=== PATIENT | female | born 1945 | race Caucasian/White ===

== ENCOUNTER 2019-04-02 14:16 | Inpatient (IN) ==
--- NOTE | 2019-04-02 14:30 | Emergency Department Note ---
Disposition Clinical Impression: Pleural effusion, New onset atrial fibrillation Congestive heart failure Qualifiers: Heart failure type: unspecified Heart failure chronicity: acute on chronic Qualified Code(s): I50.9 - Heart failure, unspecified Disposition: Admitted As Inpatient Condition: Fair Time of Disposition: 14:46 General Adult HPI - General Chief complaint: ED Shortness of Breath/Dyspnea Stated complaint: OCTAVIANO,Falling,COPD,CHF,AMS Time Seen by Provider: 04/02/19 14:27 - History of Present Illness Pain Scale: 0 - Related Data Home Medications Medication Instructions Recorded Confirmed Lasix 04/02/19 Losartan 04/02/19 Proventil 4 mg PO BID 04/02/19 04/02/19 Singulair 10 mg PO HS 04/02/19 04/02/19 Arcadio-24 300 mg PO DAILY 04/02/19 04/02/19 TraZODone 100 mg pe PO HS 04/02/19 04/02/19 Vistaril 25 mg PO BID 04/02/19 04/02/19 Vitamin D 50,000 units PO Q1W 04/02/19 04/02/19 Zoloft 100 mg PO DAILY 04/02/19 04/02/19 Nebulizer QAM 04/03/19 Allergies Allergy/AdvReac Type Severity Reaction Status Date / Time sulfamethoxazole AdvReac Swelling Verified 04/02/19 19:17 [From Bactrim] of the Eye trimethoprim [From Bactrim] AdvReac Swelling Verified 04/02/19 19:17 of the Eye Course Vital Signs Temperature 97.7 F 04/02/19 14:20 Pulse Rate 150 04/02/19 14:20 Respiratory Rate 18 04/02/19 14:20 Blood Pressure 158/92 04/02/19 14:20 O2 Sat by Pulse Oximetry 92 04/02/19 14:20 Temperature 98.1 F 04/03/19 07:27 Pulse Rate 87 04/03/19 07:27 Respiratory Rate 16 04/03/19 07:27 Blood Pressure 118/76 04/03/19 07:27 O2 Sat by Pulse Oximetry 94 04/03/19 07:27 Oxygen Delivery Oxygen Delivery Nasal Cannula Medical Decision Making - Lab Data Result diagrams: 04/03/19 06:45 04/03/19 06:45 Lab Results 04/02/19 04/02/19 04/02/19 Range/Units 14:34 14:34 14:34 WBC 9.2 (4.3-11.1) K/mcL RBC 4.95 (3.82-4.97) M/mcL Hgb 11.5 (11.5-15.4) g/dL Hct 38.6 (35.3-44.9) % MCV 78.0 L (83.0-100.0) fL MCH 23.2 L (28.0-33.3) pg MCHC 29.8 L (31.6-35.5) g/dL RDW 20.5 H (11.5-14.5) % Plt Count 333 (140-400) K/mcL MPV 10.3 (9.4-12.4) fL Immature Gran % 0.4 (0-4) % Seg Neutrophils % 74.2 % Lymphocytes % 13.7 % Monocytes % 10.7 % Eosinophils % 0.7 % Basophils % 0.3 % Neutrophils # 6.8 (1.6-8.9) K/mcL Lymphocytes # 1.3 (0.6-4.6) K/mcL Monocytes # 1.0 (0.0-1.3) K/mcL Eosinophils # 0.1 (0.0-0.6) K/mcL Basophils # 0.0 (0.0-0.2) K/mcL PT 12.9 H (9.4-12.1) Seconds INR 1.1 Heparin Anti-Xa, Unfract (0.30-0.70) IU/mL Sodium 143 (136-145) mEq/L Potassium 3.2 L (3.5-5.1) mEq/L Chloride 102 (98-107) mEq/L Carbon Dioxide 30 H (23-29) mEq/L BUN 22 (8-23) mg/dL Creatinine 0.97 (0.60-1.20) mg/dL Est GFR ( Amer) > 60 (> 60) Est GFR (Non-Af Amer) 56 L (> 60) BUN/Creatinine Ratio 23 (6-26) Glucose 110 H (70-105) mg/dL Calculated Osmolality 300 (280-300) Calcium 8.8 (8.6-10.3) mg/dL Total Bilirubin 1.1 H (0.3-1.0) mg/dL Direct Bilirubin 0.4 H (0.0-0.2) mg/dL Indirect Bilirubin 0.7 (0.0-1.2) mg/dL AST 10 L (13-39) Units/L ALT 8 (7-52) Units/L Alkaline Phosphatase 79 (34-104) Units/L Lactate Dehydrogenase 165 (140-271) Units/L Troponin I 0.04 H* (< 0.04) ng/mL B-Natriuretic Peptide (Less than 100) pg/mL Serum Total Protein 6.1 L (6.4-8.9) g/dL Albumin 3.8 (3.5-5.7) g/dL Globulin 2.3 L (2.4-3.5) g/dL Albumin/Globulin Ratio 1.7 (1.1-2.2) Pleural Fluid Volume mL Pleural Appearance (Clear) Pleural pH (No Ref Range) pH Units Pleural RBC (0.000 - 0.002) M/mcL Pleural Tot Nuc Cell (0-1000) TNC/mcL Pleural Neutrophils % Pleural Band Neuts % Pleural Eosinophils % Pleural Basophils % Pleural Lymphocytes % % Pleural Monocytes % % Pleural Other Cells % % Pleural Total Protein g/dL Pleural LDH (No Ref Range) Units/L Pleural Glucose (No Ref Range) mg/dL Pleural Amylase (No Ref Range) Units/L 04/02/19 04/02/19 04/02/19 Range/Units 14:34 15:14 15:14 WBC (4.3-11.1) K/mcL RBC (3.82-4.97) M/mcL Hgb (11.5-15.4) g/dL Hct (35.3-44.9) % MCV (83.0-100.0) fL MCH (28.0-33.3) pg MCHC (31.6-35.5) g/dL RDW (11.5-14.5) % Plt Count (140-400) K/mcL MPV (9.4-12.4) fL Immature Gran % (0-4) % Seg Neutrophils % % Lymphocytes % % Monocytes % % Eosinophils % % Basophils % % Neutrophils # (1.6-8.9) K/mcL Lymphocytes # (0.6-4.6) K/mcL Monocytes # (0.0-1.3) K/mcL Eosinophils # (0.0-0.6) K/mcL Basophils # (0.0-0.2) K/mcL PT (9.4-12.1) Seconds INR Heparin Anti-Xa, Unfract (0.30-0.70) IU/mL Sodium (136-145) mEq/L Potassium (3.5-5.1) mEq/L Chloride (98-107) mEq/L Carbon Dioxide (23-29) mEq/L BUN (8-23) mg/dL Creatinine (0.60-1.20) mg/dL Est GFR ( Amer) (> 60) Est GFR (Non-Af Amer) (> 60) BUN/Creatinine Ratio (6-26) Glucose (70-105) mg/dL Calculated Osmolality (280-300) Calcium (8.6-10.3) mg/dL Total Bilirubin (0.3-1.0) mg/dL Direct Bilirubin (0.0-0.2) mg/dL Indirect Bilirubin (0.0-1.2) mg/dL AST (13-39) Units/L ALT (7-52) Units/L Alkaline Phosphatase (34-104) Units/L Lactate Dehydrogenase (140-271) Units/L Troponin I (< 0.04) ng/mL B-Natriuretic Peptide 2211 H (Less than 100) pg/mL Serum Total Protein (6.4-8.9) g/dL Albumin (3.5-5.7) g/dL Globulin (2.4-3.5) g/dL Albumin/Globulin Ratio (1.1-2.2) Pleural Fluid Volume 970.0 mL Pleural Appearance Clear (Clear) Pleural pH 8.00 (No Ref Range) pH Units Pleural RBC < 0.002 (0.000 - 0.002) M/mcL Pleural Tot Nuc Cell 142 (0-1000) TNC/mcL Pleural Neutrophils 33.0 % Pleural Band Neuts 0 % Pleural Eosinophils 0 % Pleural Basophils 0 % Pleural Lymphocytes % 32.0 % Pleural Monocytes % 3.0 % Pleural Other Cells % 32.0 % Pleural Total Protein < 3.0 g/dL Pleural LDH 71 (No Ref Range) Units/L Pleural Glucose 115 (No Ref Range) mg/dL Pleural Amylase 29 (No Ref Range) Units/L 04/02/19 04/02/19 Range/Units 16:37 16:37 WBC 12.4 H (4.3-11.1) K/mcL RBC 5.32 H (3.82-4.97) M/mcL Hgb 12.1 (11.5-15.4) g/dL Hct 41.4 (35.3-44.9) % MCV 77.8 L (83.0-100.0) fL MCH 22.7 L (28.0-33.3) pg MCHC 29.2 L (31.6-35.5) g/dL RDW 20.4 H (11.5-14.5) % Plt Count 353 (140-400) K/mcL MPV 10.4 (9.4-12.4) fL Immature Gran % (0-4) % Seg Neutrophils % % Lymphocytes % % Monocytes % % Eosinophils % % Basophils % % Neutrophils # (1.6-8.9) K/mcL Lymphocytes # (0.6-4.6) K/mcL Monocytes # (0.0-1.3) K/mcL Eosinophils # (0.0-0.6) K/mcL Basophils # (0.0-0.2) K/mcL PT 13.4 H (9.4-12.1) Seconds INR 1.2 Heparin Anti-Xa, Unfract 0.04 L (0.30-0.70) IU/mL Sodium (136-145) mEq/L Potassium (3.5-5.1) mEq/L Chloride (98-107) mEq/L Carbon Dioxide (23-29) mEq/L BUN (8-23) mg/dL Creatinine (0.60-1.20) mg/dL Est GFR ( Amer) (> 60) Est GFR (Non-Af Amer) (> 60) BUN/Creatinine Ratio (6-26) Glucose (70-105) mg/dL Calculated Osmolality (280-300) Calcium (8.6-10.3) mg/dL Total Bilirubin (0.3-1.0) mg/dL Direct Bilirubin (0.0-0.2) mg/dL Indirect Bilirubin (0.0-1.2) mg/dL AST (13-39) Units/L ALT (7-52) Units/L Alkaline Phosphatase (34-104) Units/L Lactate Dehydrogenase (140-271) Units/L Troponin I (< 0.04) ng/mL B-Natriuretic Peptide (Less than 100) pg/mL Serum Total Protein (6.4-8.9) g/dL Albumin (3.5-5.7) g/dL Globulin (2.4-3.5) g/dL Albumin/Globulin Ratio (1.1-2.2) Pleural Fluid Volume mL Pleural Appearance (Clear) Pleural pH (No Ref Range) pH Units Pleural RBC (0.000 - 0.002) M/mcL Pleural Tot Nuc Cell (0-1000) TNC/mcL Pleural Neutrophils % Pleural Band Neuts % Pleural Eosinophils % Pleural Basophils % Pleural Lymphocytes % % Pleural Monocytes % % Pleural Other Cells % % Pleural Total Protein g/dL Pleural LDH (No Ref Range) Units/L Pleural Glucose (No Ref Range) mg/dL Pleural Amylase (No Ref Range) Units/L Critical Care Time Critical Care Time: Yes Total Critical Care Time: 30 Attestation: The high probability of a clinically significant, sudden or life threatening deterioration of the [] system(s) required my full and direct attention, intervention and personal management. The aggregate critical care time was [] minutes. This time is in addition to time spent performing reported procedures but includes the following: [] Data Review and interpretation [] Patient assessment and monitoring of vital signs [] Documentation [] Medication orders and management Attestation Statement - Attestation Attestation: I reviewed the residents documentation and agree with the residents assessment and plan of care. I have personally had face to face time with the patient. (Brief History, Brief Exam, and MDM) I personally supervised and was present for the pacheco/critical portions of the following procedures completed by the resident: (add procedures performed here). [id number] time provided Patient arrives by private vehicle complaining of dyspnea. She denies chest pain. She appears in no acute cardiopulmonary distress at the time of my exam. She was tachycardic at triage. I attest to supervising the resident physician's interpretation of the ECG
--- NOTE | 2019-04-02 14:53 | Emergency Department Note ---
Disposition Clinical Impression: Pleural effusion, New onset atrial fibrillation Congestive heart failure Qualifiers: Heart failure type: unspecified Heart failure chronicity: acute on chronic Qualified Code(s): I50.9 - Heart failure, unspecified Disposition: Admitted As Inpatient Condition: Fair Referrals: Homero Rondon MD [Primary Care Provider] - Forms: ED Satisfaction Letter Time of Disposition: 16:28 SOB HPI - General Chief Complaint: ED Shortness of Breath/Dyspnea Stated Complaint: OCTAVIANO,Falling,COPD,CHF,AMS Time Seen by Provider: 04/02/19 14:27 Source: patient Mode of arrival: private vehicle Limitations: no limitations Nursing Notes Reviewed: Yes Vital Signs Reviewed: Yes - History of Present Illness 73-year-old female with a past medical history of CHF and COPD that states that she has felt short of breath for the last month. Her sister at bedside states she finally convinced her to come into the hospital to be evaluated today. Patient is denying fevers or chills, chest pain. She states that she has had increasing shortness of breath. She denies belly pain, nausea vomiting diarrhea constipation. Patient denies a history of atrial fibrillation. Patient denies any recent changes to her medication regimen. - Related Data Allergies Allergy/AdvReac Type Severity Reaction Status Date / Time No Known Allergies Allergy Verified 04/02/19 15:21 Review of Systems: In addition to that documented in the HPI above, the additional ROS was obtai sherrill: Constitutional: Denies fevers or chills Eyes: Denies vision changes ENMT: Denies sore throat CV: Denies chest pain Resp: Reports SOB GI: Denies vomiting or diarrhea : Denies painful urination MSK: Denies recent trauma Skin: Denies new rashes Neuro: Denies new numbness or tingling or weakness Past Medical History - Past Medical History Attestation: Yes The following information was validated with the patient. Medical history: Reports: arthritis, COPD, hypertension Psychiatric history: Reports: no psych history - Social History Smoking Status: Former smoker Smokeless Tobacco Status: No Alcohol use: Reports: none Drug use: Reports: none Physical Exam General: A&O x 3. Mildly distressed. Well developed, well nourished. Head: atraumatic, normocephalic. ENT: No conjunctival injection, no scleral icterus. PERRLA. EOMI. Oropharynx non- erythematous. mucous membranes moist. Neuro: No focal deficits, no speech deficit, no facial droop, mentating well. BUE/BLE Str 5/5. Pulm: Decreased breath sounds on the right, rales in left base and RUL. Cardio: RRR no m/r/g. Chest not tender to palpation. Abd: Soft, non-distended. Normoactive bowel sounds. Non-tender to palpation. No guarding. Non rigid. Extremities: Radial pulses 2+ romel, dorsalis pedis/posterior tibialis 2+ romel. romel 2+ LE pitting edema. Skin: warm, dry, intact. No rashes. Psych: Appropriate mood and affect. Answers questions appropriately. Cooperative with exam. - General Limitations: no limitations General appearance: alert Course Vital Signs Temperature 97.7 F 04/02/19 14:20 Pulse Rate 150 04/02/19 14:20 Respiratory Rate 18 04/02/19 14:20 Blood Pressure 158/92 04/02/19 14:20 O2 Sat by Pulse Oximetry 92 04/02/19 14:20 Temperature 97.7 F 04/02/19 14:26 Pulse Rate 110 04/02/19 15:57 Respiratory Rate 19 04/02/19 15:57 Blood Pressure 131/85 04/02/19 15:57 O2 Sat by Pulse Oximetry 93 04/02/19 15:57 Oxygen Delivery Oxygen Delivery Room Air Shortness of Breath/Dyspnea - [facility] Narrative Medical decision making narrative: 73-year-old female who presents with complaint of one month of shortness of breath. Chest x-ray, CBC, BMP, BNP, EKG were ordered. Chest x-ray demonstrated significant right-sided pleural effusion by my interpretation and confirmed by the radiology report. Interventional radiology drained the pleural effusion at bedside and took off approximately 1500 mL of fluid which were sent for cytology and other studies. EKG demonstrated atrial fibrillation and patient denied any history of atrial f ibrillation. She was given a bolus of Cardizem and started on a Cardizem drip to titrate her heart rate to below 100. Patient also had a increase in her troponin at 0.04 and she was started on standard dose heparin under the advisement of the hospitalist. Results of the workup including any imaging and/or labwork was shared with the patient at bedside. Patient was given an opportunity to ask questions at bedside and all of their concerns were addressed. Patient verbalized understanding and agreement with plan of care. Pt remained vitals improved while in the emergency department during treatment. - Medical Records Medical records reviewed: Yes I reviewed the patient's medical records. - Lab Data Lab results reviewed: Yes I reviewed the patient's lab results. Result diagrams: 04/02/19 14:34 04/02/19 14:34 Lab Results 04/02/19 04/02/19 04/02/19 Range/Units 14:34 14:34 14:34 WBC 9.2 (4.3-11.1) K/mcL RBC 4.95 (3.82-4.97) M/mcL Hgb 11.5 (11.5-15.4) g/dL Hct 38.6 (35.3-44.9) % MCV 78.0 L (83.0-100.0) fL MCH 23.2 L (28.0-33.3) pg MCHC 29.8 L (31.6-35.5) g/dL RDW 20.5 H (11.5-14.5) % Plt Count 333 (140-400) K/mcL MPV 10.3 (9.4-12.4) fL Immature Gran % 0.4 (0-4) % Seg Neutrophils % 74.2 % Lymphocytes % 13.7 % Monocytes % 10.7 % Eosinophils % 0.7 % Basophils % 0.3 % Neutrophils # 6.8 (1.6-8.9) K/mcL Lymphocytes # 1.3 (0.6-4.6) K/mcL Monocytes # 1.0 (0.0-1.3) K/mcL Eosinophils # 0.1 (0.0-0.6) K/mcL Basophils # 0.0 (0.0-0.2) K/mcL PT 12.9 H (9.4-12.1) Seconds INR 1.1 Sodium 143 (136-145) mEq/L Potassium 3.2 L (3.5-5.1) mEq/L Chloride 102 (98-107) mEq/L Carbon Dioxide 30 H (23-29) mEq/L BUN 22 (8-23) mg/dL Creatinine 0.97 (0.60-1.20) mg/dL Est GFR ( Amer) > 60 (> 60) Est GFR (Non-Af Amer) 56 L (> 60) BUN/Creatinine Ratio 23 (6-26) Glucose 110 H (70-105) mg/dL Calculated Osmolality 300 (280-300) Calcium 8.8 (8.6-10.3) mg/dL Total Bilirubin 1.1 H (0.3-1.0) mg/dL Direct Bilirubin 0.4 H (0.0-0.2) mg/dL Indirect Bilirubin 0.7 (0.0-1.2) mg/dL AST 10 L (13-39) Units/L ALT 8 (7-52) Units/L Alkaline Phosphatase 79 (34-104) Units/L Lactate Dehydrogenase 165 (140-271) Units/L Troponin I 0.04 H* (< 0.04) ng/mL B-Natriuretic Peptide (Less than 100) pg/mL Serum Total Protein 6.1 L (6.4-8.9) g/dL Albumin 3.8 (3.5-5.7) g/dL Globulin 2.3 L (2.4-3.5) g/dL Albumin/Globulin Ratio 1.7 (1.1-2.2) 04/02/19 Range/Units 14:34 WBC (4.3-11.1) K/mcL RBC (3.82-4.97) M/mcL Hgb (11.5-15.4) g/dL Hct (35.3-44.9) % MCV (83.0-100.0) fL MCH (28.0-33.3) pg MCHC (31.6-35.5) g/dL RDW (11.5-14.5) % Plt Count (140-400) K/mcL MPV (9.4-12.4) fL Immature Gran % (0-4) % Seg Neutrophils % % Lymphocytes % % Monocytes % % Eosinophils % % Basophils % % Neutrophils # (1.6-8.9) K/mcL Lymphocytes # (0.6-4.6) K/mcL Monocytes # (0.0-1.3) K/mcL Eosinophils # (0.0-0.6) K/mcL Basophils # (0.0-0.2) K/mcL PT (9.4-12.1) Seconds INR Sodium (136-145) mEq/L Potassium (3.5-5.1) mEq/L Chloride (98-107) mEq/L Carbon Dioxide (23-29) mEq/L BUN (8-23) mg/dL Creatinine (0.60-1.20) mg/dL Est GFR ( Amer) (> 60) Est GFR (Non-Af Amer) (> 60) BUN/Creatinine Ratio (6-26) Glucose (70-105) mg/dL Calculated Osmolality (280-300) Calcium (8.6-10.3) mg/dL Total Bilirubin (0.3-1.0) mg/dL Direct Bilirubin (0.0-0.2) mg/dL Indirect Bilirubin (0.0-1.2) mg/dL AST (13-39) Units/L ALT (7-52) Units/L Alkaline Phosphatase (34-104) Units/L Lactate Dehydrogenase (140-271) Units/L Troponin I (< 0.04) ng/mL B-Natriuretic Peptide 2211 H (Less than 100) pg/mL Serum Total Protein (6.4-8.9) g/dL Albumin (3.5-5.7) g/dL Globulin (2.4-3.5) g/dL Albumin/Globulin Ratio (1.1-2.2) - Radiology Data Radiology results reviewed: Yes I reviewed the patient's radiology results. Thoracentesis 04/02/19 14:49 IMPRESSION: 1. Successful ultrasound guided right thoracentesis. D/ / Aristeo Hewitt MD / Aristeo Hewitt MD Interpreting Provider: Aristeo Hewitt MD Chest X-Ray 04/02/19 15:13 IMPRESSION: 1. Marked decrease in size in the right-sided pleural effusion without evidence of a pneumothorax. 2. Persistent right basilar opacification is seen. 3. Minimal patchy opacification of the left mid lung appears unchanged. D/ / Daniel Winkler MD / Daniel Winkler MD Interpreting Provider: Daniel Winkler MD - EKG Data EKG attestation: Yes I reviewed and interpreted this EKG. EKG results narrative: Heart rate 156, rhythm atrial fibrillation with rapid ventricular rate, axis normal. QRS 88, QTc 473. Needs criteria for left ventricular hypertrophy. No ST segment elevation.
[2019-04-02 15:01] LABS: Basophils % 0.3 %; Eosinophils # 0.1 K/mcL (0.0-0.6); Eosinophils % 0.7 %; Hematocrit 38.6 % (35.3-44.9); Hemoglobin 11.5 g/dL (11.5-15.4); Immature Granulocytes % 0.4 % (0-4); Lymphocytes # 1.3 K/mcL (0.6-4.6); Lymphocytes % 13.7 %; Mean Corpuscular HGB Conc 29.8 g/dL (31.6-35.5); Mean Corpuscular Hemoglobin 23.2 pg (28.0-33.3); Mean Platelet Volume 10.3 fL (9.4-12.4); Monocytes % 10.7 %; Neutrophils # 6.8 K/mcL (1.6-8.9); Platelet Count 333 K/mcL (140-400); Red Blood Count 4.95 M/mcL (3.82-4.97); Red Cell Distribution Width 20.5 % (11.5-14.5); Segmented Neutrophils % 74.2 %; White Blood Count 9.2 K/mcL (4.3-11.1)
[2019-04-02 15:07] LABS: INR 1.1; Prothrombin Time 12.9 Seconds (9.4-12.1)
--- NOTE | 2019-04-02 15:16 | IR Procedure Note ---
Date of procedure: 04/02/19 Consent Obtained: Written consent Timeout: Correct patient and procedure verified, Correct site verified, Time out performed, Skin prep completed Local anesthetic: Lidocaine 1% Was there an executive assistant present: Yes Business Records Manager: Baron Junior Estimated blood loss (cc): 0 Complications: None; Tolerated procedure well Indications: SOB with large right pleural effusion Procedure Performed: U/S guided right thoracentesis Post Procedure Treatment Plan: monitor on floor Specimen: to path
[2019-04-02 15:18] LABS: Alanine Aminotransferase 8 Units/L (7-52); Albumin 3.8 g/dL (3.5-5.7); Albumin/Globulin Ratio 1.7 (1.1-2.2); Alkaline Phosphatase 79 Units/L (34-104); Aspartate Amino Transferase 10 Units/L (13-39); BUN/Creatinine Ratio 23 (6-26); Bilirubin,Direct 0.4 mg/dL (0.0-0.2); Bilirubin,Indirect 0.7 mg/dL (0.0-1.2); Bilirubin,Total 1.1 mg/dL (0.3-1.0); Blood Urea Nitrogen 22 mg/dL (8-23); Calcium 8.8 mg/dL (8.6-10.3); Carbon Dioxide 30 mEq/L (23-29); Chloride 102 mEq/L (98-107); Globulin 2.3 g/dL (2.4-3.5); Glucose 110 mg/dL (70-105); Lactate Dehydrogenase 165 Units/L (140-271); Osmolality,Calculated 300 (280-300); Potassium 3.2 mEq/L (3.5-5.1); Sodium 143 mEq/L (136-145); Total Protein 6.1 g/dL (6.4-8.9); eGFR For African Americans > 60 (> 60); eGFR For Non-African Americans 56 (> 60)
[2019-04-02 15:31] LABS: Troponin I 0.04 ng/mL (< 0.04)
[2019-04-02] MEDS ORDERED: *HR* Heparin 5,000 UNIT/ML VIAL IVP ONE (16:21)
[2019-04-02 16:36] LABS: Amylase,Pleural Fluid 29 Units/L (No Ref Range); Glucose,Pleural Fluid 115 mg/dL (No Ref Range); LDH,Pleural Fluid 71 Units/L (No Ref Range); Total Protein,Pleural Fluid < 3.0 g/dL
[2019-04-02 16:49] LABS: RBC,Pleural Fluid < 0.002 M/mcL
[2019-04-02] MEDS ORDERED: Naloxone 0.4 MG/ML INJ IVP PRN (16:55)
--- NOTE | 2019-04-02 16:55 | Internal Med History&Physical ---
<Benjamin Almanzar - Last Filed: 04/02/19 18:50> Date of Encounter: 04/02/19 Time of Encounter: 16:45 Internal Medicine - H&P: HPI Chief complaint: Shortness of breath Admitted From: Emergency Dept Plans for Post Hospital Care: Home History of present illness: Ms. Harden is a 73 year old female with history of COPD and hypertension who presents to the hospital with progressive shortness of breath over the past 4 months. She says that the shortness breath started approximately 4 months ago and has been insidious in nature. She said that it started slowly and initially was exertional in nature however has become constant. She says that especially over the past month to 2 months, she has been slowly increasingly unable to complete normal activities. In addition of this, she has noticed swelling in her legs over the past month, increasing orthopnea over the past couple of months and PND over the past 2 weeks. She states that she has had no chest pain over this time and she cannot remember any inciting event over the past couple of months that caused this. She denies palpitations, diaphoresis. She denies fever, chills, sweats. She has had no specific illness that led to this. No MRI has been sick either. She cannot remember her heart rate being rapid. She denies any specific history of congestive heart failure or atrial fibrillation to her knowledge. In an attempt to treat that she has taken an inhaler at home which is only moderately helpful, however it never lasts very long. In the emergency department the patient did have a rapid heart rate of 150, and an EKG that demonstrated atrial fibrillation with rapid ventricular response. In addition to this, she did have chest x-ray which showed a moderate-large right pleural effusion with calcified lymph nodes and granulomas. In the ED, the patient did have a heparin drip started along with a Cardizem drip, and also underwent thoracentesis by interventional radiology. Following the first in T6, the patient did have marked decrease in size of the right pleural effusion but persistent right basilar opacification. Labs demonstrated mild hypokalemia of 3.2, CO2 30, troponin 0.04, BNP 2211. Pleural fluid was transudative in nature. The patient was admitted to medicine for further workup of new onset atrial fibrillation with suspected CHF exacerbation. Past Med Surg Social Fam HX - Past Medical History Medical history: arthritis, COPD, hypertension Psychiatric history: no psych history - Past Surgical History Additional surgical history: tubes tied - Social History Smoking Status: Former smoker Smokeless Tobacco Status: No Alcohol use: none Drug use: none Internal Medicine - H&P: Meds Lasix 04/02/19 [History] Losartan 04/02/19 [History] Proventil 4 mg PO BID 04/02/19 [History] Singulair 10 mg PO HS 04/02/19 [History] Arcadio-24 300 mg PO DAILY 04/02/19 [History] TraZODone 100 mg pe PO HS 04/02/19 [History] Vistaril 25 mg PO BID 04/02/19 [History] Vitamin D 50,000 units PO Q1W 04/02/19 [History] Zoloft 100 mg PO DAILY 04/02/19 [History] Allergy/AdvReac Type Severity Reaction Status Date / Time sulfamethoxazole AdvReac Swelling Verified 04/02/19 19:17 [From Bactrim] of the Eye trimethoprim [From Bactrim] AdvReac Swelling Verified 04/02/19 19:17 of the Eye All Systems PM: A 10-system review of systems was performed and is negative for pertinent findings except as documented above in the HPI. Review of systems: Constitutional: Denies fevers, chills, weight loss. Admits to generalized fatigue Head/Neck: Denies ANGULO, neck stiffness EENT: Denies vision changes/blurriness, rhinorrhea, congestion, sore throat CVS: Denies chest pain, palpitations. Admits to ECHEVERRIA, orthopnea, edema, PND Pulm: Admits to SOB, cough, sputum, wheezing GI: Denies abdominal pain, nausea, vomiting, diarrhea, constipation, melena, hematemasis : Denies dysuria, increased frequency, urgency, hematuria Heme: Denies ease of bleeding or bruising MSK: Denies joint pain, limited ROM Skin: Denies rashes, ulcers, color changes Neuro: Denies ANGULO, paresthesias, focal deficits, ataxia - Constitutional Vitals: Temp Pulse Resp BP Pulse Ox 97.7 F 110 19 131/85 93 04/02/19 14:26 04/02/19 15:57 04/02/19 15:57 04/02/19 15:57 04/02/19 15:57 Exam: Gen: Vitals noted. No acute distress. Eyes: anicteric sclerae, moist conjunctivae; no lid-lag; Pupils equal and reactive to light HENT: Atraumatic; oropharynx clear with moist mucous membranes and no mucosal ulcerations; normal hard and soft palate Neck: Trachea midline; supple, no thyromegaly or lymphadenopathy Cardiac: Irregular, tachycardic, no murmur, +S1/S2. No LYNDA appreciated Pulmonary: Wet crackles noted anteriorly and posteriorly, diminished in the bases b/l, wheezes noted b/l Abdomen: soft, nontender, no guarding. No masses or hepatosplenomegaly MSK: ROM intact, no joint swelling noted Extremities: 2+ BLE edema, nontender calf, no cyanosis or clubbing Skin: Normal temperature, turgor and texture; no rash, ulcers or subcutaneous nodules Neuro: moves all extremities, no focal deficits. Psych: Appropriate mood and behavior. A&Ox3 Internal Med - H&P Results - Labs CBC & Chem 7: 04/02/19 16:37 04/02/19 14:34 Labs: Short CBC 04/02/19 Range/Units 14:34 WBC 9.2 (4.3-11.1) K/mcL Hgb 11.5 (11.5-15.4) g/dL Hct 38.6 (35.3-44.9) % Plt Count 333 (140-400) K/mcL Neutrophils # 6.8 (1.6-8.9) K/mcL BMP 04/02/19 14:34 Sodium 143 Potassium 3.2 L Chloride 102 Carbon Dioxide 30 H BUN 22 Creatinine 0.97 Glucose 110 H Calcium 8.8 Cardiac Enzymes 04/02/19 Range/Units 14:34 Troponin I 0.04 H* (< 0.04) ng/mL Liver Function 04/02/19 Range/Units 14:34 Total Bilirubin 1.1 H (0.3-1.0) mg/dL Direct Bilirubin 0.4 H (0.0-0.2) mg/dL AST 10 L (13-39) Units/L ALT 8 (7-52) Units/L Alkaline Phosphatase 79 (34-104) Units/L Albumin 3.8 (3.5-5.7) g/dL - Impressions ITS Impressions Chest X-Ray 04/02/19 14:29 IMPRESSION: 1. Cardiomegaly with moderate to large-sized right pleural effusion. D/ / Aristeo Hewitt MD / Aristeo Hewitt MD Interpreting Provider: Aristeo Hewitt MD Thoracentesis 04/02/19 14:49 IMPRESSION: 1. Successful ultrasound guided right thoracentesis. D/ / Aristeo Hewitt MD / Aristeo Hewitt MD Interpreting Provider: Aristeo Hewitt MD Chest X-Ray 04/02/19 15:13 IMPRESSION: 1. Marked decrease in size in the right-sided pleural effusion without evidence of a pneumothorax. 2. Persistent right basilar opacification is seen. 3. Minimal patchy opacification of the left mid lung appears unchanged. D/ / Daniel Winkler MD / Daniel Winkler MD Interpreting Provider: Daniel Winkler MD - Assessment and Plan (1) Acute CHF (congestive heart failure) Current Visit: Yes Status: Acute Assessment and plan: Suspected Congestive Heart Failure Presents with progressive shortness of breath over 4 months Symptoms include percussive dyspnea, orthopnea, PND, bilateral lower extremity edema Chest x-ray in the ED demonstrated right-sided pleural effusion. Fluid analysis demonstrates transudative pleural effusion. Trop 0.04 Patient also has acute respiratory failure with hypoxia consistent with acute CHF There is no history of CHF nor does the patient have echocardiogram Patient has no history of CAD Risk factors include prior smoking history, hypertension, A. fib Plan Rate control A. Fib with Cardizem drip Diuresis with Lasix IV Echocardiogram in a.m. Trend troponins q6h Check TSH and Mag Repeat BMP in AM Cardiac monitoring Strict I/Os, Daily weights O2 prn Qualifiers: Heart failure type: unspecified Qualified Code(s): I50.9 - Heart failure, unspecified (2) Acute respiratory failure with hypoxia Current Visit: Yes Status: Acute Assessment and plan: Acute hypoxic respiratory failure Likely secondary to COPD exacerbation with what may be acute CHF exacerbation Patient does appear to have significant fluid overload on examination Suspect that there is a component of COPD exacerbation on top On presentation, patient is 92% on 3 L of oxygen, no home oxygen previously We will continue diuresis, continue oxygen as needed Treat COPD exacerbation with IV antibiotics We will not use steroids at this time as they may worsen patients status Plan for CT chest when patient's respiratory status improves following diuresis (3) Atrial fibrillation with rapid ventricular response Current Visit: Yes Status: Acute Assessment and plan: Atrial fibrillation with rapid ventricular response Etiology is unclear at this time, possibly secondary to pulmonary status Patient does have COPD which may be poorly controlled It does sound that the patient has an exacerbation of COPD at this time as well There may be an underlying infectious etiology at this time Repeat chest x-ray in the ED demonstrated right lower lobe consolidation CHADSVASC 4-5 depending on confirmation of CHF Plan Continue Cardizem drip Continue heparin drip Correct electrolyte imbalances Echocardiogram in the morning Continuous cardiac monitoring Continuous O2 monitoring EKG in the morning Trend troponins Consider cardiology consult pending workup Plan for CT chest when respiratory status has improved (4) COPD with acute exacerbation Current Visit: Yes Status: Acute Assessment and plan: COPD with acute exacerbation Patient does have worsening cough with sputum production over past several months Although some of this can be explained by what is suspected to be an acute exacerbation of CHF, she does describe green sputum that is thick in nature Chest x-ray also has right lower lobe consolidation, and patient mentions response to bronchodilators I suspect that there is a component of a COPD exacerbation mixed in with a CHF exacerbation At this time she has only minimal wheezing on examination however this may be masked by severe crackles Plan Hold steroids at this time as it may increase fluid retention Start IV Rocephin 1g daily and azithromycin 500mg daily, day 1 of 5 Bronchodilators with xopenex prn (5) Hypokalemia Current Visit: Yes Status: Acute Assessment and plan: Potassium 3.3 on admission Replete with PO and IV KCl Recheck in AM (6) Hypertension Current Visit: Yes Status: Acute Assessment and plan: History of HTN, home meds unclear Appears to be on benazapril and labetalol per chart review Will hold home meds pending both med rec and due to Cardichelseam drvenita Modify meds as needed pending full cardiac workup Qualifiers: Hypertension type: essential hypertension Qualified Code(s): I10 - Yesica severino (primary) hypertension (7) Pleural effusion Current Visit: Yes Status: Acute Assessment and plan: Right pleural effusion, transudative in nature. S/p Thoracentesis Suspect secondary to new CHF Will continue to diurese with lasix IVP daily Strict I/Os, Daily weights - Time Spent With Patient Total time spent is greater than 50% in coordination of care (as documented) at patient's floor/unit and/or counseling patient: <AriTere M - Last Filed: 04/02/19 19:44> Date of Encounter: 04/02/19 Internal Medicine - H&P: HPI History of present illness: Ms. Harden is a 73 year old female All Systems PM: A 10-system review of systems was performed and is negative for pertinent findings except as documented above in the HPI. - Constitutional Vitals: Temp Pulse Resp BP Pulse Ox 97.7 F 115 23 122/90 92 04/02/19 19:26 04/02/19 19:26 04/02/19 19:26 04/02/19 19:26 04/02/19 19:26 Internal Med - H&P Results - Labs CBC & Chem 7: 04/02/19 16:37 04/02/19 14:34 Labs: Short CBC 04/02/19 04/02/19 Range/Units 14:34 16:37 WBC 9.2 12.4 H (4.3-11.1) K/mcL Hgb 11.5 12.1 (11.5-15.4) g/dL Hct 38.6 41.4 (35.3-44.9) % Plt Count 333 353 (140-400) K/mcL Neutrophils # 6.8 (1.6-8.9) K/mcL BMP 04/02/19 14:34 Sodium 143 Potassium 3.2 L Chloride 102 Carbon Dioxide 30 H BUN 22 Creatinine 0.97 Glucose 110 H Calcium 8.8 Cardiac Enzymes 04/02/19 04/02/19 Range/Units 14:34 17:40 Troponin I 0.04 H* 0.04 H* (< 0.04) ng/mL Liver Function 04/02/19 Range/Units 14:34 Total Bilirubin 1.1 H (0.3-1.0) mg/dL Direct Bilirubin 0.4 H (0.0-0.2) mg/dL AST 10 L (13-39) Units/L ALT 8 (7-52) Units/L Alkaline Phosphatase 79 (34-104) Units/L Albumin 3.8 (3.5-5.7) g/dL - Impressions ITS Impressions Chest X-Ray 04/02/19 14:29 IMPRESSION: 1. Cardiomegaly with moderate to large-sized right pleural effusion. D/ / Aristeo Hewitt MD / Aristeo Hewitt MD Interpreting Provider: Aristeo Hewitt MD Thoracentesis 04/02/19 14:49 IMPRESSION: 1. Successful ultrasound guided right thoracentesis. D/ / Aristeo Hewitt MD / Aristeo Hewitt MD Interpreting Provider: Aristeo Hewitt MD Chest X-Ray 04/02/19 15:13 IMPRESSION: 1. Marked decrease in size in the right-sided pleural effusion without evidence of a pneumothorax. 2. Persistent right basilar opacification is seen. 3. Minimal patchy opacification of the left mid lung appears unchanged. D/ / Daniel Winkler MD / Daniel Winkler MD Interpreting Provider: Daniel Winkler MD - Time Spent With Patient Total time spent is greater than 50% in coordination of care (as documented) at patient's floor/unit and/or counseling patient: - Attending Attestation I examined this patient and my medical decision-making was reviewed with the Resident Physician Dr Almanzar. I agree with the documented findings, dis position and treatment plan as described except to the extent set forth below. Ms Harden is being admitted for pleural effusion and new Afib RVR awake with sister at bedside. no cp, pressure or palpitations. she is sob on o2 nc that was turned down while transported from ED. + cough, + sputum, deneis wheezing, + orthopnea. gen- alert, awake,appears stated age eyes- pupils equal round cv- reg rate and irreg/irreg rhythm, normal s1,s2, no murmurs appreciated, 3+ pitting to bl knees, + jvd lungs- course bs throughout, no wheezing, normal resp effort on o2 3l nc abd- soft, non tender, non distended, + bs neuro- AAOx3, CN grossly intact Right sided Pleural Effusion s/p IR thoracentesis at bedside in ED w 1500 cc removed and studies pending CXR with persistent R basilar opacification s/p thoracentesis Suspected Acute CHF exacerbation in setting of afib RVR duration uk as pt asx -lasix, strict i/os, weights, check echo New onset Afib with RVR, BP stable EKG wothout acute ischemic changes CHADSvasc 4 -cardizem gtt, heparin gtt -check stat mag and tsh -cards eval pending labs/echo Mild Trop elevation in setting of afib rvr suspect demand- will trend, on hep gtt Hypokalemia- replete to goal K of at least 4, check mag COPD not on oxygen at home Suspected COPDE with sputum and increased o2 requirement -azithro + rocephin Acute Hypoxic resp failure likely 2/2 afib rvr, acute chf and copde- o2 prn, hold steroids at this time and will reassess in am, treatments as above HTN -looks like benazapril and labetalol - hold while on cardizem gtt vte ppx hep gtt
[2019-04-02] MEDS: Heparin 25,000 UNIT/250 ML D5W 25,000 UNIT/250 ML IV.SOLN IVC SCH (16:57)
[2019-04-02] MEDS ORDERED: Potassium Chloride Elixir 20 MEQ/15 ML UDC PO ONE (16:58)
[2019-04-02] MEDS ORDERED: Potassium Chloride 40 MEQ, Lidocaine 1% 2 ML in D5% in Water 500 ML IVPB ONE (17:02)
[2019-04-02 17:09] LABS: Hematocrit 41.4 % (35.3-44.9); Hemoglobin 12.1 g/dL (11.5-15.4); Mean Corpuscular HGB Conc 29.2 g/dL (31.6-35.5); Mean Corpuscular Hemoglobin 22.7 pg (28.0-33.3); Mean Corpuscular Volume 77.8 fL (83.0-100.0); Mean Platelet Volume 10.4 fL (9.4-12.4); Platelet Count 353 K/mcL (140-400); Red Blood Count 5.32 M/mcL (3.82-4.97); Red Cell Distribution Width 20.4 % (11.5-14.5); White Blood Count 12.4 K/mcL (4.3-11.1)
[2019-04-02 17:09] LABS: Appearance of Pleural Fl Clear (Clear)
--- NOTE | 2019-04-02 17:16 | Event Note ---
Date of Encounter: 04/02/19 Time of Encounter: 18:00 I examined this patient and my medical decision-making was reviewed with the Resident Physician Dr Almanzar. I agree with the documented findings, disposition and treatment plan as described except to the extent set forth below. to serve as attending attestation pending completion of resident H&P Ms Harden is being admitted for pleural effusion and new Afib RVR awake with sister at bedside. no cp, pressure or palpitations. she is sob on o2 nc that was turned down while transported from ED. + cough, + sputum, deneis wheezing, + orthopnea. gen- alert, awake,appears stated age eyes- pupils equal round cv- reg rate and irreg/irreg rhythm, normal s1,s2, no murmurs appreciated, 3+ pitting to bl knees, + jvd lungs- course bs throughout, no wheezing, normal resp effort on o2 3l nc abd- soft, non tender, non distended, + bs neuro- AAOx3, CN grossly intact Right sided Pleural Effusion s/p IR thoracentesis at bedside in ED w 1500 cc removed and studies pending CXR with persistent R basilar opacification s/p thoracentesis Suspected Acute CHF exacerbation in setting of afib RVR duration uk as pt asx -lasix, strict i/os, weights, check echo New onset Afib with RVR, BP stable EKG wothout acute ischemic changes CHADSvasc 4 -cardizem gtt, heparin gtt -check stat mag and tsh -cards eval pending labs/echo Mild Trop elevation in setting of afib rvr suspect demand- will trend, on hep gtt Hypokalemia- replete to goal K of at least 4, check mag COPD not on oxygen at home Suspected COPDE with sputum and increased o2 requirement -azithro + rocephin Acute Hypoxic resp failure likely 2/2 afib rvr, acute chf and copde- o2 prn, hold steroids at this time and will reassess in am, treatments as above HTN -looks like benazapril and labetalol - hold while on cardizem gtt vte ppx hep gtt
[2019-04-02 17:18] LABS: Heparin anti-factor XA UFH 0.04 IU/mL (0.30-0.70); INR 1.2; Prothrombin Time 13.4 Seconds (9.4-12.1)
[2019-04-02 18:09] LABS: Basophils,Pleural Fluid 0 %; Eosinophils,Pleural Fluid 0 %
[2019-04-02 18:44] LABS: Troponin I 0.04 ng/mL (< 0.04)
[2019-04-02] MEDS ORDERED: Azithromycin 500 MG in D5% in Water 250 ML IVPB SCH (19:00)
[2019-04-02 19:33] LABS: Thyroid Stimulating Hormone 2.23 mcIU/mL (0.340-5.600)
[2019-04-02] MEDS: cefTRIAXone 1,000 MG in Water for inj. (sterile) 10 ML IVP SCH (20:44)
[2019-04-02] MEDS: hydrOXYzine pamoate 25 MG CAPSULE PO SCH (20:44)
[2019-04-02] MEDS: Ipratropium/Albuterol Neb 3 ML IH SCH ×2 (23:36→23:38)
[2019-04-02] MEDS: *HR* Heparin 5,000 UNIT/ML VIAL IVP PRN (23:42)
[2019-04-03] MEDS: Ipratropium/Albuterol Neb 3 ML IH SCH ×3 (04:17→11:04)
[2019-04-03 07:22] LABS: Basophils % 0.1 %; Eosinophils % 0.1 %; Hematocrit 38.3 % (35.3-44.9); Hemoglobin 11.5 g/dL (11.5-15.4); Immature Granulocytes % 0.6 % (0-4); Lymphocytes # 0.8 K/mcL (0.6-4.6); Mean Corpuscular Hemoglobin 23.4 pg (28.0-33.3); Mean Corpuscular Volume 77.8 fL (83.0-100.0); Mean Platelet Volume 10.8 fL (9.4-12.4); Monocytes # 1.2 K/mcL (0.0-1.3); Monocytes % 7.5 %; Neutrophils # 13.7 K/mcL (1.6-8.9); Platelet Count 292 K/mcL (140-400); Red Blood Count 4.92 M/mcL (3.82-4.97); Red Cell Distribution Width 20.4 % (11.5-14.5); Segmented Neutrophils % 86.7 %; White Blood Count 15.8 K/mcL (4.3-11.1)
[2019-04-03 07:32] LABS: INR 1.2; Prothrombin Time 13.5 Seconds (9.4-12.1)
[2019-04-03 07:36] LABS: Alanine Aminotransferase 5 Units/L (7-52); Albumin 2.9 g/dL (3.5-5.7); Albumin/Globulin Ratio 1.4 (1.1-2.2); Alkaline Phosphatase 73 Units/L (34-104); Aspartate Amino Transferase 9 Units/L (13-39); BUN/Creatinine Ratio 26 (6-26); Bilirubin,Total 1.1 mg/dL (0.3-1.0); Blood Urea Nitrogen 23 mg/dL (8-23); Calcium 8.3 mg/dL (8.6-10.3); Carbon Dioxide 29 mEq/L (23-29); Chloride 104 mEq/L (98-107); Chol/HDL Ratio 1.8 (0-4.9); Cholesterol 92 mg/dL (< 200); Globulin 2.1 g/dL (2.4-3.5); Glucose 126 mg/dL (70-105); HDL Cholesterol 52 mg/dL (40-59); LDL Cholesterol,Calculated 29 mg/dL (0-99); Magnesium 1.8 mg/dL (1.6-2.6); Osmolality,Calculated 299 (280-300); Potassium 3.6 mEq/L (3.5-5.1); Sodium 142 mEq/L (136-145); Triglycerides 56 mg/dL (< 150); eGFR For African Americans > 60 (> 60); eGFR For Non-African Americans > 60 (> 60)
[2019-04-03 08:06] LABS: Estimated Average Glucose 146 mg/dl
[2019-04-03] MEDS: Furosemide 40 MG/4 ML VIAL IVP SCH (08:42)
--- NOTE | 2019-04-03 08:43 | Internal Med Progress Note ---
<Tere Chapman - Last Filed: 04/03/19 17:52> Hospitalist Progress Note - Encounter Date of Encounter: 04/03/19 - Exam Vitals: Temp Pulse Resp BP Pulse Ox 98.4 F 94 16 129/91 97 04/03/19 16:22 04/03/19 16:22 04/03/19 16:22 04/03/19 16:22 04/03/19 16:22 - Time Spent with Patient Total time spent is greater than 50% in coordination of care (as documented) at patient's floor/unit and/or counseling patient: Internal Medicine: Result - Labs CBC & Chem 7: 04/03/19 06:45 04/03/19 06:45 Labs: Short CBC 04/03/19 Range/Units 06:45 WBC 15.8 H (4.3-11.1) K/mcL Hgb 11.5 (11.5-15.4) g/dL Hct 38.3 (35.3-44.9) % Plt Count 292 (140-400) K/mcL Neutrophils # 13.7 H (1.6-8.9) K/mcL BMP 04/03/19 06:45 Sodium 142 Potassium 3.6 Chloride 104 Carbon Dioxide 29 BUN 23 Creatinine 0.89 Glucose 126 H Calcium 8.3 L Cardiac Enzymes 04/02/19 04/02/19 Range/Units 17:40 22:48 Troponin I 0.04 H* 0.04 H* (< 0.04) ng/mL Liver Function 04/03/19 Range/Units 06:45 Total Bilirubin 1.1 H (0.3-1.0) mg/dL AST 9 L (13-39) Units/L ALT 5 L (7-52) Units/L Alkaline Phosphatase 73 (34-104) Units/L Albumin 2.9 L (3.5-5.7) g/dL - ABG Interpretation ABG results: PT/INR, D-dimer PT 13.5 Seconds (9.4-12.1) H 04/03/19 06:45 - Impressions Impressions Thoracentesis 04/02/19 14:49 IMPRESSION: 1. Successful ultrasound guided right thoracentesis. D/ / Aristeo Hewitt MD / Aristeo Hewitt MD Interpreting Provider: Aristeo Hewitt MD Echocardiogram 04/03/19 17:01 Impressions: LVEF 20-25%. Normal LV chamber size, wall thickness. Severe global left ventricular systolic dysfunction with regional variations. Atypical septal motion consistent with bundle branch block. Indeterminate diastolic function. Normal right ventricular structure, mildly reduced function. Mild mitral regurgitation. Mild tricuspid regurgitation. Mild pulmonary hypertension. Pleural effusion noted. Left Ventricular Wall Motion: Rest Echo Findings The apex, apical inferior, mid inferior, basal inferior, apical anterior, mid anterior, basal anterior, apical septal, mid inferior septal, basal inferior septal, apical lateral, mid anterior lateral, basal anterior lateral, mid anterior septal, mid inferior lateral, basal anterior septal and basal inferior lateral wild were hypokinetic. Findings: Study Quality * Technically sub-optimal due to clinical status. ECG Findings * Atrial fibrillation, BBB. Left Ventricle * LVEF 20-25%. * Normal LV chamber size, wall thickness. * Severe global left ventricular systolic dysfunction with regional variations. * Atypical septal motion consistent with bundle branch block. * Indeterminate diastolic function. Right Ventricle * Normal right ventricular structure, mildly reduced function. Left Atrium * Severely dilated left atrium. Right Atrium * Moderately dilated right atrium. Interatrial Septum * Interatrial septum not well evaluated. Aortic Valve * Aortic valve not well visualized. * No aortic regurgitation. * No aortic stenosis. Mitral Valve * Mildly thickened mitral valve leaflets. * Mild mitral annular calcification * Mild mitral regurgitation. * No mitral stenosis. Tricuspid Valve * Normal tricuspid valve structure. * Mild tricuspid regurgitation. * Mild pulmonary hypertension. Pulmonic Valve * Pulmonic valve is not well visualized. Aorta * Normally sized aortic root. IVC * The IVC is dilated. * > 50% respiratory change Pleural Effusion * Pleural effusion noted. Pulmonary Artery * Pulmonary artery not well visualized. Consult Discharge Plan - Plan Referrals: Homero Rondon MD [Primary Care Provider] - - Attending Attestation I examined this patient and my medical decision-making was reviewed with the Resident Physician Dr Murray. I agree with the documented findings, disposition and treatment plan as described except to the extent set forth below. Ms Harden is being admitted for pleural effusion and new Afib RVR awake with sister at bedside. no cp, pressure or palpitations. she is sob on o2 nc that was turned down while transported from ED. + cough, + sputum, deneis wheezing, + orthopnea. gen- alert, awake,appears stated age eyes- pupils equal round cv- reg rate and irreg/irreg rhythm, normal s1,s2, no murmurs appreciated, 3+ pitting to bl knees, + jvd lungs- course bs throughout, no wheezing, normal resp effort on o2 3l nc abd- soft, non tender, non distended, + bs neuro- AAOx3, CN grossly intact Right sided Pleural Effusion s/p IR thoracentesis at bedside in ED w 1500 cc removed CXR with persistent R basilar opacification s/p thoracentesis Acute Systolic CHF exacerbation in setting of afib RVR duration uk as pt asx, EF 20-25% -appreciate cards input, BB, lasix, will need acei prior to dc -ischemic work up with tentative [facility] saturday New onset Afib with RVR, BP stable -cardizem gtt and wean to BB, heparin gtt -plan for transition to NOAC in upcoming days -cards following COPD not on oxygen at home Suspected COPDE with sputum and increased o2 requirement -azithro + rocephin Acute Hypoxic resp failure likely 2/2 afib rvr, acute chf and copde- o2 prn, treatments as above HTN -stable on current meds, hold home meds New DM with A1C this admit- hold meds at this time, will require outpt initiation, monitor glucose has been 110-120 currently vte ppx hep gtt <Simeon Murray - Last Filed: 04/03/19 20:21> Hospitalist Progress Note - Encounter Date of Encounter: 04/03/19 Time of Encounter: 09:00 - Subjective Interval History: Patient with past medical history of CHF and COPD presented to the ED on 04/02/19 for dyspnea. Vitals: Temp 97.7, pulse rate 150, respiratory rate 18, blood pressure 158/92, O2 sat 92% on room air. Pleural effusion was seen on chest x- ray and 1.5 L was drained and sent for cytology and other studies. Patient was found to be in A. fib without known history. She was started on a Cardizem drip. She also had an increased troponin at 0.04 Labs significant for white blood cell count 12.4, potassium of 3.2, BNP 2211. Admitting diagnoses: Acute respiratory failure with hypoxia likely secondary to COPD exacerbation versus congestive heart failure. A. fib with RVR. Hypokalemia. Pleural effusion. She also had surgical criteria 3 of 4 without suspected infection. treatment: She was treated with Lasix IV, azithromycin, ceftriaxone. CXR read as cardiomegaly with moderate to large right pleural effusion. This was drained and repeat CXR showed no pneumothorax. Echo pending. Pleural fluid studies pending. Cardiology has not been consulted. Updates: TTE showed EF of 20-25%. Cardiology was consulted and placed the patient on Toprol-XL for congestive heart failure and Tim inhibitors upon discharge if renal function and BP tolerable. The Toprol will be increased and if blood pressure drops digoxin may be added. She is to receive left heart cath once she is euvolemic and can lay flat. - Exam Vitals: Temp Pulse Resp BP Pulse Ox 98.1 F 87 16 118/76 94 04/03/19 07:27 04/03/19 07:27 04/03/19 07:27 04/03/19 07:27 04/03/19 07:27 Exam: General: vitals noted. able to converse. eyes: no icterus. moist conjunctivae. ENT: wearing O2 mask. cardio: irregularly irregular rhythm. difficult to hear over lung sounds. resp: labored breathing. wet crackles throughout worse at bases. Upper moyer seem to be clear GI: nondistended. nontender to palpation extremities: b/l lower ext. 2+ edema neuro: no focal deficits noted. psych: appropriate mood and behavior. answers questions. - Assessment and Plan (1) Acute CHF (congestive heart failure) Current Visit: Yes Status: Acute Assessment and Plan: -Likely secondary to atrial fibrillation -Orthopnea, PND, bilateral edema of new onset -BNP 2211. Echo 04/03/19 showed EF 20-25%. -Cardiology consulted. Metoprolol succinate to be increased to blood pressure t olerance. We will consider digoxin if blood pressure drops. Will add tim inhibitor upon discharge as blood pressure tolerates. Strict I/O's, daily weights, salt and fluid restricted diet. (2) Atrial fibrillation with rapid ventricular response Current Visit: Yes Status: Acute Assessment and Plan: -Likely secondary to structural changes of the heart versus hypoxemia from COPD exacerbation -Newly discovered heart failure with symptoms as above -TSH WNL. Electrolytes likely not the cause. EKG QRS's irregularly irregular and showed tachycardia. [id number]: 4 -Calcium channel juliet drip DC'd. Continue metoprolol XL as above. Plan to switch to NOAC at discharge (3) Acute respiratory failure with hypoxia Current Visit: Yes Status: Acute Assessment and Plan: -Likely secondary to COPD exacerbation vs. newly discovered heart failure with pleural effusion -Increased cough, sputum production. Increasing dyspnea over a month's time. -finish azithromycin IV today and start azithromycin orally tomorrow for a total of 5 days. -no steroids at this point -O2 mask therapy (4) Pleural effusion Current Visit: Yes Status: Acute Assessment and Plan: -likely 2/2 new onset heart failure -dyspnea as above -as seen on CXR -pleural fluid: total protein <3; LDH 71 -serum: total protein 6.1; LDH 165 -transudative -thoracentesis performed (5) Hypertension Current Visit: Yes Status: Acute Assessment and Plan: -likely 2/2 CAD -systolic on admission in 150's -continue metoprolol XL for now. Will plan to begin ACEi after discharge as above DVT Prophylaxis: heparin drip - Time Spent with Patient Total time spent is greater than 50% in coordination of care (as documented) at patient's floor/unit and/or counseling patient: Internal Medicine: Result - Labs CBC & Chem 7: 04/03/19 06:45 04/03/19 06:45 Labs: Short CBC 04/02/19 04/02/19 04/03/19 Range/Units 14:34 16:37 06:45 WBC 9.2 12.4 H 15.8 H (4.3-11.1) K/mcL Hgb 11.5 12.1 11.5 (11.5-15.4) g/dL Hct 38.6 41.4 38.3 (35.3-44.9) % Plt Count 333 353 292 (140-400) K/mcL Neutrophils # 6.8 13.7 H (1.6-8.9) K/mcL BMP 04/02/19 04/03/19 14:34 06:45 Sodium 143 142 Potassium 3.2 L 3.6 Chloride 102 104 Carbon Dioxide 30 H 29 BUN 22 23 Creatinine 0.97 0.89 Glucose 110 H 126 H Calcium 8.8 8.3 L Cardiac Enzymes 04/02/19 04/02/19 04/02/19 Range/Units 14:34 17:40 22:48 Troponin I 0.04 H* 0.04 H* 0.04 H* (< 0.04) ng/mL Liver Function 04/02/19 04/03/19 Range/Units 14:34 06:45 Total Bilirubin 1.1 H 1.1 H (0.3-1.0) mg/dL Direct Bilirubin 0.4 H (0.0-0.2) mg/dL AST 10 L 9 L (13-39) Units/L ALT 8 5 L (7-52) Units/L Alkaline Phosphatase 79 73 (34-104) Units/L Albumin 3.8 2.9 L (3.5-5.7) g/dL - ABG Interpretation ABG results: PT/INR, D-dimer PT 13.5 Seconds (9.4-12.1) H 04/03/19 06:45 - Impressions Impressions Chest X-Ray 04/02/19 14:29 IMPRESSION: 1. Cardiomegaly with moderate to large-sized right pleural effusion. D/ / Aristeo Hewitt MD / Aristeo Hewitt MD Interpreting Provider: Aristeo Hewitt MD Thoracentesis 04/02/19 14:49 IMPRESSION: 1. Successful ultrasound guided right thoracentesis. D/ / Aristeo Hewitt MD / Aristeo Hewitt MD Interpreting Provider: Aristeo Hewitt MD Chest X-Ray 04/02/19 15:13 IMPRESSION: 1. Marked decrease in size in the right-sided pleural effusion without evidence of a pneumothorax. 2. Persistent right basilar opacification is seen. 3. Minimal patchy opacification of the left mid lung appears unchanged. D/ / Daniel Winkler MD / Daniel Winkler MD Interpreting Provider: Daniel Winkler MD <Simeon Murray G - Last Filed: 04/03/19 20:21> (1) Acute CHF (congestive heart failure) Qualifiers: Heart failure type: unspecified Qualified Code(s): I50.9 - Heart failure, unspecified (5) Hypertension Qualifiers: Hypertension type: essential hypertension Qualified Code(s): I10 - Essential (primary) hypertension
[2019-04-03] MEDS: *HR* Heparin 5,000 UNIT/ML VIAL IVP PRN ×2 (08:44→22:28)
[2019-04-03] MEDS: cefTRIAXone 1,000 MG in Water for inj. (sterile) 10 ML IVP SCH (08:53)
[2019-04-03] MEDS: hydrOXYzine pamoate 25 MG CAPSULE PO SCH ×2 (08:53→21:02)
[2019-04-03] MEDS: Magnesium Oxide 400 MG TABLET PO SCH (13:56)
--- NOTE | 2019-04-03 13:59 | Electrocardiograph Report ---
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
--- NOTE | 2019-04-03 14:14 | Electrocardiograph Report ---
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
[2019-04-03] MEDS ORDERED: Levalbuterol Neb 0.63 MG/3 ML IH PRN (14:53)
--- NOTE | 2019-04-03 15:18 | Cardiology Consult Note ---
<Awilda Aaron Beth - Last Filed: 04/03/19 15:32> Date of Encounter: 04/03/19 Time of Encounter: 15:00 Assessment and Plan (1) Congestive heart failure Current Visit: Yes Status: Acute Suspected new onset systolic heart failure; etiology and chronicity unclear. Reports worsening symptoms over the past 3-6 months including orthopnea, PND, and LE edema. Significant volume overload upon exam. BNP 2211 upon admission. s/p right thoracentesis for large right pleural effusion--1.5 Liter fluid removal TTE 04/03/19: LVEF 20-25%, global LV systolic dysfunction with regional variations, mild MR, TR, and PH. Agree with gentle diuresis. Cumulative I&O: +600 mL Change BB to Toprol XL; add ACEi upon discharge if renal function and BP will tolerate. Strict I&Os, daily weights, Na/fluid restricted diet. Qualifiers: Heart failure type: systolic Heart failure chronicity: acute Qualified Code(s): I50.21 - Acute systolic (congestive) heart failure (2) Atrial fibrillation Current Visit: Yes Status: Acute Newly detected atrial fibrillation--unclear chronicity. Patient reports intermi ttent palpitations over the past month. Recommend rate control strategy for now. HR controlled upon exam, 80's-90's. Given HFrEF, recommend weaning off cardizem gtt. Will start BB, continue to incr ease as BP will allow to optimize HR control. TSH normal. No significant electrolyte abnormality. CHA2Ds Vasc=4 (CHF, age, female, HTN); recommend care home AC, patient is agreeable to NOAC. Will continue heparin gtt for now until testing has been completed. Qualifiers: Atrial fibrillation type: persistent Qualified Code(s): I48.1 - Persistent atrial fibrillation (3) Cardiomyopathy Current Visit: Yes Status: Acute Recommendations as above (CHF). Unclear etiology, possible tachycardia induced secondary to afib. RF for CAD include HTN, heavy/chronic tobacco use, and family hx of CAD. Recommend LHC to r/o ischemic etiology once patient is euvolemic and able to lay flat--tentatively Saturday. Continue BB, add ACEi prior to discharge if renal function and BP will tolerate. Qualifiers: Cardiomyopathy type: unspecified Qualified Code(s): I42.9 - Cardiomyopathy, unspecified Discussion w patient/family: The assessment and plan as outlined above was discussed with the patient and/or family members who expressed understanding and agreement. All questions were answered. Thank you for involving us in the care of your patient. Please call with any questions. The patient will be discussed and reviewed with Dr. Arambula; changes to be made accordingly. History of Present Illness Consult date: 04/03/19 Requesting physician: Simeon Murray Consult reason: CHF Chief complaint: Shortness of breath History of present illness: Ms. Harden is a 73 year old female with PMHx significant of HTN, COPD, and former tobacco use who presented to the ED with complaints of worsening shortness of breath over the past several months. Associated symptoms including orthopnea (6+ months), non-radiating chest heaviness, lower extremity edema, and non-productive cough. She saw her PCP last month who started her on oral lasix. No prior CV testing or history. ECG upon arrival demonstrated atrial fibrillation--rate 90s--with non-specific ST/T wave abnormalities. Troponin 0.04 x3. Imaging in the ED demonstrated large right pleural effusion, she underwent thoracentesis and 1.5 L of fluid was removed. She reportedly quit smoking in November, 1-2 ppd for nearly 65+ years. Past Med Surg Social Fam HX - Past Medical History Attestation: Yes The following information was validated with the patient. Source: patient Medical history: arthritis, COPD, hypertension Psychiatric history: no psych history - Past Surgical History Additional surgical history: tubes tied - Social History Smoking Status: Former smoker Smokeless Tobacco Status: No Alcohol use: none Drug use: none - Family History Mother Living Status: Hx Family Cardiac Disorders: Yes (CAD) Father Living Status: Cause of : [place] Hx Family Cardiac Disorders: Yes (multiple heart attacks) Sister Hx Family Cardiac Disorders: Yes (cardiomyopathy) Medications and Allergies Lasix 04/02/19 [History] Losartan 04/02/19 [History] Proventil 4 mg PO BID 04/02/19 [History] Singulair 10 mg PO HS 04/02/19 [History] Arcadio-24 300 mg PO DAILY 04/02/19 [History] TraZODone 100 mg pe PO HS 04/02/19 [History] Vistaril 25 mg PO BID 04/02/19 [History] Vitamin D 50,000 units PO Q1W 04/02/19 [History] Zoloft 100 mg PO DAILY 04/02/19 [History] Nebulizer QAM 04/03/19 [History] Allergy/AdvReac Type Severity Reaction Status Date / Time sulfamethoxazole AdvReac Swelling Verified 04/02/19 19:17 [From Bactrim] of the Eye trimethoprim [From Bactrim] AdvReac Swelling Verified 04/02/19 19:17 of the Eye All Systems Review: The remainder of the systems were reviewed and are negative - Cardiovascular Cardiovascular: as per HPI Physical Examination General: Conversant HEENT: Atraumatic, Normocephaly Cardiac: Other (irregularly irregular) Lungs: Other (Bibasilar crackles) Neuro: Alert and responsive Abdomen: Soft Skin: No rashes noted on visualized skin Musculoskeletal: No Chest Wall Tenderness Extremities: Other (+2 BLE edema) Results 04/03/19 06:45 04/03/19 06:45 Lab Results 04/02/19 04/02/19 04/02/19 14:34 14:34 16:37 WBC 12.4 H Hgb 12.1 Hct 41.4 Plt Count 353 INR Sodium 143 Potassium 3.2 L Chloride 102 Carbon Dioxide 30 H BUN 22 Creatinine 0.97 Glucose 110 H Calcium 8.8 Magnesium Total Bilirubin 1.1 H AST 10 L ALT 8 Alkaline Phosphatase 79 Troponin I 0.04 H* B-Natriuretic Peptide 2211 H TSH 04/02/19 04/02/19 04/02/19 16:37 17:40 17:40 WBC Hgb Hct Plt Count INR 1.2 Sodium Potassium Chloride Carbon Dioxide BUN Creatinine Glucose Calcium Magnesium Cancelled 1.9 Total Bilirubin AST ALT Alkaline Phosphatase Troponin I 0.04 H* B-Natriuretic Peptide TSH 2.230 04/02/19 04/03/19 04/03/19 22:48 06:45 06:45 WBC 15.8 H Hgb 11.5 Hct 38.3 Plt Count 292 INR 1.2 Sodium Potassium Chloride Carbon Dioxide BUN Creatinine Glucose Calcium Magnesium Total Bilirubin AST ALT Alkaline Phosphatase Troponin I 0.04 H* B-Natriuretic Peptide TSH 04/03/19 06:45 WBC Hgb Hct Plt Count INR Sodium 142 Potassium 3.6 Chloride 104 Carbon Dioxide 29 BUN 23 Creatinine 0.89 Glucose 126 H Calcium 8.3 L Magnesium 1.8 Total Bilirubin 1.1 H AST 9 L ALT 5 L Alkaline Phosphatase 73 Troponin I B-Natriuretic Peptide TSH Active Medications Furosemide (Lasix) 40 mg IVP DAILY [facility] Stop: 10/03/19 09:01 Last Admin: 04/03/19 08:42 Dose: 40 mg Documented by: Heparin Sodium (Porcine) (Heparin) 4,200 unit 70 unit/kg (4200 unit) IVP Q6HR PRN PRN Reason: SEE COMMENTS Stop: 10/02/19 16:22 Heparin Sodium (Porcine) (Heparin) 2,100 unit 35 unit/kg (2100 unit) IVP Q6H PRN PRN Reason: SEE COMMENTS Stop: 10/02/19 16:22 Last Admin: 04/03/19 08:44 Dose: 2,100 unit Documented by: Hydroxyzine Pamoate (Vistaril) 25 mg PO BID [facility] Stop: 10/02/19 21:01 Last Admin: 04/03/19 08:53 Dose: 25 mg Documented by: Heparin Sodium/Dextrose (Heparin 25,000 Unit/250 Ml D5w) 25,000 unit in 250 mls @ 8.382 mls/hr IVC .Q24H [facility]; Protocol Stop: 10/02/19 16:31 Last Titration: 04/03/19 08:43 Dose: 18 unit/kg/hr, 10.8 mls/hr Documented by: Azithromycin 500 mg/ Dextrose 250 mls @ 252 mls/hr IVPB Q24H [facility] Stop: 10/02/19 19:01 Last Infusion: 04/02/19 21:44 Dose: Infused Documented by: Ceftriaxone Sodium 1,000 mg/ (Sterile Water) 10 mls @ 600 mls/hr IVP DAILY [facility] Stop: 10/02/19 19:01 Last Admin: 04/03/19 08:53 Dose: 600 mls/hr Documented by: Levalbuterol HCl (Xopenex) 0.63 mg IH [id number] PRN PRN Reason: Shortness Of Breath Stop: 10/03/19 16:01 Magnesium Oxide (Mag-Ox) 400 mg PO DAILY [facility]; Protocol Stop: 10/03/19 11:46 Last Admin: 04/03/19 13:56 Dose: 400 mg Documented by: Metoprolol Succinate (Toprol Xl) 25 mg PO DAILY [facility] Stop: 10/03/19 16:01 Naloxone HCl (Narcan) 0.4 mg IVP Q2MPRN PRN PRN Reason: SEE COMMENTS Stop: 10/02/19 16:56 Potassium Chloride (Potassium Chloride) 20 meq PO ONCE ONE Stop: 04/03/19 16:01 Sertraline HCl (Zoloft) 100 mg PO DAILY [facility] Stop: 10/03/19 09:01 Last Admin: 04/03/19 08:53 Dose: 100 mg Documented by: Impressions Thoracentesis 04/02/19 14:49 IMPRESSION: 1. Successful ultrasound guided right thoracentesis. D/ / Aristeo Hewitt MD / Aristeo Hewitt MD Interpreting Provider: Aristeo Hewitt MD Chest X-Ray 04/02/19 15:13 IMPRESSION: 1. Marked decrease in size in the right-sided pleural effusion without evidence of a pneumothorax. 2. Persistent right basilar opacification is seen. 3. Minimal patchy opacification of the left mid lung appears unchanged. D/ / Daniel Winkler MD / Daniel Winkler MD Interpreting Provider: Daniel Winkler MD Echocardiogram 04/03/19 17:01 Impressions: LVEF 20-25%. Normal LV chamber size, wall thickness. Severe global left ventricular systolic dysfunction with regional variations. Atypical septal motion consistent with bundle branch block. Indeterminate diastolic function. Normal right ventricular structure, mildly reduced function. Mild mitral regurgitation. Mild tricuspid regurgitation. Mild pulmonary hypertension. Pleural effusion noted. Left Ventricular Wall Motion: Rest Echo Findings The apex, apical inferior, mid inferior, basal inferior, apical anterior, mid anterior, basal anterior, apical septal, mid inferior septal, basal inferior septal, apical lateral, mid anterior lateral, basal anterior lateral, mid anterior septal, mid inferior lateral, basal anterior septal and basal inferior lateral wild were hypokinetic. Findings: Study Quality * Technically sub-optimal due to clinical status. ECG Findings * Atrial fibrillation, BBB. Left Ventricle * LVEF 20-25%. * Normal LV chamber size, wall thickness. * Severe global left ventricular systolic dysfunction with regional variations. * Atypical septal motion consistent with bundle branch block. * Indeterminate diastolic function. Right Ventricle * Normal right ventricular structure, mildly reduced function. Left Atrium * Severely dilated left atrium. Right Atrium * Moderately dilated right atrium. Interatrial Septum * Interatrial septum not well evaluated. Aortic Valve * Aortic valve not well visualized. * No aortic regurgitation. * No aortic stenosis. Mitral Valve * Mildly thickened mitral valve leaflets. * Mild mitral annular calcification * Mild mitral regurgitation. * No mitral stenosis. Tricuspid Valve * Normal tricuspid valve structure. * Mild tricuspid regurgitation. * Mild pulmonary hypertension. Pulmonic Valve * Pulmonic valve is not well visualized. Aorta * Normally sized aortic root. IVC * The IVC is dilated. * > 50% respiratory change Pleural Effusion * Pleural effusion noted. Pulmonary Artery * Pulmonary artery not well visualized. - Imaging and Cardiology Echo: report reviewed - EKG Interpretation EKG results cardiology: personally reviewed Consult Discharge Plan - Plan Referrals: Homero Rondon MD [Primary Care Provider] - <Chema Arambula - Last Filed: 04/03/19 17:34> Date of Encounter: 04/03/19 - Attending Attestation Patient was seen and evaluated independently by me. Findings, assessment and plan were discussed at length with patient, questions answered. Agree with nurse practitioner's/resident's documentation. Addition as follows, 73yoCF COPD, tobacco, HTN. P/w worsening [place]/orthopnea/LE edema 2-3 months. Consulted for Afib RVR and HFrEF unclear duration. Symptoms improving on diuresis w/o LANDON and R-thoracentesis. VR ctr ok on dilt drip. BP stable, RA, scattered rhonchi and crackles, IR, 2/6 SM LSB, 3+ edema B/L to knees. ECG/Tele Afib. TTE EF 20-25% w/o LV dilatation, mild RV dysfunction, mild MR/TR, mild PH. Trop peak 0.04, BNP 2k A: ADHF, HFrEF, duration likely months, NYHA III, TICMP vs ICMP, currently moderate hypervolemia Afib, RVR resolved, C score 5, on heparin COPD P: c/w diuresis, I/O -1L/d till Bun/Cr up trending K, Mg replacement switch dilt to low dose BB with uptitration per volume status and VR add ACEi soon, aldactone before discharge LHC when euvolemia c/w heparin till LHC done, then switch to NOAC Chema Arambula MD, PhD Assessment and Plan Discussion w patient/family: The assessment and plan as outlined above was discussed with the patient and/or family members who expressed understanding and agreement. All questions were answered. Thank you for involving us in the care of your patient. Please call with any questions. History of Present Illness History of present illness: Ms. Harden is a 73 year old female All Systems Review: The remainder of the systems were reviewed and are negative Physical Examination Vital Signs, Last 4 Hours Temp Pulse Resp BP Pulse Ox 04/03/19 16:22 98.4 F 94 16 129/91 97 04/03/19 16:02 98.4 F 93 121/77 92 04/03/19 16:00 98.4 F 93 92 Results 04/03/19 06:45 04/03/19 06:45 Lab Results 04/02/19 04/02/19 04/02/19 16:37 17:40 17:40 WBC Hgb Hct Plt Count INR 1.2 Sodium Potassium Chloride Carbon Dioxide BUN Creatinine Glucose Calcium Magnesium Cancelled 1.9 Total Bilirubin AST ALT Alkaline Phosphatase Troponin I 0.04 H* TSH 2.230 04/02/19 04/03/19 04/03/19 22:48 06:45 06:45 WBC 15.8 H Hgb 11.5 Hct 38.3 Plt Count 292 INR 1.2 Sodium Potassium Chloride Carbon Dioxide BUN Creatinine Glucose Calcium Magnesium Total Bilirubin AST ALT Alkaline Phosphatase Troponin I 0.04 H* TSH 04/03/19 06:45 WBC Hgb Hct Plt Count INR Sodium 142 Potassium 3.6 Chloride 104 Carbon Dioxide 29 BUN 23 Creatinine 0.89 Glucose 126 H Calcium 8.3 L Magnesium 1.8 Total Bilirubin 1.1 H AST 9 L ALT 5 L Alkaline Phosphatase 73 Troponin I TSH
[2019-04-03] MEDS ORDERED: Metoprolol XL (24 HR) Succ 25 MG TAB.ER.24H PO SCH (16:00)
[2019-04-03] MEDS: Heparin 25,000 UNIT/250 ML D5W 25,000 UNIT/250 ML IV.SOLN IVC SCH (18:32)
[2019-04-03] MEDS: Azithromycin 250 MG TABLET PO SCH (21:02)
[2019-04-03] MEDS ORDERED: Ipratropium/Albuterol Neb 3 ML IH SCH (21:27)
[2019-04-04 05:08] LABS: Basophils % 0.2 %; Hematocrit 37.1 % (35.3-44.9); Hemoglobin 11.2 g/dL (11.5-15.4); Immature Granulocytes % 0.6 % (0-4); Lymphocytes % 6.2 %; Mean Corpuscular HGB Conc 30.2 g/dL (31.6-35.5); Mean Corpuscular Hemoglobin 23.3 pg (28.0-33.3); Mean Corpuscular Volume 77.3 fL (83.0-100.0); Mean Platelet Volume 10.1 fL (9.4-12.4); Monocytes # 1.2 K/mcL (0.0-1.3); Monocytes % 7.2 %; Neutrophils # 13.7 K/mcL (1.6-8.9); Platelet Count 291 K/mcL (140-400); Red Cell Distribution Width 19.9 % (11.5-14.5); Segmented Neutrophils % 85.8 %
[2019-04-04 05:19] LABS: INR 1.3; Prothrombin Time 14.2 Seconds (9.4-12.1)
[2019-04-04 05:27] LABS: Alanine Aminotransferase 5 Units/L (7-52); Albumin/Globulin Ratio 1.3 (1.1-2.2); Alkaline Phosphatase 72 Units/L (34-104); Aspartate Amino Transferase 9 Units/L (13-39); BUN/Creatinine Ratio 21 (6-26); Bilirubin,Total 1.1 mg/dL (0.3-1.0); Blood Urea Nitrogen 21 mg/dL (8-23); Calcium 8.8 mg/dL (8.6-10.3); Carbon Dioxide 33 mEq/L (23-29); Chloride 101 mEq/L (98-107); Globulin 2.3 g/dL (2.4-3.5); Glucose 141 mg/dL (70-105); Osmolality,Calculated 301 (280-300); Potassium 3.6 mEq/L (3.5-5.1); Sodium 143 mEq/L (136-145); Total Protein 5.3 g/dL (6.4-8.9); eGFR For African Americans > 60 (> 60); eGFR For Non-African Americans 55 (> 60)
[2019-04-04] MEDS ORDERED: *HR* Metoprolol 5 MG/5 ML VIAL IVP ONE ×2 (05:35→05:41)
[2019-04-04] MEDS: cefTRIAXone 1,000 MG in Water for inj. (sterile) 10 ML IVP SCH (08:49)
[2019-04-04] MEDS: hydrOXYzine pamoate 25 MG CAPSULE PO SCH ×2 (08:50→22:47)
[2019-04-04] MEDS: Magnesium Oxide 400 MG TABLET PO SCH (08:50)
[2019-04-04] MEDS: Furosemide 40 MG/4 ML VIAL IVP SCH (08:50)
[2019-04-04] MEDS ORDERED: Metoprolol XL (24 HR) Succ 50 MG TAB.ER.24H PO SCH (09:00)
--- NOTE | 2019-04-04 09:44 | Cardiology Progress Note ---
Date of Encounter: 04/04/19 Time of Encounter: 09:00 Assessment and Plan (1) Congestive heart failure Current Visit: Yes Status: Acute Suspected new onset systolic heart failure; etiology and chronicity unclear. Reports worsening symptoms over the past 3-6 months including orthopnea, PND, and LE edema. Significant volume overload upon exam. BNP 2211 upon admission. s/p right thoracentesis for large right pleural effusion--1.5 Liter fluid removal TTE 04/03/19: LVEF 20-25%, global LV systolic dysfunction with regional variations, mild MR, TR, and PH. Agree with gentle diuresis. Cumulative I&O: -130 mL Increase Toprol XL to 50 mg daily today; add ACEi upon discharge if renal function and BP will tolerate. Strict I&Os, daily weights, Na/fluid restricted diet. Qualifiers: Heart failure type: systolic Heart failure chronicity: acute Qualified Code(s): I50.21 - Acute systolic (congestive) heart failure (2) Atrial fibrillation Current Visit: Yes Status: Acute Newly detected atrial fibrillation--unclear chronicity. Patient reports intermittent palpitations over the past month. Recommend rate control strategy for now. HR controlled upon exam, 100-110's upon exam. 12 hour tele: avg [id number] afib. Goal less than 100 Now off cardizem gtt (HFrEF); increase Toprol XL today. If HR's remain uncontrolled, may need to consider digoxin. TSH normal. No significant electrolyte abnormality. CHA2Ds Vasc=4 (CHF, age, female, HTN); recommend senior living AC, patient is agreeable to NOAC. Will continue heparin gtt for now until testing has been completed. Qualifiers: Atrial fibrillation type: persistent Qualified Code(s): I48.1 - Persistent atrial fibrillation (3) Cardiomyopathy Current Visit: Yes Status: Acute Recommendations as above (CHF). Unclear etiology, possible tachycardia induced secondary to afib. RF for CAD include HTN, heavy/chronic tobacco use, and family hx of CAD. Recommend LHC to r/o ischemic etiology once patient is euvolemic and able to lay flat--tentatively Saturday. Continue BB, add ACEi prior to discharge if renal function and BP will tolerate. Qualifiers: Cardiomyopathy type: unspecified Qualified Code(s): I42.9 - Cardiomyopathy, unspecified Discussion w patient/family: The assessment and plan as outlined above was discussed with the patient and/or family members who expressed understanding and agreement. All questions were answered. Thank you for involving us in the care of your patient. Please call with any questions. The patient will be discussed and reviewed with Dr. Arambula; changes to be made accordingly. Subjective Principal diagnosis: Afib, CHF Interval history: Seen and examined. Remains tachycardiac this AM; however has no new CV complaints. LE edema improving. Objective Vital Signs, Last 4 Hours Temp Pulse BP Pulse Ox 04/04/19 06:35 97.9 F 131 105/91 83 General: Conversant, Other (thin/frail appearing) HEENT: Atraumatic, Normocephaly Cardiac: Other (irregularly irregular; tachycardiac) Lungs: Other (bibasilar rales) Neuro: Alert and responsive Abdomen: Soft Skin: No rashes noted on visualized skin Musculoskeletal: No Chest Wall Tenderness Extremities: Other (+1 LE edema to knees) Results 04/04/19 04:54 04/04/19 04:54 Lab Results 04/04/19 04/04/19 04/04/19 04:54 04:54 04:54 WBC 16.0 H Hgb 11.2 L Hct 37.1 Plt Count 291 INR 1.3 Sodium 143 Potassium 3.6 Chloride 101 Carbon Dioxide 33 H BUN 21 Creatinine 0.98 Glucose 141 H Calcium 8.8 Magnesium 2.0 Total Bilirubin 1.1 H AST 9 L ALT 5 L Alkaline Phosphatase 72 Active Medications Azithromycin (Zithromax) 250 mg PO Q24H [facility] Stop: 04/06/19 20:01 Last Admin: 04/03/19 21:02 Dose: 250 mg Documented by: Furosemide (Lasix) 40 mg IVP DAILY [facility] Stop: 10/03/19 09:01 Last Admin: 04/04/19 08:50 Dose: 40 mg Documented by: Heparin Sodium (Porcine) (Heparin) 4,200 unit 70 unit/kg (4200 unit) IVP Q6HR PRN PRN Reason: SEE COMMENTS Stop: 10/02/19 16:22 Heparin Sodium (Porcine) (Heparin) 2,100 unit 35 unit/kg (2100 unit) IVP Q6H PRN PRN Reason: SEE COMMENTS Stop: 10/02/19 16:22 Last Admin: 04/03/19 22:28 Dose: 2,100 unit Documented by: Hydroxyzine Pamoate (Vistaril) 25 mg PO BID [facility] Stop: 10/02/19 21:01 Last Admin: 04/04/19 08:50 Dose: 25 mg Documented by: Heparin Sodium/Dextrose (Heparin 25,000 Unit/250 Ml D5w) 25,000 unit in 250 mls @ 8.382 mls/hr IVC .Q24H [facility]; Protocol Stop: 10/02/19 16:31 Last Titration: 04/04/19 05:43 Dose: 20.04 unit/kg/hr, 12 mls/hr Documented by: Ceftriaxone Sodium 1,000 mg/ (Sterile Water) 10 mls @ 600 mls/hr IVP DAILY [facility] Stop: 10/02/19 19:01 Last Admin: 04/04/19 08:49 Dose: 600 mls/hr Documented by: Levalbuterol HCl (Xopenex) 0.63 mg IH [id number] PRN PRN Reason: Shortness Of Breath Stop: 10/03/19 16:01 Magnesium Oxide (Mag-Ox) 400 mg PO DAILY [facility]; Protocol Stop: 10/03/19 11:46 Last Admin: 04/04/19 08:50 Dose: 400 mg Documented by: Metoprolol Succinate (Toprol Xl) 50 mg PO DAILY [facility] Stop: 10/04/19 09:01 Last Admin: 04/04/19 08:50 Dose: 50 mg Documented by: Naloxone HCl (Narcan) 0.4 mg IVP Q2MPRN PRN PRN Reason: SEE COMMENTS Stop: 10/02/19 16:56 Sertraline HCl (Zoloft) 100 mg PO DAILY [facility] Stop: 10/03/19 09:01 Last Admin: 04/04/19 08:50 Dose: 100 mg Documented by: - Imaging and Cardiology Echo: report reviewed Other Results: 12 hour tele: avg [id number] (poor tracing) - EKG Interpretation EKG results cardiology: personally reviewed Consult Discharge Plan - Plan Referrals: Homero Rondon MD [Primary Care Provider] -
--- NOTE | 2019-04-04 11:34 | Internal Med Progress Note ---
Hospitalist Progress Note - Encounter Date of Encounter: 04/04/19 Time of Encounter: 10:20 - Subjective Interval History: awake, sob improving, le edema greatly improving, denies cp, pressure or palpitations. - Exam Vitals: Temp Pulse Resp BP Pulse Ox 98.9 F 118 14 115/78 93 04/04/19 11:21 04/04/19 11:21 04/04/19 11:21 04/04/19 11:21 04/04/19 11:21 Exam: gen- alert, awake,appears stated age cv- reg rate and irreg/irreg rhythm, normal s1,s2, 1+ pitting to bl knees, lungs- diminished bl bases R>L, no wheezing, normal resp effort on o2 nc abd- soft, non tender, non distended, + bs neuro- AAOx3, CN grossly intact - Assessment and Plan (1) Diabetes mellitus Current Visit: Yes Status: Acute (2) Acute CHF (congestive heart failure) Current Visit: Yes Status: Acute (3) Acute respiratory failure with hypoxia Current Visit: Yes Status: Acute (4) Atrial fibrillation with rapid ventricular response Current Visit: Yes Status: Acute (5) COPD with acute exacerbation Current Visit: Yes Status: Acute (6) Hypertension Current Visit: Yes Status: Acute (7) New onset atrial fibrillation Current Visit: Yes Status: Acute (8) Pleural effusion Current Visit: Yes Status: Acute - Summary of Assessment and Plan Summary of Assessment and Plan: Right sided Pleural Effusion s/p IR thoracentesis at bedside in ED w 1500 cc removed CXR with persistent R basilar opacification s/p thoracentesis Acute Systolic CHF exacerbation in setting of afib RVR duration uk as pt asx, EF 20-25% -appreciate cards input, BB, lasix, will need acei prior to dc -ischemic work up with tentative [facility] saturday New onset Afib with RVR, BP stable -cardizem gtt weaned to BB, increased dose today, heparin gtt -plan for transition to NOAC in upcoming days -cards following COPD not on oxygen at home Suspected COPDE with sputum and increased o2 requirement -azithro + rocephin Acute Hypoxic resp failure likely 2/2 afib rvr, acute chf and copde- o2 prn, treatments as above HTN -stable on current meds, hold home meds New DM with A1C this admit- hold meds at this time, will require outpt initiation, monitor glucose has been 110-120 currently vte ppx hep gtt Internal Medicine: Result - Labs CBC & Chem 7: 04/04/19 04:54 04/04/19 04:54 Labs: Short CBC 04/04/19 Range/Units 04:54 WBC 16.0 H (4.3-11.1) K/mcL Hgb 11.2 L (11.5-15.4) g/dL Hct 37.1 (35.3-44.9) % Plt Count 291 (140-400) K/mcL Neutrophils # 13.7 H (1.6-8.9) K/mcL BMP 04/04/19 04:54 Sodium 143 Potassium 3.6 Chloride 101 Carbon Dioxide 33 H BUN 21 Creatinine 0.98 Glucose 141 H Calcium 8.8 Liver Function 04/04/19 Range/Units 04:54 Total Bilirubin 1.1 H (0.3-1.0) mg/dL AST 9 L (13-39) Units/L ALT 5 L (7-52) Units/L Alkaline Phosphatase 72 (34-104) Units/L Albumin 3.0 L (3.5-5.7) g/dL - ABG Interpretation ABG results: PT/INR, D-dimer PT 14.2 Seconds (9.4-12.1) H 04/04/19 04:54 - Impressions Impressions Echocardiogram 04/03/19 17:01 Impressions: LVEF 20-25%. Normal LV chamber size, wall thickness. Severe global left ventricular systolic dysfunction with regional variations. Atypical septal motion consistent with bundle branch block. Indeterminate diastolic function. Normal right ventricular structure, mildly reduced function. Mild mitral regurgitation. Mild tricuspid regurgitation. Mild pulmonary hypertension. Pleural effusion noted. Left Ventricular Wall Motion: Rest Echo Findings The apex, apical inferior, mid inferior, basal inferior, apical anterior, mid anterior, basal anterior, apical septal, mid inferior septal, basal inferior septal, apical lateral, mid anterior lateral, basal anterior lateral, mid anterior septal, mid inferior lateral, basal anterior septal and basal inferior lateral wild were hypokinetic. Findings: Study Quality * Technically sub-optimal due to clinical status. ECG Findings * Atrial fibrillation, BBB. Left Ventricle * LVEF 20-25%. * Normal LV chamber size, wall thickness. * Severe global left ventricular systolic dysfunction with regional variations. * Atypical septal motion consistent with bundle branch block. * Indeterminate diastolic function. Right Ventricle * Normal right ventricular structure, mildly reduced function. Left Atrium * Severely dilated left atrium. Right Atrium * Moderately dilated right atrium. Interatrial Septum * Interatrial septum not well evaluated. Aortic Valve * Aortic valve not well visualized. * No aortic regurgitation. * No aortic stenosis. Mitral Valve * Mildly thickened mitral valve leaflets. * Mild mitral annular calcification * Mild mitral regurgitation. * No mitral stenosis. Tricuspid Valve * Normal tricuspid valve structure. * Mild tricuspid regurgitation. * Mild pulmonary hypertension. Pulmonic Valve * Pulmonic valve is not well visualized. Aorta * Normally sized aortic root. IVC * The IVC is dilated. * > 50% respiratory change Pleural Effusion * Pleural effusion noted. Pulmonary Artery * Pulmonary artery not well visualized. Consult Discharge Plan - Plan Referrals: Homero Rondon MD [Primary Care Provider] - (1) Diabetes mellitus Qualifiers: Diabetes mellitus type: type 2 Diabetes mellitus rn long term care insulin use: without snf use Diabetes mellitus complication status: without complication Qualified Code(s): E11.9 - Type 2 diabetes mellitus without complications (2) Acute CHF (congestive heart failure) Qualifiers: Heart failure type: systolic Qualified Code(s): I50.21 - Acute systolic (congestive) heart failure (6) Hypertension Qualifiers: Hypertension type: essential hypertension Qualified Code(s): I10 - Essential (primary) hypertension
[2019-04-04] MEDS ORDERED: Potassium Chloride Elixir 20 MEQ/15 ML UDC PO ONE (11:37)
[2019-04-04] MEDS: *HR* Heparin 5,000 UNIT/ML VIAL IVP PRN ×2 (15:39→22:52)
[2019-04-04] MEDS: Levalbuterol Neb 0.63 MG/3 ML IH SCH ×2 (15:50→22:07)
[2019-04-04] MEDS: Heparin 25,000 UNIT/250 ML D5W 25,000 UNIT/250 ML IV.SOLN IVC SCH (16:56)
[2019-04-04] MEDS ORDERED: *HR* HYDROcodone/Acet 10/325 mg TABLET PO ONE (18:33)
[2019-04-04] MEDS: Azithromycin 250 MG TABLET PO SCH (22:56)
[2019-04-05] MEDS: Levalbuterol Neb 0.63 MG/3 ML IH SCH ×4 (03:57→23:21)
[2019-04-05 05:32] LABS: Basophils % 0.1 %
[2019-04-05 05:34] LABS: Eosinophils % 0.1 %; Hematocrit 39.6 % (35.3-44.9); Hemoglobin 11.7 g/dL (11.5-15.4); Immature Granulocytes % 0.8 % (0-4); Immature Platelets 9.6 % (1.1-6.1); Lymphocytes # 0.9 K/mcL (0.6-4.6); Mean Corpuscular HGB Conc 29.5 g/dL (31.6-35.5); Mean Corpuscular Hemoglobin 22.6 pg (28.0-33.3); Mean Corpuscular Volume 76.6 fL (83.0-100.0); Monocytes # 1.3 K/mcL (0.0-1.3); Monocytes % 6.9 %; Neutrophils # 16.2 K/mcL (1.6-8.9); Platelet Count 202 K/mcL (140-400); Red Blood Count 5.17 M/mcL (3.82-4.97); Red Cell Distribution Width 20.5 % (11.5-14.5); Segmented Neutrophils % 87.1 %; White Blood Count 18.6 K/mcL (4.3-11.1)
[2019-04-05 05:46] LABS: Calcium 8.7 mg/dL (8.6-10.3); Potassium 3.4 mEq/L (3.5-5.1)
[2019-04-05] MEDS ORDERED: Potassium Chloride Elixir 20 MEQ/15 ML UDC PO ONE ×2 (08:20→13:00)
--- NOTE | 2019-04-05 08:24 | Internal Med Progress Note ---
Hospitalist Progress Note - Encounter Date of Encounter: 04/05/19 Time of Encounter: 09:00 - Subjective Interval History: awake, having some sob while eating, overall she feels a slight bit better than yesterday. no cp, pressure or palpitations. le edema cont to improve. she seems overwhelmed with information regarding all her new medical conditions. explained plan for today and answered all questions - Exam Vitals: Temp Pulse Resp BP Pulse Ox 99.8 F H 111 12 125/87 90 04/05/19 07:05 04/05/19 07:05 04/05/19 04:43 04/05/19 07:05 04/05/19 07:05 Exam: gen- alert, awake,appears stated age cv- tachy rate 110s on bedside tele and irreg/irreg rhythm, normal s1,s2, 1+ pitting to bl knees, no jvd lungs- diminished bl bases R>L, upper airway wheezing present, clears with deep cough, normal resp effort on o2 nc skin- warm, dry, normal color neuro- AAOx3, CN grossly intact - Assessment and Plan (1) Diabetes mellitus Current Visit: Yes Status: Acute (2) Acute CHF (congestive heart failure) Current Visit: Yes Status: Acute (3) Acute respiratory failure with hypoxia Current Visit: Yes Status: Acute (4) Atrial fibrillation with rapid ventricular response Current Visit: Yes Status: Resolved (5) COPD with acute exacerbation Current Visit: Yes Status: Acute (6) Hypertension Current Visit: Yes Status: Acute (7) New onset atrial fibrillation Current Visit: Yes Status: Acute (8) Pleural effusion Current Visit: Yes Status: Acute - Summary of Assessment and Plan Summary of Assessment and Plan: Right sided Pleural Effusion s/p IR thoracentesis at bedside in ED w 1500 cc removed CXR with persistent R basilar opacification s/p thoracentesis -repeat CXR in am Acute Systolic CHF exacerbation in setting of afib RVR duration uk as pt asx, EF 20-25% Possibly ischemic vs tachycardia (afib) Net neg 1.1 L 04/04 -appreciate cards input, BB rec to be changed to Toprol XL BID by cards and order in place, IV lasix today and cards wants to transition to oral in am, will need acei prior to dc -check a repeat CXR in AM to assess her effusion -ischemic work up with tentative C saturday, npo p mn New onset Afib with RVR, BP stable, HR low 100-110s but higher with exertion -cardizem gtt weaned to BB, dose as above per cards, cont heparin gtt -plan for transition to NOAC in upcoming days -cards following -ischemic work up as above COPD not on oxygen at home Suspected COPDE with sputum and increased o2 requirement -azithro is not being given by nursing and she has missed multiple days (QT high normal for female, unclear why being held at night, ?cards rec to hold and not documented), will cont rocephin to complete course (last dose 04/06-04/08 depending on clinical picture) Acute Hypoxic resp failure likely 2/2 afib rvr, acute chf and copde- o2 prn, treatments as above HTN -stable on current meds, hold home meds New DM with A1C this admit- hold meds at this time, will require outpt initiation, ssi and accuchecks vte ppx hep gtt dispo- will need pt/ot /sw evals prior to dc but heart rate not stable enough with exertion at this time Internal Medicine: Result - Labs CBC & Chem 7: 04/05/19 05:00 04/05/19 05:00 Labs: Short CBC 04/05/19 Range/Units 05:00 WBC 18.6 H (4.3-11.1) K/mcL Hgb 11.7 (11.5-15.4) g/dL Hct 39.6 (35.3-44.9) % Plt Count 202 (140-400) K/mcL Neutrophils # 16.2 H (1.6-8.9) K/mcL BMP 04/05/19 05:00 Sodium 140 Potassium 3.4 L Chloride 99 Carbon Dioxide 33 H BUN 26 H Creatinine 1.09 Glucose 185 H Calcium 8.7 - ABG Interpretation ABG results: PT/INR, D-dimer PT 14.2 Seconds (9.4-12.1) H 04/04/19 04:54 Consult Discharge Plan - Plan Referrals: Homero Rondon MD [Primary Care Provider] - (1) Diabetes mellitus Qualifiers: Diabetes mellitus type: type 2 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
--- NOTE | 2019-04-05 09:41 | Event Note ---
Date of Encounter: 04/05/19 Time of Encounter: 08:00 - Cardiology Event Note Still with significant shortness of breath and orthopnea--? COPD contributing to symptoms as well. Volume overload improved. Increase Toprol XL to 50 mg BID. Start PO lasix in AM. Re-evaluate patient in AM to determine if respiratory status will allow for LHC.
[2019-04-05] MEDS: Magnesium Oxide 400 MG TABLET PO SCH (09:47)
[2019-04-05] MEDS: hydrOXYzine pamoate 25 MG CAPSULE PO SCH (09:47)
[2019-04-05] MEDS: cefTRIAXone 1,000 MG in Water for inj. (sterile) 10 ML IVP SCH (09:48)
[2019-04-05] MEDS ORDERED: Furosemide 40 MG/4 ML VIAL IVP ONE (09:57)
[2019-04-05] MEDS: Heparin 25,000 UNIT/250 ML D5W 25,000 UNIT/250 ML IV.SOLN IVC SCH (09:58)
[2019-04-05] MEDS: Metoprolol XL (24 HR) Succ 50 MG TAB.ER.24H PO SCH ×2 (10:11→20:23)
[2019-04-05] MEDS ORDERED: D5% in Water 1,000 ML IVC PRN (12:28)
[2019-04-05] MEDS ORDERED: *HR* Dextrose 50 % in Water (Syg) 50 ML SYRINGE IVP PRN (12:28)
[2019-04-05] MEDS ORDERED: Dextrose Gel 15 GM/37.5 ML TUBE PO PRN ×2 (12:28)
[2019-04-05] MEDS: *HR* Heparin 5,000 UNIT/ML VIAL IVP PRN (13:22)
[2019-04-05] MEDS: Acetaminophen 325 MG TABLET PO PRN (15:40)
[2019-04-05] MEDS: Insulin LISPRO 300 UNITS/3 ML VIAL SQ SCH ×2 (18:35→21:26)
[2019-04-05] MEDS ORDERED: Metoprolol XL (24 HR) Succ 50 MG TAB.ER.24H PO SCH (21:00)
[2019-04-06 03:13] LABS: Basophils % 0.1 %; Eosinophils % 0.1 %; Hematocrit 36.3 % (35.3-44.9); Hemoglobin 10.8 g/dL (11.5-15.4); Immature Granulocytes % 0.6 % (0-4); Lymphocytes % 6.4 %; Mean Corpuscular HGB Conc 29.8 g/dL (31.6-35.5); Mean Corpuscular Hemoglobin 23.3 pg (28.0-33.3); Mean Corpuscular Volume 78.2 fL (83.0-100.0); Mean Platelet Volume 10.5 fL (9.4-12.4); Monocytes # 1.2 K/mcL (0.0-1.3); Monocytes % 7.6 %; Platelet Count 248 K/mcL (140-400); Red Blood Count 4.64 M/mcL (3.82-4.97); Red Cell Distribution Width 20.1 % (11.5-14.5); Segmented Neutrophils % 85.2 %; White Blood Count 15.2 K/mcL (4.3-11.1)
[2019-04-06 03:20] LABS: Heparin anti-factor XA UFH 0.26 IU/mL (0.30-0.70); INR 1.2; Prothrombin Time 13.4 Seconds (9.4-12.1)
[2019-04-06 03:32] LABS: Calcium 8.8 mg/dL (8.6-10.3); Potassium 3.8 mEq/L (3.5-5.1)
[2019-04-06] MEDS: *HR* Heparin 5,000 UNIT/ML VIAL IVP PRN (03:37)
[2019-04-06] MEDS: Heparin 25,000 UNIT/250 ML D5W 25,000 UNIT/250 ML IV.SOLN IVC SCH ×2 (03:40→20:15)
[2019-04-06] MEDS: Levalbuterol Neb 0.63 MG/3 ML IH SCH ×4 (04:06→23:01)
--- NOTE | 2019-04-06 06:41 | Internal Med Progress Note ---
<Tere Chapman - Last Filed: 04/06/19 15:13> Hospitalist Progress Note - Encounter Date of Encounter: 04/06/19 - Exam Vitals: Temp Pulse Resp BP Pulse Ox 98.2 F 107 18 127/69 92 04/06/19 09:37 04/06/19 12:33 04/06/19 14:31 04/06/19 12:33 04/06/19 14:31 - Assessment and Plan (1) Diabetes mellitus Current Visit: Yes Status: Acute (2) Acute CHF (congestive heart failure) Current Visit: Yes Status: Acute (3) Acute respiratory failure with hypoxia Current Visit: Yes Status: Acute (4) Atrial fibrillation with rapid ventricular response Current Visit: Yes Status: Resolved (5) COPD with acute exacerbation Current Visit: Yes Status: Acute (6) Hypertension Current Visit: Yes Status: Acute (7) New onset atrial fibrillation Current Visit: Yes Status: Acute (8) Pleural effusion Current Visit: Yes Status: Acute - Time Spent with Patient Total time spent is greater than 50% in coordination of care (as documented) at patient's floor/unit and/or counseling patient: Internal Medicine: Result - Labs CBC & Chem 7: 04/06/19 14:25 04/06/19 02:48 Labs: Short CBC 04/06/19 04/06/19 Range/Units 02:48 14:25 WBC 15.2 H (4.3-11.1) K/mcL Hgb 10.8 L 11.3 L (11.5-15.4) g/dL Hct 36.3 37.4 (35.3-44.9) % Plt Count 248 (140-400) K/mcL Neutrophils # 13.0 H (1.6-8.9) K/mcL BMP 04/06/19 02:48 Sodium 142 Potassium 3.8 Chloride 97 L Carbon Dioxide 34 H BUN 31 H Creatinine 1.30 H Glucose 121 H Calcium 8.8 - ABG Interpretation ABG results: PT/INR, D-dimer PT 13.4 Seconds (9.4-12.1) H 04/06/19 02:48 - Impressions Impressions Chest X-Ray 04/06/19 04:00 IMPRESSION: 1. Enlarging right pleural effusion with adjacent atelectasis or pneumonia. 2. Pulmonary edema. D/ / Tank Foley MD / Tank Foley MD Interpreting Provider: Tank Foley MD Consult Discharge Plan - Plan Referrals: Homero Rondon MD [Primary Care Provider] - - Attending Attestation I examined this patient and my medical decision-making was reviewed with the Resident Physician . I agree with the documented findings, disposition and treatment plan as described except to the extent set forth below. Ms Harden is admitted with afib rvr, new stystolic chf , nstemi awake, feeling more sob today, decreased wheezing and cough, cannot appreciate palpitations. no chest pain or pressure. feeling tired. discussed reaccumulation of pleural effusion and would be agreeable to repeat thoracentesis gen- alert, awake,appears stated age cv- tachy rate 110s on bedside tele and irreg/irreg rhythm, normal s1,s2, trace pitting to bl shins, no jvd lungs- diminished bl bases R>L, no wheezing or ronchi, normal resp effort on o2 nc abd- soft, nt, nd, + bs neuro- AAOx3, CN grossly intact Right sided Pleural Effusion CXR with worsened effusion today -discussed with cards team and in effort to optimize her to tolerate LHC poss ibly tomorrow, ok to hold hep gtt and have IR thora done. -arranging for hopefully today -she is on hep gtt which resident and pt and RN are all aware will need held pre procedure to duration as requested by IR Acute Systolic CHF exacerbation in setting of afib RVR EF 20-25% Possibly ischemic vs tachycardia (afib) -appreciate cards input, Toprol XL BID, PO lasix, low dose acei, IR thora as above -ischemic work up with tentative LHC ?tomorrow New onset Afib with RVR, BP stable, HR low 100-110s -cont heparin gtt, BB -plan for transition to NOAC in upcoming days COPD not on oxygen at home Suspected COPDE with sputum and increased o2 requirement -completed rocephin course, cont home daily low dose steroid which was confirmed yesterday, nebs Acute Hypoxic resp failure likely 2/2 afib rvr, acute chf and copde- o2 prn, treatments as above New DM with A1C this admit- hold meds at this time, will require outpt initiation, ssi and accuchecks vte ppx hep gtt dispo- will need pt/ot /sw evals prior to dc but heart rate not stable enough with exertion at this time <Simeon Murray - Last Filed: 04/06/19 20:58> Hospitalist Progress Note - Encounter Date of Encounter: 04/06/19 Time of Encounter: 06:39 - Subjective Interval History: Patient sleeping when entered the room. States she is no better than yesterday. Still struggling to breath and anxious about feeling very weak. Denies chest pain, abd. pain, hematochezia, hematuria. A few heart flutters yesterday. Last b.m. day before yesterday. has an appetite. - Exam Vitals: Temp Pulse Resp BP Pulse Ox 98 F 109 20 125/83 90 04/06/19 04:26 04/06/19 04:26 04/06/19 04:26 04/06/19 04:26 04/06/19 05:34 Exam: gen: elderly f. some distress upon awakening skin: poor skin turgor (forehead return maybe 4 seconds). sternal return likely >2 seconds. cardio: irregular rhythm. tachycardic. possible JVD (seem distended). no hepatojugular reflex. no audible carotid bruits. cap refil <2 sec upper and lower ext b/l. resp: diffuse crackles superiorly with mostly expiratory wheezes. she is not moving air well in lung bases - lung sounds diminished. extremities: legs wrapped. no appreciable pitting edema lower ext b/l. psych: anxious. answers questions appropriately. - Assessment and Plan (1) Acute CHF (congestive heart failure) Current Visit: Yes Status: Acute (2) Atrial fibrillation with rapid ventricular response Current Visit: Yes Status: Resolved (3) Acute respiratory failure with hypoxia Current Visit: Yes Status: Acute (4) Pleural effusion Current Visit: Yes Status: Acute (5) Hypertension Current Visit: Yes Status: Acute (6) NSTEMI (non-ST elevated myocardial infarction) Current Visit: Yes Status: Acute (7) Diabetes mellitus Current Visit: Yes Status: Acute DVT Prophylaxis: heparin drip - Summary of Assessment and Plan Summary of Assessment and Plan: Acute systolic heart failure with reduced ejection fraction -Likely secondary to atrial fibrillation -Orthopnea, PND, bilateral edema of new onset -BNP 2211. Echo 04/03/19 showed EF 20-25%. i/o: -1.5 L. -Cardiology consulted. To have LHC when can lay flat. Metoprolol succinate increased to 50mg daily 04/05/19. We will consider digoxin if blood pressure drops. Lisinopril. Strict I/O's, daily weights, salt and fluid restricted diet . oral furosemide 40 daily. A.Fib with RVR -Likely secondary to structural changes of the heart versus hypoxemia from COPD exacerbation -Newly discovered heart failure with symptoms as above -TSH WNL. Electrolytes likely not the cause. EKG QRS's irregularly irregular and showed tachycardia. [id number]: 4 -metoprolol XL as above. Plan to switch to NOAC at discharge Acute resp failure with hypoxia -Likely secondary to COPD exacerbation vs. newly discovered heart failure with pleural effusion -Increased cough, sputum production. Increasing dyspnea over a month's time. -antibiotics finished. -home dose prednisone 10 mg daily po -nasal cannula R Pleural Effusion -likely 2/2 new onset heart failure -dyspnea as above -as seen on CXR. CXR 04/06/19 shows worsened -pleural fluid: total protein <3; LDH 71 -serum: total protein 6.1; LDH 165 -transudative -thoracentesis to be repeated tomorrow. will temporarily hold heparin drip HTN -likely 2/2 CAD -systolic on admission in 150's -Lisinopril. Hypokalemia -likely 2/2 magnesium deficiency. patient on increased dose of lasix compared with home dose. -3.4>3.8 -conider getting urine K if needed. -40mEq given 04/06/19. replete until reach 4.0 elevated troponin -likely 2/2 demand ischemia --> Type 2. -afib as below and new CHF as below. has remained at 0.04 times 3. -no obvious T wave elevation elevated A1c -6.7 -likely 2/2 diabetes -may help explain cardiac dysfunction -follow up outpt SIRS -patient did meet SIRS (pulse rate 121, respiratory rate 25, white count 12.4, no fever) but likely 2/2 afib. -urine clx x1 on 04/04/19 showed no growth. - Time Spent with Patient Total ti Internal Medicine: Result - Labs CBC & Chem 7: 04/06/19 14:25 04/06/19 02:48 Labs: Short CBC 04/06/19 Range/Units 02:48 WBC 15.2 H (4.3-11.1) K/mcL Hgb 10.8 L (11.5-15.4) g/dL Hct 36.3 (35.3-44.9) % Plt Count 248 (140-400) K/mcL Neutrophils # 13.0 H (1.6-8.9) K/mcL BMP 04/06/19 02:48 Sodium 142 Potassium 3.8 Chloride 97 L Carbon Dioxide 34 H BUN 31 H Creatinine 1.30 H Glucose 121 H Calcium 8.8 - ABG Interpretation ABG results: PT/INR, D-dimer PT 13.4 Seconds (9.4-12.1) H 04/06/19 02:48 <Tere Chapman M - Last Filed: 04/06/19 15:13> (1) Diabetes mellitus Qualifiers: Diabetes mellitus type: type 2 Diabetes mellitus fci insulin use: without fci use Diabetes mellitus complication status: without complication Qualified Code(s): E11.9 - Type 2 diabetes mellitus without complications (2) Acute CHF (congestive heart failure) Qualifiers: Heart failure type: systolic Qualified Code(s): I50.21 - Acute systolic (congestive) heart failure (6) Hypertension Qualifiers: Hypertension type: essential hypertension Qualified Code(s): I10 - Essential (primary) hypertension <Simeon Murray G - Last Filed: 04/06/19 20:58> (1) Acute CHF (congestive heart failure) Qualifiers: Heart failure type: systolic Qualified Code(s): I50.21 - Acute systolic ( congestive) heart failure (5) Hypertension Qualifiers: Hypertension type: essential hypertension Qualified Code(s): I10 - Essential (primary) hypertension (7) Diabetes mellitus Qualifiers: Diabetes mellitus type: type 2 Diabetes mellitus fci insulin use: without intermediate designer use Diabetes mellitus complication status: without complication Qualified Code(s): E11.9 - Type 2 diabetes mellitus without complications
[2019-04-06] MEDS: Furosemide 40 MG TABLET PO SCH (10:34)
[2019-04-06] MEDS: predniSONE 10 MG TABLET PO SCH (10:35)
[2019-04-06] MEDS: Magnesium Oxide 400 MG TABLET PO SCH (10:35)
[2019-04-06] MEDS: cefTRIAXone 1,000 MG in Water for inj. (sterile) 10 ML IVP SCH (10:35)
[2019-04-06] MEDS: Metoprolol XL (24 HR) Succ 50 MG TAB.ER.24H PO SCH ×2 (10:36→20:13)
[2019-04-06] MEDS: hydrOXYzine pamoate 25 MG CAPSULE PO SCH (10:37)
[2019-04-06] MEDS: Insulin LISPRO 300 UNITS/3 ML VIAL SQ SCH ×3 (11:18→20:14)
--- NOTE | 2019-04-06 11:59 | Cardiology Progress Note ---
Date of Encounter: 04/06/19 Time of Encounter: 10:40 Assessment and Plan (1) Congestive heart failure Current Visit: Yes Status: Acute Suspected new onset systolic heart failure; etiology and chronicity unclear. Reports worsening symptoms over the past 3-6 months including orthopnea, PND, and LE edema. BNP 2211 upon admission. s/p right thoracentesis for large right pleural effusion--1.5 Liter fluid removal--CXR today shows enlarging right pleural effusion. SCr elevated, IV lasix d/c'ed 04/05. TTE 04/03/19: LVEF 20-25%, global LV systolic dysfunction with regional variations, mild MR, TR, and PH. Near euvolemic upon exam Cumulative I&O: -1978 mL Continue BB and low dose ACEi Strict I&Os, daily weights, Na/fluid restricted diet. Qualifiers: Heart failure type: systolic Heart failure chronicity: acute Qualified Code(s): I50.21 - Acute systolic (congestive) heart failure (2) Atrial fibrillation Current Visit: Yes Status: Acute Newly detected atrial fibrillation--unclear chronicity. Patient reports intermittent palpitations over the past month. Recommend rate control strategy for now. HR controlled upon exam, 100-110's upon exam. 12 hour tele: avg GH=080 afib. Goal less than 100 Continue BB; increased to BID dosing on 04/05. TSH normal. No significant electrolyte abnormality. CHA2Ds Vasc=4 (CHF, age, female, HTN); recommend group home AC, patient is agreeable to NOAC. Will continue heparin gtt for now until testing has been completed. Qualifiers: Atrial fibrillation type: persistent Qualified Code(s): I48.1 - Persistent atrial fibrillation (3) Cardiomyopathy Current Visit: Yes Status: Acute Recommendations as above (CHF). Unclear etiology, possible tachycardia induced secondary to afib. RF for CAD include HTN, heavy/chronic tobacco use, and family hx of CAD. Recommend LHC to r/o ischemic etiology once patient is euvolemic and able to lay flat--tentatively Saturday. Continue BB, add ACEi prior to discharge if renal function and BP will tolerate. Qualifiers: Cardiomyopathy type: unspecified Qualified Code(s): I42.9 - Cardiomyopathy, unspecified Discussion w patient/family: The assessment and plan as outlined above was discussed with the patient and/or family members who expressed understanding and agreement. All questions were answered. Thank you for involving us in the care of your patient. Please call with any questions. The patient will be discussed and reviewed with Dr. Pacheco; changes to be made accordingly. Subjective Principal diagnosis: Afib, CHF Interval history: Seen and examined. Remains tachycardiac and tachypneic this AM; however has no new CV complaints. LE edema resolved. Objective Vital Signs, Last 4 Hours Temp Pulse Resp BP Pulse Ox 04/06/19 09:37 98.2 F 114 91 108/93 94 04/06/19 09:07 18 98 General: Conversant, Other (conversational dyspnea) HEENT: Atraumatic, Normocephaly Cardiac: Other (irregularly irregular) Lungs: Other (decreased) Neuro: Alert and responsive Abdomen: Soft Skin: No rashes noted on visualized skin Musculoskeletal: No Chest Wall Tenderness Extremities: Other (mild LE edema) Results 04/06/19 02:48 04/06/19 02:48 Lab Results 04/06/19 04/06/19 04/06/19 02:48 02:48 02:48 WBC 15.2 H Hgb 10.8 L Hct 36.3 Plt Count 248 INR 1.2 Sodium 142 Potassium 3.8 Chloride 97 L Carbon Dioxide 34 H BUN 31 H Creatinine 1.30 H Glucose 121 H Calcium 8.8 Magnesium 2.0 Active Medications Acetaminophen (Tylenol) 650 mg PO Q6HR PRN PRN Reason: Pain Stop: 10/05/19 15:31 Last Admin: 04/05/19 15:40 Dose: 650 mg Documented by: Dextrose/Water (Dextrose 50% (Syg)) 25 ml IVP AD PRN PRN Reason: Hypoglycemia Stop: 10/05/19 12:29 Furosemide (Lasix) 40 mg PO DAILY [facility] Stop: 10/06/19 09:01 Last Admin: 04/06/19 10:34 Dose: 40 mg Documented by: Glucagon (Glucagen) 1 mg IM ONCE PRN PRN Reason: Hypoglycemia Stop: 10/05/19 12:29 Glucose (Gluctose) 15 gm PO ONCE PRN PRN Reason: Hypoglycemia Stop: 10/05/19 12:29 Glucose (Gluctose) 30 gm PO ONCE PRN PRN Reason: Hypoglycemia Stop: 10/05/19 12:29 Heparin Sodium (Porcine) (Heparin) 4,200 unit 70 unit/kg (4200 unit) IVP Q6HR PRN PRN Reason: SEE COMMENTS Stop: 10/02/19 16:22 Heparin Sodium (Porcine) (Heparin) 2,100 unit 35 unit/kg (2100 unit) IVP Q6H PRN PRN Reason: SEE COMMENTS Stop: 10/02/19 16:22 Last Admin: 04/06/19 03:37 Dose: 2,100 unit Documented by: Hydroxyzine Pamoate (Vistaril) 25 mg PO DAILY [facility] Stop: 10/06/19 09:01 Last Admin: 04/06/19 10:37 Dose: 25 mg Documented by: Heparin Sodium/Dextrose (Heparin 25,000 Unit/250 Ml D5w) 25,000 unit in 250 mls @ 8.382 mls/hr IVC .Q24H [facility]; Protocol Stop: 10/02/19 16:31 Last Admin: 04/06/19 03:40 Dose: 27.89 unit/kg/hr, 16.7 mls/hr Documented by: Ceftriaxone Sodium 1,000 mg/ (Sterile Water) 10 mls @ 600 mls/hr IVP DAILY [facility] Stop: 10/02/19 19:01 Last Admin: 04/06/19 10:35 Dose: 600 mls/hr Documented by: Dextrose (Dextrose 5%) 1,000 mls @ 100 mls/hr IVC .Q10H PRN PRN Reason: HYPOGLYCEMIA Stop: 10/05/19 12:29 Insulin Human Lispro (Humalog) 0 units SQ TIDAC [facility]; Protocol Stop: 10/05/19 16:31 Last Admin: 04/06/19 11:18 Dose: Not Given Documented by: Insulin Human Lispro (Humalog) 0 units SQ [facility]; Protocol Stop: 10/05/19 21:01 Last Admin: 04/05/19 21:26 Dose: Not Given Documented by: Ipratropium [place] (Atrovent Neb) 0.5 mg IH [id number] PRN PRN Reason: Shortness Of Breath/Wheezing Stop: 10/04/19 11:39 Levalbuterol HCl (Xopenex) 0.63 mg IH [id number] [facility] Stop: 10/04/19 16:01 Last Admin: 04/06/19 09:07 Dose: 0.63 mg Documented by: Lidocaine HCl (Lidoderm 5% Patch) 1 each TP DAILY [facility] Stop: 10/05/19 10:08 Last Admin: 04/06/19 10:35 Dose: 1 each Documented by: Lisinopril (Zestril) 2.5 mg PO DAILY [facility]; Protocol Stop: 10/06/19 09:01 Last Admin: 04/06/19 10:37 Dose: 2.5 mg Documented by: Magnesium Oxide (Mag-Ox) 400 mg PO DAILY [facility]; Protocol Stop: 10/03/19 11:46 Last Admin: 04/06/19 10:35 Dose: 400 mg Documented by: Metoprolol Succinate (Toprol Xl) 50 mg PO BID [facility] Stop: 10/05/19 10:01 Last Admin: 04/06/19 10:36 Dose: 50 mg Documented by: Montelukast Sodium (Singulair) 10 mg PO HS [facility] Stop: 10/05/19 21:01 Last Admin: 04/05/19 20:25 Dose: 10 mg Documented by: Naloxone HCl (Narcan) 0.4 mg IVP Q2MPRN PRN PRN Reason: SEE COMMENTS Stop: 10/02/19 16:56 Prednisone (Prednisone) 10 mg PO DAILY [facility] Stop: 10/06/19 09:01 Last Admin: 04/06/19 10:35 Dose: 10 mg Documented by: Sertraline HCl (Zoloft) 100 mg PO DAILY [facility] Stop: 10/03/19 09:01 Last Admin: 04/06/19 10:37 Dose: 100 mg Documented by: - Imaging and Cardiology Echo: report reviewed Other Results: 12 hour tele: avg [id number] afib. - EKG Interpretation EKG results cardiology: personally reviewed Consult Discharge Plan - Plan Referrals: Homero Rondon MD [Primary Care Provider] -
[2019-04-06] MEDS: Ipratropium Neb 0.5 MG NEBULIZER IH PRN (14:31)
[2019-04-06 14:53] LABS: Hematocrit 37.4 % (35.3-44.9); Hemoglobin 11.3 g/dL (11.5-15.4)
[2019-04-06] MEDS ORDERED: *HR* HYDROcodone/Acet 10/325 mg TABLET PO ONE ×2 (17:36→19:00)
[2019-04-07] MEDS: Levalbuterol Neb 0.63 MG/3 ML IH SCH ×4 (04:05→22:55)
[2019-04-07 06:12] LABS: Basophils % 0.1 %; Eosinophils % 0.2 %; Hematocrit 37.1 % (35.3-44.9); Hemoglobin 11.2 g/dL (11.5-15.4); Immature Granulocytes % 0.4 % (0-4); Lymphocytes # 0.9 K/mcL (0.6-4.6); Lymphocytes % 6.2 %; Mean Corpuscular HGB Conc 30.2 g/dL (31.6-35.5); Mean Corpuscular Hemoglobin 23.4 pg (28.0-33.3); Mean Corpuscular Volume 77.6 fL (83.0-100.0); Mean Platelet Volume 10.9 fL (9.4-12.4); Monocytes # 1.2 K/mcL (0.0-1.3); Monocytes % 8.2 %; Neutrophils # 12.8 K/mcL (1.6-8.9); Platelet Count 243 K/mcL (140-400); Red Blood Count 4.78 M/mcL (3.82-4.97); Red Cell Distribution Width 19.9 % (11.5-14.5); Segmented Neutrophils % 84.9 %; White Blood Count 15.1 K/mcL (4.3-11.1)
[2019-04-07 06:21] LABS: INR 1.1; Prothrombin Time 12.3 Seconds (9.4-12.1)
--- NOTE | 2019-04-07 06:30 | Internal Med Progress Note ---
<Tere Chapman - Last Filed: 04/07/19 14:55> Hospitalist Progress Note - Encounter Date of Encounter: 04/07/19 - Exam Vitals: Temp Pulse Resp BP Pulse Ox 98 F 116 18 134/84 92 04/07/19 13:04 04/07/19 13:04 04/07/19 13:04 04/07/19 13:04 04/07/19 13:04 - Assessment and Plan (1) Diabetes mellitus Current Visit: Yes Status: Acute (2) Acute CHF (congestive heart failure) Current Visit: Yes Status: Acute (3) Acute respiratory failure with hypoxia Current Visit: Yes Status: Acute (4) Atrial fibrillation with rapid ventricular response Current Visit: Yes Status: Resolved (5) COPD with acute exacerbation Current Visit: Yes Status: Acute (6) Hypertension Current Visit: Yes Status: Acute (7) New onset atrial fibrillation Current Visit: Yes Status: Acute (8) Pleural effusion Current Visit: Yes Status: Acute - Time Spent with Patient Total time spent is greater than 50% in coordination of care (as documented) at patient's floor/unit and/or counseling patient: Internal Medicine: Result - Labs CBC & Chem 7: 04/07/19 05:58 04/07/19 05:58 Labs: Short CBC 04/06/19 04/07/19 Range/Units 14:25 05:58 WBC 15.1 H (4.3-11.1) K/mcL Hgb 11.3 L 11.2 L (11.5-15.4) g/dL Hct 37.4 37.1 (35.3-44.9) % Plt Count 243 (140-400) K/mcL Neutrophils # 12.8 H (1.6-8.9) K/mcL BMP 04/07/19 05:58 Sodium 142 Potassium 4.0 Chloride 100 Carbon Dioxide 32 H BUN 40 H Creatinine 1.07 Glucose 132 H Calcium 9.0 - ABG Interpretation ABG results: PT/INR, D-dimer PT 12.3 Seconds (9.4-12.1) H 04/07/19 05:58 - Impressions Impressions Chest X-Ray 04/07/19 12:09 IMPRESSION: 1. Status post right thoracentesis with interval decrease in size of a now small pleural effusion with adjacent atelectasis. No discrete pneumothorax. 2. Stable appearance of diffuse airspace opacities throughout the lungs with trace left effusion. 3. Mild cardiomegaly. D/ / 04/07/2019 12:32:00 Muna James MD / Ashley Toussaint Interpreting Provider: Muna James MD Thoracentesis 04/07/19 14:56 IMPRESSION: Successful ultrasound guided thoracentesis. D/ / Mireya Osullivan MD / Mireya Osullivan MD Interpreting Provider: Mireya Osullivan MD Consult Discharge Plan - Plan Referrals: Homero Rondon MD [Primary Care Provider] - - Attending Attestation I examined this patient and my medical decision-making was [facility] . I agree with the documented findings, disposition and treatment plan as described except to the extent set forth below. Ms Harden is admitted with afib rvr, new stystolic chf , nstemi awake, remains sob and mildly tachycardic. She generally feels unwell. no cough or wheezing, denies cp or palpitations, no presyncope gen- alert, awake,appears stated age cv- tachy rate 110s on bedside tele and irreg/irreg rhythm, normal s1,s2, trace pitting to bl shins lungs- diminished bl bases R>L, no wheezing or ronchi, normal resp effort on o2 nc skin- warm, dry neuro- AAOx3, CN grossly intact Right sided Pleural Effusion - for repeat IR thora today Acute Systolic CHF exacerbation in setting of afib RVR EF 20-25% Possibly ischemic vs tachycardia (afib) -appreciate cards input, Toprol XL BID, acei -change back to IV lasix as net + yesterday with PO, given IV lasix dose tonight, trying to optimize for LHC in am New onset Afib with RVR, BP stable, HR low 100-110s -cont heparin gtt, BB and may need uptitration -plan for transition to NOAC in upcoming days COPD not on oxygen at home Suspected COPDE with sputum and increased o2 requirement -completed rocephin course, cont home daily low dose steroid, xopenex nebs Acute Hypoxic resp failure likely 2/2 afib rvr, acute chf and copde- o2 prn, treatments as above New DM with A1C this admit- hold meds at this time, will require outpt initiation, ssi and accuchecks Chronic pain w chronic opite use- may have withdrawal component given these were held on admit with some anxiety and may contribute to tachycardia- trial lower than home dose prn norco availability and monitor as resp status has now been stable on 5L for last two days and this may actually help patient to relax and have improved respirations dispo- will need pt/ot /sw evals prior to dc but heart rate not stable enough with exertion at this time <Simeon Murray - Last Filed: 04/07/19 17:56> Hospitalist Progress Note - Encounter Date of Encounter: 04/07/19 Time of Encounter: 06:00 - Subjective Interval History: Patient feels the same as yesterday. Breathing is not better. Denies chest pain. Last bowel movement yesterday. She has been eating all her meals. - Exam Vitals: Temp Pulse Resp BP Pulse Ox 98.4 F 107 18 122/97 93 04/07/19 04:56 04/07/19 04:56 04/07/19 04:56 04/07/19 04:56 04/07/19 04:56 Exam: gen: Elderly female. Some discomfort Cardio: Irregular rhythm. Tachycardic. Unable to hear well over lung sounds Respiratory: Diffuse expiratory wheeze. Diffuse crackles likely wet and dry. Rhonchorous. Labored Extremities: No bilateral lower extremity edema. psych: Answers questions coherently. Appropriate mood and behavior. - Assessment and Plan (1) Acute CHF (congestive heart failure) Current Visit: Yes Status: Acute Assessment and Plan: -Likely secondary to atrial fibrillation -Orthopnea, PND, bilateral edema of new onset -BNP 2211. Echo 04/03/19 showed EF 20-25%. monitor I/o. -Cardiology consulted. To have LHC when can lay flat. Metoprolol succinate increased to 50mg daily 04/05/19. We will consider digoxin if blood pressure drops. Lisinopril. Strict I/O's, daily weights, salt and fluid restricted di et. Plan: 40 lasix IV daily starting tomorrow. (2) Atrial fibrillation with rapid ventricular response Current Visit: Yes Status: Acute Assessment and Plan: A.Fib with RVR -Likely secondary to structural changes of the heart versus hypoxemia from COPD exacerbation -Newly discovered heart failure with symptoms as above -TSH WNL. Electrolytes likely not the cause. EKG QRS's irregularly irregular and showed tachycardia. [id number]: 4 -metoprolol XL as above. Plan to switch to NOAC at discharge Plan: rate was increased today. began 5/325 home dose norco in hopes to decrease pain and tachycardia. will plan to increase metoprolol if not successful. (3) Acute respiratory failure with hypoxia Current Visit: Yes Status: Acute Assessment and Plan: -Likely secondary to COPD exacerbation vs. newly discovered heart failure with pleural effusion -Increased cough, sputum production. Increasing dyspnea over a month's time. -antibiotics finished. -home dose prednisone 10 mg daily po -nasal cannula (4) Pleural effusion Current Visit: Yes Status: Acute Assessment and Plan: -likely 2/2 new onset heart failure -dyspnea as above -as seen on CXR. CXR 04/06/19 shows worsened -pleural fluid: total protein <3; LDH 71 -serum: total protein 6.1; LDH 165 -transudative -thoracentesis completed. (5) Hypertension Current Visit: Yes Status: Acute Assessment and Plan: -likely 2/2 CAD -systolic on admission in 150's -Lisinopril. (6) NSTEMI (non-ST elevated myocardial infarction) Current Visit: Yes Status: Acute Assessment and Plan: -likely 2/2 demand ischemia --> Type 2. -afib as below and new CHF as below. has remained at 0.04 times 3. -no obvious T wave elevation at that time (7) Diabetes mellitus Current Visit: Yes Status: Acute Assessment and Plan: -A1c 6.7 -likely 2/2 diabetes -may help explain cardiac dysfunction -follow up outpt (8) Hypokalemia Current Visit: Yes Status: Acute Assessment and Plan: -consider 2/2 previous magnesium deficiency. patient on increased dose of lasix compared with home dose. -3.4>3.8>4.0 -conider getting urine K if needed. -cont. to monitor - Summary of Assessment and Plan Summary of Assessment and Plan: Acute systolic heart failure with reduced ejection fraction -Likely secondary to atrial fibrillation -Orthopnea, PND, bilateral edema of new onset -BNP 2211. Echo 04/03/19 showed EF 20-25%. monitor I/o. -Cardiology consulted. To have LHC when can lay flat. Metoprolol succinate increased to 50mg daily 04/05/19. We will consider digoxin if blood pressure drops. Lisinopril. Strict I/O's, daily weights, salt and fluid restricted diet. Plan: 40 lasix IV daily starting tomorrow. A.Fib with RVR -Likely secondary to structural changes of the heart versus hypoxemia from COPD exacerbation -Newly discovered heart failure with symptoms as above -TSH WNL. Electrolytes likely not the cause. EKG QRS's irregularly irregular and showed tachycardia. [id number]: 4 -metoprolol XL as above. Plan to switch to NOAC at discharge Plan: rate was increased today. began 5/325 home dose norco in hopes to decrease pain and tachycardia. will plan to increase metoprolol if not successful. Acute resp failure with hypoxia -Likely secondary to COPD exacerbation vs. newly discovered heart failure with pleural effusion -Increased cough, sputum production. Increasing dyspnea over a month's time. -antibiotics finished. -home dose prednisone 10 mg daily po -nasal cannula R Pleural Effusion -likely 2/2 new onset heart failure -dyspnea as above -as seen on CXR. CXR 04/06/19 shows worsened -pleural fluid: total protein <3; LDH 71 -serum: total protein 6.1; LDH 165 -transudative -thoracentesis completed. HTN -likely 2/2 CAD -systolic on admission in 150's -Lisinopril. Hypokalemia -likely 2/2 magnesium deficiency. patient on increased dose of lasix compared w ith home dose. -3.4>3.8>4.0 -conider getting urine K if needed. -cont. to monitor elevated troponin -likely 2/2 demand ischemia --> Type 2. -afib as below and new CHF as below. has remained at 0.04 times 3. -no obvious T wave elevation elevated A1c -6.7 -likely 2/2 diabetes -may help explain cardiac dysfunction -follow up outpt SIRS -patient did meet SIRS (pulse rate 121, respiratory rate 25, white count 12.4, no fever) but likely 2/2 afib. -urine clx x1 on 04/04/19 showed no growth. - Time Spent with Patient Total time spent is greater than 50% in coordination of care (as documented) at patient's floor/unit and/or counseling patient: Internal Medicine: Result - Labs CBC & Chem 7: 04/07/19 05:58 04/07/19 05:58 Labs: Short CBC 04/06/19 04/07/19 Range/Units 14:25 05:58 WBC 15.1 H (4.3-11.1) K/mcL Hgb 11.3 L 11.2 L (11.5-15.4) g/dL Hct 37.4 37.1 (35.3-44.9) % Plt Count 243 (140-400) K/mcL Neutrophils # 12.8 H (1.6-8.9) K/mcL - ABG Interpretation ABG results: PT/INR, D-dimer PT 12.3 Seconds (9.4-12.1) H 04/07/19 05:58 - Impressions Impressions Chest X-Ray 04/06/19 04:00 IMPRESSION: 1. Enlarging right pleural effusion with adjacent atelectasis or pneumonia. 2. Pulmonary edema. 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 (2) Acute CHF (congestive heart failure) Qualifiers: Heart failure type: systolic Qualified Code(s): I50.21 - Acute systolic (congestive) heart failure (6) Hypertension Qualifiers: Hypertension type: essential hypertension Qualified Code(s): I10 - Essential (primary) hypertension <Simeon Murray - Last Filed: 04/07/19 17:56> (1) Acute CHF (congestive heart failure) Qualifiers: Heart failure type: systolic Qualified Code(s): I50.21 - Acute systolic (congestive) heart failure (5) Hypertension Qualifiers: Hypertension type: essential hypertension Qualified Code(s): I10 - Essential (primary) hypertension (7) Diabetes mellitus Qualifiers: Diabetes mellitus type: type 2 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
[2019-04-07 06:31] LABS: BUN/Creatinine Ratio 37 (6-26); Blood Urea Nitrogen 40 mg/dL (8-23); Carbon Dioxide 32 mEq/L (23-29); Chloride 100 mEq/L (98-107); Glucose 132 mg/dL (70-105); Magnesium 2.1 mg/dL (1.6-2.6); Osmolality,Calculated 306 (280-300); Sodium 142 mEq/L (136-145); eGFR For African Americans > 60 (> 60); eGFR For Non-African Americans 50 (> 60)
[2019-04-07] MEDS: Magnesium Oxide 400 MG TABLET PO SCH (09:09)
[2019-04-07] MEDS: Metoprolol XL (24 HR) Succ 50 MG TAB.ER.24H PO SCH ×2 (09:09→21:20)
[2019-04-07] MEDS: Furosemide 40 MG TABLET PO SCH (09:09)
[2019-04-07] MEDS: predniSONE 10 MG TABLET PO SCH (09:09)
[2019-04-07] MEDS: hydrOXYzine pamoate 25 MG CAPSULE PO SCH (09:09)
[2019-04-07] MEDS: Insulin LISPRO 300 UNITS/3 ML VIAL SQ SCH ×4 (09:10→21:21)
--- NOTE | 2019-04-07 12:17 | Cardiology Progress Note ---
Date of Encounter: 04/07/19 Time of Encounter: 11:00 Assessment and Plan (1) Congestive heart failure Current Visit: Yes Status: Acute Suspected new onset systolic heart failure; etiology and chronicity unclear. Reports worsening symptoms over the past 3-6 months including orthopnea, PND, and LE edema. BNP 2211 upon admission. s/p right thoracentesis for large right pleural effusion--1.5 Liter fluid removal--CXR 04/06 shows enlarging right pleural effusion; plan for thoracentesis in IR today (hep gtt on hold) SCr bump to 1.3, IV lasix d/c'ed 04/05, now back to normal. TTE 04/03/19: LVEF 20-25%, global LV systolic dysfunction with regional vari ations, mild MR, TR, and PH. Volume overload appears to be improved however noted to have significant conversational dyspnea. Continues to have orthopnea Cumulative I&O: -1448 mL Continue BB and low dose ACEi Strict I&Os, daily weights, Na/fluid restricted diet. Qualifiers: Heart failure type: systolic Heart failure chronicity: acute Qualified Code(s): I50.21 - Acute systolic (congestive) heart failure (2) Atrial fibrillation Current Visit: Yes Status: Acute Newly detected atrial fibrillation--unclear chronicity. Patient reports inter mittent palpitations over the past month. Recommend rate control strategy for now. HR controlled upon exam, 100-110's upon exam. 12 hour tele: avg [id number] afib. Goal less than 100 Continue BB; increased to BID dosing on 04/05. TSH normal. No significant electrolyte abnormality. CHA2Ds Vasc=4 (CHF, age, female, HTN); recommend intermediate AC, patient is agreeable to NOAC. Will continue heparin gtt for now until testing has been completed. Qualifiers: Atrial fibrillation type: persistent Qualified Code(s): I48.1 - Persistent atrial fibrillation (3) Cardiomyopathy Current Visit: Yes Status: Acute Recommendations as above (CHF). Unclear etiology, possible tachycardia induced secondary to afib. RF for CAD include HTN, heavy/chronic tobacco use, and family hx of CAD. Recommend LHC to r/o ischemic etiology once patient is euvolemic and able to lay flat, will re-evaluate in AM. Continue BB, add ACEi prior to discharge if renal function and BP will tolerate. Qualifiers: Cardiomyopathy type: unspecified Qualified Code(s): I42.9 - Cardiomyopathy, unspecified Discussion w patient/family: The assessment and plan as outlined above was discussed with the patient and/or family members who expressed understanding and agreement. All questions were answered. Thank you for involving us in the care of your patient. Please call with any questions. The patient will be discussed and reviewed with Dr. Pacheco; changes to be made accordingly. Subjective Principal diagnosis: Afib, CHF Interval history: Seen and examined. Remains tachycardiac and tachypneic this AM; however has no new CV complaints. No chest pain LE edema resolved. Objective General: Conversant, No Apparent Distress HEENT: Atraumatic, Normocephaly, Mucus Membranes Moist Cardiac: Other (irregularly irregular, tachycardiac) Lungs: Other (decreased, rales RLL) Neuro: Alert and responsive Abdomen: Soft Skin: No rashes noted on visualized skin Musculoskeletal: No Chest Wall Tenderness Extremities: No Edema, Normal Pulses Results 04/07/19 05:58 04/07/19 05:58 Lab Results 04/06/19 04/07/19 04/07/19 14:25 05:58 05:58 WBC 15.1 H Hgb 11.3 L 11.2 L Hct 37.4 37.1 Plt Count 243 INR 1.1 Sodium Potassium Chloride Carbon Dioxide BUN Creatinine Glucose Calcium Magnesium 04/07/19 05:58 WBC Hgb Hct Plt Count INR Sodium 142 Potassium 4.0 Chloride 100 Carbon Dioxide 32 H BUN 40 H Creatinine 1.07 Glucose 132 H Calcium 9.0 Magnesium 2.1 Active Medications Acetaminophen (Tylenol) 650 mg PO Q6HR PRN PRN Reason: Pain Stop: 10/05/19 15:31 Last Admin: 04/05/19 15:40 Dose: 650 mg Documented by: Dextrose/Water (Dextrose 50% (Syg)) 25 ml IVP AD PRN PRN Reason: Hypoglycemia Stop: 10/05/19 12:29 Furosemide (Lasix) 40 mg PO DAILY JUAREZ Stop: 10/06/19 09:01 Last Admin: 04/07/19 09:09 Dose: 40 mg Documented by: Glucagon (Glucagen) 1 mg IM ONCE PRN PRN Reason: Hypoglycemia Stop: 10/05/19 12:29 Glucose (Gluctose) 15 gm PO ONCE PRN PRN Reason: Hypoglycemia Stop: 10/05/19 12:29 Glucose (Gluctose) 30 gm PO ONCE PRN PRN Reason: Hypoglycemia Stop: 10/05/19 12:29 Heparin Sodium (Porcine) (Heparin) 4,200 unit 70 unit/kg (4200 unit) IVP Q6HR PRN PRN Reason: SEE COMMENTS Stop: 10/02/19 16:22 Heparin Sodium (Porcine) (Heparin) 2,100 unit 35 unit/kg (2100 unit) IVP Q6H PRN PRN Reason: SEE COMMENTS Stop: 10/02/19 16:22 Last Admin: 04/06/19 03:37 Dose: 2,100 unit Documented by: Hydroxyzine Pamoate (Vistaril) 25 mg PO DAILY JUAREZ Stop: 10/06/19 09:01 Last Admin: 04/07/19 09:09 Dose: 25 mg Documented by: Heparin Sodium/Dextrose (Heparin 25,000 Unit/250 Ml D5w) 25,000 unit in 250 mls @ 8.382 mls/hr IVC .Q24H JUAREZ; Protocol Stop: 10/02/19 16:31 Last Titration: 04/07/19 06:02 Dose: 0 unit/kg/hr, 0 mls/hr Documented by: Dextrose (Dextrose 5%) 1,000 mls @ 100 mls/hr IVC .Q10H PRN PRN Reason: HYPOGLYCEMIA Stop: 10/05/19 12:29 Insulin Human Lispro (Humalog) 0 units SQ TIDAC [facility]; Protocol Stop: 10/05/19 16:31 Last Admin: 04/07/19 09:10 Dose: Not Given Documented by: Insulin Human Lispro (Humalog) 0 units SQ [facility]; Protocol Stop: 10/05/19 21:01 Last Admin: 04/06/19 20:14 Dose: Not Given Documented by: Ipratropium [place] (Atrovent Neb) 0.5 mg IH [id number] PRN PRN Reason: Shortness Of Breath/Wheezing Stop: 10/04/19 11:39 Last Admin: 04/06/19 14:31 Dose: 0.5 mg Documented by: Levalbuterol HCl (Xopenex) 0.63 mg IH [id number] JU[facility]Z Stop: 10/04/19 16:01 Last Admin: 07/16/19 09:10 Dose: 0.63 mg Documented by: Lidocaine HCl (Lidoderm 5% Patch) 1 each TP DAILY [facility] Stop: 10/05/19 10:08 Last Admin: 04/07/19 09:08 Dose: 1 each Documented by: Lisinopril (Zestril) 2.5 mg PO DAILY [facility]; Protocol Stop: 10/06/19 09:01 Last Admin: 04/07/19 09:09 Dose: 2.5 mg Documented by: Magnesium Oxide (Mag-Ox) 400 mg PO DAILY [facility]; Protocol Stop: 10/03/19 11:46 Last Admin: 04/07/19 09:09 Dose: 400 mg Documented by: Metoprolol Succinate (Toprol Xl) 50 mg PO BID [facility] Stop: 10/05/19 10:01 Last Admin: 04/07/19 09:09 Dose: 50 mg Documented by: Montelukast Sodium (Singulair) 10 mg PO HS [facility] Stop: 10/05/19 21:01 Last Admin: 04/06/19 20:13 Dose: 10 mg Documented by: Naloxone HCl (Narcan) 0.4 mg IVP Q2MPRN PRN PRN Reason: SEE COMMENTS Stop: 10/02/19 16:56 Prednisone (Prednisone) 10 mg PO DAILY [facility] Stop: 10/06/19 09:01 Last Admin: 04/07/19 09:09 Dose: 10 mg Documented by: Sertraline HCl (Zoloft) 100 mg PO DAILY [facility] Stop: 10/03/19 09:01 Last Admin: 04/07/19 09:10 Dose: 100 mg Documented by: - Imaging and Cardiology Echo: report reviewed Other Results: 12 hour tele: avg HR 111 afib. - EKG Interpretation EKG results cardiology: personally reviewed Consult Discharge Plan - Plan Referrals: Homero Rondon MD [Primary Care Provider] -
--- NOTE | 2019-04-07 12:20 | IR Procedure Note ---
Date of procedure: 04/07/19 Consent Obtained: Written consent Timeout: Correct patient and procedure verified, Correct site verified, Time out performed, Skin prep completed Local anesthetic: Lidocaine 1% Was there an phlebotomist lab assistant present: No Estimated blood loss (cc): 0 Complications: None; Tolerated procedure well Indications: right effusion Procedure Performed: right thoracentesis Site/Technique: 8F sheath, right side Results/Findings (any specimens removed): moderate effusion seen on US Post Procedure Treatment Plan: CXR Specimen: pleural fluid
--- NOTE | 2019-04-07 16:43 | Electrocardiograph Report ---
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
[2019-04-07] MEDS ORDERED: Furosemide 20 MG/2 ML VIAL IVP ONE (17:00)
[2019-04-07] MEDS: *HR* Heparin 5,000 UNIT/ML VIAL IVP PRN (22:30)
[2019-04-08] MEDS: Heparin 25,000 UNIT/250 ML D5W 25,000 UNIT/250 ML IV.SOLN IVC SCH ×2 (02:45→21:26)
[2019-04-08] MEDS: Levalbuterol Neb 0.63 MG/3 ML IH SCH ×4 (03:56→21:38)
[2019-04-08 04:41] LABS: Basophils % 0.1 %; Eosinophils % 0.1 %; Hematocrit 37.1 % (35.3-44.9); Hemoglobin 11.3 g/dL (11.5-15.4); Immature Granulocytes % 0.4 % (0-4); Lymphocytes # 0.9 K/mcL (0.6-4.6); Lymphocytes % 6.6 %; Mean Corpuscular HGB Conc 30.5 g/dL (31.6-35.5); Mean Corpuscular Volume 75.4 fL (83.0-100.0); Mean Platelet Volume 11.4 fL (9.4-12.4); Monocytes # 1.2 K/mcL (0.0-1.3); Monocytes % 8.3 %; Neutrophils # 11.9 K/mcL (1.6-8.9); Platelet Count 246 K/mcL (140-400); Red Blood Count 4.92 M/mcL (3.82-4.97); Segmented Neutrophils % 84.5 %; White Blood Count 14.1 K/mcL (4.3-11.1)
[2019-04-08 04:52] LABS: Heparin anti-factor XA UFH 0.09 IU/mL (0.30-0.70); INR 1.1; Prothrombin Time 12.6 Seconds (9.4-12.1)
[2019-04-08 05:02] LABS: BUN/Creatinine Ratio 41 (6-26); Blood Urea Nitrogen 41 mg/dL (8-23); Calcium 8.9 mg/dL (8.6-10.3); Carbon Dioxide 35 mEq/L (23-29); Chloride 97 mEq/L (98-107); Glucose 131 mg/dL (70-105); Osmolality,Calculated 308 (280-300); Potassium 3.5 mEq/L (3.5-5.1); Sodium 143 mEq/L (136-145); eGFR For African Americans > 60 (> 60); eGFR For Non-African Americans 53 (> 60)
[2019-04-08] MEDS: *HR* Heparin 5,000 UNIT/ML VIAL IVP PRN ×2 (05:33→16:17)
[2019-04-08] MEDS: Ipratropium Neb 0.5 MG NEBULIZER IH PRN (05:50)
--- NOTE | 2019-04-08 06:11 | Internal Med Progress Note ---
<Simeon Murray - Last Filed: 04/08/19 17:58> Hospitalist Progress Note - Encounter Date of Encounter: 04/08/19 Time of Encounter: 06:00 - Subjective Interval History: Patient says she feels about the same. She believes she has been getting 1 hydrocodone a day and states that it has been helping. Last bowel movement on the 15th. She states this is normal for her. Her breathing seems less labored and she seems less anxious. - Exam Vitals: Temp Pulse Resp BP Pulse Ox 98 F 94 18 136/97 90 04/08/19 05:19 04/08/19 05:19 04/08/19 05:51 04/08/19 05:04/08/19 05:51 Exam: Gen.: Elderly female. No acute distress Eyes: Moist conjunctivae. No icterus Neck: Possible hepatojugular reflex and JVD Cardio: Irregular rhythm. Seems tachycardic. Respiratory: Diffuse crackles. Crackles worse in middle lobes. Moving more air in bases compared to yesterday. Extremities: No bilateral leg swelling. Capillary refill less than 2 seconds up per extremities. Psychiatric: Patient less anxious today. Answers questions appropriately. - Assessment and Plan (1) Acute CHF (congestive heart failure) Current Visit: Yes Status: Acute Assessment and Plan: acute systolic heart failure with reduced ejection fraction -Likely secondary to atrial fibrillation -Orthopnea, PND, bilateral edema of new onset -BNP 2211. Echo 04/03/19 showed EF 20-25%. monitor I/o. 04/06/19 -Cardiology consulted. To have LHC when can lay flat. Metoprolol succinate increased to 50mg daily 04/05/19. We will consider digoxin if blood pressure drops. Lisinopril. Strict I/O's, daily weights, salt and fluid restricted diet. 04/07/19 -40 lasix IV daily starting tomorrow. 04/08/19 -NPO midnight for potential LHC tomorrow (2) Atrial fibrillation with rapid ventricular response Current Visit: Yes Status: Acute Assessment and Plan: -Likely secondary to structural changes of the heart versus hypoxemia from COPD exacerbation -Newly discovered heart failure with symptoms as above -TSH WNL. Electrolytes likely not the cause. EKG QRS's irregularly irregular and showed tachycardia. [id number]: 4 -metoprolol XL as above. Plan to switch to NOAC at discharge 04/07/19 -rate was increased today. began 5/325 home dose norco in hopes to decrease pain and tachycardia. will plan to increase metoprolol if not successful. 04/08/19 -rate in 90's. continue to monitor (3) Acute respiratory failure with hypoxia Current Visit: Yes Status: Acute Assessment and Plan: -Likely secondary to COPD exacerbation vs. newly discovered heart failure with pleural effusion -Increased cough, sputum production. Increasing dyspnea over a month's time. -antibiotics finished. -home dose prednisone 10 mg daily po -nasal cannula (4) Pleural effusion Current Visit: Yes Status: Acute Assessment and Plan: -likely 2/2 new onset heart failure -dyspnea as above -as seen on CXR. CXR 04/06/19 shows worsened -pleural fluid: total protein <3; LDH 71 -serum: total protein 6.1; LDH 165 -transudative -2 thoracenteses completed. (5) Hypertension Current Visit: Yes Status: Chronic Assessment and Plan: -likely 2/2 CAD -systolic on admission in 150's -Lisinopril. (6) NSTEMI (non-ST elevated myocardial infarction) Current Visit: Yes Status: Acute Assessment and Plan: -likely 2/2 demand ischemia --> Type 2. -afib as below and new CHF as below. has remained at 0.04 times 3. -no obvious T wave elevation (7) Diabetes mellitus Current Visit: Yes Status: Chronic Assessment and Plan: -A1c 6.7 -may help explain cardiac dysfunction -follow up outpt (8) Hypokalemia Current Visit: Yes Status: Acute Assessment and Plan: -likely 2/2 magnesium deficiency. patient on increased dose of lasix compared with home dose. -3.4>3.8>4.0>3.5 -conider getting urine K if needed. -cont. to monitor 04/08/19 -gave 40mEq KCl DVT Prophylaxis: heparin drip - Summary of Assessment and Plan Summary of Assessment and Plan: Acute systolic heart failure with reduced ejection fraction -Likely secondary to atrial fibrillation -Orthopnea, PND, bilateral edema of new onset -BNP 2211. Echo 04/03/19 showed EF 20-25%. monitor I/o. 04/06/19 -Cardiology consulted. To have LHC when can lay flat. Metoprolol succinate increased to 50mg daily 04/05/19. We will consider digoxin if blood pressure drops. Lisinopril. Strict I/O's, daily weights, salt and fluid restricted diet . 04/07/19 -40 lasix IV daily starting tomorrow. 04/08/19 -NPO midnight for potential LHC tomorrow A.Fib with RVR -Likely secondary to structural changes of the heart versus hypoxemia from COPD exacerbation -Newly discovered heart failure with symptoms as above -TSH WNL. Electrolytes likely not the cause. EKG QRS's irregularly irregular and showed tachycardia. [id number]: 4 -metoprolol XL as above. Plan to switch to NOAC at discharge 04/07/19 -rate was increased today. began 5/325 home dose norco in hopes to decrease pain and tachycardia. will plan to increase metoprolol if not successful. 04/08/19 -rate in 90's. continue to monitor Acute resp failure with hypoxia -Likely secondary to COPD exacerbation vs. newly discovered heart failure with pleural effusion -Increased cough, sputum production. Increasing dyspnea over a month's time. -antibiotics finished. -home dose prednisone 10 mg daily po -nasal cannula R Pleural Effusion -likely 2/2 new onset heart failure -dyspnea as above -as seen on CXR. CXR 04/06/19 shows worsened -pleural fluid: total protein <3; LDH 71 -serum: total protein 6.1; LDH 165 -transudative -2 thoracenteses completed. HTN -likely 2/2 CAD -systolic on admission in 150's -Lisinopril. Hypokalemia -likely 2/2 magnesium deficiency. patient on increased dose of lasix compared with home dose. -3.4>3.8>4.0>3.5 -conider getting urine K if needed. -cont. to monitor 04/08/19 -gave 40mEq KCl NSTEMI -likely 2/2 demand ischemia --> Type 2. -afib as below and new CHF as below. has remained at 0.04 times 3. -no obvious T wave elevation elevated A1c -6.7 -likely 2/2 diabetes -may help explain cardiac dysfunction -follow up outpt - Time Spent with Patient Total time spe Internal Medicine: Result - Labs CBC & Chem 7: 04/08/19 04:28 04/08/19 04:28 Labs: Short CBC 04/07/19 04/08/19 Range/Units 05:58 04:28 WBC 15.1 H 14.1 H (4.3-11.1) K/mcL Hgb 11.2 L 11.3 L (11.5-15.4) g/dL Hct 37.1 37.1 (35.3-44.9) % Plt Count 243 246 (140-400) K/mcL Neutrophils # 12.8 H 11.9 H (1.6-8.9) K/mcL BMP 04/07/19 04/08/19 05:58 04:28 Sodium 142 143 Potassium 4.0 3.5 Chloride 100 97 L Carbon Dioxide 32 H 35 H BUN 40 H 41 H Creatinine 1.07 1.01 Glucose 132 H 131 H Calcium 9.0 8.9 - ABG Interpretation ABG results: PT/INR, D-dimer PT 12.6 Seconds (9.4-12.1) H 04/08/19 04:28 - Impressions Impressions Chest X-Ray 04/07/19 12:09 IMPRESSION: 1. Status post right thoracentesis with interval decrease in size of a now small pleural effusion with adjacent atelectasis. No discrete pneumothorax. 2. Stable appearance of diffuse airspace opacities throughout the lungs with trace left effusion. 3. Mild cardiomegaly. D/ / 04/07/2019 12:32:00 Muna James MD / Ashley Toussaint Interpreting Provider: Muna James MD Thoracentesis 04/07/19 14:56 IMPRESSION: Successful ultrasound guided thoracentesis. D/ / Mireya Osullivan MD / Mireya Osullivan MD Interpreting Provider: Mireya Osullivan MD Consult Discharge Plan - Plan Referrals: Homero Rondon MD [Primary Care Provider] - <Geo Clayton - Last Filed: 04/08/19 18:25> Hospitalist Progress Note - Encounter Date of Encounter: 04/08/19 - Exam Vitals: Temp Pulse Resp BP Pulse Ox 98.0 F 96 16 145/84 93 04/08/19 16:00 04/08/19 16:00 04/08/19 16:13 04/08/19 16:00 04/08/19 16:13 - Assessment and Plan (1) Pleural effusion Current Visit: Yes Status: Acute (2) New onset atrial fibrillation Current Visit: Yes Status: Acute (3) Acute CHF (congestive heart failure) Current Visit: Yes Status: Acute (4) Atrial fibrillation with rapid ventricular response Current Visit: Yes Status: Acute (5) COPD with acute exacerbation Current Visit: Yes Status: Acute (6) Acute respiratory failure with hypoxia Current Visit: Yes Status: Acute (7) Hypertension Current Visit: Yes Status: Chronic (8) Diabetes mellitus Current Visit: Yes Status: Chronic (9) Atrial fibrillation Current Visit: Yes Status: Chronic (10) Demand ischemia Current Visit: Yes Status: Acute - Time Spent with Patient Total time spent is greater than 50% in coordination of care (as documented) at patient's floor/unit and/or counseling patient: Internal Medicine: Result - Labs CBC & Chem 7: 04/08/19 04:28 04/08/19 04:28 Labs: Short CBC 04/08/19 Range/Units 04:28 WBC 14.1 H (4.3-11.1) K/mcL Hgb 11.3 L (11.5-15.4) g/dL Hct 37.1 (35.3-44.9) % Plt Count 246 (140-400) K/mcL Neutrophils # 11.9 H (1.6-8.9) K/mcL BMP 04/08/19 04:28 Sodium 143 Potassium 3.5 Chloride 97 L Carbon Dioxide 35 H BUN 41 H Creatinine 1.01 Glucose 131 H Calcium 8.9 - ABG Interpretation ABG results: PT/INR, D-dimer PT 12.6 Seconds (9.4-12.1) H 04/08/19 04:28 - Impressions Impressions Chest X-Ray 04/07/19 12:09 IMPRESSION: 1. Status post right thoracentesis with interval decrease in size of a now small pleural effusion with adjacent atelectasis. No discrete pneumothorax. 2. Stable appearance of diffuse airspace opacities throughout the lungs with trace left effusion. 3. Mild cardiomegaly. D/ / 04/07/2019 12:32:00 Muna James MD / Ashley Toussaint Interpreting Provider: Muna James MD - Attending Attestation I examined this patient and my medical decision-making was reviewed with the Resident Physician on 04/08/19. I agree with the documented findings, disposition and treatment plan as described except to the extent set forth below. Ms Harden is currently admitted for [place] and systolic heart failure. She remains moderate to high risk due to potential for worsening cardiac status. Ms Harden is still dyspneic. She seems to be more volume overloaded. No fever. No chest pain. Meds adjusted today per cardiology. Heart rate 102 now. Crackles and rhonchi on exam. Slow diuresis at this time. 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 use Diabetes mellitus complication status: without complication Qualified Code(s): E11.9 - Type 2 diabetes mellitus without complications <Geo Clayton - Last Filed: 04/08/19 18:25> (3) Acute CHF (congestive heart failure) Qualifiers: Heart failure type: systolic Qualified Code(s): I50.21 - Acute systolic (c ongestive) heart failure (7) Hypertension Qualifiers: Hypertension type: essential hypertension Qualified Code(s): I10 - Essential (primary) hypertension (8) Diabetes mellitus Qualifiers: Diabetes mellitus type: type 2 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
[2019-04-08] MEDS ORDERED: Furosemide 40 MG in 0.9 % Sodium Chloride 50 ML IV SCH (09:00)
[2019-04-08] MEDS: Insulin LISPRO 300 UNITS/3 ML VIAL SQ SCH ×4 (10:00→21:07)
[2019-04-08] MEDS: hydrOXYzine pamoate 25 MG CAPSULE PO SCH (10:02)
[2019-04-08] MEDS: predniSONE 10 MG TABLET PO SCH (10:02)
[2019-04-08] MEDS: Furosemide 40 MG/4 ML VIAL IVP SCH (10:02)
[2019-04-08] MEDS: Metoprolol XL (24 HR) Succ 50 MG TAB.ER.24H PO SCH ×2 (10:02→21:12)
[2019-04-08] MEDS: Magnesium Oxide 400 MG TABLET PO SCH (10:02)
--- NOTE | 2019-04-08 10:02 | Cardiology Progress Note ---
Date of Encounter: 04/08/19 Time of Encounter: 09:59 Assessment and Plan (1) Congestive heart failure Current Visit: Yes Status: Acute Acute HFrEF; etiology and chronicity unclear. Reports worsening symptoms over the past 3-6 months including orthopnea, PND, and LE edema. BNP 2211 upon admission. Troponin 0.04x3 likely due to demand ischemia. s/p right thoracentesis 04/07/19 for large right pleural effusion 950cc removed. 04/02/19 1.5 Liter fluid removed. SCr back to normal. IV lasix d/c'd 04/05. SOB multifactoral with COPD. TTE 04/03/19: LVEF 20-25%, global LV systolic dysfunction with regional variations, mild MR, TR, and PH. Volume overload appears to be improved however noted to have significant conversational dyspnea. Continues to have orthopnea Cumulative I&O: -1448 mL Agree with restarting IV diuresis. Continue BB and increase zestril to 5 mg. Strict I&Os, daily weights, Na/fluid restricted diet. Qualifiers: Heart failure type: systolic Heart failure chronicity: acute Qualified Code(s): I50.21 - Acute systolic (congestive) heart failure (2) Cardiomyopathy Current Visit: Yes Status: Acute See plan above for CHF. Unclear eitiology. Possible tachycardia induced. Recommend LHC for further ischemic evaluation when able. NPO for possible LHC tomorrow. Qualifiers: Cardiomyopathy type: unspecified Qualified Code(s): I42.9 - Cardiomyopathy, unspecified (3) Atrial fibrillation Current Visit: Yes Status: Acute Newly detected atrial fibrillation--unclear chronicity. Patient reports intermittent palpitations over the past month. Recommend rate control strategy for now. HR AVG 95 bpm. Noted to be 105 on my exam. WIll continue to monitor. Goal less than 100 Continue BB. TSH normal. No significant electrolyte abnormality. CHA2Ds Vasc=4 (CHF, age, female, HTN); recommend intermediate AC, patient is agreeable to NOAC. Will continue heparin gtt for now until testing has been completed. Qualifiers: Atrial fibrillation type: persistent Qualified Code(s): I48.1 - Persistent atrial fibrillation Discussion w patient/family: The assessment and plan as outlined above was discussed with the patient and/or family members who expressed understanding and agreement. All questions were answered. Thank you for involving us in the care of your patient. Please call with any questions. Subjective Principal diagnosis: Afib, CHF Interval history: Ms Pineda continues to have conversational dyspnea. C/o orthopnea. Objective Vital Signs, Last 4 Hours Temp Pulse Resp BP Pulse Ox 04/08/19 07:12 98.2 F 94 14 135/90 92 General: Conversant, Other (conversational dyspnea) HEENT: Atraumatic, Normocephaly, Mucus Membranes Moist Neck: No JVD, Normal carotid pulses Cardiac: Other (Irregular) Lungs: Other (with conversation, crackles left) Neuro: Alert and responsive, No focal deficits noted Abdomen: Soft, Non-Tender Skin: No rashes noted on visualized skin Musculoskeletal: No Chest Wall Tenderness Extremities: No Clubbing, No Cyanosis, Normal Pulses, Other (1+ ankle edema bilat) Results 04/08/19 04:28 04/08/19 04:28 Lab Results 04/08/19 04/08/19 04/08/19 04:28 04:28 04:28 WBC 14.1 H Hgb 11.3 L Hct 37.1 Plt Count 246 INR 1.1 Sodium 143 Potassium 3.5 Chloride 97 L Carbon Dioxide 35 H BUN 41 H Creatinine 1.01 Glucose 131 H Calcium 8.9 Magnesium 2.0 - Imaging and Cardiology Echo: report reviewed - EKG Interpretation EKG results cardiology: personally reviewed Consult Discharge Plan - Plan Referrals: Homero Rondon MD [Primary Care Provider] -
[2019-04-08] MEDS: *HR* HYDROcodone/Acet 5/325 mg TABLET PO PRN (21:11)
[2019-04-09] MEDS: Levalbuterol Neb 0.63 MG/3 ML IH SCH ×4 (03:36→21:24)
[2019-04-09 05:18] LABS: Basophils % 0.1 %
[2019-04-09 05:20] LABS: Eosinophils # 0.1 K/mcL (0.0-0.6); Eosinophils % 0.6 %; Hematocrit 35.8 % (35.3-44.9); Immature Granulocytes % 0.6 % (0-4); Immature Platelets 7.8 % (1.1-6.1); Lymphocytes # 1.1 K/mcL (0.6-4.6); Mean Corpuscular HGB Conc 30.7 g/dL (31.6-35.5); Mean Corpuscular Hemoglobin 23.2 pg (28.0-33.3); Mean Corpuscular Volume 75.4 fL (83.0-100.0); Mean Platelet Volume 11.9 fL (9.4-12.4); Monocytes # 1.2 K/mcL (0.0-1.3); Monocytes % 8.7 %; Neutrophils # 11.2 K/mcL (1.6-8.9); Platelet Count 234 K/mcL (140-400); Red Blood Count 4.75 M/mcL (3.82-4.97); Red Cell Distribution Width 19.6 % (11.5-14.5); White Blood Count 13.7 K/mcL (4.3-11.1)
[2019-04-09 05:30] LABS: Heparin anti-factor XA UFH 0.41 IU/mL (0.30-0.70); INR 1.2; Prothrombin Time 13.2 Seconds (9.4-12.1)
[2019-04-09 05:34] LABS: BUN/Creatinine Ratio 44 (6-26); Blood Urea Nitrogen 39 mg/dL (8-23); Calcium 8.6 mg/dL (8.6-10.3); Carbon Dioxide 36 mEq/L (23-29); Chloride 99 mEq/L (98-107); Glucose 129 mg/dL (70-105); Osmolality,Calculated 305 (280-300); Potassium 3.4 mEq/L (3.5-5.1); Sodium 142 mEq/L (136-145); eGFR For African Americans > 60 (> 60); eGFR For Non-African Americans > 60 (> 60)
[2019-04-09 06:39] LABS: Hypochromasia Present (Not Present); Large Platelets Present (Not Present); Platelet Estimate Normal (Normal)
--- NOTE | 2019-04-09 06:57 | Internal Med Progress Note ---
<Geo Clayton - Last Filed: 04/09/19 14:51> Hospitalist Progress Note - Encounter Date of Encounter: 04/09/19 - Exam Vitals: Temp Pulse Resp BP Pulse Ox 98.2 F 108 16 116/74 93 04/09/19 11:22 04/09/19 11:22 04/09/19 11:22 04/09/19 11:22 04/09/19 11:22 - Assessment and Plan (1) Pleural effusion Current Visit: Yes Status: Acute (2) New onset atrial fibrillation Current Visit: Yes Status: Acute (3) Acute CHF (congestive heart failure) Current Visit: Yes Status: Acute (4) Atrial fibrillation with rapid ventricular response Current Visit: Yes Status: Acute (5) COPD with acute exacerbation Current Visit: Yes Status: Acute (6) Acute respiratory failure with hypoxia Current Visit: Yes Status: Acute (7) Hypertension Current Visit: Yes Status: Chronic (8) Diabetes mellitus Current Visit: Yes Status: Chronic (9) Atrial fibrillation Current Visit: Yes Status: Chronic (10) Demand ischemia Current Visit: Yes Status: Acute - Time Spent with Patient Total time spent is greater than 50% in coordination of care (as documented) at patient's floor/unit and/or counseling patient: Internal Medicine: Result - Labs CBC & Chem 7: 04/09/19 04:45 04/09/19 04:45 Labs: Short CBC 04/09/19 Range/Units 04:45 WBC 13.7 H (4.3-11.1) K/mcL Hgb 11.0 L (11.5-15.4) g/dL Hct 35.8 (35.3-44.9) % Plt Count 234 (140-400) K/mcL Neutrophils # 11.2 H (1.6-8.9) K/mcL BMP 04/09/19 04:45 Sodium 142 Potassium 3.4 L Chloride 99 Carbon Dioxide 36 H BUN 39 H Creatinine 0.89 Glucose 129 H Calcium 8.6 - ABG Interpretation ABG results: PT/INR, D-dimer PT 13.2 Seconds (9.4-12.1) H 04/09/19 04:45 - Impressions Impressions Chest X-Ray 04/07/19 12:09 IMPRESSION: 1. Status post right thoracentesis with interval decrease in size of a now small pleural effusion with adjacent atelectasis. No discrete pneumothorax. 2. Stable appearance of diffuse airspace opacities throughout the lungs with trace left effusion. 3. Mild cardiomegaly. D/ / 04/07/2019 12:32:00 Muna James MD / Ashley Toussaint Interpreting Provider: Muna James MD Consult Discharge Plan - Plan Referrals: Homero Rondon MD [Primary Care Provider] - - Attending Attestation I examined this patient and my medical decision-making was reviewed with the Resident Physician on 04/09/19. I agree with the documented findings, disposition and treatment plan as described except to the extent set forth below. Ms Harden is currently admitted for acute resp failure and systolic CHF. She is now on 8L high flow oxygen. She remains moderate to high risk due to potential for worsening clinical status. Ms Harden is sitting up in bed. No fever. Still on high flow oxygen. No CP. Diuresing as able. No GI issues. Exam: Alert. No distress at this time. NC. Mucus membranes dry. JVD present. Heart distant - not tachy now. Diffuse rhonchi. Abd soft. Edema present. Moves all extremities. No rash Plan: Repeat CXR. Has had 2 thoracenteses this admit. Still unable to lie flat. Diuresing as able. Will ask for pulm input. <Simeon Murray - Last Filed: 04/09/19 16:05> Hospitalist Progress Note - Encounter Date of Encounter: 04/09/19 Time of Encounter: 06:45 - Subjective Interval History: Patient feels about the same as yesterday. She was having trouble breathing yesterday afternoon so that her oxygen flow was increased to 8 L on nasal cannula. Has only been able to lie flat intermittently. Denies any other significant or pressing issues at this moment. - Exam Vitals: Temp Pulse Resp BP Pulse Ox 98.4 F 103 18 131/98 91 04/09/19 05:33 04/09/19 05:33 04/09/19 05:33 04/09/19 05:33 04/09/19 05:33 Exam: Gen.: Elderly female. Sitting in bed Skin: Good turgor. Dryness of the lower extremities. Cardiac: Irregular rhythm. Tachycardic likely. Hepatojugular reflux and JVD likely. Respiratory: Diffuse crackles. Diminished lung sounds at the bases. Expiratory wheezes diffuse and worse anteriorly upper moyer. Extremities: Capillary refill less than 2 seconds upper extremities. No bilateral lower extremity edema. Psychiatric: Answers questions appropriately. Behavior appropriate. - Assessment and Plan (1) Acute CHF (congestive heart failure) Current Visit: Yes Status: Acute Assessment and Plan: -Likely secondary to atrial fibrillation -Orthopnea, PND, bilateral edema of new onset -BNP 2211. Echo 04/03/19 showed EF 20-25%. monitor I/o. 04/06/19 -Cardiology consulted. To have LHC when can lay flat. Metoprolol succinate increased to 50mg daily 04/05/19. We will consider digoxin if blood pressure drops. Lisinopril. Strict I/O's, daily weights, salt and fluid restricted diet. 04/07/19 -40 lasix IV daily starting tomorrow. 04/08/19 -NPO midnight for potential LHC tomorrow 04/09/19 -repeat CXR not resulted. LHC not performed secondary to patient hypoxic when supine. Pulmonology consult as below. May receive heart cath tomorrow if tolerates supine BiPAP. (2) Atrial fibrillation with rapid ventricular response Current Visit: Yes Status: Acute Assessment and Plan: -Likely secondary to structural changes of the heart versus hypoxemia from COPD exacerbation -Newly discovered heart failure with symptoms as above -TSH WNL. Electrolytes likely not the cause. EKG QRS's irregularly irregular and showed tachycardia. [id number]: 4 -metoprolol XL as above. Plan to switch to NOAC at discharge 04/07/19 -rate was increased today. began 5/325 home dose norco in hopes to decrease pain and tachycardia. will plan to increase metoprolol if not successful. 04/08/19 -rate in 90's. continue to monitor 04/09/19 -Rate 101-108. Continue to monitor (3) Acute respiratory failure with hypoxia Current Visit: Yes Status: Acute Assessment and Plan: -Likely secondary to COPD exacerbation vs. newly discovered heart failure with pleural effusion -Increased cough, sputum production. Increasing dyspnea over a month's time. -antibiotics finished. No ABG this admission. -home dose prednisone 10 mg daily po -nasal cannula 04/09/19 -Pulmonology consulted. Performing a trial of BiPAP while patient supine. (4) Pleural effusion Current Visit: Yes Status: Acute Assessment and Plan: -likely 2/2 new onset heart failure -dyspnea as above -as seen on CXR. CXR 04/06/19 shows worsened -pleural fluid: total protein <3; LDH 71 -serum: total protein 6.1; LDH 165 -transudative -2 thoracenteses completed. 04/09/19 -Pulmonology consulted. Will ultrasound and potentially place a Pleurx tomorrow (5) Hypertension Current Visit: Yes Status: Chronic Assessment and Plan: -likely 2/2 CAD -systolic on admission in 150's -Lisinopril. (6) NSTEMI (non-ST elevated myocardial infarction) Current Visit: Yes Status: Acute Assessment and Plan: -likely 2/2 demand ischemia --> Type 2. -afib as above and new CHF as above. has remained at 0.04 times 3. -no obvious T wave elevation (7) Diabetes mellitus Current Visit: Yes Status: Chronic Assessment and Plan: -A1c 6.7 -may help explain cardiac dysfunction -follow up outpt (8) Hypokalemia Current Visit: Yes Status: Acute Assessment and Plan: -likely 2/2 magnesium deficiency and Lasix. -3.4>3.8>4.0>3.5> 3.4 -conider getting urine K if needed. -cont. to monitor 04/08/19 -40mEq KCl 04/09/19 -40 mEq KCl DVT Prophylaxis: heparin drip - Summary of Assessment and Plan Summary of Assessment and Plan: (1) Acute CHF (congestive heart failure) Current Visit: Yes Status: Acute Assessment and Plan: acute systolic heart failure with reduced ejection fraction -Likely secondary to atrial fibrillation -Orthopnea, PND, bilateral edema of new onset -BNP 2211. Echo 04/03/19 showed EF 20-25%. monitor I/o. 04/06/19 -Cardiology consulted. To have LHC when can lay flat. Metoprolol succinate increased to 50mg daily 04/05/19. We will consider digoxin if blood pressure drops. Lisinopril. Strict I/O's, daily weights, salt and fluid restricted diet. 04/07/19 -40 lasix IV daily starting tomorrow. 04/08/19 -NPO midnight for potential LHC tomorrow 04/09/19 -Morning CXR. LHC not performed secondary to patient hypoxic when supine. Pulmonology consult as below. May receive heart cath tomorrow if tolerates supine BiPAP. (2) Atrial fibrillation with rapid ventricular response Current Visit: Yes Status: Acute Assessment and Plan: -Likely secondary to structural changes of the heart versus hypoxemia from COPD exacerbation -Newly discovered heart failure with symptoms as above -TSH WNL. Electrolytes likely not the cause. EKG QRS's irregularly irregular and showed tachycardia. [id number]: 4 -metoprolol XL as above. Plan to switch to NOAC at discharge 04/07/19 -rate was increased today. began 5/325 home dose norco in hopes to decrease pain and tachycardia. will plan to increase metoprolol if not successful. 04/08/19 -rate in 90's. continue to monitor 04/09/19 -Rate 101-108. Continue to monitor (3) Acute respiratory failure with hypoxia Current Visit: Yes Status: Acute Assessment and Plan: -Likely secondary to COPD exacerbation vs. newly discovered heart failure with pleural effusion -Increased cough, sputum production. Increasing dyspnea over a month's time. -antibiotics finished. No ABG this admission. -home dose prednisone 10 mg daily po -nasal cannula 04/09/19 -Pulmonology consulted. Performing a trial of BiPAP while patient supine. (4) Pleural effusion Current Visit: Yes Status: Acute Assessment and Plan: -likely 2/2 new onset heart failure -dyspnea as above -as seen on CXR. CXR 04/06/19 shows worsened -pleural fluid: total protein <3; LDH 71 -serum: total protein 6.1; LDH 165 -transudative -2 thoracenteses completed. 04/09/19 -Pulmonology consulted. Will ultrasound and potentially place a Pleurx tomorrow (5) Hypertension Current Visit: Yes Status: Chronic Assessment and Plan: -likely 2/2 CAD -systolic on admission in 150's -Lisinopril. (6) NSTEMI (non-ST elevated myocardial infarction) Current Visit: Yes Status: Acute Assessment and Plan: -likely 2/2 demand ischemia --> Type 2. -afib as above and new CHF as above. has remained at 0.04 times 3. -no obvious T wave elevation (7) Diabetes mellitus Current Visit: Yes Status: Chronic Assessment and Plan: -A1c 6.7 -may help explain cardiac dysfunction -follow up outpt (8) Hypokalemia Current Visit: Yes Status: Acute Assessment and Plan: -likely 2/2 magnesium deficiency and Lasix. -3.4>3.8>4.0>3.5> 3.4 -conider getting urine K if needed. -cont. to monitor 04/08/19 -40mEq KCl 04/09/19 -40 mEq KCl DVT Prophylaxis: heparin drip - Time Spent with Patient Total time spent is greater than 50% in coordination of care (as documented) at patient's floor/unit and/or counseling patient: Internal Medicine: Result - Labs CBC & Chem 7: 04/09/19 04:45 04/09/19 04:45 Labs: Short CBC 04/09/19 Range/Units 04:45 WBC 13.7 H (4.3-11.1) K/mcL Hgb 11.0 L (11.5-15.4) g/dL Hct 35.8 (35.3-44.9) % Plt Count 234 (140-400) K/mcL Neutrophils # 11.2 H (1.6-8.9) K/mcL BMP 04/09/19 04:45 Sodium 142 Potassium 3.4 L Chloride 99 Carbon Dioxide 36 H BUN 39 H Creatinine 0.89 Glucose 129 H Calcium 8.6 - ABG Interpretation ABG results: PT/INR, D-dimer PT 13.2 Seconds (9.4-12.1) H 04/09/19 04:45 - Impressions Impressions Chest X-Ray 04/07/19 12:09 IMPRESSION: 1. Status post right thoracentesis with interval decrease in size of a now small pleural effusion with adjacent atelectasis. No discrete pneumothorax. 2. Stable appearance of diffuse airspace opacities throughout the lungs with trace left effusion. 3. Mild cardiomegaly. D/ / 04/07/2019 12:32:00 Muna James MD / Ashley Toussaint Interpreting Provider: Muna James MD <Geo Clayton - Last Filed: 04/09/19 14:51> (3) Acute CHF (congestive heart failure) Qualifiers: Heart failure type: systolic Qualified Code(s): I50.21 - Acute systolic (congestive) heart failure (7) Hypertension Qualifiers: Hypertension type: essential hypertension Qualified Code(s): I10 - Essential (primary) hypertension (8) Diabetes mellitus Qualifiers: Diabetes mellitus type: type 2 Diabetes mellitus senior care insulin use: without extermination supervisor use Diabetes mellitus complication status: without complication Qualified Code(s): E11.9 - Type 2 diabetes mellitus without complications (9) Atrial fibrillation Qualifiers: Atrial fibrillation type: persistent Qualified Code(s): I48.1 - Persistent atrial fibrillation <Jazlyn Murrayh Vern - Last Filed: 04/09/19 16:05> (1) Acute CHF (congestive heart failure) Qualifiers: Heart failure type: systolic Qualified Code(s): I50.21 - Acute systolic (congestive) heart failure (5) Hypertension Qualifiers: Hypertension type: essential hypertension Qualified Code(s): I10 - Essential (primary) hypertension (7) Diabetes mellitus Qualifiers: Diabetes mellitus type: type 2 Diabetes mellitus senior care insulin use: without extermination supervisor use Diabetes mellitus complication status: without complication Qualified Code(s): E11.9 - Type 2 diabetes mellitus without complications
[2019-04-09] MEDS: Insulin LISPRO 300 UNITS/3 ML VIAL SQ SCH ×4 (09:13→19:54)
[2019-04-09] MEDS: Magnesium Oxide 400 MG TABLET PO SCH (09:52)
[2019-04-09] MEDS: Metoprolol XL (24 HR) Succ 50 MG TAB.ER.24H PO SCH ×2 (09:52→19:57)
[2019-04-09] MEDS: hydrOXYzine pamoate 25 MG CAPSULE PO SCH (09:52)
[2019-04-09] MEDS: Furosemide 40 MG/4 ML VIAL IVP SCH (09:53)
[2019-04-09] MEDS: predniSONE 10 MG TABLET PO SCH (09:53)
--- NOTE | 2019-04-09 12:02 | Cardiology Progress Note ---
Date of Encounter: 04/09/19 Time of Encounter: 08:30 Assessment and Plan (1) Congestive heart failure Current Visit: Yes Status: Acute Acute HFrEF; etiology and chronicity unclear. Reports worsening symptoms over the past 3-6 months including orthopnea, PND, and LE edema. BNP 2211 upon admission. Troponin 0.04x3 likely due to demand ischemia. s/p right thoracentesis 04/07/19 for large right pleural effusion 950cc removed. 04/02/19 1.5 Liter fluid removed. SCr back to normal. IV lasix d/c'd 04/05. SOB multifactoral with COPD. TTE 04/03/19: LVEF 20-25%, global LV systolic dysfunction with regional variations, mild MR, TR, and PH. Volume overload appears to be improved however noted to have significant conversational dyspnea. Continues to have orthopnea Cumulative I&O: -3756. mL Continue IV diuresis. Continue BB and aceI. Strict I&Os, daily weights, Na/fluid restricted diet. Check CXR am. Qualifiers: Heart failure type: systolic Heart failure chronicity: acute Qualified Code(s): I50.21 - Acute systolic (congestive) heart failure (2) Cardiomyopathy Current Visit: Yes Status: Acute See plan above for CHF. Unclear eitiology. Possible tachycardia induced. Recommend [facility] for further ischemic evaluation when able. Qualifiers: Cardiomyopathy type: unspecified Qualified Code(s): I42.9 - Cardiomyopathy, unspecified (3) Atrial fibrillation Current Visit: Yes Status: Chronic Newly detected atrial fibrillation--unclear chronicity. Patient reports intermi ttent palpitations over the past month. Recommend rate control strategy for now. HR AVG 100 bpm. Noted to be 95 on my exam. WIll continue to monitor. Goal less than 100 Continue BB. TSH normal. No significant electrolyte abnormality. CHA2Ds Vasc=4 (CHF, age, female, HTN); recommend usp AC, patient is agreeable to NOAC. Will continue heparin gtt for now until testing has been completed. Qualifiers: Atrial fibrillation type: persistent Qualified Code(s): I48.1 - Persistent atrial fibrillation Discussion w patient/family: The assessment and plan as outlined above was discussed with the patient and/or family members who expressed understanding and agreement. All questions were answered. Thank you for involving us in the care of your patient. Please call with any questions. Subjective Principal diagnosis: Afib, CHF Interval history: Ms Pineda continues to have dyspnea at rest. C/o orthopnea. Attempted to lay flat for 15 min and patient had to sit up due to feelin like she wasn't breathing well. Objective Vital Signs, Last 4 Hours Temp Pulse Resp BP Pulse Ox 04/09/19 11:22 98.2 F 108 16 116/74 93 04/09/19 10:48 16 94 General: Conversant HEENT: Atraumatic, Normocephaly, Mucus Membranes Moist Neck: Other (JVD noted) Cardiac: Other (Irregular) Lungs: Other (Dyspnea at rest and while sleeping noted,using abdominal muscles.) Neuro: Alert and responsive, No focal deficits noted Abdomen: Soft, Non-Tender Skin: No rashes noted on visualized skin Musculoskeletal: No Chest Wall Tenderness Extremities: No Clubbing, No Cyanosis, No Edema, Normal Pulses Results 04/09/19 04:45 04/09/19 04:45 Lab Results 04/09/19 04/09/19 04/09/19 04:45 04:45 04:45 WBC 13.7 H Hgb 11.0 L Hct 35.8 Plt Count 234 INR 1.2 Sodium 142 Potassium 3.4 L Chloride 99 Carbon Dioxide 36 H BUN 39 H Creatinine 0.89 Glucose 129 H Calcium 8.6 Magnesium 2.0 - Imaging and Cardiology Echo: report reviewed - EKG Interpretation EKG results cardiology: personally reviewed Consult Discharge Plan - Plan Referrals: Homero Rondon MD [Primary Care Provider] -
--- NOTE | 2019-04-09 12:45 | Pulmonology Consult Note ---
<Baron Junior - Last Filed: 04/09/19 16:37> Date of Encounter: 04/09/19 Time of Encounter: 13:00 Assessment and Plan (1) Acute respiratory failure with hypoxia Current Visit: Yes Status: Acute Likely 2/2 systolic heart failure with pleural effusion s/p 2 separate thoracentesis on the right with removal of a total of 2450mL transudative effusion Currently ventilating and saturating well on 8lpm O2 with SpO2 of 98% With concern for re-occuring right sided effusion, discussed R/B/A of PleurX catheter placement with the patient and her sister who was at bedside. Pt stated she wanted to try anything that would help her respiratory status improve. Bedside ultrasound did reveal an appropriate sized effusion for PleurX placement. However pt is on Heparin drip at this time. Cardiology has evaluated patient and recommended LHC for cardiomyopathy, however this has been postponed as the patient has been experiencing significant orthopnea. Will trial BiPAP. Pt tolerate BiPAP well and reported it relieved her orthopnea. Spoke with Cardiology MEDICAL INSURANCE VERIFIER. Plan for LHC in AM, with PleurX catheter placement on the right in the afternoon. Pt will require BiPAP during LHC. (2) Acute CHF (congestive heart failure) Current Visit: Yes Status: Acute Echocardiogram from 04/03/19: - LVEF 20-25%. - Normal LV chamber size, wall thickness. - Severe global left ventricular systolic dysfunction with regional variations. - Atypical septal motion consistent with bundle branch block. - Indeterminate diastolic function. - Normal right ventricular structure, mildly reduced function. - Mild mitral regurgitation. - Mild tricuspid regurgitation. - Mild pulmonary hypertension. - Pleural effusion noted. Plan as above. Cardiology following Qualifiers: Heart failure type: systolic Qualified Code(s): I50.21 - Acute systolic (congestive) heart failure (3) NSTEMI (non-ST elevated myocardial infarction) Current Visit: Yes Status: Acute As above (4) Pleural effusion Current Visit: Yes Status: Acute S/P 2 separate thoracentesis Plan as above for PleurX catheter placement (5) Atrial fibrillation Current Visit: Yes Status: Chronic Currently on Heparin drip Plan as above Qualifiers: Atrial fibrillation type: persistent Qualified Code(s): I48.1 - Persistent atrial fibrillation History of Present Illness Consult date: 04/09/19 Reason for consult: dyspnea, pleural effusion Chief complaint: SOB History of present illness: Ms Harden is a 73F with PMH of arthritis, COPD, and HTN. She was admitted on 04/02/19 for complaints of shortness of breath which had progressively worsened over the past 4 months. CXR from the ED revealed a moderate to large pleural right pleural effusion with calcified lymph nodes and granulomas. The patient was also noted to be in Afib with RVR with rate in the 150s. The patient was started on a Cardizem and Heparin drip. A bedside thoracentesis was performed while the patient was in the ED which removed 1.5L of transudative effusion from the right side. Troponins were adynamic at 0.04. Echocardiogram revealed severe LF systolic dysfunction. She underwent another thoracentesis on 04/07/19 with removal of 950mL of transudative effusion again from the right side. Pulmonology was consulted for evaluation for possible PleurX catheter placement. Pt seen and examined at bedside. Reports continued shortness of breath. She is inquiring about PleurX catheter placement. Denies any increased cough, increased sputum production, fever, or chills. Reports she has had a difficult time laying flat. Past Med Surg Social Fam HX - Past Medical History Medical history: arthritis, COPD, hypertension Psychiatric history: no psych history - Past Surgical History Additional surgical history: tubes tied - Social History Smoking Status: Former smoker Smokeless Tobacco Status: No Alcohol use: none Drug use: none - Family History Mother Living Status: Hx Family Cardiac Disorders: Yes (CAD) Father Living Status: Cause of : AR Hx Family Cardiac Disorders: Yes (multiple heart attacks) Sister Hx Family Cardiac Disorders: Yes (cardiomyopathy) Medications and Allergies Albuterol Neb [Proventil Neb] 2.5 mg IH Q6H PRN 04/03/19 [History] Albuterol Sulfate [Proventil Inhaler] 2 puff IH Q4-6H PRN 04/03/19 [History] Albuterol Sulfate [Proventil] 4 mg PO DAILY 04/03/19 [History] Benazepril HCl 10 mg PO DAILY 04/03/19 [History] Furosemide [Lasix] 20 mg PO DAILY 04/03/19 [History] Hydrocodone/Acetaminophen [[place] 10-325 Tablet] 1 tab PO Q6H PRN 04/03/19 [History] Montelukast [Singulair] 10 mg PO HS 04/03/19 [History] Sertraline [Zoloft] 100 mg PO DAILY 04/03/19 [History] hydrOXYzine pamoate [Hydroxyzine Pamoate] 25 mg PO DAILY 04/03/19 [History] predniSONE [PredniSONE] 10 mg PO DAILY 04/03/19 [History] Apixaban [Eliquis] 5 mg PO BID #60 tablet 04/10/19 [Rx] Allergy/AdvReac Type Severity Reaction Status Date / Time sulfamethoxazole AdvReac Swelling Verified 04/03/19 18:10 [From Bactrim] of the Eye trimethoprim [From Bactrim] AdvReac Swelling Verified 04/03/19 18:10 of the Eye All Systems: The remainder of the systems were reviewed and are negative - Constitutional Constitutional: no chills, no fever(s) - Cardiovascular Cardiovascular: dyspnea, dyspnea on exertion, orthopnea, no edema, no lightheadedness, no palpitations - Respiratory Respiratory: dyspnea, dyspnea on exertion, no cough, no hemoptysis, no chest congestion, no excessive phlegm production, no change in phlegm color Physical Examination Vital Signs: Vital Signs, Last 4 Hours Temp Pulse Resp BP Pulse Ox 04/09/19 11:22 98.2 F 108 16 116/74 93 04/09/19 10:48 16 94 General appearance: no acute distress, alert Eyes: nonicteric ENT: oropharynx moist Neck: supple Effort: normal Inspection: normal Auscultation: bilateral: diminished breath sounds Cardiovascular: regular rate and rhythm Gastrointestinal: soft, non-tender, non-distended Integumentary: normal Extremities: no cyanosis, no edema, no clubbing, pink and warm, pulses normal, no ischemia or petechiae Musculoskeletal: no deformities Gait: normal posture normal mental status, non-focal exam, pupils equal and round mood appropriate, affect normal Results - Laboratory Findings CBC and BMP: 04/09/19 04:45 04/09/19 04:45 PT/INR, D-dimer PT 13.2 Seconds (9.4-12.1) H 04/09/19 04:45 Abnormal lab findings: Abnormal lab results WBC 13.7 K/mcL (4.3-11.1) H 04/09/19 04:45 RBC 5.17 M/mcL (3.82-4.97) H 04/05/19 05:00 Hgb 11.0 g/dL (11.5-15.4) L 04/09/19 04:45 MCV 75.4 fL (83.0-100.0) L 04/09/19 04:45 MCH 23.2 pg (28.0-33.3) L 04/09/19 04:45 MCHC 30.7 g/dL (31.6-35.5) L 04/09/19 04:45 RDW 19.6 % (11.5-14.5) H 04/09/19 04:45 Neutrophils # 11.2 K/mcL (1.6-8.9) H 04/09/19 04:45 Large Platelets Present (Not Present) A 04/09/19 04:45 Immature Plt Fraction 7.8 % (1.1-6.1) H 04/09/19 04:45 Hypochromasia Present (Not Present) A 04/09/19 04:45 PT 13.2 Seconds (9.4-12.1) H 04/09/19 04:45 Heparin Anti-Xa, Unfract 0.27 IU/mL (0.30-0.70) L 04/08/19 11:16 Potassium 3.4 mEq/L (3.5-5.1) L 04/09/19 04:45 Chloride 97 mEq/L (98-107) L 04/08/19 04:28 Carbon Dioxide 36 mEq/L (23-29) H 04/09/19 04:45 BUN 39 mg/dL (8-23) H 04/09/19 04:45 Creatinine 1.30 mg/dL (0.60-1.20) H 04/06/19 02:48 Est GFR ( Amer) 48 (> 60) L 04/06/19 02:48 Est GFR (Non-Af Amer) 53 (> 60) L 04/08/19 04:28 BUN/Creatinine Ratio 44 (6-26) H 04/09/19 04:45 Glucose 129 mg/dL (70-105) H 04/09/19 04:45 POC Glucose 130 mg/dL (70-99) H 04/08/19 21:04 Hemoglobin A1c 6.7 % (-5.6) H 04/03/19 06:45 Calculated Osmolality 305 (280-300) H 04/09/19 04:45 Calcium 8.3 mg/dL (8.6-10.3) L 04/03/19 06:45 Total Bilirubin 1.1 mg/dL (0.3-1.0) H 04/04/19 04:54 Direct Bilirubin 0.4 mg/dL (0.0-0.2) H 04/02/19 14:34 AST 9 Units/L (13-39) L 04/04/19 04:54 ALT 5 Units/L (7-52) L 04/04/19 04:54 Troponin I 0.04 ng/mL (< 0.04) H* 04/02/19 22:48 B-Natriuretic Peptide 2211 pg/mL (Less than 100) H 04/02/19 14:34 Serum Total Protein 5.3 g/dL (6.4-8.9) L 04/04/19 04:54 Albumin 3.0 g/dL (3.5-5.7) L 04/04/19 04:54 Globulin 2.3 g/dL (2.4-3.5) L 04/04/19 04:54 - Diagnostic Findings Chest x-ray: report reviewed, image reviewed - Clinical Findings Intake & Output: Intake & Output 04/08/19 04/09/19 04/09/19 23:59 07:59 15:59 Intake Total 224 / 782.4 107 / 107 0 / 107 Output Total 1250 / 1450 300 / 300 Balance -1026 / -667.6 -193 / -193 0 / -193 Weight 54.5 kg Consult Discharge Plan - Plan Referrals: Homero Rondon MD [Primary Care Provider] - Prescriptions: Apixaban [Eliquis] 5 mg PO BID #60 tablet <Sheridan Titus - Last Filed: 04/11/19 01:01> Date of Encounter: 04/09/19 All Systems: The remainder of the systems were reviewed and are negative Physical Examination Vital Signs: Vital Signs, Last 4 Hours Temp Pulse Resp BP Pulse Ox 04/09/19 15:47 16 96 04/09/19 15:00 97.6 F 92 16 102/58 98 Results - Laboratory Findings CBC and BMP: 04/10/19 15:31 04/10/19 06:02 PT/INR, D-dimer PT 13.2 Seconds (9.4-12.1) H 04/09/19 04:45 Abnormal lab findings: Abnormal lab results WBC 13.7 K/mcL (4.3-11.1) H 04/09/19 04:45 RBC 5.17 M/mcL (3.82-4.97) H 04/05/19 05:00 Hgb 11.0 g/dL (11.5-15.4) L 04/09/19 04:45 MCV 75.4 fL (83.0-100.0) L 04/09/19 04:45 MCH 23.2 pg (28.0-33.3) L 04/09/19 04:45 MCHC 30.7 g/dL (31.6-35.5) L 04/09/19 04:45 RDW 19.6 % (11.5-14.5) H 04/09/19 04:45 Neutrophils # 11.2 K/mcL (1.6-8.9) H 04/09/19 04:45 Large Platelets Present (Not Present) A 04/09/19 04:45 Immature Plt Fraction 7.8 % (1.1-6.1) H 04/09/19 04:45 Hypochromasia Present (Not Present) A 04/09/19 04:45 PT 13.2 Seconds (9.4-12.1) H 04/09/19 04:45 Heparin Anti-Xa, Unfract 0.27 IU/mL (0.30-0.70) L 04/08/19 11:16 Potassium 3.4 mEq/L (3.5-5.1) L 04/09/19 04:45 Chloride 97 mEq/L (98-107) L 04/08/19 04:28 Carbon Dioxide 36 mEq/L (23-29) H 04/09/19 04:45 BUN 39 mg/dL (8-23) H 04/09/19 04:45 Creatinine 1.30 mg/dL (0.60-1.20) H 04/06/19 02:48 Est GFR ( Amer) 48 (> 60) L 04/06/19 02:48 Est GFR (Non-Af Amer) 53 (> 60) L 04/08/19 04:28 BUN/Creatinine Ratio 44 (6-26) H 04/09/19 04:45 Glucose 129 mg/dL (70-105) H 04/09/19 04:45 POC Glucose 130 mg/dL (70-99) H 04/08/19 21:04 Hemoglobin A1c 6.7 % (-5.6) H 04/03/19 06:45 Calculated Osmolality 305 (280-300) H 04/09/19 04:45 Calcium 8.3 mg/dL (8.6-10.3) L 04/03/19 06:45 Total Bilirubin 1.1 mg/dL (0.3-1.0) H 04/04/19 04:54 Direct Bilirubin 0.4 mg/dL (0.0-0.2) H 04/02/19 14:34 AST 9 Units/L (13-39) L 04/04/19 04:54 ALT 5 Units/L (7-52) L 04/04/19 04:54 Troponin I 0.04 ng/mL (< 0.04) H* 04/02/19 22:48 B-Natriuretic Peptide 2211 pg/mL (Less than 100) H 04/02/19 14:34 Serum Total Protein 5.3 g/dL (6.4-8.9) L 04/04/19 04:54 Albumin 3.0 g/dL (3.5-5.7) L 04/04/19 04:54 Globulin 2.3 g/dL (2.4-3.5) L 04/04/19 04:54 - Clinical Findings Intake & Output: Intake & Output 04/09/19 04/09/19 04/09/19 07:59 15:59 23:59 Intake Total 107 / 226 119 / 226 Output Total 300 / 300 Balance -193 / -74 119 / -74 Weight 54.5 kg - Attending Attestation I examined this patient and my medical decision-making was reviewed with the Resident Physician. I agree with the documented findings, disposition and treatment plan as described except to the extent set forth below. Patient seen and examined. Labs, radiology, chart personally reviewed. 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 Patient was told about 3 options, to treat underlying heart disease or thoracentesis or pleurx pleural catheter.. Patient is candidate to have cardiac cath and waiting for now because patient is not been able flat for cardiac cath and recommended to use NIV if needed or we can do thoracentesis. I have explained to them all about Pleurx pleural catheter and I feel she is a good candidate as long as there will be help and someone to help her to drain it. Patient is on anticoagualtion. I would recommend she has her cardiac cath first and if no contranidation, then keep Heparin off and after cardiac cath, will plan to do it tomorrow. Patient understand and agreed. If she has any distress, it is recommended to do thoracentesis. Cardiovascular: cardiology is following up and plan for cardiac cath. Dispo:2NE Code: Full. Prognosis.Poor with her cardiomyopathy Thank you very much for consultation.
[2019-04-09] MEDS: *HR* HYDROcodone/Acet 5/325 mg TABLET PO PRN ×2 (13:15→21:51)
[2019-04-09] MEDS: Heparin 25,000 UNIT/250 ML D5W 25,000 UNIT/250 ML IV.SOLN IVC SCH (14:59)
[2019-04-10] MEDS: Levalbuterol Neb 0.63 MG/3 ML IH SCH ×4 (03:56→22:16)
[2019-04-10] MEDS: Heparin 25,000 UNIT/250 ML D5W 25,000 UNIT/250 ML IV.SOLN IVC SCH ×2 (06:05→17:53)
[2019-04-10 06:58] LABS: Eosinophils # 0.2 K/mcL (0.0-0.6); Eosinophils % 1.3 %; Hematocrit 37.5 % (35.3-44.9); Hemoglobin 11.1 g/dL (11.5-15.4); Immature Granulocytes % 0.5 % (0-4); Lymphocytes # 0.9 K/mcL (0.6-4.6); Lymphocytes % 7.2 %; Mean Corpuscular HGB Conc 29.6 g/dL (31.6-35.5); Mean Corpuscular Hemoglobin 22.7 pg (28.0-33.3); Mean Corpuscular Volume 76.8 fL (83.0-100.0); Mean Platelet Volume 12.3 fL (9.4-12.4); Monocytes # 1.1 K/mcL (0.0-1.3); Monocytes % 8.8 %; Neutrophils # 9.8 K/mcL (1.6-8.9); Platelet Count 251 K/mcL (140-400); Red Blood Count 4.88 M/mcL (3.82-4.97); Red Cell Distribution Width 19.9 % (11.5-14.5); Segmented Neutrophils % 82.2 %; White Blood Count 11.9 K/mcL (4.3-11.1)
[2019-04-10 07:02] LABS: INR 1.1; Prothrombin Time 12.9 Seconds (9.4-12.1)
[2019-04-10 07:24] LABS: BUN/Creatinine Ratio 51 (6-26); Blood Urea Nitrogen 45 mg/dL (8-23); Calcium 8.7 mg/dL (8.6-10.3); Carbon Dioxide 39 mEq/L (23-29); Chloride 96 mEq/L (98-107); Glucose 133 mg/dL (70-105); Osmolality,Calculated 325 (280-300); Potassium 3.9 mEq/L (3.5-5.1); Sodium 151 mEq/L (136-145); eGFR For African Americans > 60 (> 60); eGFR For Non-African Americans > 60 (> 60)
[2019-04-10 07:59] LABS: Platelet Estimate Normal (Normal)
[2019-04-10 08:00] LABS: Acanthocytes 1+ (Not Present); Hypochromasia Present (Not Present)
--- NOTE | 2019-04-10 08:32 | Internal Med Progress Note ---
<Geo Clayton - Last Filed: 04/10/19 16:32> Hospitalist Progress Note - Encounter Date of Encounter: 04/10/19 - Exam Vitals: Temp Pulse Resp BP Pulse Ox 96.8 F L 89 19 109/70 93 04/10/19 15:24 04/10/19 15:24 04/10/19 16:07 04/10/19 15:24 04/10/19 16:07 - Assessment and Plan (1) Pleural effusion Current Visit: Yes Status: Chronic (2) Acute CHF (congestive heart failure) Current Visit: Yes Status: Acute (3) Acute respiratory failure with hypoxia Current Visit: Yes Status: Acute (4) Atrial fibrillation Current Visit: Yes Status: Chronic (5) NSTEMI (non-ST elevated myocardial infarction) Current Visit: Yes Status: Acute - Time Spent with Patient Total time spent is greater than 50% in coordination of care (as documented) at patient's floor/unit and/or counseling patient: Internal Medicine: Result - Labs CBC & Chem 7: 04/10/19 15:31 04/10/19 06:02 Labs: Short CBC 04/10/19 04/10/19 Range/Units 06:02 15:31 WBC 11.9 H 11.0 (4.3-11.1) K/mcL Hgb 11.1 L 11.3 L (11.5-15.4) g/dL Hct 37.5 39.0 (35.3-44.9) % Plt Count 251 296 (140-400) K/mcL Neutrophils # 9.8 H (1.6-8.9) K/mcL BMP 04/10/19 06:02 Sodium 151 H Potassium 3.9 Chloride 96 L Carbon Dioxide 39 H BUN 45 H Creatinine 0.89 Glucose 133 H Calcium 8.7 - ABG Interpretation ABG results: PT/INR, D-dimer PT 12.8 Seconds (9.4-12.1) H 04/10/19 15:31 - Impressions Impressions Chest X-Ray 04/09/19 11:24 IMPRESSION: Increasing density of airspace disease in the right upper lung, representing increasing pneumonia or pulmonary edema. Small 2 moderate-sized right pleural effusion, basically unchanged. D/ / Jasen Aldana MD / Jasen Aldana MD Interpreting Provider: Jasen Aldana MD Consult Discharge Plan - Plan Referrals: Homero Rondon MD [Primary Care Provider] - Prescriptions: Apixaban [Eliquis] 5 mg PO BID #60 tablet - Attending Attestation I examined this patient and my medical decision-making was reviewed with the Resident Physician on 04/10/19. I agree with the documented findings, disposition and treatment plan as described except to the extent set forth below. Ms Harden is currently admitted for acute hypoxic resp failure and systolic heart failure. She remains moderate to high risk due to potential for worsening clinical and respiratory status. Ms Harden seems more comfortable today. No fever or chills. To have LHC today. Exam: Alert. Comfortable upright in bed. Mucus membranes dry. NC. Neck supple. Heart not tachy. Some rhonchi heard. No edema. No rash. Moves all extremities. Plan: LHC today. Sodium elevated - hold diuresis and allow more fluid today. <Simeon Murray - Last Filed: 04/10/19 18:54> Hospitalist Progress Note - Encounter Date of Encounter: 04/10/19 Time of Encounter: 06:30 - Subjective Interval History: Feels about the same. Her breathing is slightly improved. She has no other concerns. - Exam Vitals: Temp Pulse Resp BP Pulse Ox 96.8 F L 95 16 139/97 92 04/10/19 07:25 04/10/19 07:25 04/10/19 07:25 04/10/19 07:25 04/10/19 07:25 Exam: Gen.: Elderly female in no acute distress Skin: Poor turgor. Dry lower extremities. Eyes: Moist and nonicteric ENT: Wearing BiPAP. Cardiac: Irregular rhythm. Regular rate. No murmurs gallops or rubs Respiratory: Expiratory wheezes and diffuse crackles. Moving air more than yesterday. GI: Soft. Not diffusely tender Extremities: Capillary refill less than 2 seconds upper extremities. No lower extremity edema Psychiatric: Appropriate mood and behavior. Answers questions coherently - Assessment and Plan (1) Acute CHF (congestive heart failure) Current Visit: Yes Status: Acute Assessment and Plan: -Likely secondary to atrial fibrillation -Orthopnea, PND, bilateral edema of new onset -BNP 2211. Echo 04/03/19 showed EF 20-25%. monitor I/o. 04/06/19 -Cardiology consulted. To have LHC when can lay flat. Metoprolol succinate increased to 50mg daily 04/05/19. We will consider digoxin if blood pressure drops. Lisinopril. Strict I/O's, daily weights, salt and fluid restricted diet. 04/07/19 -40 lasix IV daily starting tomorrow. 04/08/19 -NPO midnight for potential LHC tomorrow 04/09/19 -repeat CXR not resulted. LHC not performed secondary to patient hypoxic when supine. Pulmonology consult as below. May receive heart cath tomorrow if tolerates supine BiPAP. 04/10/19 -Patient dry on exam and hypernatremic with increased serum osmolality. Stop Lasix. Increased fluid restriction to 2 L. LHC completed and showed mild nonobstructive CAD. ASA to start tomorrow. Continue beta juliet, DUNCAN inhibitor, will plan to order lipid panel and begin statin. Maintenance Lasix at discharge. Eliquis pending hernandez check. F/U with cardiology outpatient. (2) Atrial fibrillation with rapid ventricular response Current Visit: Yes Status: Acute Assessment and Plan: -Likely secondary to structural changes of the heart versus hypoxemia from COPD exacerbation -Newly discovered heart failure with symptoms as above -TSH WNL. Electrolytes likely not the cause. EKG QRS's irregularly irregular and showed tachycardia. [id number]: 4 -metoprolol XL as above. Plan to switch to NOAC at discharge 04/07/19 -rate was increased today. began 5/325 home dose norco in hopes to decrease pain and tachycardia. will plan to increase metoprolol if not successful. 04/08/19 -rate in 90's. continue to monitor 04/09/19 -Rate 101-108. Continue to monitor 04/10/19 -Rate mostly in the low 90s. LHC today. Continue rate control per cardiology. (3) Acute respiratory failure with hypoxia Current Visit: Yes Status: Acute Assessment and Plan: -Likely secondary to COPD exacerbation vs. newly discovered heart failure with pleural effusion -Increased cough, sputum production. Increasing dyspnea over a month's time. -antibiotics finished. No ABG this admission. -home dose prednisone 10 mg daily po -nasal cannula 04/09/19 -Pulmonology consulted. Performing a trial of BiPAP while patient supine. 04/10/19 -CXR yesterday read as increasing airspace disease in right upper lung likely clinically correlated as pulmonary edema. BiPAP overnight. (4) Pleural effusion Current Visit: Yes Status: Chronic Assessment and Plan: -likely 2/2 new onset heart failure -dyspnea as above -as seen on CXR. CXR 04/06/19 shows worsened -pleural fluid: total protein <3; LDH 71 -serum: total protein 6.1; LDH 165 -transudative -2 thoracenteses completed. 04/09/19 -Pulmonology consulted. Will ultrasound and potentially place a Pleurx tomorrow 04/10/19 -CXR showed effusion unchanged. Pleurx to be placed Saturday. If repeated distress this weekend drain only part of the effusion fluid. (5) Hypertension Current Visit: Yes Status: Chronic Assessment and Plan: -likely 2/2 CAD -systolic on admission in 150's -Beta juliet, ACEi (6) NSTEMI (non-ST elevated myocardial infarction) Current Visit: Yes Status: Acute Assessment and Plan: -likely 2/2 demand ischemia --> Type 2. -afib as above and new CHF as above. has remained at 0.04 times 3. -no obvious T wave elevation (7) Diabetes mellitus Current Visit: Yes Status: Chronic Assessment and Plan: -A1c 6.7 -may help explain cardiac dysfunction -follow up outpt (8) Hypokalemia Current Visit: Yes Status: Acute Assessment and Plan: -likely 2/2 magnesium deficiency and Lasix. -3.4>3.8>4.0>3.5> 3.4>3.9 -conider getting urine K if needed. -cont. to monitor 04/08/19 -40mEq KCl 04/09/19 -40 mEq KCl 04/10/19 -40 mEq KCl (9) Hypernatremia Current Visit: Yes Status: Acute Assessment and Plan: 04/10/19 -Likely secondary to intravascular depletion from furosemide therapy -High serum osmolality -142>151 -Stop furosemide. To be continued at maintenance dose on an outpatient basis per cardiology. -Continue to monitor DVT Prophylaxis: heparin drip - Summary of Assessment and Plan Summary of Assessment and Plan: (1) Acute CHF (congestive heart failure) Current Visit: Yes Status: Acute Assessment and Plan: -Likely secondary to atrial fibrillation -Orthopnea, PND, bilateral edema of new onset -BNP 2211. Echo 04/03/19 showed EF 20-25%. monitor I/o. 04/06/19 -Cardiology consulted. To have LHC when can lay flat. Metoprolol succinate increased to 50mg daily 04/05/19. We will consider digoxin if blood pressure drops. Lisinopril. Strict I/O's, daily weights, salt and fluid restricted diet. 04/07/19 -40 lasix IV daily starting tomorrow. 04/08/19 -NPO midnight for potential LHC tomorrow 04/09/19 -repeat CXR not resulted. LHC not performed secondary to patient hypoxic when supine. Pulmonology consult as below. May receive heart cath tomorrow if tolerates supine BiPAP. 04/10/19 -Patient dry on exam and hypernatremic with increased serum osmolality. Stop Lasix. Increased fluid restriction to 2 L. LHC completed and showed mild nonobstructive CAD. ASA to start tomorrow. Continue beta juliet, DUNCAN inhibitor, will plan to order lipid panel and begin statin. Maintenance Lasix at discharge. Eliquis pending hernandez check. F/U with cardiology outpatient. (2) Atrial fibrillation with rapid ventricular response Current Visit: Yes Status: Acute Assessment and Plan: -Likely secondary to structural changes of the heart versus hypoxemia from COPD exacerbation -Newly discovered heart failure with symptoms as above -TSH WNL. Electrolytes likely not the cause. EKG QRS's irregularly irregular and showed tachycardia. [id number]: 4 -metoprolol XL as above. Plan to switch to NOAC at discharge 04/07/19 -rate was increased today. began 5/325 home dose norco in hopes to decrease pain and tachycardia. will plan to increase metoprolol if not successful. 04/08/19 -rate in 90's. continue to monitor 04/09/19 -Rate 101-108. Continue to monitor 04/10/19 -Rate mostly in the low 90s. LHC today. Continue rate control per cardiology. (3) Acute respiratory failure with hypoxia Current Visit: Yes Status: Acute Assessment and Plan: -Likely secondary to COPD exacerbation vs. newly discovered heart failure with pleural effusion -Increased cough, sputum production. Increasing dyspnea over a month's time. -antibiotics finished. No ABG this admission. -home dose prednisone 10 mg daily po -nasal cannula 04/09/19 -Pulmonology consulted. Performing a trial of BiPAP while patient supine. 04/10/19 -CXR yesterday read as increasing airspace disease in right upper lung likely clinically correlated as pulmonary edema. BiPAP overnight. (4) Pleural effusion Current Visit: Yes Status: Chronic Assessment and Plan: -likely 2/2 new onset heart failure -dyspnea as above -as seen on CXR. CXR 04/06/19 shows worsened -pleural fluid: total protein <3; LDH 71 -serum: total protein 6.1; LDH 165 -transudative -2 thoracenteses completed. 04/09/19 -Pulmonology consulted. Will ultrasound and potentially place a Pleurx tomorrow 04/10/19 -CXR showed effusion unchanged. Pleurx to be placed Saturday. If repeated distress this weekend drain only part of the effusion fluid. (5) Hypertension Current Visit: Yes Status: Chronic Assessment and Plan: -likely 2/2 CAD -systolic on admission in 150's -Beta juliet, ACEi (6) NSTEMI (non-ST elevated myocardial infarction) Current Visit: Yes Status: Acute Assessment and Plan: -likely 2/2 demand ischemia --> Type 2. -afib as above and new CHF as above. has remained at 0.04 times 3. -no obvious T wave elevation (7) Diabetes mellitus Current Visit: Yes Status: Chronic Assessment and Plan: -A1c 6.7 -may help explain cardiac dysfunction -follow up outpt (8) Hypokalemia Current Visit: Yes Status: Acute Assessment and Plan: -likely 2/2 magnesium deficiency and Lasix. -3.4>3.8>4.0>3.5> 3.4>3.9 -conider getting urine K if needed. -cont. to monitor 04/08/19 -40mEq KCl 04/09/19 -40 mEq KCl 04/10/19 -40 mEq KCl (9) Hypernatremia Current Visit: Yes Status: Acute Assessment and Plan: 04/10/19 -Likely secondary to intravascular depletion from furosemide therapy -High serum osmolality -142>151 -Stop furosemide. To be continued at maintenance dose on an outpatient basis per cardiology. -Continue to monitor DVT Prophylaxis: heparin drip - Time Spent with Patient Total time spent is greater than 50% in coordination of care (as documented) at patient's floor/unit and/or counseling patient: Internal Medicine: Result - Labs CBC & Chem 7: 04/10/19 15:31 04/10/19 06:02 Labs: Short CBC 04/10/19 Range/Units 06:02 WBC 11.9 H (4.3-11.1) K/mcL Hgb 11.1 L (11.5-15.4) g/dL Hct 37.5 (35.3-44.9) % Plt Count 251 (140-400) K/mcL Neutrophils # 9.8 H (1.6-8.9) K/mcL BMP 04/10/19 06:02 Sodium 151 H Potassium 3.9 Chloride 96 L Carbon Dioxide 39 H BUN 45 H Creatinine 0.89 Glucose 133 H Calcium 8.7 - ABG Interpretation ABG results: PT/INR, D-dimer PT 12.9 Seconds (9.4-12.1) H 04/10/19 06:02 - Impressions Impressions Chest X-Ray 04/09/19 11:24 IMPRESSION: Increasing density of airspace disease in the right upper lung, representing increasing pneumonia or pulmonary edema. Small 2 moderate-sized right pleural effusion, basically unchanged. D/ / Jasen Aldana MD / Jasen Aldana MD Interpreting Provider: Jasen Aldana MD <Geo Clayton A - Last Filed: 04/10/19 16:32> (2) Acute CHF (congestive heart failure) Qualifiers: Heart failure type: systolic Qualified Code(s): I50.21 - Acute systolic (congestive) heart failure (4) Atrial fibrillation Qualifiers: Atrial fibrillation type: persistent Qualified Code(s): I48.1 - Persistent atrial fibrillation <Simeon Murray - Last Filed: 04/10/19 18:54> (1) Acute CHF (congestive heart failure) Qualifiers: Heart failure type: systolic Qualified Code(s): I50.21 - Acute systolic (congestive) heart failure (5) Hypertension Qualifiers: Hypertension type: essential hypertension Qualified Code(s): I10 - Essential (primary) hypertension (7) Diabetes mellitus Qualifiers: Diabetes mellitus type: type 2 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
[2019-04-10] MEDS: Magnesium Oxide 400 MG TABLET PO SCH (08:48)
[2019-04-10] MEDS: *HR* HYDROcodone/Acet 5/325 mg TABLET PO PRN ×2 (08:48→20:27)
[2019-04-10] MEDS: hydrOXYzine pamoate 25 MG CAPSULE PO SCH (08:49)
[2019-04-10] MEDS: Metoprolol XL (24 HR) Succ 50 MG TAB.ER.24H PO SCH ×2 (08:49→20:27)
[2019-04-10] MEDS: predniSONE 10 MG TABLET PO SCH (08:51)
[2019-04-10] MEDS: Insulin LISPRO 300 UNITS/3 ML VIAL SQ SCH ×4 (08:52→22:32)
[2019-04-10] MEDS: Furosemide 40 MG/4 ML VIAL IVP SCH (08:52)
[2019-04-10] MEDS ORDERED: *HR* Heparin 10,000 UNIT/10 ML VIAL ONE (10:39)
[2019-04-10] MEDS ORDERED: ISOVUE-370 200 ML INFUS..BTL ONE (10:39)
[2019-04-10] MEDS ORDERED: Heparin 1,000 UNITS/500 mL 500 ML ONE (10:39)
[2019-04-10] MEDS ORDERED: 0.9 % Sodium Chloride 2,000 ML ONE (10:39)
[2019-04-10] MEDS ORDERED: Verapamil 5 MG/2 ML VIAL ONE (10:39)
[2019-04-10] MEDS ORDERED: Nitroglycerin 1,000 MCG/10 ML VIAL IV ONE (10:39)
[2019-04-10] MEDS ORDERED: *HR* FentaNYL (PF) 100 MCG/2 ML VIAL ONE (11:05)
[2019-04-10] MEDS ORDERED: *HR* Midazolam HCl 2 MG/2 ML VIAL ONE (11:05)
--- NOTE | 2019-04-10 12:08 | Invasive Diagnostic Lab Proc ---
Name: Denise Harden Date of Study: 04/10/2019 Date: 1945 Ht: 61.0in Medical Record#: [id number] Age: 73 Wt: 119.05lb Gender: Female BSA: 1.52 Order #: [id number] BMI: 22.48 Physicians Procedure Physician: Jorge Weems MD, FACC Referring MD: Referring MD: Staff Name Position Time In Luisana Whitehead RN Monitor 10:58 AM Imani Hood RN Manager Nc 10:58 AM Analilia Schulz RT (R) Scrub 10:58 AM Anette Roa RT (R) Scrub 10:58 AM Procedures Performed Procedure L HRT ARTERY/VENTRICLE ANGIO Pre-Procedure Checklist Informed consent is complete signed and on chart. H&P is on chart. ID band is on and ID verified with patient. Patient NPO for procedure The procedure was described for the patient and questions were answered. Blood Pressure: 136/98 ECG is on chart. Plan of Care Patient will tolerate the procedure without complications. Adequate level of comfort will be maintained. Hemodynamics will remain stable Patient will recover from procedure without complications. Respiratory function will be maintained. Cardiac rhythm will remain stable. Patient temperature will be maintained. Patient and/or family have verbalized understanding of the procedure. Patient Education Chief Complaint/Reason for Test: Cardiac Cath Developmental Category: Geriatric (65+ years) Developmentally Appropriate for Age: Yes Learning Barriers: None Education Needs: Procedure Education Method: Verbal Information Taught: Cardiac Cath Educational Evaluation: Able to repeat information Intravenous Access Time IV Size Location DC'd Fluid/Drip Rate Units RN 18g 1 09/26" Patent On Arrival Lt Antecubital 0.9NaCl ml/hr Allergies sulfamethoxazole trimethoprim Vital Signs Time BP (mmHg) HR (bpm) O2 Sat. RR (bpm) LOC 10:59 AM / % 5 = Fully awake and oriented or at pre-proc level 10:59 AM / % 4 = Oriented but drowsy 11:21 AM / % 4 = Oriented but drowsy 11:36 AM / % 4 = Oriented but drowsy 11:51 AM 120 / 92 82 99 % 15 11:07 AM 136 / 98 99 % 19 11:11 AM 137 / 80 97 96 % 15 11:16 AM 128 / 85 90 89 % 15 11:21 AM 126 / 84 92 92 % 17 11:26 AM 134 / 98 104 95 % 17 11:31 AM 134 / 92 101 99 % 16 11:36 AM 127 / 86 97 100 % 15 11:41 AM 118 / 82 95 100 % 19 11:46 AM 112 / 74 87 100 % 18 Procedural Medications Time Medication Dose Units Method Given By 10:57 AM Heparin 14.8 ml/hr Intravenous 11:07 AM Versed 1 mg Intravenous Imani Hood RN 11:07 AM Fentanyl 12.5 mcg Intravenous Imani Hood RN 11:06 AM Oxygen 8 L/min nasal cannula Imani Hood RN 11:26 AM Lidocaine 2% 0.5 ml Subcutaneous Jorge Weems MD, FACC 11:36 AM Heparin units Nitroglycerin 200 mcg Verapamil 2.5 mg Intraarterial Jorge Weems MD, FACC Anton Score Preprocedure Postprocedure Activity 2- Moves 4 extremities sustained head lift Activity 2- Moves 4 extremities sustained head lift Circulation 2- SBP +/= 20 points of pre-anesthetic level Circulation 2- SBP +/= 20 points of pre-anesthetic level Consciousness 2- Awake and alert oriented x 3 Consciousness 2- Awake and alert oriented x 3 O2 Saturation 2- Able to maintain O2 satruation of 92% on room air O2 Saturation 2- Able to maintain O2 satruation of 92% on room air Respiratory 2- Able to deep breathe and cough well Respiratory 2- Able to deep breathe and cough well Total Score 10 Total Score 10 Contrast Agent: Isovue Diagnostic Contrast: 58 ml Total Contrast: 58 ml Fluoro Dose: 12 mGy Procedure Log Time Note Enter By 10:55 AM Pt arrived to [facility] 2 at 10:55 kmavis 10:57 AM CathStat 10:58 AM Anette Roa RT (R) Position: Scrub Time in: 10:58 kmavis 10:58 AM Patient arrived at 10:57 with Heparin Intravenous drip @ 14.8 ml/hr kmavis 10:58 AM Luisana Whitehead RN Position: Monitor Time in: 10:58 kmavis 10:58 AM Imani Hood RN Position: Manager Nc Time in: 10:58 kmavis 10:58 AM Analilia Schulz RT (R) Position: Scrub Time in: 10:58 kmavis 10:59 AM Patient charges- Angio tray pack, Navilyst 3mm J, Pulse Oximetry and ACIST tubing and transducer [facility] 10:59 AM Case Delayed No kmavis 10:59 AM Hair removed from procedure site in procedure lab using clippers. Left wrist, bilateral groin prepped with Chloraprep by Imani Hood RN, then patient was draped. Skin intact. [facility] 10:59 AM Physician arrived 10:59 [facility] 10:59 AM Meet and greet completed [facility] :59 AM Sign in performed according to hospital policy. Informed consent was obtained. [facility] 10:59 AM Procedure start :59 [facility] 10:59 AM Time: 10:59 Patient comfortable and pain free: Yes [facility] :59 AM Time: 10:59LOC: 5 = Fully awake and oriented or at pre-proc level [facility] 11:05 AM Vitals capture started with the following parameters, Patient=Adult, Interval=5 min, Initial Xpoafqxe=109 mmHg, Deflation Rate=3 mmHg, Cuff placed on Right Arm 11:06 AM Time: 11:06 Oxygen on at 8 L/min per nasal cannula by Imani Hood RN [facility] 11:07 AM HR=99 bpm, AMCL=355/98 mmhg, Resp=19 B/min 11:07 AM Time: 11:07 Versed 1 mg Intravenous Given by Imani Hood RN [facility] 11:07 AM Time: 11:07 Fentanyl 12.5 mcg Intravenous Given by Imani Hood RN [facility] 11:09 AM Recorded ECG: HR=99 Condition=Condition 1 11:11 AM HR=97 bpm, UVKU=885/80 mmhg, SpO2=96.0 %, Resp=15 B/min 11:16 AM HR=90 bpm, DSGK=350/85 mmhg, SpO2=89.0 %, Resp=15 B/min 11:20 AM Recorded ECG: HR=95 Condition=Condition 1 11:21 AM HR=92 bpm, LJYH=759/84 mmhg, SpO2=92.0 %, Resp=17 B/min 11:21 AM Time: 10:59LOC: 4 = Oriented but drowsy [facility] 11:21 AM Time: 10:59 Patient comfortable and pain free: Yes [facility] 11:26 AM Time out was performed according to hospital policy. Conscious sedation and anesthesia was achieved (see medication log with in this report above) [facility] 11:26 AM CN=194 bpm, UNGD=406/98 mmhg, SpO2=95.0 %, Resp=17 B/min 11:26 AM Time: 11: 0.5 ml Lidocaine 2% to left radial Subcutaneous Given by Jorge Weems MD, [facility] kmavis 11:31 AM oxygen nasal canula removed and bipap from room and previous settings resumed and applied to patient at this time. kmavis 11:31 AM NZ=940 bpm, IIGM=970/92 mmhg, SpO2=99.0 %, Resp=16 B/min 11:32 AM Sonosite utilized for access. kmavis 11:36 AM Access obtained by percutaneous puncture. 4/5Fr 10cm Terumo Glidesheath sheath placed in left Radial artery. [id number] kmavis 11:36 AM HR=97 bpm, UPYF=001/86 mmhg, AyB7=598.0 %, Resp=15 B/min 11:36 AM Time: 11:21 Patient comfortable and pain free: Yes [facility] 11:36 AM Time: 11:21LOC: 4 = Oriented but drowsy [facility] 11:36 AM Time: 11:36 Patient given 200 mcg Nitroglycerin, and 2.5 mg Verapamil Intraarterial by Jorge Weems MD, [facility]. This is given to reduce risk of vessel spasm and thrombosis. kmavis 11:40 AM Pressure channel 1 zero failed. 11:40 AM Pressure channel 1 zero failed. 11:41 AM HR=95 bpm, MKAX=804/82 mmhg, DgU4=932.0 %, Resp=19 B/min 11:42 AM Recorded Pressure: LV, QI=712, Condition=Condition 1 (Left Ventricle) LV 132/55/63 11:42 AM Pressure channel 1 zeroed. 11:42 AM Recorded Pressure: LV, OG=253, Condition=Condition 1 (Left Ventricle) LV 118/41/77 11:43 AM Recorded Pressure: LV, Ao, HR=97, Condition=Condition 1 (Left Ventricle) LV 107/18/81, (Aorta) Ao 110/68/84 11:44 AM 5Fr FR 4 catheter inserted over the wire [facility] kmavis 11:44 AM 0.035 145cm Navilyst 3mmJ wire [id number] kmavis 11:44 AM Catheter crossed the aortic valve and was selectively placed in the left ventricle. Pressures recorded on pullback for left heart catheterization. avis 11:44 AM Bolus angiogram of left Ventricle complete: 10 ml/sec for a total of 30 mls kmavis 11:44 AM Catheter removed kmavis 11:45 AM 5Fr FL 4 catheter inserted over the wire D[facility] kmavis 11:45 AM LCA angiography performed in multiple views. kmavis 11:46 AM Recorded Pressure: Ao, HR=85, Condition=Condition 1 (Aorta) Ao 99/65/81 11:46 AM HR=87 bpm, FZLB=769/74 mmhg, HsK4=480.0 %, Resp=18 B/min 11:47 AM Recorded Pressure: Ao, HR=97, Condition=Condition 1 (Aorta) Ao 104/73/88 11:47 AM Catheter removed avis 11:47 AM 5Fr 3DRC catheter inserted over the wire [id number] avis 11:50 AM RCA angiography performed in multiple views. kmavis 11:50 AM Recorded Pressure: Ao, HR=80, Condition=Condition 1 (Aorta) Ao 102/67/84 11:50 AM Catheter removed avis 11:51 AM Coronary Dominance: right kmavis 11:51 AM HR=82 bpm, VOFJ=899/92 mmhg, SpO2=99.0 %, Resp=15 B/min 11:51 AM Lesion found in Proximal RCA. Pre Stenosis: 30 Pre CHARLY Flow: kmavis 11:51 AM Lesion found in Mid RCA. Pre Stenosis: 20 Pre CHARLY Flow: kmavis 11:52 AM Lesion found in Mid LAD. Pre Stenosis: 30 Pre CHARLY Flow: kmavis 11:52 AM Time: 11:36LOC: 4 = Oriented but drowsy km[facility] 11:52 AM Time: 11:36 Patient comfortable and pain free: Yes kmavis 11:52 AM Right Coronary, Right Posterior Descending Arteries with Right Posterolateral and Acute Marginal branches with 30 % stenosis. If graft is supplying this area, 0 % stenosis kmavis 11:52 AM Mid/Distal Left Anterior Descending Coronary Artery and diagonal branches with 30% stenosis. If graft is supplying this area, 0 % stenosis kmavis 11:52 AM Circumflex, Obtuse Marginal, Left Posterior Descending, and Left Posterolateral Coronary Arteries with 20 % stenosis. If graft is supplying this area, 0 % stenosis kmavis 11:53 AM Procedure completed at 11:53 04/10/2019 kmavis 11:53 AM Did you address CHARLY flow and Dominance? YesCoronary Dominance: right kmavis 11:54 AM Sign out completed: Radiation Dose 78.06 mGy, 12.3 Gy/cm2 Fluoro Time: 2.6 Isovue 370 - 200ml contrast 58 ml given by Jorge Weems MD, [facility]. Complications: None. The patient was discharged out of the [employer] [employer] in stable condition. Sedation minutes 45. Cardiac Rehab Consult needed: No. Confirmed administered medications: Yes kmavis 11:54 AM Isovue 370 - 200ml,1 Bottle(s) used. kmavis 11:54 AM Arterial sheath pulled, Vasc Band closure device used and was Successful S/N. kmavis 11:54 AM 11 ml air in Vasc Band. kmavis 11:54 AM Estimated Blood Loss: minimal kmavis 11:55 AM Post Blood Pressure 120/92 kmavis 11:55 AM Information taught Cardiac Cath and Vasc Band kmavis 11:56 AM Education needs Procedure, Plan of Care, and Disease Process kmavis 11:56 AM Learning barriers :None kmavis 11:57 AM Education Methods Verbal avis 11:57 AM Education evaluation Able to repeat information kmavis 11:57 AM Site status No bleeding/ No Hematoma - Lt Wrist as reported by Anette Roa RT (R) at 11:57 kmavis 11:57 AM Opsite applied kmavis 11:58 AM Report given to Karol COWAN Pt taken to E Room #19. 11:57 kmavis 11:58 AM Plavix, Effient or Brilinta given No kmavis 11:58 AM Delay to floor No kmavis 11:58 AM Patient out of room: 11:58 kmavis 11:58 AM Family placed in consult room. kmavis 11:58 AM Complications: None kmavis 11:59 AM Lesion found in Mid Circumflex. Pre Stenosis: 20 Pre CHARLY Flow: kmavis Complications Complication None None Hemodynamics Pressures Site Systolic/A Wave Diastolic/V Wave Mean LV 132 55 63 LV 118 41 77 LV 107 18 81 AO 110 68 84 AO 99 65 81 AO 104 73 88 AO 102 67 84 Post Procedure Information Blood Pressure: 120/92 mmHg Post procedural instructions were given Closure Device Time Device Success/Fail 04/10/2019 11:58:00 AM Mechanical Compression Successful Site Checks Time Location Status Staff Sheath In? Note 11:57 AM Lt Wrist No bleeding/ No Hematoma Anette Roa RT (R) Pulses Time Site Pre-Procedure Post-Procedure Note Bilateral DP & PT 2+ Bilateral radial 2+ Updated by Luisana Whitehead RN on 04/10/2019 12:03:06 PM electronically signed on 04/10/2019 12:03:35 PM with status of Final
--- NOTE | 2019-04-10 12:18 | Event Note ---
Date of Encounter: 04/10/19 Time of Encounter: 12:15 - Cardiology Event Note C completed. 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 Asa, statin, bb, aceI recommended. Maintenance lasix at discharge. Atrial fibrillation currently rate controlled. I will send RX to pharmacy for eliquis to hernandez check. Patient planning to have pluerex catheter today. Can start after catheter placed if affordable. Out-pt f/u will be scheduled with cardiology.
--- NOTE | 2019-04-10 15:17 | Pulmonology Progress Note ---
Date of Encounter: 04/10/19 Time of Encounter: 08:00 Assessment and Plan (1) Pleural effusion Current Visit: Yes Status: Chronic Patient was seen today and plan was to have Pleurx pleural catheter after cardiac catheterization. Unfortunately heparin drip was not stopped after procedure for the catheter to be placed safely and since patient does not have any acute distress I have explained to the family at the bedside and the patient we can wait and if she still felt worse then recent cases can be done and catheter can be even placed as outpatient as an elective procedure. If patient's stay in the hospital then continue heparin drip and discussed with cardiology team not to start any anticoagulation for the procedure. I have answered all their questions and all the risks, and alternatives of the procedure explained to the patient. Patient understand and agreed with the plan of care. (2) Acute respiratory failure with hypoxia Current Visit: Yes Status: Acute Titrate FiO2 to keep SPO2 around 90%. This is primarily from her underlying cardiomyopathy and suspect compressive atelectasis from large sized pleural effusion. (3) Cardiomyopathy Current Visit: Yes Status: Acute Status post cardiac catheterization today. Qualifiers: Cardiomyopathy type: unspecified Qualified Code(s): I42.9 - Cardiomyopathy, unspecified Subjective Principal diagnosis: Afib, CHF Interval history: Patient is waiting for cardiac catheter and she denies any acute distress. Objective PUL Vital signs: Last Vital Signs Temp 98.5 F 04/10/19 12:30 Pulse 92 04/10/19 13:45 Resp 16 04/10/19 13:39 BP 102/82 04/10/19 13:39 Pulse Ox 96 04/10/19 13:39 General appearance: no acute distress Eyes: nonicteric ENT: oropharynx dry Neck: supple Effort: normal Auscultation: left: clear, right: diminished breath sounds Percussion: left: not dull, right: dull Cardiovascular: murmur noted Gastrointestinal: normoactive bowel sounds, non-distended Extremities: no cyanosis, edema normal mental status, non-focal exam mood appropriate Results - Laboratory Findings CBC and BMP: 04/10/19 06:02 04/10/19 06:02 PT/INR, D-dimer PT 12.9 Seconds (9.4-12.1) H 04/10/19 06:02 Abnormal lab findings: Abnormal lab results WBC 11.9 K/mcL (4.3-11.1) H 04/10/19 06:02 RBC 5.17 M/mcL (3.82-4.97) H 04/05/19 05:00 Hgb 11.1 g/dL (11.5-15.4) L 04/10/19 06:02 MCV 76.8 fL (83.0-100.0) L 04/10/19 06:02 MCH 22.7 pg (28.0-33.3) L 04/10/19 06:02 MCHC 29.6 g/dL (31.6-35.5) L 04/10/19 06:02 RDW 19.9 % (11.5-14.5) H 04/10/19 06:02 Neutrophils # 9.8 K/mcL (1.6-8.9) H 04/10/19 06:02 Large Platelets Present (Not Present) A 04/09/19 04:45 Immature Plt Fraction 7.8 % (1.1-6.1) H 04/09/19 04:45 Hypochromasia Present (Not Present) A 04/10/19 06:02 Acanthocytes (Spur) 1+ (Not Present) A 04/10/19 06:02 PT 12.9 Seconds (9.4-12.1) H 04/10/19 06:02 Heparin Anti-Xa, Unfract 0.27 IU/mL (0.30-0.70) L 04/08/19 11:16 Sodium 151 mEq/L (136-145) H 04/10/19 06:02 Potassium 3.4 mEq/L (3.5-5.1) L 04/09/19 04:45 Chloride 96 mEq/L (98-107) L 04/10/19 06:02 Carbon Dioxide 39 mEq/L (23-29) H 04/10/19 06:02 BUN 45 mg/dL (8-23) H 04/10/19 06:02 Creatinine 1.30 mg/dL (0.60-1.20) H 04/06/19 02:48 Est GFR ( Amer) 48 (> 60) L 04/06/19 02:48 Est GFR (Non-Af Amer) 53 (> 60) L 04/08/19 04:28 BUN/Creatinine Ratio 51 (6-26) H 04/10/19 06:02 Glucose 133 mg/dL (70-105) H 04/10/19 06:02 POC Glucose 133 mg/dL (70-99) H 04/10/19 12:28 Hemoglobin A1c 6.7 % (-5.6) H 04/03/19 06:45 Calculated Osmolality 325 (280-300) H 04/10/19 06:02 Calcium 8.3 mg/dL (8.6-10.3) L 04/03/19 06:45 Total Bilirubin 1.1 mg/dL (0.3-1.0) H 04/04/19 04:54 Direct Bilirubin 0.4 mg/dL (0.0-0.2) H 04/02/19 14:34 AST 9 Units/L (13-39) L 04/04/19 04:54 ALT 5 Units/L (7-52) L 04/04/19 04:54 Troponin I 0.04 ng/mL (< 0.04) H* 04/02/19 22:48 B-Natriuretic Peptide 2211 pg/mL (Less than 100) H 04/02/19 14:34 Serum Total Protein 5.3 g/dL (6.4-8.9) L 04/04/19 04:54 Albumin 3.0 g/dL (3.5-5.7) L 04/04/19 04:54 Globulin 2.3 g/dL (2.4-3.5) L 04/04/19 04:54 - Diagnostic Findings Chest x-ray: report reviewed, image reviewed - Clinical Findings Intake & Output: Intake & Output 04/09/19 04/10/19 04/10/19 23:59 07:59 15:59 Intake Total 240 / 466 260 / 260 0 / 260 Output Total 400 / 700 0 / 150 150 / 150 Balance -160 / -234 260 / 110 -150 / 110 Weight 54.3 kg Consult Discharge Plan - Plan Referrals: Homero Rondon MD [Primary Care Provider] - Prescriptions: Apixaban [Eliquis] 5 mg PO BID #60 tablet
[2019-04-10] MEDS ORDERED: *HR* Heparin 5,000 UNIT/ML VIAL IVP ONE (15:21)
--- NOTE | 2019-04-10 15:51 | Pre-Sedation Evaluation ---
Pre-sedation evaluation - Pre-sedation checklist Date of procedure: 04/07/19 Procedure: [facility] Recent Vitals: Last Vital Signs Temp 96.8 F L 04/10/19 15:24 Pulse 89 04/10/19 15:24 Resp 16 04/10/19 15:24 BP 109/70 04/10/19 15:24 Pulse Ox 100 04/10/19 15:24 H&P (including ROS) documented in medical record: Yes Previous reaction to sedatives/anesthetics: No Airway Assessment: Patient can open mouth completely, TMJ function normal ASA Classification *see protocol: CLASS II-Mild systemic disease Plan of Care: Pt appropriate candidate for procedure/moderate/conscious sedation, Risks/benefits of procedure/sedation discussed w/ patient/family Cardiac Registry (Cardio Only) - Functional Capacity Functional Capacity: Unknown - Clincal Frailty Scale Clinical Frailty Scale: Vulnerable
--- NOTE | 2019-04-10 15:52 | Event Note ---
Date of Encounter: 04/10/19 Time of Encounter: 16:00 - Cardiology Event Note [facility] prelim Mild CAD EF 30%
[2019-04-10 15:57] LABS: Hemoglobin 11.3 g/dL (11.5-15.4); Mean Corpuscular Hemoglobin 22.8 pg (28.0-33.3); Mean Corpuscular Volume 78.8 fL (83.0-100.0); Mean Platelet Volume 11.1 fL (9.4-12.4); Platelet Count 296 K/mcL (140-400); Red Blood Count 4.95 M/mcL (3.82-4.97)
[2019-04-10 16:05] LABS: INR 1.1; Prothrombin Time 12.8 Seconds (9.4-12.1)
[2019-04-10] MEDS ORDERED: Apixaban 5 MG TABLET PO SCH (21:00)
[2019-04-11] MEDS: Ipratropium Neb 0.5 MG NEBULIZER IH PRN (00:25)
[2019-04-11] MEDS: *HR* Heparin 5,000 UNIT/ML VIAL IVP PRN ×3 (01:24→17:06)
[2019-04-11] MEDS: Levalbuterol Neb 0.63 MG/3 ML IH SCH ×4 (03:27→22:13)
--- NOTE | 2019-04-11 07:38 | Internal Med Progress Note ---
<Geo Clayton - Last Filed: 04/11/19 14:15> Hospitalist Progress Note - Encounter Date of Encounter: 04/11/19 - Exam Vitals: Temp Pulse Resp BP Pulse Ox 98.5 F 94 14 114/63 94 04/11/19 11:31 04/11/19 11:31 04/11/19 11:31 04/11/19 11:31 04/11/19 11:31 - Assessment and Plan (1) Pleural effusion Current Visit: Yes Status: Chronic (2) Acute CHF (congestive heart failure) Current Visit: Yes Status: Acute (3) Acute respiratory failure with hypoxia Current Visit: Yes Status: Acute (4) Atrial fibrillation Current Visit: Yes Status: Chronic (5) NSTEMI (non-ST elevated myocardial infarction) Current Visit: Yes Status: Acute - Time Spent with Patient Total time spent is greater than 50% in coordination of care (as documented) at patient's floor/unit and/or counseling patient: Internal Medicine: Result - Labs CBC & Chem 7: 04/11/19 07:01 04/11/19 07:01 Labs: Short CBC 04/10/19 04/11/19 Range/Units 15:31 07:01 WBC 11.0 9.9 (4.3-11.1) K/mcL Hgb 11.3 L 11.2 L (11.5-15.4) g/dL Hct 39.0 38.5 (35.3-44.9) % Plt Count 296 275 (140-400) K/mcL Neutrophils # 7.9 (1.6-8.9) K/mcL BMP 04/11/19 07:01 Sodium 145 Potassium 4.1 Chloride 98 Carbon Dioxide 36 H BUN 50 H Creatinine 1.10 Glucose 158 H Calcium 8.8 - ABG Interpretation ABG results: PT/INR, D-dimer PT 12.1 Seconds (9.4-12.1) 04/11/19 07:01 Consult Discharge Plan - Plan Referrals: Homero Rondon MD [Primary Care Provider] - Prescriptions: Apixaban [Eliquis] 5 mg PO BID #60 tablet - Attending Attestation I examined this patient and my medical decision-making was reviewed with the Resident Physician on 04/11/19. I agree with the documented findings, disposition and treatment plan as described except to the extent set forth below. Ms Harden is currently admitted for resp failure, CHF. She remains moderate to high risk due to potential for worsening clinical status. Ms Harden is doing OK. Still with a lot of dyspnea. LHC yesterday nonischemic. No fever or chills. Exam: Alert. Mild resp distress. Mucus membranes dry. NC. Heart not tachy now. Decreased breath sounds bilaterally. Abd soft. No edema. No rash. Moves all extremities. Plan: Continue diuresis and weaning oxygen as able. Hold heparin midnight Saturday night - ? pleuryx catheter on Saturday. <Simeon Murray - Last Filed: 04/11/19 20:34> Hospitalist Progress Note - Encounter Date of Encounter: 04/11/19 Time of Encounter: 07:43 - Subjective Interval History: She complains of soreness and stiffness. Breathing is about the same and somewhat difficult. - Exam Vitals: Temp Pulse Resp BP Pulse Ox 97.3 F L 96 14 139/91 98 04/11/19 07:03 04/11/19 07:03 04/11/19 07:03 04/11/19 07:03 04/11/19 07:03 Exam: Gen.: Elderly female. No acute distress Skin: Dry. Hypopigmented lesions on back. Eyes: Moist conjunctiva. Nonicteric Cardiac: Irregular rhythm. Tachycardic. No murmurs gallops rubs Respiratory: Diffuse rhonchi and wheezing. More clear than yesterday. On BiPAP. Extremities: No bilateral lower extremity edema. Capillary refill less than 2 seconds upper extremities. Neuro: Eyes track movements. No tremors noted Psych: Appropriate behavior. Answers questions coherently - Assessment and Plan (1) Acute CHF (congestive heart failure) Current Visit: Yes Status: Acute Assessment and Plan: -Likely secondary to atrial fibrillation -Orthopnea, PND, bilateral edema of new onset -BNP 2211. Echo 04/03/19 showed EF 20-25%. monitor I/o. 04/06/19 -Cardiology consulted. To have LHC when can lay flat. Metoprolol succinate increased to 50mg daily 04/05/19. We will consider digoxin if blood pressure drops. Lisinopril. Strict I/O's, daily weights, salt and fluid restricted diet. 04/07/19 -40 lasix IV daily starting tomorrow. 04/08/19 -NPO midnight for potential LHC tomorrow 04/09/19 -repeat CXR not resulted. LHC not performed secondary to patient hypoxic when doming[place] pine. Pulmonology consult as below. May receive heart cath tomorrow if tolerates supine BiPAP. 04/10/19 -Patient dry on exam and hypernatremic with increased serum osmolality. Stop Lasix. Increased fluid restriction to 2 L. LHC completed and showed mild nonobstructive CAD. ASA to start tomorrow. Continue beta juliet, DUNCAN inhibitor, will plan to order lipid panel and begin statin. Maintenance Lasix at discharge. Eliquis pending hernandez check. F/U with cardiology outpatient. Plan: apixaban ordered. Cardiology signed off (2) Atrial fibrillation with rapid ventricular response Current Visit: Yes Status: Acute Assessment and Plan: -Likely secondary to structural changes of the heart versus hypoxemia from COPD exacerbation -Newly discovered heart failure with symptoms as above -TSH WNL. Electrolytes likely not the cause. EKG QRS's irregularly irregular and showed tachycardia. [id number]: 4 -metoprolol XL as above. Plan to switch to NOAC at discharge -rate was increased. began 5/325 home dose norco in hopes to decrease pain and tachycardia. will plan to increase metoprolol if not successful. LHC 04/10/19. Continue rate control per cardiology. (3) Acute respiratory failure with hypoxia Current Visit: Yes Status: Acute Assessment and Plan: -Likely secondary to COPD exacerbation vs. newly discovered heart failure with pleural effusion -Increased cough, sputum production. Increasing dyspnea over a month's time. -antibiotics finished. No ABG this admission. -home dose prednisone 10 mg daily po -nasal cannula 04/09/19 -Pulmonology consulted. Performing a trial of BiPAP while patient supine. 04/10/19 -CXR yesterday read as increasing airspace disease in right upper lung likely clinically correlated as pulmonary edema. BiPAP overnight. Plan: Continue BiPAP as needed. Pleurx to be placed Saturday. (4) Pleural effusion Current Visit: Yes Status: Chronic Assessment and Plan: -likely 2/2 new onset heart failure -dyspnea as above -as seen on CXR. CXR 04/06/19 shows worsened -pleural fluid: total protein <3; LDH 71 -serum: total protein 6.1; LDH 165 -transudative -2 thoracenteses completed. 04/09/19 -Pulmonology consulted. Will ultrasound and potentially place a Pleurx tomorrow 04/10/19 -CXR showed effusion unchanged. Pleurx to be placed Saturday. If repeated distress this weekend drain only part of the effusion fluid. Plan: As above under 04/10/19 (5) Hypertension Current Visit: Yes Status: Chronic Assessment and Plan: -likely 2/2 CAD -systolic on admission in 150's -Beta juliet, ACEi (6) NSTEMI (non-ST elevated myocardial infarction) Current Visit: Yes Status: Acute Assessment and Plan: -likely 2/2 demand ischemia --> Type 2. -afib as above and new CHF as above. has remained at 0.04 times 3. -no obvious T wave elevation (7) Diabetes mellitus Current Visit: Yes Status: Chronic Assessment and Plan: -A1c 6.7 -may help explain cardiac dysfunction -follow up outpt (8) Hypokalemia Current Visit: Yes Status: Acute Assessment and Plan: -likely 2/2 magnesium deficiency and Lasix. -3.4>3.8>4.0>3.5> 3.4>3.9 -conider getting urine K if needed. 04/08/19 -40mEq KCl 04/09/19 -40 mEq KCl 04/10/19 -40 mEq KCl Plan: Continue to monitor DVT Prophylaxis: heparin drip - Time Spent with Patient Total time spent is greater than 50% in coordination of care (as documented) at patient's floor/unit and/or counseling patient: Internal Medicine: Result - Labs CBC & Chem 7: 04/11/19 07:01 04/11/19 07:01 Labs: Short CBC 04/10/19 04/10/19 Range/Units 06:02 15:31 WBC 11.0 (4.3-11.1) K/mcL Hgb 11.3 L (11.5-15.4) g/dL Hct 39.0 (35.3-44.9) % Plt Count 296 (140-400) K/mcL Neutrophils # 9.8 H (1.6-8.9) K/mcL - ABG Interpretation ABG results: PT/INR, D-dimer PT 12.8 Seconds (9.4-12.1) H 04/10/19 15:31 <Geo Clayton - Last Filed: 04/11/19 14:15> (2) Acute CHF (congestive heart failure) Qualifiers: Heart failure type: systolic Qualified Code(s): I50.21 - Acute systolic (congestive) heart failure (4) Atrial fibrillation Qualifiers: Atrial fibrillation type: persistent Qualified Code(s): I48.1 - Persistent atrial fibrillation <Simeon Murray - Last Filed: 04/11/19 20:34> (1) Acute CHF (congestive heart failure) Qualifiers: Heart failure type: systolic Qualified Code(s): I50.21 - Acute systolic (congestive) heart failure (5) Hypertension Qualifiers: Hypertension type: essential hypertension Qualified Code(s): I10 - Essential (primary) hypertension (7) Diabetes mellitus Qualifiers: Diabetes mellitus type: type 2 Diabetes mellitus usp insulin use: without usp use Diabetes mellitus complication status: without complication Qualified Code(s): E11.9 - Type 2 diabetes mellitus without complications
[2019-04-11 08:01] LABS: INR 1.1; Prothrombin Time 12.1 Seconds (9.4-12.1)
[2019-04-11 08:05] LABS: Basophils % 0.1 %; Eosinophils # 0.2 K/mcL (0.0-0.6); Eosinophils % 2.1 %; Hematocrit 38.5 % (35.3-44.9); Hemoglobin 11.2 g/dL (11.5-15.4); Immature Granulocytes % 0.8 % (0-4); Immature Platelets 6.3 % (1.1-6.1); Lymphocytes # 0.8 K/mcL (0.6-4.6); Lymphocytes % 8.1 %; Mean Corpuscular HGB Conc 29.1 g/dL (31.6-35.5); Mean Corpuscular Hemoglobin 22.5 pg (28.0-33.3); Mean Corpuscular Volume 77.5 fL (83.0-100.0); Mean Platelet Volume 12.1 fL (9.4-12.4); Monocytes # 0.9 K/mcL (0.0-1.3); Monocytes % 9.2 %; Neutrophils # 7.9 K/mcL (1.6-8.9); Platelet Count 275 K/mcL (140-400); Red Blood Count 4.97 M/mcL (3.82-4.97); Red Cell Distribution Width 20.3 % (11.5-14.5); Segmented Neutrophils % 79.7 %; White Blood Count 9.9 K/mcL (4.3-11.1)
[2019-04-11 08:11] LABS: Calcium 8.8 mg/dL (8.6-10.3); Potassium 4.1 mEq/L (3.5-5.1)
[2019-04-11] MEDS ORDERED: Furosemide 20 MG TABLET PO SCH (09:00)
[2019-04-11] MEDS: *HR* HYDROcodone/Acet 5/325 mg TABLET PO PRN ×2 (09:32→19:45)
[2019-04-11] MEDS: hydrOXYzine pamoate 25 MG CAPSULE PO SCH (09:32)
[2019-04-11] MEDS: Magnesium Oxide 400 MG TABLET PO SCH (09:33)
[2019-04-11] MEDS: Furosemide 20 MG/2 ML VIAL IVP SCH (09:33)
[2019-04-11] MEDS: predniSONE 10 MG TABLET PO SCH (09:33)
[2019-04-11] MEDS: Aspirin 81 MG TAB.CHEW PO SCH (09:33)
[2019-04-11] MEDS: Metoprolol XL (24 HR) Succ 50 MG TAB.ER.24H PO SCH ×2 (09:33→20:46)
[2019-04-11] MEDS: Insulin LISPRO 300 UNITS/3 ML VIAL SQ SCH ×4 (09:34→20:47)
[2019-04-11] MEDS: Heparin 25,000 UNIT/250 ML D5W 25,000 UNIT/250 ML IV.SOLN IVC SCH (17:04)
[2019-04-12] MEDS: Levalbuterol Neb 0.63 MG/3 ML IH SCH ×4 (04:19→21:43)
[2019-04-12 06:15] LABS: Hematocrit 37.1 % (35.3-44.9); Hemoglobin 10.8 g/dL (11.5-15.4); Mean Corpuscular HGB Conc 29.1 g/dL (31.6-35.5); Mean Corpuscular Hemoglobin 22.9 pg (28.0-33.3); Mean Corpuscular Volume 78.8 fL (83.0-100.0); Mean Platelet Volume 10.8 fL (9.4-12.4); Platelet Count 295 K/mcL (140-400); Red Blood Count 4.71 M/mcL (3.82-4.97); Red Cell Distribution Width 20.1 % (11.5-14.5); White Blood Count 9.9 K/mcL (4.3-11.1)
[2019-04-12 06:31] LABS: Chol/HDL Ratio 1.8 (0-4.9)
[2019-04-12 06:34] LABS: BUN/Creatinine Ratio 53 (6-26); Blood Urea Nitrogen 52 mg/dL (8-23); Calcium 8.7 mg/dL (8.6-10.3); Carbon Dioxide 37 mEq/L (23-29); Chloride 99 mEq/L (98-107); Glucose 121 mg/dL (70-105); Osmolality,Calculated 309 (280-300); Potassium 4.2 mEq/L (3.5-5.1); Sodium 142 mEq/L (136-145); eGFR For African Americans > 60 (> 60); eGFR For Non-African Americans 55 (> 60)
--- NOTE | 2019-04-12 07:22 | Internal Med Progress Note ---
<Geo Clayton - Last Filed: 04/12/19 13:59> Hospitalist Progress Note - Encounter Date of Encounter: 04/12/19 - Exam Vitals: Temp Pulse Resp BP Pulse Ox 98.4 F 88 12 113/75 98 04/12/19 12:00 04/12/19 12:00 04/12/19 12:00 04/12/19 12:00 04/12/19 12:00 - Assessment and Plan (1) Pleural effusion Current Visit: Yes Status: Chronic (2) Acute CHF (congestive heart failure) Current Visit: Yes Status: Acute (3) Acute respiratory failure with hypoxia Current Visit: Yes Status: Acute (4) Atrial fibrillation Current Visit: Yes Status: Chronic (5) NSTEMI (non-ST elevated myocardial infarction) Current Visit: Yes Status: Acute - Time Spent with Patient Total time spent is greater than 50% in coordination of care (as documented) at patient's floor/unit and/or counseling patient: Internal Medicine: Result - Labs CBC & Chem 7: 04/12/19 05:07 04/12/19 05:07 Labs: Short CBC 04/12/19 Range/Units 05:07 WBC 9.9 (4.3-11.1) K/mcL Hgb 10.8 L (11.5-15.4) g/dL Hct 37.1 (35.3-44.9) % Plt Count 295 (140-400) K/mcL BMP 04/12/19 05:07 Sodium 142 Potassium 4.2 Chloride 99 Carbon Dioxide 37 H BUN 52 H Creatinine 0.98 Glucose 121 H Calcium 8.7 - ABG Interpretation ABG results: PT/INR, D-dimer PT 12.1 Seconds (9.4-12.1) 04/11/19 07:01 Consult Discharge Plan - Plan Referrals: Homero Rondon MD [Primary Care Provider] - Prescriptions: Apixaban [Eliquis] 5 mg PO BID #60 tablet - Attending Attestation I examined this patient and my medical decision-making was reviewed with the Resident Physician on 04/12/19. I agree with the documented findings, disposition and treatment plan as described except to the extent set forth below. Ms Harden is currently admitted for acute resp failure and CHF. She remains moderate to high risk due to potential for worsening clinical status. Ms Harden is sitting up in bed. She is still dyspneic. No fever or chills. No CP. Agreeable to Pleuryx. Exam: Alert. NC. Mucus membranes dry. Neck supple. Heart irreg - not tachy. Decreased breath sounds. Abd soft and nontender. No edema. Moves all extremities. No rash. Plan: NPO midnight. Heparin off midnight. Pleuryx tomorrow. ? d/c tomorrow. <Simeon Murray - Last Filed: 04/12/19 18:33> Hospitalist Progress Note - Encounter Date of Encounter: 04/12/19 Time of Encounter: 07:20 - Subjective Interval History: Patient feels the same as yesterday. She denies new problems. She had a bowel movement yesterday. Oral intake without complications. - Exam Vitals: Temp Pulse Resp BP Pulse Ox 97.9 F 87 17 139/86 95 04/12/19 05:36 04/12/19 05:36 04/12/19 05:36 04/12/19 05:36 04/12/19 05:36 Exam: Gen.: Elderly female. No acute distress Skin: Good turgor. Hypopigmented lesions on back. Eyes: Moist conjunctiva. Nonicteric Cardiac: Irregular rhythm. No murmurs gallops rubs Respiratory: Diminished lung sounds. Some wheezing worst in the upper anterior lung moyer. Minimal crackles throughout. Extremities: Trace pitting edema bilateral lower extremities. Capillary refill less than 2 seconds upper extremities Neuro: Eyes able to track. No tremors noted Psych: Appropriate behavior. Answers questions coherently - Assessment and Plan (1) Acute CHF (congestive heart failure) Current Visit: Yes Status: Acute Assessment and Plan: -Likely secondary to atrial fibrillation -Orthopnea, PND, bilateral edema of new onset -BNP 2211. Echo 04/03/19 showed EF 20-25%. LHC completed and showed mild nonobstructive CAD. Plan: Strict I/O's, daily weights, 2L fluid restriction. beta juliet, DUNCAN inhibitor, statin, ASA . apixaban and maintenance Lasix at discharge. Cardiology signed off. F/U outpatient. (2) Atrial fibrillation with rapid ventricular response Current Visit: Yes Status: Acute Assessment and Plan: -Likely secondary to structural changes of the heart versus hypoxemia from COPD exacerbation -Newly discovered heart failure with symptoms as above -TSH WNL. Electrolytes likely not the cause. EKG QRS's irregularly irregular and showed tachycardia. [id number]: 4 -metoprolol XL as above. Plan: Continue rate control per cardiology. (3) Acute respiratory failure with hypoxia Current Visit: Yes Status: Acute Assessment and Plan: -Likely secondary to COPD exacerbation vs. newly discovered heart failure with pleural effusion -Increased cough, sputum production. Increasing dyspnea over a month's time. -antibiotics finished. No ABG this admission. -home dose prednisone 10 mg daily po -Pulmonology consulted. CXR read as increasing airspace disease in right upper lung likely clinically correlated as pulmonary edema. Plan: Continue BiPAP as needed. Pleurx to be placed Saturday. (4) Pleural effusion Current Visit: Yes Status: Chronic Assessment and Plan: -likely 2/2 new onset heart failure -dyspnea as above -as seen on CXR. CXR 04/06/19 shows worsened -pleural fluid: total protein <3; LDH 71 -serum: total protein 6.1; LDH 165 -transudative -2 thoracenteses completed. Plan: CXR showed effusion unchanged. Pleurx to be placed Saturday. If repeated distress this drain only part of the effusion fluid. Heparin stopped at midnight. RESTART after procedure. NPO midnight. (5) NSTEMI (non-ST elevated myocardial infarction) Current Visit: Yes Status: Acute Assessment and Plan: -likely 2/2 demand ischemia --> Type 2. -afib as above and new CHF as above. has remained at 0.04 times 3. -no obvious T wave elevation -LHC completed and showed mild nonobstructive CAD. (6) Hypertension Current Visit: Yes Status: Chronic Assessment and Plan: -likely due to CAD -systolic on admission in 150's -Beta juliet, ACEi -controlled (7) Diabetes mellitus Current Visit: Yes Status: Chronic Assessment and Plan: -A1c 6.7 Plan: follow up outpt. Continue sliding scale insulin (8) Hypokalemia Current Visit: Yes Status: Acute Assessment and Plan: -likely due to magnesium deficiency and Lasix. -Magnesium now WNL - stable Plan: Continue to monitor DVT Prophylaxis: heparin drip - Time Spent with Patient Total time spent is greater than 50% in coordination of care (as documented) at patient's floor/unit and/or counseling patient: Internal Medicine: Result - Labs CBC & Chem 7: 04/12/19 05:07 04/12/19 05:07 Labs: Short CBC 04/11/19 04/12/19 Range/Units 07:01 05:07 WBC 9.9 9.9 (4.3-11.1) K/mcL Hgb 11.2 L 10.8 L (11.5-15.4) g/dL Hct 38.5 37.1 (35.3-44.9) % Plt Count 275 295 (140-400) K/mcL Neutrophils # 7.9 (1.6-8.9) K/mcL BMP 04/11/19 04/12/19 07:01 05:07 Sodium 145 142 Potassium 4.1 4.2 Chloride 98 99 Carbon Dioxide 36 H 37 H BUN 50 H 52 H Creatinine 1.10 0.98 Glucose 158 H 121 H Calcium 8.8 8.7 - ABG Interpretation ABG results: PT/INR, D-dimer PT 12.1 Seconds (9.4-12.1) 04/11/19 07:01 <Geo Clayton A - Last Filed: 04/12/19 13:59> (2) Acute CHF (congestive heart failure) Qualifiers: Heart failure type: systolic Qualified Code(s): I50.21 - Acute systolic (congestive) heart failure (4) Atrial fibrillation Qualifiers: Atrial fibrillation type: persistent Qualified Code(s): I48.1 - Persistent atrial fibrillation <Simeon Murray - Last Filed: 04/12/19 18:33> (1) Acute CHF (congestive heart failure) Qualifiers: Heart failure type: systolic Qualified Code(s): I50.21 - Acute systolic (congestive) heart failure (6) Hypertension Qualifiers: Hypertension type: essential hypertension Qualified Code(s): I10 - Essential (primary) hypertension (7) Diabetes mellitus Qualifiers: Diabetes mellitus type: type 2 Diabetes mellitus mcfp insulin use: without middle or intermediate school principal use Diabetes mellitus complication status: without complication Qualified Code(s): E11.9 - Type 2 diabetes mellitus without complications
[2019-04-12] MEDS: predniSONE 10 MG TABLET PO SCH (07:52)
[2019-04-12] MEDS: hydrOXYzine pamoate 25 MG CAPSULE PO SCH (07:52)
[2019-04-12] MEDS: *HR* HYDROcodone/Acet 5/325 mg TABLET PO PRN (07:52)
[2019-04-12] MEDS: Metoprolol XL (24 HR) Succ 50 MG TAB.ER.24H PO SCH ×2 (07:53→21:06)
[2019-04-12] MEDS: Furosemide 20 MG/2 ML VIAL IVP SCH (07:53)
[2019-04-12] MEDS: Aspirin 81 MG TAB.CHEW PO SCH (07:53)
[2019-04-12] MEDS: Magnesium Oxide 400 MG TABLET PO SCH (07:53)
[2019-04-12] MEDS: Insulin LISPRO 300 UNITS/3 ML VIAL SQ SCH ×4 (07:54→21:24)
--- NOTE | 2019-04-12 09:43 | Pulmonology Progress Note ---
Date of Encounter: 04/12/19 Time of Encounter: 09:40 Assessment and Plan (1) Pleural effusion Current Visit: Yes Status: Chronic Patient has required several thoracenteses for symptomatic control of recurrent pleural effusion secondary to hydrostatic pulmonary edema. Risk and benefits of the post procedure of Pleurx catheter placement have been discussed and she wants to proceed will be available place this tomorrow. Please hold heparin at midnight for this procedure (heparin is continuously infusing from cardiology recommendations for atrial fibrillation and can be held with only trviial transient total increase risk of stroke) spoke directly with the fruit sprayer CANARY RAISER who is in agreement (2) Congestive heart failure Current Visit: Yes Status: Acute Qualifiers: Heart failure type: systolic Heart failure chronicity: acute Qualified Code(s): I50.21 - Acute systolic (congestive) heart failure Subjective Principal diagnosis: Afib, CHF Interval history: Ms. Harden states that she is more short of breath today. She is currently on 6 L high flow nasal cannula oxygen saturations in the mid to high 90s Objective PUL Vital signs: Last Vital Signs Temp 97.4 F L 04/12/19 07:24 Pulse 95 04/12/19 07:24 Resp 14 04/12/19 07:24 BP 117/91 04/12/19 07:24 Pulse Ox 93 04/12/19 07:24 General appearance: other (Chronically ill frail elderly woman) Neck: supple, JVD Effort: mildly labored Auscultation: bilateral: diminished breath sounds Cardiovascular: irregular rhythm Gastrointestinal: normoactive bowel sounds, soft, non-tender Extremities: edema (Trace lower extremity edema) Musculoskeletal: no deformities normal mental status, non-focal exam mood appropriate Results - Laboratory Findings CBC and BMP: 04/12/19 05:07 04/12/19 05:07 PT/INR, D-dimer PT 12.1 Seconds (9.4-12.1) 04/11/19 07:01 Abnormal lab findings: Abnormal lab results WBC 11.9 K/mcL (4.3-11.1) H 04/10/19 06:02 RBC 5.17 M/mcL (3.82-4.97) H 04/05/19 05:00 Hgb 10.8 g/dL (11.5-15.4) L 04/12/19 05:07 MCV 78.8 fL (83.0-100.0) L 04/12/19 05:07 MCH 22.9 pg (28.0-33.3) L 04/12/19 05:07 MCHC 29.1 g/dL (31.6-35.5) L 04/12/19 05:07 RDW 20.1 % (11.5-14.5) H 04/12/19 05:07 Neutrophils # 9.8 K/mcL (1.6-8.9) H 04/10/19 06:02 Large Platelets Present (Not Present) A 04/09/19 04:45 Immature Plt Fraction 6.3 % (1.1-6.1) H 04/11/19 07:01 Hypochromasia Present (Not Present) A 04/10/19 06:02 Acanthocytes (Spur) 1+ (Not Present) A 04/10/19 06:02 PT 12.8 Seconds (9.4-12.1) H 04/10/19 15:31 Heparin Anti-Xa, Unfract 0.21 IU/mL (0.30-0.70) L 04/11/19 15:43 Sodium 151 mEq/L (136-145) H 04/10/19 06:02 Potassium 3.4 mEq/L (3.5-5.1) L 04/09/19 04:45 Chloride 96 mEq/L (98-107) L 04/10/19 06:02 Carbon Dioxide 37 mEq/L (23-29) H 04/12/19 05:07 BUN 52 mg/dL (8-23) H 04/12/19 05:07 Creatinine 1.30 mg/dL (0.60-1.20) H 04/06/19 02:48 Est GFR ( Amer) 59 (> 60) L 04/11/19 07:01 Est GFR (Non-Af Amer) 55 (> 60) L 04/12/19 05:07 BUN/Creatinine Ratio 53 (6-26) H 04/12/19 05:07 Glucose 121 mg/dL (70-105) H 04/12/19 05:07 POC Glucose 175 mg/dL (70-99) H 04/11/19 20:18 Hemoglobin A1c 6.7 % (-5.6) H 04/03/19 06:45 Calculated Osmolality 309 (280-300) H 04/12/19 05:07 Calcium 8.3 mg/dL (8.6-10.3) L 04/03/19 06:45 Total Bilirubin 1.1 mg/dL (0.3-1.0) H 04/04/19 04:54 Direct Bilirubin 0.4 mg/dL (0.0-0.2) H 04/02/19 14:34 AST 9 Units/L (13-39) L 04/04/19 04:54 ALT 5 Units/L (7-52) L 04/04/19 04:54 Troponin I 0.04 ng/mL (< 0.04) H* 04/02/19 22:48 B-Natriuretic Peptide 2211 pg/mL (Less than 100) H 04/02/19 14:34 Serum Total Protein 5.3 g/dL (6.4-8.9) L 04/04/19 04:54 Albumin 3.0 g/dL (3.5-5.7) L 04/04/19 04:54 Globulin 2.3 g/dL (2.4-3.5) L 04/04/19 04:54 - Clinical Findings Intake & Output: Intake & Output 04/11/19 04/12/19 04/12/19 23:59 07:59 15:59 Intake Total 196 / 1210 170 / 530 360 / 530 Output Total 0 / 0 Balance 196 / 1010 170 / 530 360 / 530 Weight 54.2 kg Consult Discharge Plan - Plan Referrals: Homero Rondon MD [Primary Care Provider] - Prescriptions: Apixaban [Eliquis] 5 mg PO BID #60 tablet
[2019-04-12] MEDS: Heparin 25,000 UNIT/250 ML D5W 25,000 UNIT/250 ML IV.SOLN IVC SCH (16:26)
[2019-04-13] MEDS: Levalbuterol Neb 0.63 MG/3 ML IH SCH ×4 (04:11→21:24)
[2019-04-13 05:06] LABS: Basophils % 0.4 %; Eosinophils # 0.2 K/mcL (0.0-0.6); Eosinophils % 1.8 %; Hemoglobin 11.3 g/dL (11.5-15.4); Immature Granulocytes % 1.3 % (0-4); Lymphocytes # 1.1 K/mcL (0.6-4.6); Lymphocytes % 10.4 %; Mean Corpuscular Hemoglobin 22.4 pg (28.0-33.3); Mean Corpuscular Volume 77.4 fL (83.0-100.0); Mean Platelet Volume 10.6 fL (9.4-12.4); Monocytes % 9.2 %; Platelet Count 331 K/mcL (140-400); Red Blood Count 5.04 M/mcL (3.82-4.97); Red Cell Distribution Width 20.1 % (11.5-14.5); Segmented Neutrophils % 76.9 %; White Blood Count 10.4 K/mcL (4.3-11.1)
[2019-04-13 05:23] LABS: Calcium 8.8 mg/dL (8.6-10.3); Potassium 4.3 mEq/L (3.5-5.1)
--- NOTE | 2019-04-13 05:48 | Internal Med Progress Note ---
<Simeon Murray - Last Filed: 04/13/19 13:35> Hospitalist Progress Note - Encounter Date of Encounter: 04/13/19 Time of Encounter: 06:00 - Subjective Interval History: Patient says she feels the same. She does not feel any better. Mentions some increased difficulty breathing last night. - Exam Vitals: Temp Pulse Resp BP Pulse Ox 97.6 F 88 18 122/88 98 04/13/19 04:47 04/13/19 04:47 04/13/19 04:47 04/13/19 04:47 04/13/19 04:47 Exam: Gen.: Elderly female. No acute distress Skin: Good turgor. Hypopigmented excoriation scars on back Eyes: Moist. Hyperemic Cardio: Irregular rhythm. Likely tachycardic. Difficult to discern whether murmur, gallop, rub Respiratory: Distant lung sounds. Diffuse inspiratory and expiratory wheeze GI: Soft. Not diffusely tender Extremities: Capillary refill less than 2 seconds bilateral upper extremities. Trace pitting edema to mid tibia bilaterally Psych: Appropriate behavior. Answers questions coherently - Assessment and Plan (1) Acute CHF (congestive heart failure) Current Visit: Yes Status: Acute Assessment and Plan: -Likely secondary to atrial fibrillation -Orthopnea, PND, bilateral edema of new onset -BNP 2211. Echo 04/03/19 showed EF 20-25%. LHC completed and showed mild n onobstructive CAD. Plan: Strict I/O's, daily weights, 2L fluid restriction. beta juliet, DUNCAN in hibitor, statin, ASA . apixaban and maintenance Lasix at discharge. Cardiology signed off. F/U outpatient. (2) Atrial fibrillation with rapid ventricular response Current Visit: Yes Status: Acute Assessment and Plan: -Likely secondary to structural changes of the heart versus hypoxemia from COPD exacerbation -Newly discovered heart failure with symptoms as above -TSH WNL. Electrolytes likely not the cause. EKG QRS's irregularly irregular and showed tachycardia. [id number]: 4 -metoprolol XL as above. Plan: Continue rate control per cardiology. (3) Acute respiratory failure with hypoxia Current Visit: Yes Status: Acute Assessment and Plan: -Likely secondary to COPD exacerbation vs. newly discovered heart failure with pleural effusion -Increased cough, sputum production. Increasing dyspnea over a month's time. -antibiotics finished. No ABG this admission. -home dose prednisone 10 mg daily po -Pulmonology consulted. CXR 04/09/19 read as increasing airspace disease in right upper lung likely clinically correlated as pulmonary edema. Plan: Continue BiPAP as needed. Pleurx placed. Follow-up x-rays x2 showed hydropneumothorax. We will likely remain on suction until resolved. (4) Pleural effusion Current Visit: Yes Status: Chronic Assessment and Plan: -likely 2/2 new onset heart failure -dyspnea as above -as seen on CXR. CXR 04/06/19 shows worsened -pleural fluid: total protein <3; LDH 71 -serum: total protein 6.1; LDH 165 -transudative -2 thoracenteses completed. Plan: Pleurx placed 04/13/19. Follow-up x-rays 2 04/13/19 show hydropneumothorax. Will likely remain on suction until resolved. (5) NSTEMI (non-ST elevated myocardial infarction) Current Visit: Yes Status: Acute Assessment and Plan: -likely 2/2 demand ischemia --> Type 2. -afib as above and new CHF as above. has remained at 0.04 times 3. -no obvious T wave elevation -LHC completed and showed mild nonobstructive CAD. (6) Hypertension Current Visit: Yes Status: Chronic Assessment and Plan: -likely due to CAD -systolic on admission in 150's -Beta juliet, ACEi -controlled (7) Diabetes mellitus Current Visit: Yes Status: Chronic Assessment and Plan: -A1c 6.7 Plan: follow up outpt. Continue sliding scale insulin (8) Hypokalemia Current Visit: Yes Status: Resolved Assessment and Plan: -likely due to magnesium deficiency and Lasix. -Magnesium now WNL - stable Plan: Continue to monitor DVT Prophylaxis: Planning to restart heparin drip - Time Spent with Patient Total time spent is greater [place] Internal Medicine: Result - Labs CBC & Chem 7: 04/13/19 04:41 04/13/19 04:41 Labs: Short CBC 04/12/19 04/13/19 Range/Units 05:07 04:41 WBC 9.9 10.4 (4.3-11.1) K/mcL Hgb 10.8 L 11.3 L (11.5-15.4) g/dL Hct 37.1 39.0 (35.3-44.9) % Plt Count 295 331 (140-400) K/mcL Neutrophils # 8.0 (1.6-8.9) K/mcL BMP 04/12/19 04/13/19 05:07 04:41 Sodium 142 142 Potassium 4.2 4.3 Chloride 99 98 Carbon Dioxide 37 H 36 H BUN 52 H 49 H Creatinine 0.98 1.09 Glucose 121 H 119 H Calcium 8.7 8.8 - ABG Interpretation ABG results: PT/INR, D-dimer PT 12.1 Seconds (9.4-12.1) 04/11/19 07:01 Consult Discharge Plan - Plan Referrals: Homero Rondon MD [Primary Care Provider] - Prescriptions: Apixaban [Eliquis] 5 mg PO BID #60 tablet <Geo Clayton - Last Filed: 04/13/19 15:04> Hospitalist Progress Note - Encounter Date of Encounter: 04/13/19 - Exam Vitals: Temp Pulse Resp BP Pulse Ox 98.0 F 89 16 112/66 96 04/13/19 11:26 04/13/19 11:26 04/13/19 11:26 04/13/19 11:26 04/13/19 11:26 - Assessment and Plan (1) Pleural effusion Current Visit: Yes Status: Chronic (2) Acute CHF (congestive heart failure) Current Visit: Yes Status: Acute (3) Acute respiratory failure with hypoxia Current Visit: Yes Status: Acute (4) Atrial fibrillation Current Visit: Yes Status: Chronic (5) NSTEMI (non-ST elevated myocardial infarction) Current Visit: Yes Status: Acute (6) Diabetes mellitus Current Visit: Yes Status: Chronic (7) Hypertension Current Visit: Yes Status: Chronic - Time Spent with Patient Total time spent is greater than 50% in coordination of care (as documented) at patient's floor/unit and/or counseling patient: Internal Medicine: Result - Labs CBC & Chem 7: 04/13/19 04:41 04/13/19 04:41 Labs: Short CBC 04/13/19 Range/Units 04:41 WBC 10.4 (4.3-11.1) K/mcL Hgb 11.3 L (11.5-15.4) g/dL Hct 39.0 (35.3-44.9) % Plt Count 331 (140-400) K/mcL Neutrophils # 8.0 (1.6-8.9) K/mcL BMP 04/13/19 04:41 Sodium 142 Potassium 4.3 Chloride 98 Carbon Dioxide 36 H BUN 49 H Creatinine 1.09 Glucose 119 H Calcium 8.8 - ABG Interpretation ABG results: PT/INR, D-dimer PT 12.1 Seconds (9.4-12.1) 04/11/19 07:01 - Impressions Impressions Chest X-Ray 04/13/19 08:59 IMPRESSION: Interval development of a small to moderate right-sided hydropneumothorax status post pleural drainage catheter placement. This is likely ex vacuo in nature presuming the pleural fluid was drained following catheter placement. A repeat chest x-ray could be performed to evaluate for stability. I called and discussed this with Dr. Somers at 9:23 a.m. on 04/13/2019. D/ / Homero Chadwick MD / Homero Chadwick MD Interpreting Provider: Homero Chadwick MD Chest X-Ray 04/13/19 12:00 IMPRESSION: Right-sided chest tube remains in place with persistent right hydropneumothorax. Bilateral airspace disease left worse than right. Small left pleural effusion. D/ / 04/13/2019 12:11:31 Marcello Alonzo MD / jenny Interpreting Provider: Marcello Alonzo MD - Attending Attestation I examined this patient and my medical decision-making was reviewed with the Resident Physician on 04/13/19. I agree with the documented findings, disposition and treatment plan as described except to the extent set forth below. Ms Harden is currently admitted for NSTEMI and resp failure due to CHF. She had pleuryx catheter placed today. She remains moderate to high risk due to potential for worsening clinical status. Ms Harden just returned from catheter placement. She is feeling better with rodney athing. No fever or chills. Pain controlled. Exam: Alert. Comfortable now. Mucus membranes dry. NC. Neck supple. Heart reg and not tachy. Decreased breath sounds and rales. Abd soft. No edema. No rash. Moves all extremities. Plan: Catheter to suction. Still on high flow oxygen. Will need to wean for discharge. <Simeon Murray - Last Filed: 04/13/19 13:35> (1) Acute CHF (congestive heart failure) Qualifiers: Heart failure type: systolic Qualified Code(s): I50.21 - Acute systolic (congestive) heart failure (6) Hypertension Qualifiers: Hypertension type: essential hypertension Qualified Code(s): I10 - Essential (primary) hypertension (7) Diabetes mellitus Qualifiers: Diabetes mellitus type: type 2 Diabetes mellitus manager long term care insulin use: without residential use Diabetes mellitus complication status: without complication Qualified Code(s): E11.9 - Type 2 diabetes mellitus without complications <Geo Clayton A - Last Filed: 04/13/19 15:04> (2) Acute CHF (congestive heart failure) Qualifiers: Heart failure type: systolic Qualified Code(s): I50.21 - Acute systolic (congestive) heart failure (4) Atrial fibrillation Qualifiers: Atrial fibrillation type: persistent Qualified Code(s): I48.1 - Persistent atrial fibrillation (6) Diabetes mellitus Qualifiers: Diabetes mellitus type: type 2 Diabetes mellitus manager long term care insulin use: without manager long term care use Diabetes mellitus complication status: without complication Qualified Code(s): E11.9 - Type 2 diabetes mellitus without complications (7) Hypertension Qualifiers: Hypertension type: essential hypertension Qualified Code(s): I10 - Essential (primary) hypertension
--- NOTE | 2019-04-13 08:28 | Pulmonology Progress Note ---
<ArielaSheridan M - Last Filed: 04/13/19 12:21> Date of Encounter: 04/13/19 Objective PUL Vital signs: Last Vital Signs Temp 98.0 F 04/13/19 11:26 Pulse 89 04/13/19 11:26 Resp 16 04/13/19 11:26 BP 112/66 04/13/19 11:26 Pulse Ox 96 04/13/19 11:26 Results - Laboratory Findings CBC and BMP: 04/13/19 04:41 04/13/19 04:41 PT/INR, D-dimer PT 12.1 Seconds (9.4-12.1) 04/11/19 07:01 Abnormal lab findings: Abnormal lab results WBC 11.9 K/mcL (4.3-11.1) H 04/10/19 06:02 RBC 5.04 M/mcL (3.82-4.97) H 04/13/19 04:41 Hgb 11.3 g/dL (11.5-15.4) L 04/13/19 04:41 MCV 77.4 fL (83.0-100.0) L 04/13/19 04:41 MCH 22.4 pg (28.0-33.3) L 04/13/19 04:41 MCHC 29.0 g/dL (31.6-35.5) L 04/13/19 04:41 RDW 20.1 % (11.5-14.5) H 04/13/19 04:41 Neutrophils # 9.8 K/mcL (1.6-8.9) H 04/10/19 06:02 Large Platelets Present (Not Present) A 04/09/19 04:45 Immature Plt Fraction 6.3 % (1.1-6.1) H 04/11/19 07:01 Hypochromasia Present (Not Present) A 04/10/19 06:02 Acanthocytes (Spur) 1+ (Not Present) A 04/10/19 06:02 PT 12.8 Seconds (9.4-12.1) H 04/10/19 15:31 Heparin Anti-Xa, Unfract 0.01 IU/mL (0.30-0.70) L 04/13/19 11:39 Sodium 151 mEq/L (136-145) H 04/10/19 06:02 Potassium 3.4 mEq/L (3.5-5.1) L 04/09/19 04:45 Chloride 96 mEq/L (98-107) L 04/10/19 06:02 Carbon Dioxide 36 mEq/L (23-29) H 04/13/19 04:41 BUN 49 mg/dL (8-23) H 04/13/19 04:41 Creatinine 1.30 mg/dL (0.60-1.20) H 04/06/19 02:48 Est GFR ( Amer) 59 (> 60) L 04/13/19 04:41 Est GFR (Non-Af Amer) 49 (> 60) L 04/13/19 04:41 BUN/Creatinine Ratio 45 (6-26) H 04/13/19 04:41 Glucose 119 mg/dL (70-105) H 04/13/19 04:41 POC Glucose 122 mg/dL (70-99) H 04/13/19 07:16 Hemoglobin A1c 6.7 % (-5.6) H 04/03/19 06:45 Calculated Osmolality 308 (280-300) H 04/13/19 04:41 Calcium 8.3 mg/dL (8.6-10.3) L 04/03/19 06:45 Total Bilirubin 1.1 mg/dL (0.3-1.0) H 04/04/19 04:54 Direct Bilirubin 0.4 mg/dL (0.0-0.2) H 04/02/19 14:34 AST 9 Units/L (13-39) L 04/04/19 04:54 ALT 5 Units/L (7-52) L 04/04/19 04:54 Troponin I 0.04 ng/mL (< 0.04) H* 04/02/19 22:48 B-Natriuretic Peptide 2211 pg/mL (Less than 100) H 04/02/19 14:34 Serum Total Protein 5.3 g/dL (6.4-8.9) L 04/04/19 04:54 Albumin 3.0 g/dL (3.5-5.7) L 04/04/19 04:54 Globulin 2.3 g/dL (2.4-3.5) L 04/04/19 04:54 - Clinical Findings Intake & Output: Intake & Output 04/12/19 04/13/19 04/13/19 23:59 07:59 15:59 Intake Total 120 / 730 100 / 100 Balance 120 / 730 100 / 100 Consult Discharge Plan - Plan Referrals: Homero Rondon MD [Primary Care Provider] - Prescriptions: Apixaban [Eliquis] 5 mg PO BID #60 tablet - Attending Attestation I examined this patient and my medical decision-making was reviewed with the Resident Physician. I agree with the documented findings, disposition and treatment plan as described except to the extent set forth below. Patient seen and examined. Labs, radiology, chart personally reviewed. 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 After placement she had some improvement, as expected tenderness postprocedural pneumothorax and this was connected with a chest tube chamber and some improvement. We will repeat chest x-ray. <Baron Junior - Last Filed: 04/13/19 14:38> Date of Encounter: 04/13/19 Time of Encounter: 09:30 Assessment and Plan (1) Acute respiratory failure with hypoxia Current Visit: Yes Status: Acute Likely 2/2 systolic heart failure with pleural effusion s/p 2 separate thoracentesis on the right with removal of a total of 2450mL transudative effusion Currently ventilating and saturating well on 6lpm O2 with SpO2 of 93% in no acute distress Underwent PleurX catheter placement with Dr. Titus this morning, please see separate endoscopy report no further details. Postprocedure chest x-ray demonstrated interval development of a small to moderate right-sided hydropneumothorax. Pleurx catheter placed to suction Repeat chest x-ray ordered for later in the day Continue to monitor closely (2) Acute CHF (congestive heart failure) Current Visit: Yes Status: Acute Echocardiogram from 04/03/19: - LVEF 20-25%. - Normal LV chamber size, wall thickness. - Severe global left ventricular systolic dysfunction with regional variations. - Atypical septal motion consistent with bundle branch block. - Indeterminate diastolic function. - Normal right ventricular structure, mildly reduced function. - Mild mitral regurgitation. - Mild tricuspid regurgitation. - Mild pulmonary hypertension. - Pleural effusion noted. Plan as above. Cardiology following Qualifiers: Heart failure type: systolic Qualified Code(s): I50.21 - Acute systolic (congestive) heart failure (3) NSTEMI (non-ST elevated myocardial infarction) Current Visit: Yes Status: Acute Troponin elevations suspected to be secondary to demand ischemia with A. fib RVR and new CHF Left heart catheter completed on 04/09/19 which showed mild nonobstructive CAD (4) Pleural effusion Current Visit: Yes Status: Chronic PleurX catheter placement as above (5) Atrial fibrillation Current Visit: Yes Status: Chronic Was on heparin drip, held for PleurX catheter placement May restart heparin drip this afternoon Cardiology following Qualifiers: Atrial fibrillation type: persistent Qualified Code(s): I48.1 - Persistent atrial fibrillation Subjective Principal diagnosis: Afib, CHF Interval history: Patient seen and examined at bedside. Patient reports she feels "better" after Pleurx catheter placement this morning, and is excited to eat her breakfast. Pleurx catheter remains to suction this time. Patient has no new or acute complaints. Denies any fever, chills, chest pain, abdominal pain, nausea, vomiting, numbness, or tingling. Objective PUL Vital signs: Last Vital Signs Temp 97.9 F 04/13/19 07:12 Pulse 89 04/13/19 07:12 Resp 24 04/13/19 07:12 BP 129/82 04/13/19 07:12 Pulse Ox 98 04/13/19 07:12 General appearance: no acute distress, alert Eyes: nonicteric ENT: oropharynx moist Neck: supple, no JVD Effort: normal Auscultation: left: clear, right: diminished breath sounds Cardiovascular: regular rate and rhythm Gastrointestinal: soft, non-tender Integumentary: normal Extremities: no cyanosis, no edema, no clubbing, pink and warm, pulses normal Musculoskeletal: no deformities Gait: normal posture normal mental status, non-focal exam, pupils equal and round mood appropriate, affect normal Results - Laboratory Findings CBC and BMP: 04/13/19 04:41 04/13/19 04:41 PT/INR, D-dimer PT 12.1 Seconds (9.4-12.1) 04/11/19 07:01 Abnormal lab findings: Abnormal lab results WBC 11.9 K/mcL (4.3-11.1) H 04/10/19 06:02 RBC 5.04 M/mcL (3.82-4.97) H 04/13/19 04:41 Hgb 11.3 g/dL (11.5-15.4) L 04/13/19 04:41 MCV 77.4 fL (83.0-100.0) L 04/13/19 04:41 MCH 22.4 pg (28.0-33.3) L 04/13/19 04:41 MCHC 29.0 g/dL (31.6-35.5) L 04/13/19 04:41 RDW 20.1 % (11.5-14.5) H 04/13/19 04:41 Neutrophils # 9.8 K/mcL (1.6-8.9) H 04/10/19 06:02 Large Platelets Present (Not Present) A 04/09/19 04:45 Immature Plt Fraction 6.3 % (1.1-6.1) H 04/11/19 07:01 Hypochromasia Present (Not Present) A 04/10/19 06:02 Acanthocytes (Spur) 1+ (Not Present) A 04/10/19 06:02 PT 12.8 Seconds (9.4-12.1) H 04/10/19 15:31 Heparin Anti-Xa, Unfract 0.21 IU/mL (0.30-0.70) L 04/11/19 15:43 Sodium 151 mEq/L (136-145) H 04/10/19 06:02 Potassium 3.4 mEq/L (3.5-5.1) L 04/09/19 04:45 Chloride 96 mEq/L (98-107) L 04/10/19 06:02 Carbon Dioxide 36 mEq/L (23-29) H 04/13/19 04:41 BUN 49 mg/dL (8-23) H 04/13/19 04:41 Creatinine 1.30 mg/dL (0.60-1.20) H 04/06/19 02:48 Est GFR ( Amer) 59 (> 60) L 04/13/19 04:41 Est GFR (Non-Af Amer) 49 (> 60) L 04/13/19 04:41 BUN/Creatinine Ratio 45 (6-26) H 04/13/19 04:41 Glucose 119 mg/dL (70-105) H 04/13/19 04:41 POC Glucose 122 mg/dL (70-99) H 04/13/19 07:16 Hemoglobin A1c 6.7 % (-5.6) H 04/03/19 06:45 Calculated Osmolality 308 (280-300) H 04/13/19 04:41 Calcium 8.3 mg/dL (8.6-10.3) L 04/03/19 06:45 Total Bilirubin 1.1 mg/dL (0.3-1.0) H 04/04/19 04:54 Direct Bilirubin 0.4 mg/dL (0.0-0.2) H 04/02/19 14:34 AST 9 Units/L (13-39) L 04/04/19 04:54 ALT 5 Units/L (7-52) L 04/04/19 04:54 Troponin I 0.04 ng/mL (< 0.04) H* 04/02/19 22:48 B-Natriuretic Peptide 2211 pg/mL (Less than 100) H 04/02/19 14:34 Serum Total Protein 5.3 g/dL (6.4-8.9) L 04/04/19 04:54 Albumin 3.0 g/dL (3.5-5.7) L 04/04/19 04:54 Globulin 2.3 g/dL (2.4-3.5) L 04/04/19 04:54 - Diagnostic Findings Chest x-ray: report reviewed, image reviewed - Clinical Findings Intake & Output: Intake & Output 04/12/19 04/13/19 04/13/19 23:59 07:59 15:59 Intake Total 120 / 730 100 / 100 Balance 120 / 730 100 / 100
[2019-04-13] MEDS: *HR* HYDROcodone/Acet 5/325 mg TABLET PO PRN ×2 (10:50→18:19)
[2019-04-13] MEDS: Aspirin 81 MG TAB.CHEW PO SCH (10:50)
[2019-04-13] MEDS: predniSONE 10 MG TABLET PO SCH (10:50)
[2019-04-13] MEDS: hydrOXYzine pamoate 25 MG CAPSULE PO SCH (10:50)
[2019-04-13] MEDS: Furosemide 20 MG/2 ML VIAL IVP SCH (10:51)
[2019-04-13] MEDS: Metoprolol XL (24 HR) Succ 50 MG TAB.ER.24H PO SCH ×2 (10:51→20:16)
[2019-04-13] MEDS: Insulin LISPRO 300 UNITS/3 ML VIAL SQ SCH ×4 (10:51→20:16)
[2019-04-13] MEDS: Magnesium Oxide 400 MG TABLET PO SCH (10:52)
[2019-04-13] MEDS: Heparin 25,000 UNIT/250 ML D5W 25,000 UNIT/250 ML IV.SOLN IVC SCH (14:37)
[2019-04-13] MEDS: *HR* Heparin 5,000 UNIT/ML VIAL IVP PRN (14:40)
[2019-04-14] MEDS: Levalbuterol Neb 0.63 MG/3 ML IH SCH ×4 (03:46→21:31)
[2019-04-14 05:29] LABS: Hematocrit 37.6 % (35.3-44.9); Mean Corpuscular HGB Conc 29.3 g/dL (31.6-35.5); Mean Corpuscular Volume 78.7 fL (83.0-100.0); Mean Platelet Volume 11.1 fL (9.4-12.4); Platelet Count 328 K/mcL (140-400); Red Blood Count 4.78 M/mcL (3.82-4.97); Red Cell Distribution Width 20.6 % (11.5-14.5); White Blood Count 11.1 K/mcL (4.3-11.1)
[2019-04-14 05:48] LABS: BUN/Creatinine Ratio 43 (6-26); Blood Urea Nitrogen 44 mg/dL (8-23); Calcium 8.7 mg/dL (8.6-10.3); Carbon Dioxide 35 mEq/L (23-29); Chloride 100 mEq/L (98-107); Glucose 120 mg/dL (70-105); Osmolality,Calculated 304 (280-300); Potassium 4.4 mEq/L (3.5-5.1); Sodium 141 mEq/L (136-145); eGFR For African Americans > 60 (> 60); eGFR For Non-African Americans 53 (> 60)
[2019-04-14] MEDS: *HR* Heparin 5,000 UNIT/ML VIAL IVP PRN ×3 (06:49→23:55)
--- NOTE | 2019-04-14 07:15 | Pulmonology Progress Note ---
<Baron Junior - Last Filed: 04/14/19 12:01> Date of Encounter: 04/14/19 Time of Encounter: 08:15 Assessment and Plan (1) Acute respiratory failure with hypoxia Current Visit: Yes Status: Acute Likely 2/2 systolic heart failure with pleural effusion s/p 2 separate thoracentesis on the right with removal of a total of 2450mL transudative effusion Underwent PleurX catheter placement on 04/14/19 Postprocedure chest x-ray demonstrated interval development of a small to moderate right-sided hydropneumothorax. Pleurx catheter placed to suction Currently ventilating and saturating well on 3lpm O2 with SpO2 of 96% in no acute distress Repeat CXR this morning showed interval decrease in size of hydropneumothorax. PleurX continues to be to suction and plan to leave and on suction today. Atrium tidaling appropriately during encounter. Continue to monitor closely Repeat chest x-ray in the morning (2) Acute CHF (congestive heart failure) Current Visit: Yes Status: Acute Echocardiogram from 04/03/19: - LVEF 20-25%. - Normal LV chamber size, wall thickness. - Severe global left ventricular systolic dysfunction with regional variations. - Atypical septal motion consistent with bundle branch block. - Indeterminate diastolic function. - Normal right ventricular structure, mildly reduced function. - Mild mitral regurgitation. - Mild tricuspid regurgitation. - Mild pulmonary hypertension. - Pleural effusion noted. Plan as above. Cardiology following Qualifiers: Heart failure type: systolic Qualified Code(s): I50.21 - Acute systolic (congestive) heart failure (3) NSTEMI (non-ST elevated myocardial infarction) Current Visit: Yes Status: Acute Troponin elevations suspected to be secondary to demand ischemia with A. fib RVR and new CHF Left heart catheter completed on 04/09/19 which showed mild nonobstructive CAD (4) Pleural effusion Current Visit: Yes Status: Chronic PleurX catheter placement as above (5) Atrial fibrillation Current Visit: Yes Status: Chronic On Heparin drip Currently rate controlled Cardiology following Transition to other anticoagulation at the discretion of the primary team Qualifiers: Atrial fibrillation type: persistent Qualified Code(s): I48.1 - Persistent atrial fibrillation Subjective Principal diagnosis: Afib, CHF Interval history: Patient seen and examined at bedside. Pt reports no shortness of breath, but is complaining of pain and discomfort associated with the Pleurx catheter. The PleurX continues to be to suction at this time. Patient has no other new or acute complaints. Denies any fever, chills, cough, increased sputum production, abdominal pain, nausea, vomiting, numbness, or tingling. Objective PUL Vital signs: Last Vital Signs Temp 98.2 F 04/14/19 07:06 Pulse 73 04/14/19 07:06 Resp 15 04/14/19 07:06 BP 119/71 04/14/19 07:06 Pulse Ox 97 04/14/19 07:06 General appearance: no acute distress, alert Eyes: nonicteric ENT: oropharynx moist Neck: supple, no JVD Effort: normal Auscultation: left: clear, right: diminished breath sounds (base) Cardiovascular: regular rate and rhythm Gastrointestinal: soft, non-tender, non-distended Integumentary: normal Extremities: no cyanosis, no edema, no clubbing, pink and warm, pulses normal Musculoskeletal: no deformities normal mental status, non-focal exam, pupils equal and round Results - Laboratory Findings CBC and BMP: 04/14/19 04:37 04/14/19 04:37 PT/INR, D-dimer PT 12.1 Seconds (9.4-12.1) 04/11/19 07:01 Abnormal lab findings: Abnormal lab results WBC 11.9 K/mcL (4.3-11.1) H 04/10/19 06:02 RBC 5.04 M/mcL (3.82-4.97) H 04/13/19 04:41 Hgb 11.0 g/dL (11.5-15.4) L 04/14/19 04:37 MCV 78.7 fL (83.0-100.0) L 04/14/19 04:37 MCH 23.0 pg (28.0-33.3) L 04/14/19 04:37 MCHC 29.3 g/dL (31.6-35.5) L 04/14/19 04:37 RDW 20.6 % (11.5-14.5) H 04/14/19 04:37 Neutrophils # 9.8 K/mcL (1.6-8.9) H 04/10/19 06:02 Large Platelets Present (Not Present) A 04/09/19 04:45 Immature Plt Fraction 6.3 % (1.1-6.1) H 04/11/19 07:01 Hypochromasia Present (Not Present) A 04/10/19 06:02 Acanthocytes (Spur) 1+ (Not Present) A 04/10/19 06:02 PT 12.8 Seconds (9.4-12.1) H 04/10/19 15:31 Heparin Anti-Xa, Unfract 0.18 IU/mL (0.30-0.70) L 04/14/19 05:55 Sodium 151 mEq/L (136-145) H 04/10/19 06:02 Potassium 3.4 mEq/L (3.5-5.1) L 04/09/19 04:45 Chloride 96 mEq/L (98-107) L 04/10/19 06:02 Carbon Dioxide 35 mEq/L (23-29) H 04/14/19 04:37 BUN 44 mg/dL (8-23) H 04/14/19 04:37 Creatinine 1.30 mg/dL (0.60-1.20) H 04/06/19 02:48 Est GFR ( Amer) 59 (> 60) L 04/13/19 04:41 Est GFR (Non-Af Amer) 53 (> 60) L 04/14/19 04:37 BUN/Creatinine Ratio 43 (6-26) H 04/14/19 04:37 Glucose 120 mg/dL (70-105) H 04/14/19 04:37 POC Glucose 181 mg/dL (70-99) H 04/13/19 19:29 Hemoglobin A1c 6.7 % (-5.6) H 04/03/19 06:45 Calculated Osmolality 304 (280-300) H 04/14/19 04:37 Calcium 8.3 mg/dL (8.6-10.3) L 04/03/19 06:45 Total Bilirubin 1.1 mg/dL (0.3-1.0) H 04/04/19 04:54 Direct Bilirubin 0.4 mg/dL (0.0-0.2) H 04/02/19 14:34 AST 9 Units/L (13-39) L 04/04/19 04:54 ALT 5 Units/L (7-52) L 04/04/19 04:54 Troponin I 0.04 ng/mL (< 0.04) H* 04/02/19 22:48 B-Natriuretic Peptide 2211 pg/mL (Less than 100) H 04/02/19 14:34 Serum Total Protein 5.3 g/dL (6.4-8.9) L 04/04/19 04:54 Albumin 3.0 g/dL (3.5-5.7) L 04/04/19 04:54 Globulin 2.3 g/dL (2.4-3.5) L 04/04/19 04:54 - Diagnostic Findings Chest x-ray: report reviewed, image reviewed - Clinical Findings Intake & Output: Intake & Output 04/13/19 04/13/19 04/14/19 15:59 23:59 07:59 Intake Total 240 / 340 115 / 115 Output Total 1460 / 1460 290 / 290 Balance 240 / -1120 -1460 / -1120 -175 / -175 Weight 54.6 kg Consult Discharge Plan - Plan Referrals: Homero Rondon MD [Primary Care Provider] - Prescriptions: Apixaban [Eliquis] 5 mg PO BID #60 tablet <Sheridan Titus - Last Filed: 04/14/19 15:21> Date of Encounter: 04/14/19 Objective PUL Vital signs: Last Vital Signs Temp 98.2 F 04/14/19 07:06 Pulse 90 04/14/19 11:36 Resp 18 04/14/19 11:36 BP 95/66 04/14/19 11:36 Pulse Ox 97 04/14/19 11:36 Results - Laboratory Findings CBC and BMP: 04/14/19 04:37 04/14/19 04:37 PT/INR, D-dimer PT 12.1 Seconds (9.4-12.1) 04/11/19 07:01 Abnormal lab findings: Abnormal lab results WBC 11.9 K/mcL (4.3-11.1) H 04/10/19 06:02 RBC 5.04 M/mcL (3.82-4.97) H 04/13/19 04:41 Hgb 11.0 g/dL (11.5-15.4) L 04/14/19 04:37 MCV 78.7 fL (83.0-100.0) L 04/14/19 04:37 MCH 23.0 pg (28.0-33.3) L 04/14/19 04:37 MCHC 29.3 g/dL (31.6-35.5) L 04/14/19 04:37 RDW 20.6 % (11.5-14.5) H 04/14/19 04:37 Neutrophils # 9.8 K/mcL (1.6-8.9) H 04/10/19 06:02 Large Platelets Present (Not Present) A 04/09/19 04:45 Immature Plt Fraction 6.3 % (1.1-6.1) H 04/11/19 07:01 Hypochromasia Present (Not Present) A 04/10/19 06:02 Acanthocytes (Spur) 1+ (Not Present) A 04/10/19 06:02 PT 12.8 Seconds (9.4-12.1) H 04/10/19 15:31 Heparin Anti-Xa, Unfract 0.28 IU/mL (0.30-0.70) L 04/14/19 12:39 Sodium 151 mEq/L (136-145) H 04/10/19 06:02 Potassium 3.4 mEq/L (3.5-5.1) L 04/09/19 04:45 Chloride 96 mEq/L (98-107) L 04/10/19 06:02 Carbon Dioxide 35 mEq/L (23-29) H 04/14/19 04:37 BUN 44 mg/dL (8-23) H 04/14/19 04:37 Creatinine 1.30 mg/dL (0.60-1.20) H 04/06/19 02:48 Est GFR ( Amer) 59 (> 60) L 04/13/19 04:41 Est GFR (Non-Af Amer) 53 (> 60) L 04/14/19 04:37 BUN/Creatinine Ratio 43 (6-26) H 04/14/19 04:37 Glucose 120 mg/dL (70-105) H 04/14/19 04:37 POC Glucose 181 mg/dL (70-99) H 04/13/19 19:29 Hemoglobin A1c 6.7 % (-5.6) H 04/03/19 06:45 Calculated Osmolality 304 (280-300) H 04/14/19 04:37 Calcium 8.3 mg/dL (8.6-10.3) L 04/03/19 06:45 Total Bilirubin 1.1 mg/dL (0.3-1.0) H 04/04/19 04:54 Direct Bilirubin 0.4 mg/dL (0.0-0.2) H 04/02/19 14:34 AST 9 Units/L (13-39) L 04/04/19 04:54 ALT 5 Units/L (7-52) L 04/04/19 04:54 Troponin I 0.04 ng/mL (< 0.04) H* 04/02/19 22:48 B-Natriuretic Peptide 2211 pg/mL (Less than 100) H 04/02/19 14:34 Serum Total Protein 5.3 g/dL (6.4-8.9) L 04/04/19 04:54 Albumin 3.0 g/dL (3.5-5.7) L 04/04/19 04:54 Globulin 2.3 g/dL (2.4-3.5) L 04/04/19 04:54 - Clinical Findings Intake & Output: Intake & Output 04/13/19 04/14/19 04/14/19 23:59 07:59 15:59 Intake Total 115 / 172 57 / 172 Output Total 1460 / 1460 290 / 920 630 / 920 Balance -1460 / -1120 -175 / -748 -573 / -748 Weight 54.6 kg - Attending Attestation I examined this patient and my medical decision-making was reviewed with the Resident Physician. I agree with the documented findings, disposition and treatment plan as described except to the extent set forth below. Patient seen and examined. Labs, radiology, chart personally reviewed. Agree with resident's history and physical, assessment, plan with following comments: FIG WASHER: Patient follows commands, Pulmonary: Acceptable oxygenation and ventilation Patient is feeling better and her chest x-ray has improved, and chest tube still draining. I have changed her dressing and there is no evidence of bleeding and plan to have chest tube on water seal tomorrow morning and then to be followed by chest x-ray. Most likely will discontinue chest tube draining and suction in next 24 hour, if there is no significant changes. Patient had some chest soreness and she is receiving medication for that.
[2019-04-14] MEDS: Insulin LISPRO 300 UNITS/3 ML VIAL SQ SCH ×4 (07:22→21:59)
--- NOTE | 2019-04-14 07:35 | Internal Med Progress Note ---
<ForrestGeo Deneen - Last Filed: 04/14/19 13:51> Hospitalist Progress Note - Encounter Date of Encounter: 04/14/19 - Exam Vitals: Temp Pulse Resp BP Pulse Ox 98.2 F 90 18 95/66 97 04/14/19 07:06 04/14/19 11:36 04/14/19 11:36 04/14/19 11:36 04/14/19 11:36 - Assessment and Plan (1) Pleural effusion Current Visit: Yes Status: Chronic (2) Acute CHF (congestive heart failure) Current Visit: Yes Status: Acute (3) Acute respiratory failure with hypoxia Current Visit: Yes Status: Acute (4) Atrial fibrillation Current Visit: Yes Status: Chronic (5) NSTEMI (non-ST elevated myocardial infarction) Current Visit: Yes Status: Acute - Time Spent with Patient Total time spent is greater than 50% in coordination of care (as documented) at patient's floor/unit and/or counseling patient: Internal Medicine: Result - Labs CBC & Chem 7: 04/14/19 04:37 04/14/19 04:37 Labs: Short CBC 04/14/19 Range/Units 04:37 WBC 11.1 (4.3-11.1) K/mcL Hgb 11.0 L (11.5-15.4) g/dL Hct 37.6 (35.3-44.9) % Plt Count 328 (140-400) K/mcL BMP 04/14/19 04:37 Sodium 141 Potassium 4.4 Chloride 100 Carbon Dioxide 35 H BUN 44 H Creatinine 1.02 Glucose 120 H Calcium 8.7 - ABG Interpretation ABG results: PT/INR, D-dimer PT 12.1 Seconds (9.4-12.1) 04/11/19 07:01 - Impressions Impressions Chest X-Ray 04/13/19 18:43 IMPRESSION: Stable right hydropneumothorax. Persistent multifocal airspace disease D/ / Benjamin Del Rosario MD / Benjamin Del Rosario MD Interpreting Provider: Benjamin Del Rosario MD Chest X-Ray 04/14/19 06:00 IMPRESSION: 1. Right pleural catheter appears unchanged in position with interval decrease in size of the right-sided pneumothorax. 2. Otherwise, no significant change in the appearance of the chest. D/ / Daniel Winkler MD / Daniel Winkler MD Interpreting Provider: Daniel Winkler MD Consult Discharge Plan - Plan Referrals: Homero Rondon MD [Primary Care Provider] - Prescriptions: Apixaban [Eliquis] 5 mg PO BID #60 tablet - Attending Attestation I examined this patient and my medical decision-making was reviewed with the Resident Physician on 04/14/19. I agree with the documented findings, dispos ition and treatment plan as described except to the extent set forth below. Ms Harden is currently admitted for acute resp failure and CHF. She remains moderate to high risk due to potential for worsening respiratory status. Ms Harden is up at bedside. She had Pleurx placed yesterday. It has been at suction due to hydropneumothorax. No fever. Had a lot of pain last night - better now. Exam: Alert Comfortable. NC. Mucus membranes dry. Neck supple. Heart reg and not tachy. Decreased breath sounds. No edema. No rash. Moves all extremities. Plan: Pleurx to suction. Pain control. Continue diuresis. Discharge planning. <Simeon Murray G - Last Filed: 04/14/19 14:50> Hospitalist Progress Note - Encounter Date of Encounter: 04/14/19 Time of Encounter: 06:25 - Subjective Interval History: Patient seen at bedside and says she feels the same. No new complaints. She feels afraid she is too weak if she were to have to have another operation. - Exam Vitals: Temp Pulse Resp BP Pulse Ox 98.2 F 73 15 119/71 97 04/14/19 07:06 04/14/19 07:06 04/14/19 07:06 04/14/19 07:06 04/14/19 07:06 Exam: Gen.: Elderly female. No acute distress Skin: Good turgor. Bilateral upper extremity ecchymoses Eyes: Moist. Nonicteric Cardiac: Irregular rhythm. Tachycardic. No carotid bruits but somewhat complicated by air sounds of nasal cannula. JVD and hepatojugular reflux likely Lungs: Posterior crackles on the left. Distant sounds in the right upper moyer with coarse wet crackles on the lower right moyer. Extremities: No bilateral edema lower extremities. Capillary refill less than 2 seconds upper extremities bilaterally MSK: Around 3" x 2" region of crepitus above Pleurx insertion site. Patient tender to palpation at the site Neuro: Eyes able to focus. No tremor noted Psych: Appropriate mood and behavior. Answers questions coherently - Assessment and Plan (1) Acute CHF (congestive heart failure) Current Visit: Yes Status: Acute Assessment and Plan: -Likely secondary to atrial fibrillation -Orthopnea, PND, bilateral edema of new onset -BNP 2211. Echo 04/03/19 showed EF 20-25%. LHC completed and showed mild nonobstructive CAD. Plan: Strict I/O's, daily weights, 2L fluid restriction. beta juliet, DUNCAN inhibitor, statin, ASA. Furosemide 20 mL daily (continue outpatient). apixaban at discharge. Cardiology signed off. F/U outpatient. (2) Atrial fibrillation with rapid ventricular response Current Visit: Yes Status: Acute Assessment and Plan: -Likely secondary to structural changes of the heart versus hypoxemia from COPD exacerbation -Newly discovered heart failure with symptoms as above -TSH WNL. Electrolytes likely not the cause. EKG QRS's irregularly irregular and showed tachycardia. [id number]: 4 -metoprolol XL as above. Plan: Continue rate control per cardiology. (3) Acute respiratory failure with hypoxia Current Visit: Yes Status: Acute Assessment and Plan: -Likely secondary to COPD exacerbation vs. newly discovered heart failure with pleural effusion -Increased cough, sputum production. Increasing dyspnea over a month's time. -antibiotics finished. No ABG this admission. -home dose prednisone 10 mg daily po -Pulmonology consulted. CXR 04/09/19 read as increasing airspace disease in right upper lung likely clinically correlated as pulmonary edema. Pleurx placed. Fourth follow up x-ray shows decreasing size of hydropneumothorax. Plan: Continue BiPAP as needed. Continue suction per pulmonology. repeat AM CXR (4) Pleural effusion Current Visit: Yes Status: Chronic Assessment and Plan: -likely 2/2 new onset heart failure -dyspnea as above -as seen on CXR. CXR 04/06/19 shows worsened -pleural fluid: total protein <3; LDH 71 -serum: total protein 6.1; LDH 165 -transudative -2 thoracenteses completed. -Pleurx placed 04/13/19. Plan: Fourth follow up x-ray 04/14/19 shows decreasing size of hydropneumothorax. Continue suction and repeat morning x-ray per pulmonology. (5) NSTEMI (non-ST elevated myocardial infarction) Current Visit: Yes Status: Acute Assessment and Plan: -likely 2/2 demand ischemia --> Type 2. -afib as above and new CHF as above. has remained at 0.04 times 3. -no obvious T wave elevation -LHC completed and showed mild nonobstructive CAD. (6) Hypertension Current Visit: Yes Status: Chronic Assessment and Plan: -likely due to CAD -systolic on admission in 150's -Beta juliet, ACEi -controlled (7) Diabetes mellitus Current Visit: Yes Status: Chronic Assessment and Plan: -A1c 6.7 Plan: follow up outpt. Continue sliding scale insulin (8) Hypokalemia Current Visit: Yes Status: Resolved Assessment and Plan: -likely due to magnesium deficiency and Lasix. -Magnesium now WNL - stable Plan: Continue to monitor DVT Prophylaxis: heparin drip - Time Spent with Patient Total time spent is great Internal Medicine: Result - Labs CBC & Chem 7: 04/14/19 04:37 04/14/19 04:37 Labs: Short CBC 04/14/19 Range/Units 04:37 WBC 11.1 (4.3-11.1) K/mcL Hgb 11.0 L (11.5-15.4) g/dL Hct 37.6 (35.3-44.9) % Plt Count 328 (140-400) K/mcL BMP 04/14/19 04:37 Sodium 141 Potassium 4.4 Chloride 100 Carbon Dioxide 35 H BUN 44 H Creatinine 1.02 Glucose 120 H Calcium 8.7 - ABG Interpretation ABG results: PT/INR, D-dimer PT 12.1 Seconds (9.4-12.1) 04/11/19 07:01 - Impressions Impressions Chest X-Ray 04/13/19 08:59 IMPRESSION: Interval development of a small to moderate right-sided hydropneumothorax status post pleural drainage catheter placement. This is likely ex vacuo in nature presuming the pleural fluid was drained following catheter placement. A repeat chest x-ray could be performed to evaluate for stability. I called and discussed this with Dr. Somers at 9:23 a.m. on 04/13/2019. D/ / Homero Chadwick MD / Homero Chadwick MD Interpreting Provider: Homero Chadwick MD Chest X-Ray 04/13/19 12:00 IMPRESSION: Right-sided chest tube remains in place with persistent right hydropneumothorax. Bilateral airspace disease left worse than right. Small left pleural effusion. D/ / 04/13/2019 12:11:31 Marcello Alonzo MD / jenny Interpreting Provider: Marcello Alonzo MD Chest X-Ray 04/13/19 18:43 IMPRESSION: Stable right hydropneumothorax. Persistent multifocal airspace disease D/ / Benjamin Del Rosario MD / Benjamin Del Rosario MD Interpreting Provider: Benjamin Del Rosario MD Chest X-Ray 04/14/19 06:00 IMPRESSION: 1. Right pleural catheter appears unchanged in position with interval decrease in size of the right-sided pneumothorax. 2. Otherwise, no significant change in the appearance of the chest. D/ / Daniel Winkler MD / Daniel Winkler MD Interpreting Provider: Daniel Winkler MD <Geo Clayton - Last Filed: 04/14/19 13:51> (2) Acute CHF (congestive heart failure) Qualifiers: Heart failure type: systolic Qualified Code(s): I50.21 - Acute systolic (congestive) heart failure (4) Atrial fibrillation Qualifiers: Atrial fibrillation type: persistent Qualified Code(s): I48.1 - Persistent atrial fibrillation <Simeon Murray - Last Filed: 04/14/19 14:50> (1) Acute CHF (congestive heart failure) Qualifiers: Heart failure type: systolic Qualified Code(s): I50.21 - Acute systolic (congestive) heart failure (6) Hypertension Qualifiers: Hypertension type: essential hypertension Qualified Code(s): I10 - Essential (primary) hypertension (7) Diabetes mellitus Qualifiers: Diabetes mellitus type: type 2 Diabetes mellitus chcf insulin use: without chcf use Diabetes mellitus complication status: without complication Qualified Code(s): E11.9 - Type 2 diabetes mellitus without complications
[2019-04-14] MEDS: Furosemide 20 MG/2 ML VIAL IVP SCH (09:14)
[2019-04-14] MEDS: predniSONE 10 MG TABLET PO SCH (09:14)
[2019-04-14] MEDS: hydrOXYzine pamoate 25 MG CAPSULE PO SCH (09:14)
[2019-04-14] MEDS: Magnesium Oxide 400 MG TABLET PO SCH (09:15)
[2019-04-14] MEDS: Metoprolol XL (24 HR) Succ 50 MG TAB.ER.24H PO SCH ×2 (09:15→22:07)
[2019-04-14] MEDS: Aspirin 81 MG TAB.CHEW PO SCH (09:15)
[2019-04-14] MEDS: Ipratropium Neb 0.5 MG NEBULIZER IH PRN (10:43)
[2019-04-14] MEDS: Heparin 25,000 UNIT/250 ML D5W 25,000 UNIT/250 ML IV.SOLN IVC SCH ×2 (15:45→23:58)
[2019-04-14] MEDS: *HR* HYDROcodone/Acet 5/325 mg TABLET PO PRN (22:06)
[2019-04-15] MEDS: Levalbuterol Neb 0.63 MG/3 ML IH SCH ×4 (03:43→22:27)
[2019-04-15] MEDS: *HR* HYDROcodone/Acet 5/325 mg TABLET PO PRN (05:20)
--- NOTE | 2019-04-15 06:03 | Internal Med Progress Note ---
<Tere Chapman - Last Filed: 04/15/19 12:28> Hospitalist Progress Note - Encounter Date of Encounter: 04/15/19 - Exam Vitals: Temp Pulse Resp BP Pulse Ox 97.7 F 94 16 109/57 96 04/15/19 11:51 04/15/19 11:51 04/15/19 11:51 04/15/19 11:51 04/15/19 11:51 - Assessment and Plan (1) Pleural effusion Current Visit: Yes Status: Chronic (2) Acute CHF (congestive heart failure) Current Visit: Yes Status: Acute (3) Acute respiratory failure with hypoxia Current Visit: Yes Status: Acute (4) Atrial fibrillation Current Visit: Yes Status: Chronic (5) NSTEMI (non-ST elevated myocardial infarction) Current Visit: Yes Status: Acute - Time Spent with Patient Total time spent is greater than 50% in coordination of care (as documented) at patient's floor/unit and/or counseling patient: Internal Medicine: Result - Labs CBC & Chem 7: 04/15/19 05:51 04/15/19 05:51 Labs: Short CBC 04/15/19 Range/Units 05:51 WBC 11.4 H (4.3-11.1) K/mcL Hgb 10.4 L (11.5-15.4) g/dL Hct 35.5 (35.3-44.9) % Plt Count 326 (140-400) K/mcL BMP 04/15/19 05:51 Sodium 141 Potassium 4.7 Chloride 97 L Carbon Dioxide 38 H BUN 55 H Creatinine 1.26 H Glucose 113 H Calcium 9.1 - ABG Interpretation ABG results: PT/INR, D-dimer PT 12.1 Seconds (9.4-12.1) 04/11/19 07:01 - Impressions Impressions Chest X-Ray 04/15/19 08:00 IMPRESSION: 1. Right pleural catheter unchanged in position. 2. Small right pneumothorax appears slightly decreased. 3. Patchy bilateral opacities, left greater than right. 4. Likely small left pleural effusion. D/ / Daniel Winkler MD / Daniel Winkler MD Interpreting Provider: Daniel Winkler MD Consult Discharge Plan - Plan Referrals: Homero Rondon MD [Primary Care Provider] - Prescriptions: Apixaban [Eliquis] 5 mg PO BID #60 tablet - Attending Attestation I examined this patient and my medical decision-making was reviewed with the Resident Physician Dr Murray. I agree with the documented findings, disposition and treatment plan as described except to the extent set forth below. Ms Harden is admitted with acute resp failure and CHF awake, pain at site of pleurx cath and painful inspiration. no sob on current o2 nc. denies cough or wheezing. no cp or palpitations. gen- alert, awake,frail cv- reg rate and irreg/irreg rhythm, normal s1,s2, no pitting le edema + jvd lungs- diminished bl bases, no wheezing or rhonchi, normal resp effort on o2 nc skin- right chest wall dressing at cath site clean/dry/intact neuro- AAOx3 Acute Systolic CHF, improved- transition to oral lasix, s/p pleurx cath for effusion Afib rate controlled- will plan to transition off hep gtt and to eliquis once confirm no further procedures by pulm, cont BB Acute hyoxic resp failure 2/2 CHF- improving, cont to wean O2 Hypodropneumothorax- appreciate pulm input, pleurx capped and repeat CXR in am <Simeon Murray - Last Filed: 04/15/19 14:31> Hospitalist Progress Note - Encounter Date of Encounter: 04/15/19 Time of Encounter: 06:30 - Subjective Interval History: Patient seen at bedside and is having some pain with breathing around pleurx insertion site. Feels that she cannot be discharged to her home but will likely need a nursing facility. - Exam Vitals: Temp Pulse Resp BP Pulse Ox 98 F 99 18 120/72 95 04/15/19 03:31 04/15/19 03:31 04/15/19 03:43 04/15/19 03:31 04/15/19 03:43 Exam: gen: elderly female. no acute distress skin: good turgor. pleurx catheter in place eyes: moist. anicteric. cardiac: irregular rate. tachycardic. likely Hepatojugular reflux and JVD. respiratory: very diminished lung sounds likely 2/2 pain with breathing. crackles throughout in posterior moyer. GI: soft. not diffusely tender extremities: no pedal edema. capillary refill < 2 seconds bilaterally upper extremities. MSK: tender to palpation around pleurx insertion site. small area of crepitus above the site. neuro: eyes able to focus. no tremor noticed. psych: appropriate behavior. answers questions coherently. - Assessment and Plan (1) Acute CHF (congestive heart failure) Current Visit: Yes Status: Acute Assessment and Plan: -Likely secondary to atrial fibrillation -Orthopnea, PND, bilateral edema of new onset -BNP 2211. Echo 04/03/19 showed LV systolic dysfunction with EF 20-25%. LHC completed and showed mild nonobstructive CAD. Plan: Strict I/O's, daily weights, 2L fluid restriction. beta juliet, DUNCAN inhibitor, statin, ASA. Furosemide 20 mL po daily (continue outpatient). Cardiology signed off. F/U outpatient. (2) Atrial fibrillation with rapid ventricular response Current Visit: Yes Status: Acute Assessment and Plan: -Likely secondary to structural changes of the heart versus hypoxemia from COPD exacerbation -Newly discovered heart failure with symptoms as above -TSH WNL. Electrolytes likely not the cause. EKG QRS's irregularly irregular and showed tachycardia. [id number]: 4 -metoprolol XL as above. Plan: Start apixaban. Continue rate control per cardiology. (3) Acute respiratory failure with hypoxia Current Visit: Yes Status: Acute Assessment and Plan: -Likely secondary to COPD exacerbation vs. newly discovered heart failure with pleural effusion -Increased cough, sputum production. Increasing dyspnea over a month's time. -antibiotics finished. No ABG this admission. -home dose prednisone 10 mg daily po -Pulmonology consulted. CXR 04/09/19 read as increasing airspace disease in right upper lung likely clinically correlated as pulmonary edema. Pleurx placed and now capped. Follow up x-ray 04/15/19 shows decreasing size of hydropneumothorax with increased opacification on the L. Plan: Incentive spirometry .wean O2. repeat AM CXR. (4) Pleural effusion Current Visit: Yes Status: Chronic Assessment and Plan: -likely 2/2 new onset heart failure -dyspnea as above -as seen on CXR. CXR 04/06/19 shows worsened -pleural fluid: total protein <3; LDH 71 -serum: total protein 6.1; LDH 165 -transudative -2 thoracenteses completed. -Pleurx placed 04/13/19. Plan: Fourth follow up x-ray 04/15/19 shows decreasing size of hydropneumothorax. Repeat morning x-ray per pulmonology (5) NSTEMI (non-ST elevated myocardial infarction) Current Visit: Yes Status: Acute Assessment and Plan: -likely 2/2 demand ischemia --> Type 2. -afib as above and new CHF as above. has remained at 0.04 times 3. -no obvious T wave elevation -LHC completed and showed mild nonobstructive CAD. (6) Hypertension Current Visit: Yes Status: Chronic Assessment and Plan: -likely due to CAD -systolic on admission in 150's -Beta juliet, ACEi -controlled (7) Diabetes mellitus Current Visit: Yes Status: Chronic Assessment and Plan: -A1c 6.7 Plan: follow up outpt. Continue sliding scale insulin (8) Hypokalemia Current Visit: Yes Status: Resolved Assessment and Plan: -likely due to magnesium deficiency and Lasix. -Magnesium now WNL - stable Plan: Continue to monitor DVT Prophylaxis: heparin drip >eloquis - Time Spent with Patient Total time spent is g Internal Medicine: Result - Labs CBC & Chem 7: 04/15/19 05:51 04/15/19 05:51 - ABG Interpretation ABG results: PT/INR, D-dimer PT 12.1 Seconds (9.4-12.1) 04/11/19 07:01 - Impressions Impressions Chest X-Ray 04/14/19 06:00 IMPRESSION: 1. Right pleural catheter appears unchanged in position with interval decrease in size of the right-sided pneumothorax. 2. Otherwise, no significant change in the appearance of the chest. D/ / Daniel Winkler MD / Daniel Winkler MD Interpreting Provider: Daniel Winkler MD <Tere Chapman - Last Filed: 04/15/19 12:28> (2) Acute CHF (congestive heart failure) Qualifiers: Heart failure type: systolic Qualified Code(s): I50.21 - Acute systolic (congestive) heart failure (4) Atrial fibrillation Qualifiers: Atrial fibrillation type: persistent Qualified Code(s): I48.1 - Persistent atrial fibrillation <Simeon Murray G - Last Filed: 04/15/19 14:31> (1) Acute CHF (congestive heart failure) Qualifiers: Heart failure type: systolic Qualified Code(s): I50.21 - Acute systolic (congestive) heart failure (6) Hypertension Qualifiers: Hypertension type: essential hypertension Qualified Code(s): I10 - Essential (primary) hypertension (7) Diabetes mellitus Qualifiers: Diabetes mellitus type: type 2 Diabetes mellitus fdc insulin use: without carbon rod inserter use Diabetes mellitus complication status: without complication Qualified Code(s): E11.9 - Type 2 diabetes mellitus without complications
[2019-04-15 07:03] LABS: Hematocrit 35.5 % (35.3-44.9); Hemoglobin 10.4 g/dL (11.5-15.4); Mean Corpuscular HGB Conc 29.3 g/dL (31.6-35.5); Mean Corpuscular Hemoglobin 22.6 pg (28.0-33.3); Mean Corpuscular Volume 77.2 fL (83.0-100.0); Mean Platelet Volume 11.6 fL (9.4-12.4); Platelet Count 326 K/mcL (140-400); Red Cell Distribution Width 20.7 % (11.5-14.5); White Blood Count 11.4 K/mcL (4.3-11.1)
[2019-04-15 07:23] LABS: Calcium 9.1 mg/dL (8.6-10.3); Potassium 4.7 mEq/L (3.5-5.1)
[2019-04-15] MEDS: Insulin LISPRO 300 UNITS/3 ML VIAL SQ SCH ×4 (07:40→21:57)
--- NOTE | 2019-04-15 08:21 | Pulmonology Progress Note ---
<Baron Junior - Last Filed: 04/15/19 10:59> Date of Encounter: 04/15/19 Time of Encounter: 09:00 Assessment and Plan (1) Acute respiratory failure with hypoxia Current Visit: Yes Status: Acute Likely 2/2 systolic heart failure with pleural effusion s/p 2 separate thoracentesis on the right with removal of a total of 2450mL transudative effusion Underwent PleurX catheter placement on 04/14/19 Postprocedure chest x-ray demonstrated interval development of a small to moderate right-sided hydropneumothorax. Pleurx catheter placed to suction Currently ventilating and saturating well on 3lpm O2 with SpO2 of 96% in no acute distress Repeat CXR this morning showed slight decrease in size of hydropneumothorax PleurX to water seal via Atrium currently - removed Atrium, placed cap on PleurX catheter. Continue to monitor Repeat chest x-ray in the morning (2) Acute CHF (congestive heart failure) Current Visit: Yes Status: Acute Echocardiogram from 04/03/19: - LVEF 20-25%. - Normal LV chamber size, wall thickness. - Severe global left ventricular systolic dysfunction with regional variations. - Atypical septal motion consistent with bundle branch block. - Indeterminate diastolic function. - Normal right ventricular structure, mildly reduced function. - Mild mitral regurgitation. - Mild tricuspid regurgitation. - Mild pulmonary hypertension. - Pleural effusion noted. Cardiology following Qualifiers: Heart failure type: systolic Qualified Code(s): I50.21 - Acute systolic (c ongestive) heart failure (3) NSTEMI (non-ST elevated myocardial infarction) Current Visit: Yes Status: Acute Troponin elevations suspected to be secondary to demand ischemia with A. fib RVR and new CHF Left heart catheter completed on 04/09/19 which showed mild nonobstructive CAD Continues to be on Heparin drip (4) Pleural effusion Current Visit: Yes Status: Chronic PleurX catheter placement as above (5) Atrial fibrillation Current Visit: Yes Status: Chronic On Heparin drip Currently rate controlled Cardiology following Transition to other anticoagulation at the discretion of the primary team Qualifiers: Atrial fibrillation type: persistent Qualified Code(s): I48.1 - Persistent atrial fibrillation Subjective Principal diagnosis: Afib, CHF Interval history: Patient seen and examined at bedside. Pt reports no shortness of breath, but continues to endorse discomfort associated with the Pleurx catheter. The PleurX currently is to water seal via Atrium. Patient has no other new or acute complaints. Denies any fever, chills, cough, increased sputum production, abdominal pain, nausea, vomiting, numbness, or tingling. Objective PUL Vital signs: Last Vital Signs Temp 98.2 F 04/15/19 07:33 Pulse 96 04/15/19 07:33 Resp 16 04/15/19 07:33 BP 114/83 04/15/19 07:33 Pulse Ox 94 04/15/19 07:33 General appearance: no acute distress, alert Eyes: nonicteric ENT: oropharynx moist Neck: supple, no JVD Effort: normal Auscultation: left: clear, right: diminished breath sounds (base), rales (base) Cardiovascular: regular rate and rhythm Gastrointestinal: soft, non-tender Integumentary: normal Extremities: no cyanosis, no edema, no clubbing, pink and warm, pulses normal Musculoskeletal: no deformities normal mental status, non-focal exam, pupils equal and round mood appropriate, affect normal Results - Laboratory Findings CBC and BMP: 04/15/19 05:51 04/15/19 05:51 PT/INR, D-dimer PT 12.1 Seconds (9.4-12.1) 04/11/19 07:01 Abnormal lab findings: Abnormal lab results WBC 11.4 K/mcL (4.3-11.1) H 04/15/19 05:51 RBC 5.04 M/mcL (3.82-4.97) H 04/13/19 04:41 Hgb 10.4 g/dL (11.5-15.4) L 04/15/19 05:51 MCV 77.2 fL (83.0-100.0) L 04/15/19 05:51 MCH 22.6 pg (28.0-33.3) L 04/15/19 05:51 MCHC 29.3 g/dL (31.6-35.5) L 04/15/19 05:51 RDW 20.7 % (11.5-14.5) H 04/15/19 05:51 Neutrophils # 9.8 K/mcL (1.6-8.9) H 04/10/19 06:02 Large Platelets Present (Not Present) A 04/09/19 04:45 Immature Plt Fraction 6.3 % (1.1-6.1) H 04/11/19 07:01 Hypochromasia Present (Not Present) A 04/10/19 06:02 Acanthocytes (Spur) 1+ (Not Present) A 04/10/19 06:02 PT 12.8 Seconds (9.4-12.1) H 04/10/19 15:31 Heparin Anti-Xa, Unfract 0.00 IU/mL (0.30-0.70) L 04/14/19 19:38 Sodium 151 mEq/L (136-145) H 04/10/19 06:02 Potassium 3.4 mEq/L (3.5-5.1) L 04/09/19 04:45 Chloride 97 mEq/L (98-107) L 04/15/19 05:51 Carbon Dioxide 38 mEq/L (23-29) H 04/15/19 05:51 BUN 55 mg/dL (8-23) H 04/15/19 05:51 Creatinine 1.26 mg/dL (0.60-1.20) H 04/15/19 05:51 Est GFR ( Amer) 50 (> 60) L 04/15/19 05:51 Est GFR (Non-Af Amer) 41 (> 60) L 04/15/19 05:51 BUN/Creatinine Ratio 44 (6-26) H 04/15/19 05:51 Glucose 113 mg/dL (70-105) H 04/15/19 05:51 POC Glucose 143 mg/dL (70-99) H 04/14/19 17:01 Hemoglobin A1c 6.7 % (-5.6) H 04/03/19 06:45 Calculated Osmolality 308 (280-300) H 04/15/19 05:51 Calcium 8.3 mg/dL (8.6-10.3) L 04/03/19 06:45 Total Bilirubin 1.1 mg/dL (0.3-1.0) H 04/04/19 04:54 Direct Bilirubin 0.4 mg/dL (0.0-0.2) H 04/02/19 14:34 AST 9 Units/L (13-39) L 04/04/19 04:54 ALT 5 Units/L (7-52) L 04/04/19 04:54 Troponin I 0.04 ng/mL (< 0.04) H* 04/02/19 22:48 B-Natriuretic Peptide 2211 pg/mL (Less than 100) H 04/02/19 14:34 Serum Total Protein 5.3 g/dL (6.4-8.9) L 04/04/19 04:54 Albumin 3.0 g/dL (3.5-5.7) L 04/04/19 04:54 Globulin 2.3 g/dL (2.4-3.5) L 04/04/19 04:54 - Diagnostic Findings Chest x-ray: report reviewed, image reviewed - Clinical Findings Intake & Output: Intake & Output 04/14/19 04/15/19 04/15/19 23:59 07:59 15:59 Intake Total 78 / 250 84 / 84 Output Total 180 / 930 310 / 310 Balance -102 / -680 -226 / -226 Weight 54.2 kg Consult Discharge Plan - Plan Referrals: Homero Rondon MD [Primary Care Provider] - Prescriptions: Apixaban [Eliquis] 5 mg PO BID #60 tablet <Sheridan Titus - Last Filed: 04/16/19 12:54> Date of Encounter: 04/15/19 Objective PUL Vital signs: Last Vital Signs Temp 97.7 F 04/15/19 11:51 Pulse 94 04/15/19 11:51 Resp 16 04/15/19 11:51 BP 109/57 04/15/19 11:51 Pulse Ox 96 04/15/19 11:51 Results - Laboratory Findings CBC and BMP: 04/16/19 04:28 04/16/19 04:28 PT/INR, D-dimer PT 12.1 Seconds (9.4-12.1) 04/11/19 07:01 Abnormal lab findings: Abnormal lab results WBC 11.4 K/mcL (4.3-11.1) H 04/15/19 05:51 RBC 5.04 M/mcL (3.82-4.97) H 04/13/19 04:41 Hgb 10.4 g/dL (11.5-15.4) L 04/15/19 05:51 MCV 77.2 fL (83.0-100.0) L 04/15/19 05:51 MCH 22.6 pg (28.0-33.3) L 04/15/19 05:51 MCHC 29.3 g/dL (31.6-35.5) L 04/15/19 05:51 RDW 20.7 % (11.5-14.5) H 04/15/19 05:51 Neutrophils # 9.8 K/mcL (1.6-8.9) H 04/10/19 06:02 Large Platelets Present (Not Present) A 04/09/19 04:45 Immature Plt Fraction 6.3 % (1.1-6.1) H 04/11/19 07:01 Hypochromasia Present (Not Present) A 04/10/19 06:02 Acanthocytes (Spur) 1+ (Not Present) A 04/10/19 06:02 PT 12.8 Seconds (9.4-12.1) H 04/10/19 15:31 Heparin Anti-Xa, Unfract 0.00 IU/mL (0.30-0.70) L 04/14/19 19:38 Sodium 151 mEq/L (136-145) H 04/10/19 06:02 Potassium 3.4 mEq/L (3.5-5.1) L 04/09/19 04:45 Chloride 97 mEq/L (98-107) L 04/15/19 05:51 Carbon Dioxide 38 mEq/L (23-29) H 04/15/19 05:51 BUN 55 mg/dL (8-23) H 04/15/19 05:51 Creatinine 1.26 mg/dL (0.60-1.20) H 04/15/19 05:51 Est GFR ( Amer) 50 (> 60) L 04/15/19 05:51 Est GFR (Non-Af Amer) 41 (> 60) L 04/15/19 05:51 BUN/Creatinine Ratio 44 (6-26) H 04/15/19 05:51 Glucose 113 mg/dL (70-105) H 04/15/19 05:51 POC Glucose 143 mg/dL (70-99) H 04/14/19 17:01 Hemoglobin A1c 6.7 % (-5.6) H 04/03/19 06:45 Calculated Osmolality 308 (280-300) H 04/15/19 05:51 Calcium 8.3 mg/dL (8.6-10.3) L 04/03/19 06:45 Total Bilirubin 1.1 mg/dL (0.3-1.0) H 04/04/19 04:54 Direct Bilirubin 0.4 mg/dL (0.0-0.2) H 04/02/19 14:34 AST 9 Units/L (13-39) L 04/04/19 04:54 ALT 5 Units/L (7-52) L 04/04/19 04:54 Troponin I 0.04 ng/mL (< 0.04) H* 04/02/19 22:48 B-Natriuretic Peptide 2211 pg/mL (Less than 100) H 04/02/19 14:34 Serum Total Protein 5.3 g/dL (6.4-8.9) L 04/04/19 04:54 Albumin 3.0 g/dL (3.5-5.7) L 04/04/19 04:54 Globulin 2.3 g/dL (2.4-3.5) L 04/04/19 04:54 - Clinical Findings Intake & Output: Intake & Output 04/14/19 04/15/19 04/15/19 23:59 07:59 15:59 Intake Total 78 / 250 84 / 120 36 / 120 Output Total 180 / 930 310 / 310 Balance -102 / -680 -226 / -190 36 / -190 Weight 54.2 kg - Attending Attestation I examined this patient and my medical decision-making was reviewed with the Resident Physician. I agree with the documented findings, disposition and treatment plan as described except to the extent set forth below. Patient seen and examined. Labs, radiology, chart personally reviewed. 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 Chest tube has been on water seal and no acute problems for that reason we will disconnect a chest tube and have dressing of her Pleurx pleural catheter. This was discussed with the patient as well as the nurse. At this time there is no plan for any draining. Will follow and have a follow-up chest x-ray tomorrow. Patient heparin can be transitioned to oral anticoagulation from pulmonary standpoint.
[2019-04-15] MEDS: predniSONE 10 MG TABLET PO SCH (08:45)
[2019-04-15] MEDS: Metoprolol XL (24 HR) Succ 50 MG TAB.ER.24H PO SCH ×2 (08:46→21:28)
[2019-04-15] MEDS: hydrOXYzine pamoate 25 MG CAPSULE PO SCH (08:47)
[2019-04-15] MEDS: Furosemide 20 MG/2 ML VIAL IVP SCH (08:47)
[2019-04-15] MEDS: Aspirin 81 MG TAB.CHEW PO SCH (08:47)
[2019-04-15] MEDS: Magnesium Oxide 400 MG TABLET PO SCH (08:47)
--- NOTE | 2019-04-15 18:23 | Internal Med Progress Note ---
Hospitalist Progress Note - Encounter Date of Encounter: 04/03/19 Time of Encounter: 09:00 - Subjective Interval History: Patient with past medical history of COPD presented to the ED on 04/02/19 for dyspnea. Vitals: Temp 97.7, pulse rate 150, respiratory rate 18, blood pressure 158/92, O2 sat 92% on room air. Pleural effusion was seen on chest x-ray and 1.5 L was drained and sent for cytology and other studies. Patient was found to be in A. fib without known history. She was started on a Cardizem drip. She also had an increased troponin at 0.04 Labs significant for white blood cell count 12.4, potassium of 3.2, BNP 2211. Admitting diagnoses: Acute respiratory failure with hypoxia likely secondary to COPD exacerbation versus congestive heart failure. A. fib with RVR. Hypokalemia. Pleural effusion. She also had surgical criteria 3 of 4 without suspected infection. treatment: She was treated with Lasix IV, azithromycin, ceftriaxone. CXR read as cardiomegaly with moderate to large right pleural effusion. This was drained and repeat CXR showed no pneumothorax. Echo pending. Pleural fluid studies pending. Cardiology has not been consulted. Updates: TTE showed EF of 20-25%. Cardiology was consulted and placed the patient on Toprol-XL for congestive heart failure and Tim inhibitors upon discharge if renal function and BP tolerable. The Toprol will be increased and if blood pressure drops digoxin may be added. She is to receive left heart cath once she is euvolemic and can lay flat. - Exam Vitals: Temp Pulse Resp BP Pulse Ox 97.9 F 112 18 92/67 97 04/15/19 16:04 04/15/19 16:04 04/15/19 16:06 04/15/19 16:04 04/15/19 16:06 Exam: General: vitals noted. able to converse. eyes: no icterus. moist conjunctivae. ENT: wearing O2 mask. cardio: irregularly irregular rhythm. difficult to hear over lung sounds. resp: labored breathing. wet crackles throughout worse at bases. Upper moyer seem to be clear GI: nondistended. nontender to palpation extremities: b/l lower ext. 2+ edema neuro: no focal deficits noted. psych: appropriate mood and behavior. answers questions. - Assessment and Plan (1) Acute CHF (congestive heart failure) Current Visit: Yes Status: Acute Assessment and Plan: -Likely secondary to atrial fibrillation -Orthopnea, PND, bilateral edema of new onset -BNP 2211. Echo 04/03/19 showed EF 20-25%. -Cardiology consulted. Metoprolol succinate to be increased to blood pressure tolerance. We will consider digoxin if blood pressure drops. Will add tim i nhibitor upon discharge as blood pressure tolerates. Strict I/O's, daily weights, salt and fluid restricted diet. (2) Atrial fibrillation with rapid ventricular response Current Visit: Yes Status: Acute Assessment and Plan: -Likely secondary to structural changes of the heart versus hypoxemia from COPD exacerbation -Newly discovered heart failure with symptoms as above -TSH WNL. Electrolytes likely not the cause. EKG QRS's irregularly irregular and showed tachycardia. [id number]: 4 -Calcium channel juliet drip DC'd. Continue metoprolol XL as above. Plan to switch to NOAC at discharge (3) Acute respiratory failure with hypoxia Current Visit: Yes Status: Acute Assessment and Plan: -Likely secondary to COPD exacerbation vs. newly discovered heart failure with pleural effusion -Increased cough, sputum production. Increasing dyspnea over a month's time. -finish azithromycin IV today and start azithromycin orally tomorrow for a total of 5 days. -no steroids at this point -O2 mask therap (4) Pleural effusion Current Visit: Yes Status: Chronic Assessment and Plan: -likely 2/2 new onset heart failure -dyspnea as above -as seen on CXR -pleural fluid: total protein <3; LDH 71 -serum: total protein 6.1; LDH 165 -transudative -thoracentesis performed (5) Hypertension Current Visit: Yes Status: Chronic Assessment and Plan: -likely 2/2 CAD -systolic on admission in 150's -continue metoprolol XL for now. Will plan to begin ACEi after discharge as abo ve - Time Spent with Patient Total time spent is greater Internal Medicine: Result - Labs CBC & Chem 7: 04/15/19 05:51 04/15/19 05:51 Labs: Short CBC 04/15/19 Range/Units 05:51 WBC 11.4 H (4.3-11.1) K/mcL Hgb 10.4 L (11.5-15.4) g/dL Hct 35.5 (35.3-44.9) % Plt Count 326 (140-400) K/mcL BMP 04/15/19 05:51 Sodium 141 Potassium 4.7 Chloride 97 L Carbon Dioxide 38 H BUN 55 H Creatinine 1.26 H Glucose 113 H Calcium 9.1 - ABG Interpretation ABG results: PT/INR, D-dimer PT 12.1 Seconds (9.4-12.1) 04/11/19 07:01 - Impressions Impressions Chest X-Ray 04/15/19 08:00 IMPRESSION: 1. Right pleural catheter unchanged in position. 2. Small right pneumothorax appears slightly decreased. 3. Patchy bilateral opacities, left greater than right. 4. Likely small left pleural effusion. D/ / Daniel Winkler MD / Daniel Winkler MD Interpreting Provider: Daniel Winkler MD Consult Discharge Plan - Plan Referrals: Homero Rondon MD [Primary Care Provider] - Prescriptions: Apixaban [Eliquis] 5 mg PO BID #60 tablet (1) Acute CHF (congestive heart failure) Qualifiers: Heart failure type: systolic Qualified Code(s): I50.21 - Acute systolic (congestive) heart failure (5) Hypertension Qualifiers: Hypertension type: essential hypertension Qualified Code(s): I10 - Essential (primary) hypertension
[2019-04-16] MEDS: *HR* HYDROcodone/Acet 10/325 mg TABLET PO PRN ×4 (01:31→20:28)
[2019-04-16] MEDS: Ipratropium Neb 0.5 MG NEBULIZER IH PRN (01:43)
[2019-04-16] MEDS: Levalbuterol Neb 0.63 MG/3 ML IH SCH ×4 (04:00→21:44)
[2019-04-16 05:22] LABS: Hematocrit 35.1 % (35.3-44.9); Hemoglobin 10.3 g/dL (11.5-15.4); Mean Corpuscular HGB Conc 29.3 g/dL (31.6-35.5); Mean Corpuscular Hemoglobin 23.2 pg (28.0-33.3); Mean Corpuscular Volume 79.1 fL (83.0-100.0); Mean Platelet Volume 11.2 fL (9.4-12.4); Platelet Count 347 K/mcL (140-400); Red Blood Count 4.44 M/mcL (3.82-4.97); Red Cell Distribution Width 20.8 % (11.5-14.5); White Blood Count 13.5 K/mcL (4.3-11.1)
[2019-04-16 05:46] LABS: Calcium 8.6 mg/dL (8.6-10.3); Potassium 4.7 mEq/L (3.5-5.1)
--- NOTE | 2019-04-16 05:59 | Internal Med Progress Note ---
<Tere Chapman - Last Filed: 04/16/19 12:32> Hospitalist Progress Note - Encounter Date of Encounter: 04/16/19 - Exam Vitals: Temp Pulse Resp BP Pulse Ox 98.2 F 86 16 114/77 94 04/16/19 07:20 04/16/19 07:20 04/16/19 10:55 04/16/19 07:20 04/16/19 10:55 - Assessment and Plan (1) Pleural effusion Current Visit: Yes Status: Chronic (2) Acute CHF (congestive heart failure) Current Visit: Yes Status: Acute (3) Acute respiratory failure with hypoxia Current Visit: Yes Status: Acute (4) Atrial fibrillation Current Visit: Yes Status: Chronic (5) NSTEMI (non-ST elevated myocardial infarction) Current Visit: Yes Status: Acute - Time Spent with Patient Total time spent is greater than 50% in coordination of care (as documented) at patient's floor/unit and/or counseling patient: Internal Medicine: Result - Labs CBC & Chem 7: 04/16/19 04:28 04/16/19 04:28 Labs: Short CBC 04/16/19 Range/Units 04:28 WBC 13.5 H (4.3-11.1) K/mcL Hgb 10.3 L (11.5-15.4) g/dL Hct 35.1 L (35.3-44.9) % Plt Count 347 (140-400) K/mcL BMP 04/16/19 04:28 Sodium 140 Potassium 4.7 Chloride 99 Carbon Dioxide 34 H BUN 58 H Creatinine 1.16 Glucose 130 H Calcium 8.6 - ABG Interpretation ABG results: PT/INR, D-dimer PT 12.1 Seconds (9.4-12.1) 04/11/19 07:01 - Impressions Impressions Chest X-Ray 04/16/19 06:00 IMPRESSION: No interval change of ground-glass infiltrates throughout the left lung. Mild interval improvement of infiltrate in the right upper lobe. Small bilateral pleural effusions. Minimal residual right pneumothorax, decreased. D/ / Lulú Westbrook MD / Lulú Westbrook MD Interpreting Provider: Lulú Westbrook MD Consult Discharge Plan - Plan Referrals: Homero Rondon MD [Primary Care Provider] - Prescriptions: Apixaban [Eliquis] 5 mg PO BID #60 tablet - Attending Attestation I examined this patient and my medical decision-making was reviewed with the Resident Physician Dr Murray. I agree with the documented findings, disposition and treatment plan as described except to the extent set forth below. Ms Harden is admitted with acute resp failure and CHF awake,continued pain at site of pleurx cath but tolerable with medication changes yesterday. no cough or sob. no cp or palpitations. She had dark red colored urine this morning. denies any history of bladder disease, blood in urine or bladder pain. She denies vaginal bleeding. discussed risk vs benefit of holding hep gtt and she is agreeable to hold while working up possible hematuria. gen- alert, awake,frail cv- reg rate and irreg/irreg rhythm, normal s1,s2, no pitting le edema + jvd lungs- diminished bl bases, no wheezing , normal resp effort on o2 nc abd- soft, nt, nd, + bs gu- she does NOT have boone in place and therefore morning urine cannot be visualized at this time neuro- AAOx3 Acute Systolic CHF, improved- transition to oral lasix, s/p pleurx cath for effusion, close monitoring of net UOP/wts as may need to uptitrate lasix Afib rate controlled-hold hep gtt with concern for hematuria, cont asa, cont BB, plan is for eliquis when able Possible hematuria- check UA, renal US and consult Urology, hold hep gtt given risk v benefit Acute hyoxic resp failure 2/2 CHF- improving, cont to wean O2 Hypodropneumothorax- appreciate pulm input, pleurx capped, repeat CXR stable, will await recs dispo- will be to SNF <Simeon Murray - Last Filed: 04/16/19 17:05> Hospitalist Progress Note - Encounter Date of Encounter: 04/16/19 Time of Encounter: 06:30 - Subjective Interval History: Earlier this morning the patient voided and was found to have blood in the urine. The nurse showed me the urine which in color was similar to black lama Nava-Aid. Mrs. Harden feels about the same as yesterday. She is still in pain at the site of Pleurx insertion however she states that the increased dose of [place] she received last night helped. She has been trying to use her spirometer - Exam Vitals: Temp Pulse Resp BP Pulse Ox 98.2 F 90 12 144/86 94 04/16/19 04:22 04/16/19 04:22 04/16/19 04:22 04/16/19 04:22 04/16/19 04:22 Exam: Gen.: Elderly female. No acute distress Skin: Poor turgor. Hypopigmented scars of the upper back. Neck: JVD. Hepatojugular reflux likely Cardiac: Irregular rhythm. Tachycardic. Respiratory: Diffuse crackles worse on the right lung. Seems to be moving air better than yesterday. Labored breathing. Pleurx in place GI: Not diffusely tender. Soft : Urine is black lama nava-aid red. Lymphs negative on the left and com plicated on the right by Pleurx but suspect negative on the right. Extremities: No bilateral lower extremity edema. Neuro: Eyes able to focus. No obvious tremor Psych: Normal mood and behavior. Answers questions appropriately - Assessment and Plan (1) Gross hematuria Current Visit: Yes Status: Acute Assessment and Plan: -Consider glomerular versus lower urinary tract at this point -Black lama Nava-Aid colored urine -Labs 04/16/19: Hemoglobin 11>10.4> 10.3. BUN increased with creatinine WNL. -UA 04/16/19 showed TNTC RBCs, 15-30 WBCs, 30 protein, all leukocyte esterase, contaminated study. Plan: Retroperitoneal ultrasound pending. Urine culture pending. Urology consultedappreciate their recommendations. (2) Acute CHF (congestive heart failure) Current Visit: Yes Status: Acute Assessment and Plan: -Likely secondary to atrial fibrillation -Orthopnea, PND, bilateral edema of new onset -BNP 2211. Echo 04/03/19 showed LV systolic dysfunction with EF 20-25%. [facility] completed and showed mild nonobstructive CAD. Plan: Strict I/O's, daily weights, 2L fluid restriction. beta juliet, DUNCAN inhibitor, statin, ASA. Furosemide 20 mL po daily (continue outpatient). Cardiology signed off. F/U outpatient. (3) Atrial fibrillation with rapid ventricular response Current Visit: Yes Status: Acute Assessment and Plan: -Likely secondary to structural changes of the heart versus hypoxemia from COPD exacerbation -Newly discovered heart failure with symptoms as above -TSH WNL. Electrolytes likely not the cause. EKG QRS's irregularly irregular and showed tachycardia. [id number]: 4 -metoprolol XL as above. Plan: Anticoagulation held, plan to start apixaban pending urology workup. Continue rate control per cardiology. (4) Acute respiratory failure with hypoxia Current Visit: Yes Status: Acute Assessment and Plan: -Likely secondary to COPD exacerbation vs. newly discovered heart failure with pleural effusion -Increased cough, sputum production. Increasing dyspnea over a month's time. -antibiotics finished. No ABG this admission. -home dose prednisone 10 mg daily po -Pulmonology consulted. CXR 04/09/19 read as increasing airspace disease in right upper lung likely clinically correlated as pulmonary edema. Pleurx placed and now capped. Follow up x-ray 04/15/19 shows decreasing size of hydropneumothorax with increased opacification on the L. Plan: Incentive spirometry .wean O2. Follow-up with pulmonology in 1-2 weeks. (5) Pleural effusion Current Visit: Yes Status: Chronic Assessment and Plan: -likely 2/2 new onset heart failure -dyspnea as above -as seen on CXR. CXR 04/06/19 shows worsened -pleural fluid: total protein <3; LDH 71 -serum: total protein 6.1; LDH 165 -transudative -2 thoracenteses completed. -Pleurx placed 04/13/19. -Fourth follow up x-ray 04/15/19 showed decreasing size of hydropneumothorax. Plan: Pleurx has been capped. Follow-up with pulmonology in 1-2 weeks. (6) NSTEMI (non-ST elevated myocardial infarction) Current Visit: Yes Status: Acute Assessment and Plan: -likely 2/2 demand ischemia --> Type 2. -afib as above and new CHF as above. has remained at 0.04 times 3. -no obvious T wave elevation -LHC completed and showed mild nonobstructive CAD. (7) Hypertension Current Visit: Yes Status: Chronic Assessment and Plan: -likely due to CAD -systolic on admission in 150's -Beta juliet, ACEi -controlled (8) Diabetes mellitus Current Visit: Yes Status: Chronic Assessment and Plan: -A1c 6.7 Plan: follow up outpt. Continue sliding scale insulin (9) Hypokalemia Current Visit: Yes Status: Resolved Assessment and Plan: -likely due to magnesium deficiency and Lasix. -Magnesium now WNL - stable Plan: Continue to monitor DVT Prophylaxis: None now secondary to hematuria. - Time Spent with Patient Total time spent is greater than Internal Medicine: Result - Labs CBC & Chem 7: 04/16/19 04:28 04/16/19 04:28 Labs: Short CBC 04/15/19 04/16/19 Range/Units 05:51 04:28 WBC 11.4 H 13.5 H (4.3-11.1) K/mcL Hgb 10.4 L 10.3 L (11.5-15.4) g/dL Hct 35.5 35.1 L (35.3-44.9) % Plt Count 326 347 (140-400) K/mcL BMP 04/15/19 04/16/19 05:51 04:28 Sodium 141 140 Potassium 4.7 4.7 Chloride 97 L 99 Carbon Dioxide 38 H 34 H BUN 55 H 58 H Creatinine 1.26 H 1.16 Glucose 113 H 130 H Calcium 9.1 8.6 - ABG Interpretation ABG results: PT/INR, D-dimer PT 12.1 Seconds (9.4-12.1) 04/11/19 07:01 - Impressions Impressions Chest X-Ray 04/15/19 08:00 IMPRESSION: 1. Right pleural catheter unchanged in position. 2. Small right pneumothorax appears slightly decreased. 3. Patchy bilateral opacities, left greater than right. 4. Likely small left pleural effusion. D/ / Daniel Winkler MD / Daniel Winkler MD Interpreting Provider: Daniel Winkler MD <Tere Chapman M - Last Filed: 04/16/19 12:32> (2) Acute CHF (congestive heart failure) Qualifiers: Heart failure type: systolic Qualified Code(s): I50.21 - Acute systolic (congestive) heart failure (4) Atrial fibrillation Qualifiers: Atrial fibrillation type: persistent Qualified Code(s): I48.1 - Persistent atrial fibrillation <Simeon Murray G - Last Filed: 04/16/19 17:05> (2) Acute CHF (congestive heart failure) Qualifiers: Heart failure type: systolic Qualified Code(s): I50.21 - Acute systolic (congestive) heart failure (7) Hypertension Qualifiers: Hypertension type: essential hypertension Qualified Code(s): I10 - Essential (primary) hypertension (8) Diabetes mellitus Qualifiers: Diabetes mellitus type: type 2 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
[2019-04-16] MEDS: Aspirin 81 MG TAB.CHEW PO SCH (07:54)
[2019-04-16] MEDS: Furosemide 20 MG TABLET PO SCH (07:55)
[2019-04-16] MEDS: Metoprolol XL (24 HR) Succ 50 MG TAB.ER.24H PO SCH ×2 (07:55→20:28)
[2019-04-16] MEDS: predniSONE 10 MG TABLET PO SCH (07:55)
[2019-04-16] MEDS: Magnesium Oxide 400 MG TABLET PO SCH (07:55)
[2019-04-16] MEDS: hydrOXYzine pamoate 25 MG CAPSULE PO SCH (07:55)
[2019-04-16] MEDS: Insulin LISPRO 300 UNITS/3 ML VIAL SQ SCH ×4 (07:56→21:00)
--- NOTE | 2019-04-16 08:18 | Pulmonology Progress Note ---
<ArielaSheridan M - Last Filed: 04/16/19 10:16> Date of Encounter: 04/16/19 Objective PUL Vital signs: Last Vital Signs Temp 98.2 F 04/16/19 07:20 Pulse 86 04/16/19 07:20 Resp 16 04/16/19 07:20 BP 114/77 04/16/19 07:20 Pulse Ox 96 04/16/19 07:20 Results - Laboratory Findings CBC and BMP: 04/16/19 04:28 04/16/19 04:28 PT/INR, D-dimer PT 12.1 Seconds (9.4-12.1) 04/11/19 07:01 Abnormal lab findings: Abnormal lab results WBC 13.5 K/mcL (4.3-11.1) H 04/16/19 04:28 RBC 5.04 M/mcL (3.82-4.97) H 04/13/19 04:41 Hgb 10.3 g/dL (11.5-15.4) L 04/16/19 04:28 Hct 35.1 % (35.3-44.9) L 04/16/19 04:28 MCV 79.1 fL (83.0-100.0) L 04/16/19 04:28 MCH 23.2 pg (28.0-33.3) L 04/16/19 04:28 MCHC 29.3 g/dL (31.6-35.5) L 04/16/19 04:28 RDW 20.8 % (11.5-14.5) H 04/16/19 04:28 Neutrophils # 9.8 K/mcL (1.6-8.9) H 04/10/19 06:02 Large Platelets Present (Not Present) A 04/09/19 04:45 Immature Plt Fraction 6.3 % (1.1-6.1) H 04/11/19 07:01 Hypochromasia Present (Not Present) A 04/10/19 06:02 Acanthocytes (Spur) 1+ (Not Present) A 04/10/19 06:02 PT 12.8 Seconds (9.4-12.1) H 04/10/19 15:31 Heparin Anti-Xa, Unfract 0.00 IU/mL (0.30-0.70) L 04/14/19 19:38 Sodium 151 mEq/L (136-145) H 04/10/19 06:02 Potassium 3.4 mEq/L (3.5-5.1) L 04/09/19 04:45 Chloride 97 mEq/L (98-107) L 04/15/19 05:51 Carbon Dioxide 34 mEq/L (23-29) H 04/16/19 04:28 BUN 58 mg/dL (8-23) H 04/16/19 04:28 Creatinine 1.26 mg/dL (0.60-1.20) H 04/15/19 05:51 Est GFR ( Amer) 55 (> 60) L 04/16/19 04:28 Est GFR (Non-Af Amer) 46 (> 60) L 04/16/19 04:28 BUN/Creatinine Ratio 50 (6-26) H 04/16/19 04:28 Glucose 130 mg/dL (70-105) H 04/16/19 04:28 POC Glucose 196 mg/dL (70-99) H 04/15/19 16:09 Hemoglobin A1c 6.7 % (-5.6) H 04/03/19 06:45 Calculated Osmolality 308 (280-300) H 04/16/19 04:28 Calcium 8.3 mg/dL (8.6-10.3) L 04/03/19 06:45 Total Bilirubin 1.1 mg/dL (0.3-1.0) H 04/04/19 04:54 Direct Bilirubin 0.4 mg/dL (0.0-0.2) H 04/02/19 14:34 AST 9 Units/L (13-39) L 04/04/19 04:54 ALT 5 Units/L (7-52) L 04/04/19 04:54 Troponin I 0.04 ng/mL (< 0.04) H* 04/02/19 22:48 B-Natriuretic Peptide 2211 pg/mL (Less than 100) H 04/02/19 14:34 Serum Total Protein 5.3 g/dL (6.4-8.9) L 04/04/19 04:54 Albumin 3.0 g/dL (3.5-5.7) L 04/04/19 04:54 Globulin 2.3 g/dL (2.4-3.5) L 04/04/19 04:54 - Clinical Findings Intake & Output: Intake & Output 04/15/19 04/16/19 04/16/19 23:59 07:59 15:59 Intake Total 360 / 480 80 / 80 Balance 360 / 170 80 / 80 Weight 55.2 kg Consult Discharge Plan - Plan Referrals: Homero Rondon MD [Primary Care Provider] - Prescriptions: Apixaban [Eliquis] 5 mg PO BID #60 tablet - Attending Attestation I examined this patient and my medical decision-making was reviewed with the Resident Physician. I agree with the documented findings, disposition and treatment plan as described except to the extent set forth below. Patient seen and examined. Labs, radiology, chart personally reviewed. 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 Will sign off and patient can be on oral anticoagulation and she can use her PleurX pleural catheter for draining and can be seen in outpatient in 1-2 weeks after discharge from hospital. Draining every 3-4 days based on amount of fluid is reasonable. Please call for any questions. <Baron Junior - Last Filed: 04/16/19 14:33> Date of Encounter: 04/16/19 Time of Encounter: 08:45 Assessment and Plan (1) Acute respiratory failure with hypoxia Current Visit: Yes Status: Acute Likely 2/2 systolic heart failure with pleural effusion s/p 2 separate thoracentesis on the right with removal of a total of 2450mL transudative effusion Underwent PleurX catheter placement on 04/14/19 Postprocedure chest x-ray demonstrated interval development of a small to moderate right-sided hydropneumothorax. Pleurx catheter initially placed to suction, but removed suction and placed cap on 04/15 Currently ventilating and saturating well on 3lpm O2 with SpO2 of 96% in no acute distress Repeat CXR this morning showed improvement in right upper lobe infiltrate and minimal residual right pneumothorax. Pt is currently stable from a respiratory standpoint. Recommend outpatient followup with pulmonology in 1-2 weeks. May need to drain PleurX catheter every 3-4 days. Thank you for the consultation. Please do not hesitate to call with any questions. (2) Acute CHF (congestive heart failure) Current Visit: Yes Status: Acute Echocardiogram from 04/03/19: - LVEF 20-25%. - Normal LV chamber size, wall thickness. - Severe global left ventricular systolic dysfunction with regional variations. - Atypical septal motion consistent with bundle branch block. - Indeterminate diastolic function. - Normal right ventricular structure, mildly reduced function. - Mild mitral regurgitation. - Mild tricuspid regurgitation. - Mild pulmonary hypertension. - Pleural effusion noted. Cardiology following Qualifiers: Heart failure type: systolic Qualified Code(s): I50.21 - Acute systolic (congestive) heart failure (3) NSTEMI (non-ST elevated myocardial infarction) Current Visit: Yes Status: Acute Troponin elevations suspected to be secondary to demand ischemia with A. fib RVR and new CHF Left heart catheter completed on 04/09/19 which showed mild nonobstructive CAD Continues to be on Heparin drip - transition AC per primary team (4) Pleural effusion Current Visit: Yes Status: Chronic PleurX catheter placement as above (5) Atrial fibrillation Current Visit: Yes Status: Chronic On Heparin drip Currently rate controlled Cardiology following Transition to other anticoagulation at the discretion of the primary team Qualifiers: Atrial fibrillation type: persistent Qualified Code(s): I48.1 - Persistent atrial fibrillation Subjective Principal diagnosis: Afib, CHF Interval history: Patient seen and examined at bedside. Pt reports no shortness of breath, and improved discomfort associated with the Pleurx catheter. She reports she is happy to feel more mobile now that the cap is on the PleurX. Patient has no other new or acute complaints. Denies any fever, chills, cough, increased sputum production, abdominal pain, nausea, vomiting, numbness, or tingling. Objective PUL Vital signs: Last Vital Signs Temp 98.2 F 04/16/19 07:20 Pulse 86 04/16/19 07:20 Resp 16 04/16/19 07:20 BP 114/77 04/16/19 07:20 Pulse Ox 96 04/16/19 07:20 General appearance: no acute distress, alert Eyes: nonicteric ENT: oropharynx moist Neck: supple, no JVD Effort: normal Auscultation: right: diminished breath sounds (upper), bilateral: clear Cardiovascular: regular rate and rhythm Gastrointestinal: soft, non-tender Integumentary: normal Extremities: no cyanosis, no edema, no clubbing, pink and warm Musculoskeletal: no deformities normal mental status, non-focal exam, pupils equal and round mood appropriate, affect normal Results - Laboratory Findings CBC and BMP: 04/16/19 04:28 04/16/19 04:28 PT/INR, D-dimer PT 12.1 Seconds (9.4-12.1) 04/11/19 07:01 Abnormal lab findings: Abnormal lab results WBC 13.5 K/mcL (4.3-11.1) H 04/16/19 04:28 RBC 5.04 M/mcL (3.82-4.97) H 04/13/19 04:41 Hgb 10.3 g/dL (11.5-15.4) L 04/16/19 04:28 Hct 35.1 % (35.3-44.9) L 04/16/19 04:28 MCV 79.1 fL (83.0-100.0) L 04/16/19 04:28 MCH 23.2 pg (28.0-33.3) L 04/16/19 04:28 MCHC 29.3 g/dL (31.6-35.5) L 04/16/19 04:28 RDW 20.8 % (11.5-14.5) H 04/16/19 04:28 Neutrophils # 9.8 K/mcL (1.6-8.9) H 04/10/19 06:02 Large Platelets Present (Not Present) A 04/09/19 04:45 Immature Plt Fraction 6.3 % (1.1-6.1) H 04/11/19 07:01 Hypochromasia Present (Not Present) A 04/10/19 06:02 Acanthocytes (Spur) 1+ (Not Present) A 04/10/19 06:02 PT 12.8 Seconds (9.4-12.1) H 04/10/19 15:31 Heparin Anti-Xa, Unfract 0.00 IU/mL (0.30-0.70) L 04/14/19 19:38 Sodium 151 mEq/L (136-145) H 04/10/19 06:02 Potassium 3.4 mEq/L (3.5-5.1) L 04/09/19 04:45 Chloride 97 mEq/L (98-107) L 04/15/19 05:51 Carbon Dioxide 34 mEq/L (23-29) H 04/16/19 04:28 BUN 58 mg/dL (8-23) H 04/16/19 04:28 Creatinine 1.26 mg/dL (0.60-1.20) H 04/15/19 05:51 Est GFR ( Amer) 55 (> 60) L 04/16/19 04:28 Est GFR (Non-Af Amer) 46 (> 60) L 04/16/19 04:28 BUN/Creatinine Ratio 50 (6-26) H 04/16/19 04:28 Glucose 130 mg/dL (70-105) H 04/16/19 04:28 POC Glucose 196 mg/dL (70-99) H 04/15/19 16:09 Hemoglobin A1c 6.7 % (-5.6) H 04/03/19 06:45 Calculated Osmolality 308 (280-300) H 04/16/19 04:28 Calcium 8.3 mg/dL (8.6-10.3) L 04/03/19 06:45 Total Bilirubin 1.1 mg/dL (0.3-1.0) H 04/04/19 04:54 Direct Bilirubin 0.4 mg/dL (0.0-0.2) H 04/02/19 14:34 AST 9 Units/L (13-39) L 04/04/19 04:54 ALT 5 Units/L (7-52) L 04/04/19 04:54 Troponin I 0.04 ng/mL (< 0.04) H* 04/02/19 22:48 B-Natriuretic Peptide 2211 pg/mL (Less than 100) H 04/02/19 14:34 Serum Total Protein 5.3 g/dL (6.4-8.9) L 04/04/19 04:54 Albumin 3.0 g/dL (3.5-5.7) L 04/04/19 04:54 Globulin 2.3 g/dL (2.4-3.5) L 04/04/19 04:54 - Diagnostic Findings Chest x-ray: report reviewed, image reviewed - Clinical Findings Intake & Output: Intake & Output 04/15/19 04/16/19 04/16/19 23:59 07:59 15:59 Intake Total 360 / 480 80 / 80 Balance 360 / 170 80 / 80 Weight 55.2 kg
[2019-04-16] MEDS ORDERED: Apixaban 5 MG TABLET PO SCH (09:00)
[2019-04-16 12:56] LABS: Bilirubin,Urine Negative (Negative); Blood,Urine Large (Negative); Glucose,Urine (UA) Normal (Normal); Ketones,Urine Negative (Negative); Leukocyte Esterase,Urine Small (Negative); Nitrite,Urine Negative (Negative); Protein,Urine 30 mg/dL (Neg-Trace); Specific Gravity,Urine 1.018 (1.010-1.025); Urobilinogen,Urine Normal (Normal)
[2019-04-16 12:57] LABS: Hyaline Casts,Urine None Seen per lpf (None-Few); RBC,Urine TNTC per hpf (0-3); Squamous Epithelial Cell,Urine Many per lpf (None-Few); WBC,Urine 15-30 per hpf (0-3)
[2019-04-16 13:01] LABS: Clarity,Urine Hazy (Clear); Color,Urine Red (Yellow)
[2019-04-16 13:32] LABS: Bacteria,Urine Few per hpf (None-Few)
--- NOTE | 2019-04-16 16:20 | Urology - Consult Note ---
<Keily Lynne N - Last Filed: 04/16/19 16:16> Date of Encounter: 04/16/19 Time of Encounter: 16:05 - Assessment and Plan (1) Gross hematuria Current Visit: Yes Status: Acute Assessment and plan: Patient is a 73-year-old female who presents with history of gross hematuria. Heparin has been held, and hematuria appears to be resolved at this time. Hemoglobin is stabilized. Hematuria is likely related to anticoagulation, but I expressed my concern for the increased risk of urothelial cancer secondary to patient's extensive smoking history. In order to completely evaluate patient, she will require upper tract imaging as well as a cystoscopy. Patient is in agreement to this plan, and she agrees to an outpatient cystoscopy with Dr. Keith. Dr. Keith will be in to reevaluate patient. Urology CN:[facility] Consult date: 04/16/19 Reason for consult Urology: Gross Hematuria Requesting physician: Simeon Murray History of present illness: Patient is a 73-year-old female who presents with a history of gross hematuria following anticoagulation. Patient was initially admitted through the emergency department for progressive dyspnea with CHF exacerbation, new onset atrial fibrillation, and NSTEMI requiring cardiac catheterization. Patient was placed on heparin drip and subsequently experienced gross hematuria. Patient has no prior history of gross hematuria. Patient denies any past history of renal stones and denies any acute changes in voiding habits. Patient admits to some baseline urinary frequency and urgency, but she denies any dysuria, hesitancy or incontinence. Patient has a long-standing history of tobacco use, and she stopped smoking 4 months ago after smoking 1-2 packs per day for more than 50 years. Patient has never seen a urologist, and she has no upper tract imaging on file. Currently, urine is clear, transparent yellow, and heparin has been held. Patient reports she is voiding well without difficulty. Patient denies any known family history of malignancy. Past Med Surg Social Fam HX - Past Medical History Medical history: arthritis, COPD, hypertension Psychiatric history: no psych history - Past Surgical History Additional surgical history: tubes tied - Social History Smoking Status: Former smoker Smokeless Tobacco Status: No Alcohol use: none Drug use: none - Family History Mother Living Status: Hx Family Cardiac Disorders: Yes (CAD) Father Living Status: Cause of : NE Hx Family Cardiac Disorders: Yes (multiple heart attacks) Sister Hx Family Cardiac Disorders: Yes (cardiomyopathy) Medications and Allergies Albuterol Neb [Proventil Neb] 2.5 mg IH Q6H PRN 04/03/19 [History] Albuterol Sulfate [Proventil Inhaler] 2 puff IH Q4-6H PRN 04/03/19 [History] Albuterol Sulfate [Proventil] 4 mg PO DAILY 04/03/19 [History] Benazepril HCl 10 mg PO DAILY 04/03/19 [History] Furosemide [Lasix] 20 mg PO DAILY 04/03/19 [History] Hydrocodone/Acetaminophen [Addison 10-325 Tablet] 1 tab PO Q6H PRN 04/03/19 [History] Montelukast [Singulair] 10 mg PO HS 04/03/19 [History] Sertraline [Zoloft] 100 mg PO DAILY 04/03/19 [History] hydrOXYzine pamoate [Hydroxyzine Pamoate] 25 mg PO DAILY 04/03/19 [History] predniSONE [PredniSONE] 10 mg PO DAILY 04/03/19 [History] Apixaban [Eliquis] 5 mg PO BID #60 tablet 04/10/19 [Rx] Allergy/AdvReac Type Severity Reaction Status Date / Time sulfamethoxazole AdvReac Swelling Verified 04/03/19 18:10 [From Bactrim] of the Eye trimethoprim [From Bactrim] AdvReac Swelling Verified 04/03/19 18:10 of the Eye Review of Systems - Constitutional no chills, no fatigue, no fever(s) - EENT Nose, mouth and throat: no dizziness, no headache(s) - Cardiovascular no chest pain, no diaphoresis, no dyspnea - Respiratory no cough, no dyspnea - Gastrointestinal no abdominal pain, no nausea, no vomiting - Genitourinary Genitourinary: hematuria (Resolved), urinary frequency, urinary urgency, no change in urinary stream, no difficulty urinating, no dysuria, no flank pain, no urinary hesitancy, no urinary incontinence - Musculoskeletal back pain, no muscle weakness - Integumentary no erythema, no rash - Neurological no confusion, no syncope - Psychiatric no anxiety, no confusion - Hematologic/Lymphatic no easy bleeding, no easy bruising - Allergic/Immunologic no throat swelling, no wheezing Exam Initial Vital Signs Temp Pulse Resp BP Pulse Ox 97.7 F 150 18 158/92 92 04/02/19 14:20 04/02/19 14:20 04/02/19 14:20 04/02/19 14:20 04/02/19 14:20 - General physical appearance Present: no distress, no pain - Eyes Present: PERRL, normal ocular movement - ENT Present: normal nares, no hearing loss, no congestion - Neck Present: no masses, trachea midline, no lymphadenopathy - Respiratory Present: normal respiratory effort - Cardiovascular Cardiovascular exam IM: irregular rhythm - Abdomen Abdomen: Present: soft, non tender. Absent: distended - Genitourinary Present: other (Urine and bedside commode is transparent, clear yellow without sediment or clots) - Integumentary Present: no rash, no abnormal pigmentation - Neurologic Present: normal coordination - Musculoskeletal Present: other (Normal posture) Urology Results - Labs 04/16/19 04:28 04/16/19 04:28 Abnormal lab results WBC 13.5 K/mcL (4.3-11.1) H 04/16/19 04:28 RBC 5.04 M/mcL (3.82-4.97) H 04/13/19 04:41 Hgb 10.3 g/dL (11.5-15.4) L 04/16/19 04:28 Hct 35.1 % (35.3-44.9) L 04/16/19 04:28 MCV 79.1 fL (83.0-100.0) L 04/16/19 04:28 MCH 23.2 pg (28.0-33.3) L 04/16/19 04:28 MCHC 29.3 g/dL (31.6-35.5) L 04/16/19 04:28 RDW 20.8 % (11.5-14.5) H 04/16/19 04:28 Neutrophils # 9.8 K/mcL (1.6-8.9) H 04/10/19 06:02 Large Platelets Present (Not Present) A 04/09/19 04:45 Immature Plt Fraction 6.3 % (1.1-6.1) H 04/11/19 07:01 Hypochromasia Present (Not Present) A 04/10/19 06:02 Acanthocytes (Spur) 1+ (Not Present) A 04/10/19 06:02 PT 12.8 Seconds (9.4-12.1) H 04/10/19 15:31 Heparin Anti-Xa, Unfract 0.02 IU/mL (0.30-0.70) L 04/16/19 12:21 Sodium 151 mEq/L (136-145) H 04/10/19 06:02 Potassium 3.4 mEq/L (3.5-5.1) L 04/09/19 04:45 Chloride 97 mEq/L (98-107) L 04/15/19 05:51 Carbon Dioxide 34 mEq/L (23-29) H 04/16/19 04:28 BUN 58 mg/dL (8-23) H 04/16/19 04:28 Creatinine 1.26 mg/dL (0.60-1.20) H 04/15/19 05:51 Est GFR ( Amer) 55 (> 60) L 04/16/19 04:28 Est GFR (Non-Af Amer) 46 (> 60) L 04/16/19 04:28 BUN/Creatinine Ratio 50 (6-26) H 04/16/19 04:28 Glucose 130 mg/dL (70-105) H 04/16/19 04:28 POC Glucose 196 mg/dL (70-99) H 04/15/19 16:09 Hemoglobin A1c 6.7 % (-5.6) H 04/03/19 06:45 Calculated Osmolality 308 (280-300) H 04/16/19 04:28 Calcium 8.3 mg/dL (8.6-10.3) L 04/03/19 06:45 Total Bilirubin 1.1 mg/dL (0.3-1.0) H 04/04/19 04:54 Direct Bilirubin 0.4 mg/dL (0.0-0.2) H 04/02/19 14:34 AST 9 Units/L (13-39) L 04/04/19 04:54 ALT 5 Units/L (7-52) L 04/04/19 04:54 Troponin I 0.04 ng/mL (< 0.04) H* 04/02/19 22:48 B-Natriuretic Peptide 2211 pg/mL (Less than 100) H 04/02/19 14:34 Serum Total Protein 5.3 g/dL (6.4-8.9) L 04/04/19 04:54 Albumin 3.0 g/dL (3.5-5.7) L 04/04/19 04:54 Globulin 2.3 g/dL (2.4-3.5) L 04/04/19 04:54 Ur Specimen Adequacy See below A 04/16/19 11:37 Urine Color Red (Yellow) A 04/16/19 11:37 Urine Clarity Hazy (Clear) A 04/16/19 11:37 Urine Protein 30 mg/dL (Neg-Trace) H 04/16/19 11:37 Urine Blood Large (Negative) H 04/16/19 11:37 Ur Leukocyte Esterase Small (Negative) H 04/16/19 11:37 Urine Microscopic RBC TNTC per hpf (0-3) H 04/16/19 11:37 Urine Microscopic WBC 15-30 per hpf (0-3) H 04/16/19 11:37 Ur Squamous Epith Cells Many per lpf (None-Few) H 04/16/19 11:37 Ur Culture Indicated? YES (NO) A 04/16/19 11:37 Diabetes panel 04/16/19 Range/Units 04:28 Sodium 140 (136-145) mEq/L Potassium 4.7 (3.5-5.1) mEq/L Chloride 99 (98-107) mEq/L Carbon Dioxide 34 H (23-29) mEq/L BUN 58 H (8-23) mg/dL Creatinine 1.16 (0.60-1.20) mg/dL Glucose 130 H (70-105) mg/dL Calcium 8.6 (8.6-10.3) mg/dL Calcium panel 04/16/19 Range/Units 04:28 Calcium 8.6 (8.6-10.3) mg/dL Pituitary panel 04/16/19 Range/Units 04:28 Sodium 140 (136-145) mEq/L Potassium 4.7 (3.5-5.1) mEq/L Chloride 99 (98-107) mEq/L Carbon Dioxide 34 H (23-29) mEq/L BUN 58 H (8-23) mg/dL Creatinine 1.16 (0.60-1.20) mg/dL Glucose 130 H (70-105) mg/dL Calcium 8.6 (8.6-10.3) mg/dL Adrenal panel 04/16/19 Range/Units 04:28 Sodium 140 (136-145) mEq/L Potassium 4.7 (3.5-5.1) mEq/L Chloride 99 (98-107) mEq/L Carbon Dioxide 34 H (23-29) mEq/L BUN 58 H (8-23) mg/dL Creatinine 1.16 (0.60-1.20) mg/dL Glucose 130 H (70-105) mg/dL Calcium 8.6 (8.6-10.3) mg/dL All other labs normal. Consult Discharge Plan - Plan Referrals: Homero Rondon MD [Primary Care Provider] - Prescriptions: Apixaban [Eliquis] 5 mg PO BID #60 tablet <Luis Keith - Last Filed: 04/17/19 08:00> Date of Encounter: 04/17/19 - Assessment and Plan (1) Gross hematuria Current Visit: Yes Status: Acute Assessment and plan: Patient seen and evaluated in conjunction with physician supply assistant. Agree with her assessment and plan. Ultrasound planned. We will likely plan outpatient cystoscopy if she recovers sufficiently. Exam Initial Vital Signs Temp Pulse Resp BP Pulse Ox 97.7 F 150 18 158/92 92 04/02/19 14:20 04/02/19 14:20 04/02/19 14:20 04/02/19 14:20 04/02/19 14:20 Urology Results - Labs 04/17/19 03:26 04/17/19 03:26 Abnormal lab results WBC 11.6 K/mcL (4.3-11.1) H 04/17/19 03:26 RBC 5.04 M/mcL (3.82-4.97) H 04/13/19 04:41 Hgb 10.1 g/dL (11.5-15.4) L 04/17/19 03:26 Hct 35.2 % (35.3-44.9) L 04/17/19 03:26 MCV 78.6 fL (83.0-100.0) L 04/17/19 03:26 MCH 22.5 pg (28.0-33.3) L 04/17/19 03:26 MCHC 28.7 g/dL (31.6-35.5) L 04/17/19 03:26 RDW 21.0 % (11.5-14.5) H 04/17/19 03:26 Neutrophils # 9.8 K/mcL (1.6-8.9) H 04/10/19 06:02 Large Platelets Present (Not Present) A 04/09/19 04:45 Immature Plt Fraction 6.3 % (1.1-6.1) H 04/11/19 07:01 Hypochromasia Present (Not Present) A 04/17/19 03:26 Acanthocytes (Spur) 1+ (Not Present) A 04/10/19 06:02 PT 12.8 Seconds (9.4-12.1) H 04/10/19 15:31 Heparin Anti-Xa, Unfract 0.02 IU/mL (0.30-0.70) L 04/16/19 12:21 Sodium 151 mEq/L (136-145) H 04/10/19 06:02 Potassium 3.4 mEq/L (3.5-5.1) L 04/09/19 04:45 Chloride 97 mEq/L (98-107) L 04/15/19 05:51 Carbon Dioxide 39 mEq/L (23-29) H 04/17/19 03:26 BUN 60 mg/dL (8-23) H 04/17/19 03:26 Creatinine 1.25 mg/dL (0.60-1.20) H 04/17/19 03:26 Est GFR ( Amer) 51 (> 60) L 04/17/19 03:26 Est GFR (Non-Af Amer) 42 (> 60) L 04/17/19 03:26 BUN/Creatinine Ratio 48 (6-26) H 04/17/19 03:26 Glucose 130 mg/dL (70-105) H 04/16/19 04:28 POC Glucose 161 mg/dL (70-99) H 04/16/19 20:07 Hemoglobin A1c 6.7 % (-5.6) H 04/03/19 06:45 Calculated Osmolality 307 (280-300) H 04/17/19 03:26 Calcium 8.3 mg/dL (8.6-10.3) L 04/03/19 06:45 Total Bilirubin 1.1 mg/dL (0.3-1.0) H 04/04/19 04:54 Direct Bilirubin 0.4 mg/dL (0.0-0.2) H 04/02/19 14:34 AST 9 Units/L (13-39) L 04/04/19 04:54 ALT 5 Units/L (7-52) L 04/04/19 04:54 Troponin I 0.04 ng/mL (< 0.04) H* 04/02/19 22:48 B-Natriuretic Peptide 2211 pg/mL (Less than 100) H 04/02/19 14:34 Serum Total Protein 5.3 g/dL (6.4-8.9) L 04/04/19 04:54 Albumin 3.0 g/dL (3.5-5.7) L 04/04/19 04:54 Globulin 2.3 g/dL (2.4-3.5) L 04/04/19 04:54 Ur Specimen Adequacy See below A 04/16/19 11:37 Urine Color Red (Yellow) A 04/16/19 11:37 Urine Clarity Hazy (Clear) A 04/16/19 11:37 Urine Protein 30 mg/dL (Neg-Trace) H 04/16/19 11:37 Urine Blood Large (Negative) H 04/16/19 11:37 Ur Leukocyte Esterase Small (Negative) H 04/16/19 11:37 Urine Microscopic RBC TNTC per hpf (0-3) H 04/16/19 11:37 Urine Microscopic WBC 15-30 per hpf (0-3) H 04/16/19 11:37 Ur Squamous Epith Cells Many per lpf (None-Few) H 04/16/19 11:37 Ur Culture Indicated? YES (NO) A 04/16/19 11:37 Diabetes panel 04/17/19 Range/Units 03:26 Sodium 140 (136-145) mEq/L Potassium 5.0 (3.5-5.1) mEq/L Chloride 99 (98-107) mEq/L Carbon Dioxide 39 H (23-29) mEq/L BUN 60 H (8-23) mg/dL Creatinine 1.25 H (0.60-1.20) mg/dL Glucose 101 (70-105) mg/dL Calcium 8.6 (8.6-10.3) mg/dL Calcium panel 04/17/19 Range/Units 03:26 Calcium 8.6 (8.6-10.3) mg/dL Pituitary panel 04/17/19 Range/Units 03:26 Sodium 140 (136-145) mEq/L Potassium 5.0 (3.5-5.1) mEq/L Chloride 99 (98-107) mEq/L Carbon Dioxide 39 H (23-29) mEq/L BUN 60 H (8-23) mg/dL Creatinine 1.25 H (0.60-1.20) mg/dL Glucose 101 (70-105) mg/dL Calcium 8.6 (8.6-10.3) mg/dL Adrenal panel 04/17/19 Range/Units 03:26 Sodium 140 (136-145) mEq/L Potassium 5.0 (3.5-5.1) mEq/L Chloride 99 (98-107) mEq/L Carbon Dioxide 39 H (23-29) mEq/L BUN 60 H (8-23) mg/dL Creatinine 1.25 H (0.60-1.20) mg/dL Glucose 101 (70-105) mg/dL Calcium 8.6 (8.6-10.3) mg/dL All other labs normal.
[2019-04-17] MEDS: Levalbuterol Neb 0.63 MG/3 ML IH SCH ×4 (03:50→22:04)
[2019-04-17 04:05] LABS: Basophils # 0.1 K/mcL (0.0-0.2); Basophils % 0.5 %; Eosinophils # 0.5 K/mcL (0.0-0.6); Hematocrit 35.2 % (35.3-44.9); Hemoglobin 10.1 g/dL (11.5-15.4); Immature Granulocytes % 1.2 % (0-4); Lymphocytes # 1.6 K/mcL (0.6-4.6); Lymphocytes % 13.6 %; Mean Corpuscular HGB Conc 28.7 g/dL (31.6-35.5); Mean Corpuscular Hemoglobin 22.5 pg (28.0-33.3); Mean Corpuscular Volume 78.6 fL (83.0-100.0); Mean Platelet Volume 10.3 fL (9.4-12.4); Monocytes # 1.1 K/mcL (0.0-1.3); Monocytes % 9.1 %; Neutrophils # 8.3 K/mcL (1.6-8.9); Platelet Count 329 K/mcL (140-400); Red Blood Count 4.48 M/mcL (3.82-4.97); Segmented Neutrophils % 71.6 %; White Blood Count 11.6 K/mcL (4.3-11.1)
[2019-04-17 04:21] LABS: Calcium 8.6 mg/dL (8.6-10.3)
[2019-04-17 05:05] LABS: Hypochromasia Present (Not Present); Platelet Estimate Normal (Normal)
--- NOTE | 2019-04-17 06:11 | Internal Med Progress Note ---
<AriTere M - Last Filed: 04/17/19 16:11> Hospitalist Progress Note - Encounter Date of Encounter: 04/17/19 - Exam Vitals: Temp Pulse Resp BP Pulse Ox 98.7 F 101 18 115/78 94 04/17/19 07:48 04/17/19 07:48 04/17/19 15:10 04/17/19 07:48 04/17/19 15:10 - Assessment and Plan (1) Pleural effusion Current Visit: Yes Status: Chronic (2) Acute CHF (congestive heart failure) Current Visit: Yes Status: Acute (3) Acute respiratory failure with hypoxia Current Visit: Yes Status: Acute (4) Atrial fibrillation Current Visit: Yes Status: Chronic (5) NSTEMI (non-ST elevated myocardial infarction) Current Visit: Yes Status: Acute - Time Spent with Patient Total time spent is greater than 50% in coordination of care (as documented) at patient's floor/unit and/or counseling patient: Internal Medicine: Result - Labs CBC & Chem 7: 04/17/19 03:26 04/17/19 03:26 Labs: Short CBC 04/17/19 Range/Units 03:26 WBC 11.6 H (4.3-11.1) K/mcL Hgb 10.1 L (11.5-15.4) g/dL Hct 35.2 L (35.3-44.9) % Plt Count 329 (140-400) K/mcL Neutrophils # 8.3 (1.6-8.9) K/mcL BMP 04/17/19 03:26 Sodium 140 Potassium 5.0 Chloride 99 Carbon Dioxide 39 H BUN 60 H Creatinine 1.25 H Glucose 101 Calcium 8.6 - ABG Interpretation ABG results: PT/INR, D-dimer PT 12.1 Seconds (9.4-12.1) 04/11/19 07:01 - Impressions Impressions Retroperitoneum Ultrasound 04/16/19 21:30 IMPRESSION: Atrophic right kidney containing a 1.5 cm cyst. Left kidney and bladder are unremarkable. D/ / Orville Cortes MD / Orville Cortes MD Interpreting Provider: Orville Cortes MD Consult Discharge Plan - Plan Referrals: Homero Rondon MD [Primary Care Provider] - Prescriptions: Apixaban [Eliquis] 5 mg PO BID #60 tablet - Attending Attestation I examined this patient and my medical decision-making was reviewed with the Resident Physician Dr Murray. I agree with the documented findings, disposition and treatment plan as described except to the extent set forth below. Ms Harden is admitted with acute resp failure, afib and CHF awake,no sob, no cp or palpitations. denies hematuria, discussed treatment plan and she will notify staff of any blood in urine gen- alert, awake,frail cv- reg rate and irreg/irreg rhythm, normal s1,s2, no pitting le edema lungs- ctabl no wheezing , normal resp effort on o2 nc neuro- AAOx3 Acute Systolic CHF, improved- cont oral lasix, s/p pleurx cath for effusion, close monitoring of net UOP/wts/creat Afib rate controlled-held hep gtt with concern for hematuria, discussed indetail w Dr Keith and we will start eliquis with close monitoring this weekend given risk v benefit, cont asa, cont BB hematuria, resolved- urology recs appreciated, d/w Dr Keith today, I will start Eliquis and he will follow htis weekend, we will monitor for recurrence, if bleeds again she will have failed oral trial and will dc without AC until outpt cystoscopy complete, he is arranging that appt Acute hyoxic resp failure 2/2 CHF- improving, cont to wean O2 Hypodropneumothorax- appreciate pulm input, pleurx capped and outpt drainage q3- 4d at [facility], fu with pulm in 1-2 weeks dispo- will be to SNF w pre cert started <Simeon Murray - Last Filed: 04/17/19 20:28> Hospitalist Progress Note - Encounter Date of Encounter: 04/17/19 Time of Encounter: 06:10 - Subjective Interval History: Patient feels the same as yesterday. She is still having pain in her chest wall near the Pleurx insertion. Denies blood in her urine. Last bowel movement this morning. She confirms a good appetite. Previous entry on 04/03/19 mentioning that patient had a past medical history of CHF was entered in error. Her heart failure is newly discovered. - Exam Vitals: Temp Pulse Resp BP Pulse Ox 98.8 F 90 20 107/77 96 04/17/19 04:54 04/17/19 04:54 04/17/19 04:54 04/17/19 04:54 04/17/19 04:54 Exam: Gen.: Elderly female. No acute distress Skin: Poor turgor. Hypopigmented lesions on posterior trunk Eyes: Moist. Nonicteric Neck: JVD. Hepatojugular reflux Cardiac: Irregular rhythm. Likely tachycardic Respiratory: Scattered crackles. Lung sounds distant. Some expiratory wheezes posteriorly Extremities: No bilateral lower extremity edema. 2+ radial pulses Neuro: Eyes able to track objects. No obvious tremor psych: Appropriate mood and behavior. Answers questions coherently - Assessment and Plan (1) Gross hematuria Current Visit: Yes Status: Acute Assessment and Plan: -Consider glomerular versus lower urinary tract at this point -Black lama Paul-Aid colored urine -Labs 04/16/19: Hemoglobin 11>10.4> 10.3. BUN increased with creatinine WNL. -UA 04/16/19 showed TNTC RBCs, 15-30 WBCs, 30 protein, all leukocyte esterase, contaminated study. -Retroperitoneal ultrasound 04/16/19 shows atrophic right kidney containing and 1.5 cm cyst. Plan:Urine culture negative. Urology consulted and plans to follow up outpatient for possible cystoscopy. (2) Acute CHF (congestive heart failure) Current Visit: Yes Status: Acute Assessment and Plan: -Likely secondary to atrial fibrillation -Orthopnea, PND, bilateral edema of new onset -BNP 2211. Echo 04/03/19 showed LV systolic dysfunction with EF 20-25%. [facility] completed and showed mild nonobstructive CAD. -Goal dry weight likely around 55.3 kg Plan: Strict I/O's, daily weights, 2L fluid restriction. Cardiology signed off. F/U outpatient. beta juliet, DUNCAN inhibitor, statin, ASA. Furosemide 20 mL po daily (continue outpatient). Plan to hold Lasix in the event of continued r ising BUN. (3) Atrial fibrillation with rapid ventricular response Current Visit: Yes Status: Acute Assessment and Plan: -Likely secondary to structural changes of the heart versus hypoxemia from COPD exacerbation -Newly discovered heart failure with symptoms as above -TSH WNL. Electrolytes likely not the cause. EKG QRS's irregularly irregular and showed tachycardia. [id number]: 4 -metoprolol XL as above. Plan: Begin apixaban. Continue rate control per cardiology. (4) Acute respiratory failure with hypoxia Current Visit: Yes Status: Acute Assessment and Plan: -Likely secondary to COPD exacerbation vs. newly discovered heart failure with pleural effusion -Increased cough, sputum production. Increasing dyspnea over a month's time. -antibiotics finished. No ABG this admission. -home dose prednisone 10 mg daily po -Pulmonology consulted. CXR 04/09/19 read as increasing airspace disease in right upper lung likely clinically correlated as pulmonary edema. Pleurx placed and now capped. Follow up x-ray 04/15/19 shows decreasing size of hydropneumothorax with increased opacification on the L. Plan: Incentive spirometry .wean O2. Follow-up with pulmonology in 1-2 weeks. (5) Pleural effusion Current Visit: Yes Status: Chronic Assessment and Plan: -likely 2/2 new onset heart failure -dyspnea as above -as seen on CXR. CXR 04/06/19 shows worsened -pleural fluid: total protein <3; LDH 71 -serum: total protein 6.1; LDH 165 -transudative -2 thoracenteses completed. -Pleurx placed 04/13/19. -Fourth follow up x-ray 04/15/19 showed decreasing size of hydropneumothorax. Plan: Pleurx has been capped. Follow-up with pulmonology in 1-2 weeks. (6) NSTEMI (non-ST elevated myocardial infarction) Current Visit: Yes Status: Acute Assessment and Plan: -likely 2/2 demand ischemia --> Type 2. -afib as above and new CHF as above. has remained at 0.04 times 3. -no obvious T wave elevation -LHC completed and showed mild nonobstructive CAD. (7) Hypertension Current Visit: Yes Status: Chronic Assessment and Plan: -likely due to CAD -systolic on admission in 150's -Beta juliet, ACEi -controlled (8) Diabetes mellitus Current Visit: Yes Status: Chronic Assessment and Plan: -A1c 6.7 Plan: follow up outpt. Continue sliding scale insulin (9) Hypokalemia Current Visit: Yes Status: Resolved Assessment and Plan: -likely due to magnesium deficiency and Lasix. -Magnesium now WNL - stable Plan: Continue to monitor DVT Prophylaxis: apixaban - Time Spent with Patient Total time spent is greater than Internal Medicine: Result - Labs CBC & Chem 7: 04/17/19 03:26 04/17/19 03:26 Labs: Short CBC 04/17/19 Range/Units 03:26 WBC 11.6 H (4.3-11.1) K/mcL Hgb 10.1 L (11.5-15.4) g/dL Hct 35.2 L (35.3-44.9) % Plt Count 329 (140-400) K/mcL Neutrophils # 8.3 (1.6-8.9) K/mcL BMP 04/17/19 03:26 Sodium 140 Potassium 5.0 Chloride 99 Carbon Dioxide 39 H BUN 60 H Creatinine 1.25 H Glucose 101 Calcium 8.6 Urine 04/16/19 Range/Units 11:37 Urine Color Red A (Yellow) Urine Clarity Hazy A (Clear) Urine pH 7.0 (5.0-8.0) pH Units Ur Specific [place] 1.018 (1.010-1.025) Urine Protein 30 H (Neg-Trace) mg/dL Urine Glucose (UA) Normal (Normal) mg/dL - ABG Interpretation ABG results: PT/INR, D-dimer PT 12.1 Seconds (9.4-12.1) 04/11/19 07:01 - Impressions Impressions Chest X-Ray 04/16/19 06:00 IMPRESSION: No interval change of ground-glass infiltrates throughout the left lung. Mild interval improvement of infiltrate in the right upper lobe. Small bilateral pleural effusions. Minimal residual right pneumothorax, decreased. D/ / Lulú Westbrook MD / Lulú Westbrook MD Interpreting Provider: Lulú Westbrook MD <Tere Chapman M - Last Filed: 04/17/19 16:11> (2) Acute CHF (congestive heart failure) Qualifiers: Heart failure type: systolic Qualified Code(s): I50.21 - Acute systolic (congestive) heart failure (4) Atrial fibrillation Qualifiers: Atrial fibrillation type: persistent Qualified Code(s): I48.1 - Persistent atrial fibrillation <Simeon Murray G - Last Filed: 04/17/19 20:28> (2) Acute CHF (congestive heart failure) Qualifiers: Heart failure type: systolic Qualified Code(s): I50.21 - Acute systolic (congestive) heart failure (7) Hypertension Qualifiers: Hypertension type: essential hypertension Qualified Code(s): I10 - Essential (primary) hypertension (8) Diabetes mellitus Qualifiers: Diabetes mellitus type: type 2 Diabetes mellitus long term care administrator insulin use: without usp use Diabetes mellitus complication status: without complication Qualified Code(s): E11.9 - Type 2 diabetes mellitus without complications
--- NOTE | 2019-04-17 07:56 | Urology Progress Note ---
Date of Encounter: 04/17/19 Time of Encounter: 07:54 - Assessment and Plan (1) Gross hematuria Current Visit: Yes Status: Acute Assessment and plan: Gross hematuria has resolved. Likely resulting from the heparin drip. Does not appear to be from a urinary tract infection based on her urinalysis. Okay to observe from urology standpoint without intervention in the hospital. Renal ultrasound results noted. IMPRESSION: Atrophic right kidney containing a 1.5 cm cyst. Left kidney and bladder are unremarkable. Atrophic kidney is likely contributing to her mild renal insufficiency. My office will contact patient to schedule follow-up appointment. She may require a outpatient cystoscopy if she recovers sufficiently. Progress Note Narrative: Patient reports all hematuria has resolved Objective Initial Vital Signs Temp Pulse Resp BP Pulse Ox 97.7 F 150 18 158/92 92 04/02/19 14:20 04/02/19 14:20 04/02/19 14:20 04/02/19 14:20 04/02/19 14:20 - General physical appearance Present: chronically ill - Abdomen Present: soft - Additional Exam no voided urine to visualize - Labs 04/17/19 03:26 04/17/19 03:26 Diabetes panel 04/17/19 Range/Units 03:26 Sodium 140 (136-145) mEq/L Potassium 5.0 (3.5-5.1) mEq/L Chloride 99 (98-107) mEq/L Carbon Dioxide 39 H (23-29) mEq/L BUN 60 H (8-23) mg/dL Creatinine 1.25 H (0.60-1.20) mg/dL Glucose 101 (70-105) mg/dL Calcium 8.6 (8.6-10.3) mg/dL Calcium panel 04/17/19 Range/Units 03:26 Calcium 8.6 (8.6-10.3) mg/dL Pituitary panel 04/17/19 Range/Units 03:26 Sodium 140 (136-145) mEq/L Potassium 5.0 (3.5-5.1) mEq/L Chloride 99 (98-107) mEq/L Carbon Dioxide 39 H (23-29) mEq/L BUN 60 H (8-23) mg/dL Creatinine 1.25 H (0.60-1.20) mg/dL Glucose 101 (70-105) mg/dL Calcium 8.6 (8.6-10.3) mg/dL Adrenal panel 04/17/19 Range/Units 03:26 Sodium 140 (136-145) mEq/L Potassium 5.0 (3.5-5.1) mEq/L Chloride 99 (98-107) mEq/L Carbon Dioxide 39 H (23-29) mEq/L BUN 60 H (8-23) mg/dL Creatinine 1.25 H (0.60-1.20) mg/dL Glucose 101 (70-105) mg/dL Calcium 8.6 (8.6-10.3) mg/dL Consult Discharge Plan - Plan Referrals: Homero Rondon MD [Primary Care Provider] - Prescriptions: Apixaban [Eliquis] 5 mg PO BID #60 tablet
[2019-04-17] MEDS: Insulin LISPRO 300 UNITS/3 ML VIAL SQ SCH ×4 (08:32→20:55)
[2019-04-17] MEDS: Metoprolol XL (24 HR) Succ 50 MG TAB.ER.24H PO SCH ×2 (08:52→20:20)
[2019-04-17] MEDS: Aspirin 81 MG TAB.CHEW PO SCH (08:52)
[2019-04-17] MEDS: Furosemide 20 MG TABLET PO SCH (08:52)
[2019-04-17] MEDS: Magnesium Oxide 400 MG TABLET PO SCH (08:53)
[2019-04-17] MEDS: *HR* HYDROcodone/Acet 10/325 mg TABLET PO PRN ×2 (08:53→16:57)
[2019-04-17] MEDS: predniSONE 10 MG TABLET PO SCH (08:53)
[2019-04-17] MEDS: hydrOXYzine pamoate 25 MG CAPSULE PO SCH (08:54)
[2019-04-17] MEDS: *HR* HYDROcodone/Acet 5/325 mg TABLET PO PRN (13:20)
[2019-04-17] MEDS: Apixaban 5 MG TABLET PO SCH ×2 (13:21→20:20)
[2019-04-18] MEDS: *HR* HYDROcodone/Acet 5/325 mg TABLET PO PRN (01:26)
[2019-04-18] MEDS: Levalbuterol Neb 0.63 MG/3 ML IH SCH ×4 (03:35→21:58)
[2019-04-18 05:43] LABS: Hematocrit 34.5 % (35.3-44.9); Hemoglobin 10.2 g/dL (11.5-15.4); Mean Corpuscular HGB Conc 29.6 g/dL (31.6-35.5); Mean Corpuscular Hemoglobin 23.2 pg (28.0-33.3); Mean Corpuscular Volume 78.6 fL (83.0-100.0); Platelet Count 336 K/mcL (140-400); Red Blood Count 4.39 M/mcL (3.82-4.97); Red Cell Distribution Width 20.8 % (11.5-14.5); White Blood Count 11.2 K/mcL (4.3-11.1)
[2019-04-18 06:04] LABS: BUN/Creatinine Ratio 57 (6-26); Blood Urea Nitrogen 55 mg/dL (8-23); Calcium 8.7 mg/dL (8.6-10.3); Carbon Dioxide 33 mEq/L (23-29); Chloride 96 mEq/L (98-107); Glucose 107 mg/dL (70-105); Osmolality,Calculated 304 (280-300); Sodium 139 mEq/L (136-145); eGFR For African Americans > 60 (> 60); eGFR For Non-African Americans 56 (> 60)
[2019-04-18] MEDS: Insulin LISPRO 300 UNITS/3 ML VIAL SQ SCH ×4 (07:45→22:17)
[2019-04-18] MEDS: *HR* HYDROcodone/Acet 10/325 mg TABLET PO PRN ×2 (07:48→20:09)
[2019-04-18] MEDS: predniSONE 10 MG TABLET PO SCH (07:49)
[2019-04-18] MEDS: hydrOXYzine pamoate 25 MG CAPSULE PO SCH (07:49)
[2019-04-18] MEDS: Metoprolol XL (24 HR) Succ 50 MG TAB.ER.24H PO SCH ×2 (07:49→20:09)
[2019-04-18] MEDS: Furosemide 20 MG TABLET PO SCH (07:49)
[2019-04-18] MEDS: Apixaban 5 MG TABLET PO SCH ×2 (07:50→20:09)
[2019-04-18] MEDS: Aspirin 81 MG TAB.CHEW PO SCH (07:50)
[2019-04-18] MEDS: Magnesium Oxide 400 MG TABLET PO SCH (07:51)
--- NOTE | 2019-04-18 08:04 | Internal Med Progress Note ---
<Tere Chapman - Last Filed: 04/18/19 13:40> Hospitalist Progress Note - Encounter Date of Encounter: 04/18/19 - Exam Vitals: Temp Pulse Resp BP Pulse Ox 97.6 F 88 16 105/80 96 04/18/19 07:24 04/18/19 07:24 04/18/19 11:18 04/18/19 07:24 04/18/19 11:18 - Assessment and Plan (1) Pleural effusion Current Visit: Yes Status: Chronic (2) Acute CHF (congestive heart failure) Current Visit: Yes Status: Acute (3) Acute respiratory failure with hypoxia Current Visit: Yes Status: Acute (4) Atrial fibrillation Current Visit: Yes Status: Chronic (5) NSTEMI (non-ST elevated myocardial infarction) Current Visit: Yes Status: Acute - Time Spent with Patient Total time spent is greater than 50% in coordination of care (as documented) at patient's floor/unit and/or counseling patient: Internal Medicine: Result - Labs CBC & Chem 7: 04/18/19 05:10 04/18/19 05:10 Labs: Short CBC 04/18/19 Range/Units 05:10 WBC 11.2 H (4.3-11.1) K/mcL Hgb 10.2 L (11.5-15.4) g/dL Hct 34.5 L (35.3-44.9) % Plt Count 336 (140-400) K/mcL BMP 04/18/19 05:10 Sodium 139 Potassium 5.0 Chloride 96 L Carbon Dioxide 33 H BUN 55 H Creatinine 0.97 Glucose 107 H Calcium 8.7 - ABG Interpretation ABG results: PT/INR, D-dimer PT 12.1 Seconds (9.4-12.1) 04/11/19 07:01 Consult Discharge Plan - Plan Referrals: Homero Rondon MD [Primary Care Provider] - Prescriptions: Apixaban [Eliquis] 5 mg PO BID #60 tablet - Attending Attestation I examined this patient and my medical decision-making was reviewed with the Resident Physician Dr Reagan. I agree with the documented findings, disposition and treatment plan as described except to the extent set forth below. Ms Harden is admitted with acute resp failure, afib and CHF awake,no sob, , cough resolved, no wheezing, denies palpitations, feels energy level is improved today, increasing her activity. denies any hematuria and watching all urine closely gen- alert, awake,frail cv- reg rate and irreg/irreg rhythm, normal s1,s2, no pitting le edema , no jvd lungs- ctabl no wheezing , normal resp effort on o2 nc, diminished bl bases neuro- AAOx3 Acute Systolic CHF, resolved- cont oral lasix at current dose as she is approx net even I/Os daily now and at suspected dry weight, s/p pleurx cath for effusion, Afib rate controlled-eliquis + BB hematuria, resolved- urology recs appreciated, monitoring on Eliquis , if bleeds again she will have failed oral trial and will dc without AC until outpt cystoscopy complete, he is arranging that appt (bladder ca given her tobacco hx vs spontaneous inflammation with bleed on hep gtt) Acute hyoxic resp failure 2/2 CHF- improving, cont to wean O2 Hypodropneumothorax- appreciate pulm input, pleurx in place, outpt drainage q3- 4d at [facility], fu with pulm in 1-2 weeks dispo- will be to [facility] w pre cert started <Gauri Reagan - Last Filed: 04/18/19 18:21> Hospitalist Progress Note - Encounter Date of Encounter: 04/18/19 Time of Encounter: 11:20 - Subjective Interval History: Patient seen examined at the bedside. She denied increased shortness of breath, chest pain, fever, chills, nausea. She denied hematuria. She had no other complaints. Physical therapy was present. - Exam Vitals: Temp Pulse Resp BP Pulse Ox 97.6 F 88 16 105/80 96 04/18/19 07:24 04/18/19 07:24 04/18/19 07:24 04/18/19 07:24 04/18/19 07:24 Exam: Gen.: Vitals noted. No acute distress. AAOx3 HEENT: oropharynx clear, Normocephalic, atraumatic Cardiac: RRR, no murmur, +S1/S2 Pulmonary: course breath sounds bilaterally, equal chest expansion Abdomen: soft, nontender, Bowel sounds noted, no guarding MSK: ROM intact, no joint swelling noted Extremities: no BLE edema, nontender calf, no cyanosis or clubbing Neuro: A&Ox3, moves all extremities, no focal deficits Psych: Appropriate mood and behavior - Assessment and Plan (1) Gross hematuria Current Visit: Yes Status: Acute Assessment and Plan: Patient had sudden gross hematuria after having been on heparin drip for multiple days. -This is concerning for urinary tract infection however this was determined negative based on urine culture. -Hemoglobin remains stable, hemodynamically stable -urinalysis showing TNTC RBC, blood -urine culture no growth final -Retroperitoneal ultrasound 04/16/19 shows atrophic right kidney containing and 1.5 cm cyst. -Resolved hematuria. Plan -urology was consulted and plan to follow with the patient outpatient since hematuria had resolved and may perform a cystoscopy at that time. -Heparin drip was stopped in the patient was started on eliquis to trial if she should develop hematuria again. If she should develop hematuria then the patient will likely not be able to be anticoagulated for atrial fibrillation. -Will continue monitor for hematuria -continue to monitor hemoglobin (2) Acute CHF (congestive heart failure) Current Visit: Yes Status: Acute Assessment and Plan: New onset systolic heart failure with reduced ejection fraction. -04/03/2019 TTE: EF 20 to 25%. -LHC showed nonobstructive CAD. No stent placement required -BNP 2211 -appropriate urine output Plan -cardiology have been consulted and recommended Toprol, lisinopril, Lasix, atorvastatin, aspirin. Cardio urology will follow-up outpatient and has signed off. -Continue strict I&O -monitor weight -monitor urine output -2 L fluid restriction (3) Acute respiratory failure with hypoxia Current Visit: Yes Status: Acute Assessment and Plan: Acute respiratory failure with hypoxia -most likely multifactorial secondary to COPD exacerbation and new systolic hea rt failure with reduced ejection fraction. -Chest x-ray showed increased airspace disease in right upper lung and pulmonary edema. -Repeat chest x-ray showed decreased size of [place] pneumothorax. -SpO2 95% on 3 L oxygen Plan -Continue supplemental oxygen -patient completed antibiotic treatment -continue home dose prednisone 10 mg daily -pulmonology was consulted and had followed placing pleurex catheter. Will plan for follow-up outpatient (4) Pleural effusion Current Visit: Yes Status: Chronic Assessment and Plan: Pleural effusion secondary to new onset systolic heart failure with reduced ejection fraction. -s/p thoracentesis that showed transudative fluid. -s/p pleurex catheter placement on 04/13/2019 -plan as above (5) Atrial fibrillation Current Visit: Yes Status: Chronic Assessment and Plan: Patient develop new onset atrial fibrillation while in patient.-Etiology is likely secondary to structural changes versus hypoxemia from pleural effusions and COPD exacerbation -heart rate controlled -EKG showed atrial fibrillation with RVR Plan -cardiology was consulted and recommended Toprol and eliquis. (6) NSTEMI (non-ST elevated myocardial infarction) Current Visit: Yes Status: Acute Assessment and Plan: NSTEMI is likely secondary to demand ischemia -LHC completed without stents placement, non-obstructive -continue aspirin, atorvastatin, lisinopril, Toprol 50, Lasix 20 daily (7) Diabetes mellitus Current Visit: Yes Status: Chronic Assessment and Plan: Patient has diabetes based on hemoglobin A1 C of 6.7 -glucose is controlled -continue low-dose sliding scale insulin -continue Accu check -diabetic diet DVT Prophylaxis: Continue eliquis - Time Spent with Patient Total time spent is greater than 50% in coordination of care (as documented) at patient's floor/unit and/or counseling patient: Internal Medicine: Result - Labs CBC & Chem 7: 04/18/19 05:10 04/18/19 05:10 Labs: Short CBC 04/18/19 Range/Units 05:10 WBC 11.2 H (4.3-11.1) K/mcL Hgb 10.2 L (11.5-15.4) g/dL Hct 34.5 L (35.3-44.9) % Plt Count 336 (140-400) K/mcL BMP 04/18/19 05:10 Sodium 139 Potassium 5.0 Chloride 96 L Carbon Dioxide 33 H BUN 55 H Creatinine 0.97 Glucose 107 H Calcium 8.7 - ABG Interpretation ABG results: PT/INR, D-dimer PT 12.1 Seconds (9.4-12.1) 04/11/19 07:01 <Tere Chapman - Last Filed: 04/18/19 13:40> (2) Acute CHF (congestive heart failure) Qualifiers: Heart failure type: systolic Qualified Code(s): I50.21 - Acute systolic (congestive) heart failure (4) Atrial fibrillation Qualifiers: Atrial fibrillation type: persistent Qualified Code(s): I48.1 - Persistent atrial fibrillation <Gauri Reagan - Last Filed: 04/18/19 18:21> (2) Acute CHF (congestive heart failure) Qualifiers: Heart failure type: systolic Qualified Code(s): I50.21 - Acute systolic (con gestive) heart failure (5) Atrial fibrillation Qualifiers: Atrial fibrillation type: persistent Qualified Code(s): I48.1 - Persistent atrial fibrillation (7) Diabetes mellitus Qualifiers: Diabetes mellitus type: type 2 Diabetes mellitus senior living insulin use: without senior living use Diabetes mellitus complication status: without complication Qualified Code(s): E11.9 - Type 2 diabetes mellitus without complications
[2019-04-19 01:19] LABS: Basophils # 0.1 K/mcL (0.0-0.2); Basophils % 0.4 %; Eosinophils # 0.3 K/mcL (0.0-0.6); Eosinophils % 2.5 %; Hematocrit 32.8 % (35.3-44.9); Hemoglobin 9.6 g/dL (11.5-15.4); Immature Granulocytes % 0.8 % (0-4); Immature Platelets 5.8 % (1.1-6.1); Lymphocytes # 1.9 K/mcL (0.6-4.6); Lymphocytes % 15.4 %; Mean Corpuscular HGB Conc 29.3 g/dL (31.6-35.5); Mean Corpuscular Hemoglobin 23.4 pg (28.0-33.3); Mean Corpuscular Volume 79.8 fL (83.0-100.0); Mean Platelet Volume 11.4 fL (9.4-12.4); Monocytes # 1.3 K/mcL (0.0-1.3); Monocytes % 10.7 %; Neutrophils # 8.4 K/mcL (1.6-8.9); Platelet Count 331 K/mcL (140-400); Red Blood Count 4.11 M/mcL (3.82-4.97); Red Cell Distribution Width 21.2 % (11.5-14.5); Segmented Neutrophils % 70.2 %
[2019-04-19 01:32] LABS: Calcium 8.3 mg/dL (8.6-10.3); Potassium 4.6 mEq/L (3.5-5.1)
[2019-04-19] MEDS: Levalbuterol Neb 0.63 MG/3 ML IH SCH ×4 (03:54→21:58)
--- NOTE | 2019-04-19 07:44 | Internal Med Progress Note ---
<Gauri Reagan - Last Filed: 04/19/19 12:20> Hospitalist Progress Note - Encounter Date of Encounter: 04/19/19 Time of Encounter: 09:13 - Subjective Interval History: Patient seen examined at bedside. She is sitting up comfortably eating breakfast. She does report slightly worsened shortness of breath today as compared to yesterday. She also had some right rib tenderness today. She denies fever, chills, cough, abdominal pain, nausea. She has no other complaints. - Exam Vitals: Temp Pulse Resp BP Pulse Ox 97.9 F 95 15 100/55 97 04/19/19 07:20 04/19/19 07:20 04/19/19 07:20 04/19/19 07:20 04/19/19 07:20 Exam: Gen.: Vitals noted. No acute distress. AAOx3 HEENT: oropharynx clear, Normocephalic, atraumatic Cardiac: RRR, no murmur, +S1/S2, Right LYNDA Pulmonary: course breath sounds bilaterally, equal chest expansion Abdomen: soft, nontender, Bowel sounds noted, no guarding MSK: ROM intact, no joint swelling noted Extremities: no BLE edema, nontender calf, no cyanosis or clubbing Neuro: A&Ox3, moves all extremities, no focal deficits Psych: Appropriate mood and behavior - Assessment and Plan (1) Acute CHF (congestive heart failure) Current Visit: Yes Status: Acute Assessment and Plan: New onset systolic heart failure with reduced ejection fraction. -04/03/2019 TTE: EF 20 to 25%. -LHC showed nonobstructive CAD. No stent placement required -BNP 2211 -appropriate urine output Plan -cardiology have been consulted and recommended Toprol, lisinopril, Lasix, atorvastatin, aspirin. Cardio urology will follow-up outpatient and has signed off. -Continue strict I&O -monitor weight -monitor urine output -2 L fluid restriction (2) Acute respiratory failure with hypoxia Current Visit: Yes Status: Acute Assessment and Plan: Acute respiratory failure with hypoxia -most likely multifactorial secondary to COPD exacerbation and new systolic heart failure with reduced ejection fraction. -Chest x-ray showed increased airspace disease in right upper lung and pulmonary edema. -Repeat chest x-ray showed decreased size of [place] pneumothorax. -SpO2 95% on 3 L oxygen -patient reported a little bit of increased shortness of breath today however she is not requiring any increased oxygen needs. Continue Xopenex treatment scheduled. Plan -Continue supplemental oxygen -patient completed antibiotic treatment -continue home dose prednisone 10 mg daily -pulmonology was consulted and had followed placing pleurex catheter. Will plan for follow-up outpatient (3) Pleural effusion Current Visit: Yes Status: Chronic Assessment and Plan: Pleural effusion secondary to new onset systolic heart failure with reduced eje ction fraction. -s/p thoracentesis that showed transudative fluid. -s/p pleurex catheter placement on 04/13/2019 -plan as above (4) Atrial fibrillation Current Visit: Yes Status: Chronic Assessment and Plan: Patient develop new onset atrial fibrillation while in patient.-Etiology is likely secondary to structural changes versus hypoxemia from pleural effusions and COPD exacerbation -heart rate controlled -EKG showed atrial fibrillation with RVR Plan -cardiology was consulted and recommended Toprol and eliquis. (5) NSTEMI (non-ST elevated myocardial infarction) Current Visit: Yes Status: Acute Assessment and Plan: NSTEMI is likely secondary to demand ischemia -LHC completed without stents placement, non-obstructive -continue aspirin, atorvastatin, lisinopril, Toprol 50, Lasix 20 daily (6) Diabetes mellitus Current Visit: Yes Status: Chronic Assessment and Plan: Patient has diabetes based on hemoglobin A1 C of 6.7 -glucose is controlled -continue low-dose sliding scale insulin -continue Accu check -diabetic diet (7) Gross hematuria Current Visit: Yes Status: Acute Assessment and Plan: Patient had sudden gross hematuria after having been on heparin drip for multiple days. -This is concerning for urinary tract infection however this was determined negative based on urine culture. -Hemoglobin remains stable, hemodynamically stable -hemoglobin 9.6, decreased from yesterday but stable with admission -urinalysis showing TNTC RBC, blood -urine culture no growth final -Retroperitoneal ultrasound 04/16/19 shows atrophic right kidney containing and 1.5 cm cyst. -Resolved hematuria. Plan -continue eliquis -urology was consulted and plan to follow with the patient outpatient since hematuria had resolved and may perform a cystoscopy at that time. -Heparin drip was stopped in the patient was started on eliquis to trial if she should develop hematuria again. If she should develop hematuria then the patient will likely not be able to be anticoagulated for atrial fibrillation. -Will continue monitor for hematuria -continue to monitor hemoglobin DVT Prophylaxis: Continue eliquis - Time Spent with Patient Total time spent is greater than 50% in coordination of care (as documented) at patient's floor/unit and/or counseling patient: Internal Medicine: Result - Labs CBC & Chem 7: 04/19/19 00:25 04/19/19 00:25 Labs: Short CBC 04/19/19 Range/Units 00:25 WBC 12.0 H (4.3-11.1) K/mcL Hgb 9.6 L (11.5-15.4) g/dL Hct 32.8 L (35.3-44.9) % Plt Count 331 (140-400) K/mcL Neutrophils # 8.4 (1.6-8.9) K/mcL BMP 04/19/19 00:25 Sodium 138 Potassium 4.6 Chloride 100 Carbon Dioxide 34 H BUN 65 H Creatinine 1.19 Glucose 132 H Calcium 8.3 L - ABG Interpretation ABG results: PT/INR, D-dimer PT 12.1 Seconds (9.4-12.1) 04/11/19 07:01 Consult Discharge Plan - Plan Referrals: Homero Rondon MD [Primary Care Provider] - Prescriptions: Apixaban [Eliquis] 5 mg PO BID #60 tablet <Tere Chapman - Last Filed: 04/19/19 12:46> Hospitalist Progress Note - Encounter Date of Encounter: 04/19/19 - Exam Vitals: Temp Pulse Resp BP Pulse Ox 97.9 F 95 15 100/55 97 04/19/19 07:20 04/19/19 07:20 04/19/19 10:14 04/19/19 07:20 04/19/19 10:14 - Assessment and Plan (1) Pleural effusion Current Visit: Yes Status: Chronic (2) Acute CHF (congestive heart failure) Current Visit: Yes Status: Acute (3) Acute respiratory failure with hypoxia Current Visit: Yes Status: Acute (4) Atrial fibrillation Current Visit: Yes Status: Chronic (5) Diabetes mellitus Current Visit: Yes Status: Chronic (6) NSTEMI (non-ST elevated myocardial infarction) Current Visit: Yes Status: Acute (7) Gross hematuria Current Visit: Yes Status: Acute - Time Spent with Patient Total time spent is greater than 50% in coordination of care (as documented) at patient's floor/unit and/or counseling patient: Internal Medicine: Result - Labs CBC & Chem 7: 04/19/19 00:25 04/19/19 00:25 Labs: Short CBC 04/19/19 Range/Units 00:25 WBC 12.0 H (4.3-11.1) K/mcL Hgb 9.6 L (11.5-15.4) g/dL Hct 32.8 L (35.3-44.9) % Plt Count 331 (140-400) K/mcL Neutrophils # 8.4 (1.6-8.9) K/mcL BMP 04/19/19 00:25 Sodium 138 Potassium 4.6 Chloride 100 Carbon Dioxide 34 H BUN 65 H Creatinine 1.19 Glucose 132 H Calcium 8.3 L - ABG Interpretation ABG results: PT/INR, D-dimer PT 12.1 Seconds (9.4-12.1) 04/11/19 07:01 - Attending Attestation I examined this patient and my medical decision-making was reviewed with the Resident Physician Dr Reagan. I agree with the documented findings, disposition and treatment plan as described except to the extent set forth below. Ms Harden is admitted with acute resp failure, afib and CHF awake,no sob, palpitations, admits to wheezing. gen- alert, awake,frail cv- reg rate and irreg/irreg rhythm, normal s1,s2, trace pitting le edema lungs- + exp wheezing, no crackles , normal resp effort on o2 nc neuro- AAOx3 Acute Systolic CHF, resolved- cont oral lasix , she is approx net even I/Os daily now and at suspected dry weight, s/p pleurx cath for effusion, Afib rate controlled-eliquis + BB hematuria, resolved- urology recs appreciated, monitoring on Eliquis , if bleeds again she will have failed oral trial and will dc without AC until outpt cystoscopy complete, he is arranging that appt (bladder ca given her tobacco hx vs spontaneous inflammation with bleed on hep gtt) Acute hyoxic resp failure 2/2 CHF- improved and stable , cont to wean O2 as able suspect this will be her new baseline Hypodropneumothorax- appreciate pulm input, pleurx in place, outpt drainage q3- 4d at [facility], fu with pulm in 1-2 weeks dispo- will be to SNF, and is medically ready for dc when placement arranged <Gauri Reagan - Last Filed: 04/19/19 12:20> (1) Acute CHF (congestive heart failure) Qualifiers: Heart failure type: systolic Qualified Code(s): I50.21 - Acute systolic (congestive) heart failure (4) Atrial fibrillation Qualifiers: Atrial fibrillation type: persistent Qualified Code(s): I48.1 - Persistent atrial fibrillation (6) Diabetes mellitus Qualifiers: Diabetes mellitus type: type 2 Diabetes mellitus terminal press operator insulin use: without terminal press operator use Diabetes mellitus complication status: without complication Qualified Code(s): E11.9 - Type 2 diabetes mellitus without complications <Tere Chapman - Last Filed: 04/19/19 12:46> (2) Acute CHF (congestive heart failure) Qualifiers: Heart failure type: systolic Qualified Code(s): I50.21 - Acute systolic (congestive) heart failure (4) Atrial fibrillation Qualifiers: Atrial fibrillation type: persistent Qualified Code(s): I48.1 - Persistent atrial fibrillation (5) Diabetes mellitus Qualifiers: Diabetes mellitus type: type 2 Diabetes mellitus group home insulin use: without terminal press operator use Diabetes mellitus complication status: without complication Qualified Code(s): E11.9 - Type 2 diabetes mellitus without complications
[2019-04-19] MEDS ORDERED: Saline Nasal Spray 44 ML BOTTLE NS PRN (09:35)
[2019-04-19] MEDS: Apixaban 5 MG TABLET PO SCH ×2 (09:36→22:39)
[2019-04-19] MEDS: Furosemide 20 MG TABLET PO SCH (09:36)
[2019-04-19] MEDS: hydrOXYzine pamoate 25 MG CAPSULE PO SCH (09:36)
[2019-04-19] MEDS: *HR* HYDROcodone/Acet 10/325 mg TABLET PO PRN (09:37)
[2019-04-19] MEDS: Aspirin 81 MG TAB.CHEW PO SCH (09:37)
[2019-04-19] MEDS: Metoprolol XL (24 HR) Succ 50 MG TAB.ER.24H PO SCH ×2 (09:37→22:40)
[2019-04-19] MEDS: predniSONE 10 MG TABLET PO SCH (09:37)
[2019-04-19] MEDS: Magnesium Oxide 400 MG TABLET PO SCH (09:37)
[2019-04-19] MEDS: Insulin LISPRO 300 UNITS/3 ML VIAL SQ SCH ×4 (09:38→22:39)
[2019-04-19] MEDS: Ipratropium Neb 0.5 MG NEBULIZER IH PRN (10:12)
[2019-04-19] MEDS: *HR* HYDROcodone/Acet 5/325 mg TABLET PO PRN (22:40)
[2019-04-20] MEDS: Levalbuterol Neb 0.63 MG/3 ML IH SCH ×4 (03:48→22:47)
[2019-04-20 04:52] LABS: Hemoglobin 9.2 g/dL (11.5-15.4); Red Cell Distribution Width 21.4 % (11.5-14.5)
[2019-04-20 04:53] LABS: Basophils # 0.1 K/mcL (0.0-0.2); Basophils % 0.5 %; Eosinophils # 0.2 K/mcL (0.0-0.6); Eosinophils % 1.6 %; Hematocrit 31.3 % (35.3-44.9); Immature Granulocytes % 0.8 % (0-4); Lymphocytes % 15.1 %; Mean Corpuscular HGB Conc 29.4 g/dL (31.6-35.5); Mean Corpuscular Volume 78.3 fL (83.0-100.0); Mean Platelet Volume 11.1 fL (9.4-12.4); Monocytes # 1.2 K/mcL (0.0-1.3); Monocytes % 9.4 %; Platelet Count 328 K/mcL (140-400); Segmented Neutrophils % 72.6 %; White Blood Count 12.9 K/mcL (4.3-11.1)
[2019-04-20 04:56] LABS: Neutrophils # 9.4 K/mcL (1.6-8.9)
[2019-04-20 05:09] LABS: BUN/Creatinine Ratio 64 (6-26); Blood Urea Nitrogen 61 mg/dL (8-23); Calcium 8.6 mg/dL (8.6-10.3); Carbon Dioxide 32 mEq/L (23-29); Chloride 102 mEq/L (98-107); Glucose 114 mg/dL (70-105); Osmolality,Calculated 308 (280-300); Potassium 4.8 mEq/L (3.5-5.1); Sodium 140 mEq/L (136-145); eGFR For African Americans > 60 (> 60); eGFR For Non-African Americans 57 (> 60)
[2019-04-20 05:27] LABS: Hypochromasia Present (Not Present); Platelet Estimate Normal (Normal)
[2019-04-20 05:28] LABS: Anisocytosis 1+ (Not Present)
[2019-04-20] MEDS: Insulin LISPRO 300 UNITS/3 ML VIAL SQ SCH ×4 (08:54→23:00)
[2019-04-20] MEDS: Magnesium Oxide 400 MG TABLET PO SCH (09:10)
[2019-04-20] MEDS: Apixaban 5 MG TABLET PO SCH (09:11)
[2019-04-20] MEDS: Aspirin 81 MG TAB.CHEW PO SCH (09:11)
[2019-04-20] MEDS: predniSONE 10 MG TABLET PO SCH (09:11)
[2019-04-20] MEDS: Acetaminophen 325 MG TABLET PO PRN (09:18)
[2019-04-20] MEDS: Furosemide 20 MG TABLET PO SCH (09:31)
--- NOTE | 2019-04-20 10:24 | Internal Med Progress Note ---
<Tere Chapman - Last Filed: 04/20/19 14:44> Hospitalist Progress Note - Encounter Date of Encounter: 04/20/19 - Exam Vitals: Temp Pulse Resp BP Pulse Ox 98.2 F 85 16 103/57 97 04/20/19 12:06 04/20/19 12:06 04/20/19 12:06 04/20/19 12:06 04/20/19 12:06 - Assessment and Plan (1) Pleural effusion Current Visit: Yes Status: Chronic (2) Acute CHF (congestive heart failure) Current Visit: Yes Status: Acute (3) Acute respiratory failure with hypoxia Current Visit: Yes Status: Acute (4) Atrial fibrillation Current Visit: Yes Status: Chronic (5) Diabetes mellitus Current Visit: Yes Status: Chronic (6) NSTEMI (non-ST elevated myocardial infarction) Current Visit: Yes Status: Acute (7) Gross hematuria Current Visit: Yes Status: Acute - Time Spent with Patient Total time spent is greater than 50% in coordination of care (as documented) at patient's floor/unit and/or counseling patient: Internal Medicine: Result - Labs CBC & Chem 7: 04/20/19 13:45 04/20/19 04:13 Labs: Short CBC 04/20/19 Range/Units 04:13 WBC 12.9 H (4.3-11.1) K/mcL Hgb 9.2 L (11.5-15.4) g/dL Hct 31.3 L (35.3-44.9) % Plt Count 328 (140-400) K/mcL Neutrophils # 9.4 H (1.6-8.9) K/mcL BMP 04/20/19 04:13 Sodium 140 Potassium 4.8 Chloride 102 Carbon Dioxide 32 H BUN 61 H Creatinine 0.95 Glucose 114 H Calcium 8.6 - ABG Interpretation ABG results: PT/INR, D-dimer PT 12.1 Seconds (9.4-12.1) 04/11/19 07:01 - Impressions Impressions Chest X-Ray 04/20/19 09:25 IMPRESSION: 1. Moderate right pleural effusion, larger compared with the previous exam. 2. Interval decrease in size of a left pleural effusion. 3. No pneumothorax. 4. Persistent multifocal airspace consolidation. D/ / 04/20/2019 10:23:38 Spenser Dutotn MD / darren Interpreting Provider: Spenser Dutton MD Chest CT 04/20/19 10:23 IMPRESSION: Mild size complex right pleural effusion consistent with the history of bloody pleural effusion. Bilateral airspace disease particularly in the upper lobes where there is bronchiectasis questioning sequela of prior granulomatous disease. Mildly enlarged subcarinal lymph node attention on follow-up is recommended. Anemia. D/ / 04/20/2019 11:56:57 Marcello Alonzo MD / Ashley Toussaint Interpreting Provider: Marcello Alonzo MD Consult Discharge Plan - Plan Referrals: Homero Rondon MD [Primary Care Provider] - Prescriptions: Apixaban [Eliquis] 5 mg PO BID #60 tablet - Attending Attestation I examined this patient and my medical decision-making was reviewed with the Resident Physician Dr Maldonado. I agree with the documented findings, dis position and treatment plan as described except to the extent set forth below. Ms Harden is admitted with acute resp failure, afib and CHF awake,she appears at her baseline, + sob but no increased wob, no cp, pressure or palpitations. cont same right chest wall pain, unchanged. denies le edema RN at bedside and senior resident. Bp is lower than her usual low normotensive baseline and pt denies presycnopal sxs RN instructed to drain pleurx given she is due for it to be. given low bps instructed to drain off 250 cc to start. notified that fluid appeared bloody. further instruction provieded to rn and patient and pulm team whom had followed her previously updated. stat imaging obtained. gen- alert, awake,frail cv- reg rate and irreg/irreg rhythm, normal s1,s2, trace pitting le edema to mid andrew lungs- diminished right base, no crackles , no rhonchi or wheezing, normal resp effort on o2 nc abd- soft, nt, nd neuro- AAOx3 Acute Systolic CHF, resolved- hold oral lasix today due to hypotension, 250 cc fluid drained from pleurx today Hemothorax- 250 cc pleurx cath by rn this morning, stop aC and asa, stat 1 unit prbc prepared given low bps and slow downtrend of hgb in recent days, repeat hgb showed uptrend and prbcs now cancelled, will get serial h/hs today, appreciate pulm input, given no further output from cath there is a possibility it is clogged which may require larger chest tube and CT surg eval this admission, will cont to monitor Slow down trend of acute anemia since admission 04/02 on AC- has had confirmed hematuria (last week) and now bloody fluid from pleurx cath -cont to monitor hgb particularly with lower than her normal bps as above, plan for close monitoring as above, hgb up trending so will hold on prbcs Afib rate controlled-now elevating with holding of BB for bp this morning, lower toprol XL dosing with holding parameters for sbp, no longer a candidate for full AC given hematuria and now hemothorax, will decide once closer to dc if even is an asa candidate hematuria, resolved- fu with urology Dr Keith for cystopscopy outpt, possible bladder malignancy given tobacco hx Acute hyoxic resp failure 2/2 CHF- improved and stable , cont to wean O2 as able suspect this will be her new baseline, despite events today remains stable at this time on her new baseline 4L nc dispo- will be to SNF, and is medically ready for dc <Martha Maldonado L - Last Filed: 04/20/19 19:00> Hospitalist Progress Note - Encounter Date of Encounter: 04/20/19 Time of Encounter: 09:20 - Subjective Interval History: Patient seen this morning with nursing staff at bedside draining chest tube. Chest tube was draining bloody fluid at the time and pt c/o pain at chest tube site. Patient also c/o some SOB on inhalation. - Exam Vitals: Temp Pulse Resp BP Pulse Ox 98.7 F 89 12 90/48 94 04/20/19 07:08 04/20/19 07:08 04/20/19 07:08 04/20/19 09:19 04/20/19 07:08 Exam: Gen: alert/oriented, in mild distress due to pain. Head: atraumatic, normocephalic. Resp: mild wheezing on posterior left upper lobes, decreased breath sounds on RLL with chest tube in place. CV: RRR, Normal S1 and S2. No murmur, gallops, or rubs. GI/Abdominal exam: bowel sounds throughout, soft, non-tender, non- distended; no hepatosplenomegaly Skin: intact; no rashes, lesions, or bruising. Ext: No cyanosis or edema. pulses +2/4 bilaterally UE and LE. Neuro: no focal deficits, cooperative with exam. - Assessment and Plan (1) Hemothorax Current Visit: Yes Status: Acute Assessment and Plan: Drained in a.m. via Pleurx catheter. - Anticoagulation stopped - Repeat H&H today and in am - pulmonology consult - CBC in a.m. - BMP in a.m. (2) Acute CHF (congestive heart failure) Current Visit: Yes Status: Acute Assessment and Plan: - Hold Lasix - Vitals Q4H - appreciate cardiology recommendations (3) Atrial fibrillation with rapid ventricular response Current Visit: Yes Status: Acute Assessment and Plan: decrease beta juliet dosage. (4) Acute respiratory failure with hypoxia Current Visit: Yes Status: Suspected Assessment and Plan: - patient remains with SOB 2/2 CHF exacerbation. - Will treat CHF per cardio recommendations (5) Pneumonia Current Visit: Yes Status: Suspected Assessment and Plan: uptrending white blood cell count indicates possible infection. - we will monitor appreciate pulm recommendations DVT Prophylaxis: Continue eliquis - Time Spent with Patient Total time spent is greater than 50% in coordination of care (as documented) at patient's floor/unit and/or counseling patient: Internal Medicine: Result - Labs CBC & Chem 7: 04/20/19 13:45 04/20/19 04:13 Labs: Short CBC 04/20/19 Range/Units 04:13 WBC 12.9 H (4.3-11.1) K/mcL Hgb 9.2 L (11.5-15.4) g/dL Hct 31.3 L (35.3-44.9) % Plt Count 328 (140-400) K/mcL Neutrophils # 9.4 H (1.6-8.9) K/mcL BMP 04/20/19 04:13 Sodium 140 Potassium 4.8 Chloride 102 Carbon Dioxide 32 H BUN 61 H Creatinine 0.95 Glucose 114 H Calcium 8.6 - ABG Interpretation ABG results: PT/INR, D-dimer PT 12.1 Seconds (9.4-12.1) 04/11/19 07:01 - Impressions Impressions Chest X-Ray 04/20/19 09:25 IMPRESSION: 1. Moderate right pleural effusion, larger compared with the previous exam. 2. Interval decrease in size of a left pleural effusion. 3. No pneumothorax. 4. Persistent multifocal airspace consolidation. 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
[2019-04-20] MEDS: Metoprolol XL (24 HR) Succ 50 MG TAB.ER.24H PO SCH (12:33)
[2019-04-20] MEDS: hydrOXYzine pamoate 25 MG CAPSULE PO SCH (12:37)
[2019-04-20] MEDS ORDERED: 0.9 % Sodium Chloride 250 ML ONE (12:59)
--- NOTE | 2019-04-20 13:11 | Pulmonology Progress Note ---
Date of Encounter: 04/20/19 Time of Encounter: 13:11 Assessment and Plan (1) Hemothorax Current Visit: Yes Status: Acute I reviewed the chest x-ray and CT scan timing of bloody effusion is unclear because patient has not had any drainage since the Pleurx catheter was hooked up to the atrium at that time it was draining clear fluid. I suspect that this is related to some irritation in the pleural space complicated by use of the NOAC (eliquis) H&H has been stable over last few days and again I doubt that this is an acute finding I have sent off a stat H&H to confirm this she does have CT scan notable for a right-sided pleural effusion with complex features suggestive of bloody effusion. I did have the nursing staff try to drain some more fluid there is not any further output which may reflect effect the catheter may be clogged. If this is case she would likely need thoracic surgery evaluation and possibly larger chest tube placed and Pleurx potentially removed. I doubt any infectious process such as PNA right now but would need to follow closely as she does have bilateral infiltrates but timing of these findings are unclear clinically she has no leukocytosis and is afebrile and not endorsing any respiratory symptoms. I have added on a pro-calcitonin I agree with holding NOAC Repeat H&H pending BP has been persistently on the lower side since admission but it is today even slightly lower catherine with holding antihypertensive agents may need to add a small dose of beta juliet to control heart rate has she has underlying A. fib and heart rate has been noted to be in the 110s to 120s while I was in the room (2) Pleural effusion Current Visit: Yes Status: Chronic t (3) Congestive heart failure Current Visit: Yes Status: Acute Qualifiers: Heart failure type: systolic Heart failure chronicity: acute Qualified Code(s): I50.21 - Acute systolic (congestive) heart failure Subjective Principal diagnosis: Afib, CHF Interval history: I was called to reevaluate the patient as it was noted that she had leticia bloody output from the Pleurx catheter after drainage today. She is feeling more short of breath and so they attempted to drain at about 250 mL of bloody exudate. Patient has been complaining of right-sided pain really since entire admission which has not changed significantly over last few days. She denies any cough or sputum production he has had episodic hematuria for which she was evaluated by urology thought likely secondary to anticoagulation with Eliquis - this has gotten better. H&H has been stable Objective PUL Vital signs: Last Vital Signs Temp 98.2 F 04/20/19 12:06 Pulse 85 04/20/19 12:06 Resp 16 04/20/19 12:06 BP 103/57 04/20/19 12:06 Pulse Ox 97 04/20/19 12:06 General appearance: no acute distress, other (frail elderly woman no acute distress ) Eyes: nonicteric Auscultation: right: diminished breath sounds (base ) Cardiovascular: irregular rhythm Gastrointestinal: normoactive bowel sounds, soft, non-tender Extremities: no edema Musculoskeletal: no deformities normal mental status, non-focal exam mood appropriate Results - Laboratory Findings CBC and BMP: 04/20/19 04:13 04/20/19 04:13 PT/INR, D-dimer PT 12.1 Seconds (9.4-12.1) 04/11/19 07:01 Abnormal lab findings: Abnormal lab results WBC 12.9 K/mcL (4.3-11.1) H 04/20/19 04:13 RBC 5.04 M/mcL (3.82-4.97) H 04/13/19 04:41 Hgb 9.2 g/dL (11.5-15.4) L 04/20/19 04:13 Hct 31.3 % (35.3-44.9) L 04/20/19 04:13 MCV 78.3 fL (83.0-100.0) L 04/20/19 04:13 MCH 23.0 pg (28.0-33.3) L 04/20/19 04:13 MCHC 29.4 g/dL (31.6-35.5) L 04/20/19 04:13 RDW 21.4 % (11.5-14.5) H 04/20/19 04:13 Neutrophils # 9.4 K/mcL (1.6-8.9) H 04/20/19 04:13 Large Platelets Present (Not Present) A 04/09/19 04:45 Immature Plt Fraction 6.3 % (1.1-6.1) H 04/11/19 07:01 Hypochromasia Present (Not Present) A 04/20/19 04:13 Anisocytosis 1+ (Not Present) A 04/20/19 04:13 Acanthocytes (Spur) 1+ (Not Present) A 04/10/19 06:02 PT 12.8 Seconds (9.4-12.1) H 04/10/19 15:31 Heparin Anti-Xa, Unfract 0.02 IU/mL (0.30-0.70) L 04/16/19 12:21 Sodium 151 mEq/L (136-145) H 04/10/19 06:02 Potassium 3.4 mEq/L (3.5-5.1) L 04/09/19 04:45 Chloride 96 mEq/L (98-107) L 04/18/19 05:10 Carbon Dioxide 32 mEq/L (23-29) H 04/20/19 04:13 BUN 61 mg/dL (8-23) H 04/20/19 04:13 Creatinine 1.25 mg/dL (0.60-1.20) H 04/17/19 03:26 Est GFR ( Amer) 54 (> 60) L 04/19/19 00:25 Est GFR (Non-Af Amer) 57 (> 60) L 04/20/19 04:13 BUN/Creatinine Ratio 64 (6-26) H 04/20/19 04:13 Glucose 114 mg/dL (70-105) H 04/20/19 04:13 POC Glucose 102 mg/dL (70-99) H 04/20/19 07:11 Hemoglobin A1c 6.7 % (-5.6) H 04/03/19 06:45 Calculated Osmolality 308 (280-300) H 04/20/19 04:13 Calcium 8.3 mg/dL (8.6-10.3) L 04/19/19 00:25 Total Bilirubin 1.1 mg/dL (0.3-1.0) H 04/04/19 04:54 Direct Bilirubin 0.4 mg/dL (0.0-0.2) H 04/02/19 14:34 AST 9 Units/L (13-39) L 04/04/19 04:54 ALT 5 Units/L (7-52) L 04/04/19 04:54 Troponin I 0.04 ng/mL (< 0.04) H* 04/02/19 22:48 B-Natriuretic Peptide 2211 pg/mL (Less than 100) H 04/02/19 14:34 Serum Total Protein 5.3 g/dL (6.4-8.9) L 04/04/19 04:54 Albumin 3.0 g/dL (3.5-5.7) L 04/04/19 04:54 Globulin 2.3 g/dL (2.4-3.5) L 04/04/19 04:54 Ur Specimen Adequacy See below A 04/16/19 11:37 Urine Color Red (Yellow) A 04/16/19 11:37 Urine Clarity Hazy (Clear) A 04/16/19 11:37 Urine Protein 30 mg/dL (Neg-Trace) H 04/16/19 11:37 Urine Blood Large (Negative) H 04/16/19 11:37 Ur Leukocyte Esterase Small (Negative) H 04/16/19 11:37 Urine Microscopic RBC TNTC per hpf (0-3) H 04/16/19 11:37 Urine Microscopic WBC 15-30 per hpf (0-3) H 04/16/19 11:37 Ur Squamous Epith Cells Many per lpf (None-Few) H 04/16/19 11:37 Ur Culture Indicated? YES (NO) A 04/16/19 11:37 Crossmatch See Detail 04/20/19 10:27 - Diagnostic Findings Chest x-ray: report reviewed, image reviewed CT scan - chest: report reviewed, image reviewed - Clinical Findings Intake & Output: Intake & Output 04/19/19 04/20/19 04/20/19 23:59 07:59 15:59 Intake Total 420 / 780 120 / 480 360 / 480 Output Total 900 / 1450 150 / 600 450 / 600 Balance -480 / -670 -30 / -120 -90 / -120 Weight 56.5 kg Consult Discharge Plan - Plan Referrals: Homero Rondon MD [Primary Care Provider] - Prescriptions: Apixaban [Eliquis] 5 mg PO BID #60 tablet
[2019-04-20 14:16] LABS: Hemoglobin 9.6 g/dL (11.5-15.4); Mean Corpuscular Volume 79.5 fL (83.0-100.0)
[2019-04-20 14:17] LABS: Eosinophils # 0.1 K/mcL (0.0-0.6); Hematocrit 33.3 % (35.3-44.9); Mean Corpuscular HGB Conc 28.8 g/dL (31.6-35.5); Mean Corpuscular Hemoglobin 22.9 pg (28.0-33.3); Monocytes # 0.6 K/mcL (0.0-1.3); Neutrophils # 12.3 K/mcL (1.6-8.9); Platelet Count 354 K/mcL (140-400); Red Blood Count 4.19 M/mcL (3.82-4.97); Red Cell Distribution Width 21.6 % (11.5-14.5)
[2019-04-20] MEDS: Metoprolol XL (24 HR) Succ 25 MG TAB.ER.24H PO SCH ×2 (14:56→20:16)
[2019-04-20] MEDS ORDERED: Acetaminophen IV 1,000 MG/100 ML INFUS..BTL IVPB ONE (15:15)
[2019-04-20 15:16] LABS: Anisocytosis 1+ (Not Present); Burr Cells 1+ (Not Present); Hypochromasia Present (Not Present); Platelet Estimate Normal (Normal)
[2019-04-20] MEDS: Ipratropium Neb 0.5 MG NEBULIZER IH PRN (20:14)
[2019-04-20 20:43] LABS: Hematocrit 30.6 % (35.3-44.9)
[2019-04-21] MEDS: Acetaminophen 325 MG TABLET PO PRN (02:25)
[2019-04-21] MEDS: Levalbuterol Neb 0.63 MG/3 ML IH SCH ×4 (03:32→22:26)
[2019-04-21] MEDS: Ipratropium Neb 0.5 MG NEBULIZER IH PRN ×2 (03:32→22:26)
[2019-04-21] MEDS ORDERED: traMADol 50 MG TABLET PO ONE (04:35)
--- NOTE | 2019-04-21 08:10 | Pulmonology Progress Note ---
Date of Encounter: 04/21/19 Time of Encounter: 07:30 Assessment and Plan (1) Hemothorax Current Visit: Yes Status: Acute Patient has pleurx catheter and she has been on anticoagulation. Initially there was no evidence of bleeding and her catheter was easily flushed with sterile saline without complications. After flushing with sterile saline, it was co nnected with chest tube atrium without significant drainage. Then it was connected with PleurX bottle with slow draining. I will keep it for now and this all discussed with daughter at the bedside. I will prefer to keep the catheter for now. Eventually 300 mL of bloody fluid was drained and sutures removed. Discussed with primary team and patient can follow-up as outpatient in about 10-14 days. If she goes to halfway, they can try to drain it in about one week otherwise I will try it when she comes to the office for follow-up. Subjective Principal diagnosis: Afib, CHF Interval history: Patient denies any chest pain and her PleurX pleural catheter in place and some draining with some clot-like in the tube. Objective PUL Vital signs: Last Vital Signs Temp 98.2 F 04/21/19 06:58 Pulse 85 04/21/19 06:58 Resp 16 04/21/19 06:58 BP 104/67 04/21/19 06:58 Pulse Ox 99 04/21/19 06:58 General appearance: no acute distress ENT: oropharynx moist Neck: supple Effort: normal Auscultation: left: rhonchi, right: diminished breath sounds, other (PleurX catheter in right side) Percussion: right: dull Cardiovascular: irregular rhythm, murmur noted Gastrointestinal: normoactive bowel sounds, non-distended Extremities: no cyanosis normal mental status, non-focal exam mood appropriate Results - Laboratory Findings CBC and BMP: 04/21/19 08:20 04/21/19 08:20 PT/INR, D-dimer PT 12.1 Seconds (9.4-12.1) 04/11/19 07:01 Abnormal lab findings: Abnormal lab results WBC 14.0 K/mcL (4.3-11.1) H 04/20/19 13:45 RBC 5.04 M/mcL (3.82-4.97) H 04/13/19 04:41 Hgb 9.0 g/dL (11.5-15.4) L 04/20/19 20:00 Hct 30.6 % (35.3-44.9) L 04/20/19 20:00 MCV 79.5 fL (83.0-100.0) L 04/20/19 13:45 MCH 22.9 pg (28.0-33.3) L 04/20/19 13:45 MCHC 28.8 g/dL (31.6-35.5) L 04/20/19 13:45 RDW 21.6 % (11.5-14.5) H 04/20/19 13:45 Neutrophils # 12.3 K/mcL (1.6-8.9) H 04/20/19 13:45 Large Platelets Present (Not Present) A 04/09/19 04:45 Immature Plt Fraction 6.3 % (1.1-6.1) H 04/11/19 07:01 Hypochromasia Present (Not Present) A 04/20/19 13:45 Anisocytosis 1+ (Not Present) A 04/20/19 13:45 [place] Cells 1+ (Not Present) A 04/20/19 13:45 Acanthocytes (Spur) 1+ (Not Present) A 04/10/19 06:02 PT 12.8 Seconds (9.4-12.1) H 04/10/19 15:31 Heparin Anti-Xa, Unfract 0.02 IU/mL (0.30-0.70) L 04/16/19 12:21 Sodium 151 mEq/L (136-145) H 04/10/19 06:02 Potassium 3.4 mEq/L (3.5-5.1) L 04/09/19 04:45 Chloride 96 mEq/L (98-107) L 04/18/19 05:10 Carbon Dioxide 32 mEq/L (23-29) H 04/20/19 04:13 BUN 61 mg/dL (8-23) H 04/20/19 04:13 Creatinine 1.25 mg/dL (0.60-1.20) H 04/17/19 03:26 Est GFR ( Amer) 54 (> 60) L 04/19/19 00:25 Est GFR (Non-Af Amer) 57 (> 60) L 04/20/19 04:13 BUN/Creatinine Ratio 64 (6-26) H 04/20/19 04:13 Glucose 114 mg/dL (70-105) H 04/20/19 04:13 POC Glucose 130 mg/dL (70-99) H 04/20/19 21:54 Hemoglobin A1c 6.7 % (-5.6) H 04/03/19 06:45 Calculated Osmolality 308 (280-300) H 04/20/19 04:13 Calcium 8.3 mg/dL (8.6-10.3) L 04/19/19 00:25 Total Bilirubin 1.1 mg/dL (0.3-1.0) H 04/04/19 04:54 Direct Bilirubin 0.4 mg/dL (0.0-0.2) H 04/02/19 14:34 AST 9 Units/L (13-39) L 04/04/19 04:54 ALT 5 Units/L (7-52) L 04/04/19 04:54 Troponin I 0.04 ng/mL (< 0.04) H* 04/02/19 22:48 B-Natriuretic Peptide 2211 pg/mL (Less than 100) H 04/02/19 14:34 Serum Total Protein 5.3 g/dL (6.4-8.9) L 04/04/19 04:54 Albumin 3.0 g/dL (3.5-5.7) L 04/04/19 04:54 Globulin 2.3 g/dL (2.4-3.5) L 04/04/19 04:54 Ur Specimen Adequacy See below A 04/16/19 11:37 Urine Color Red (Yellow) A 04/16/19 11:37 Urine Clarity Hazy (Clear) A 04/16/19 11:37 Urine Protein 30 mg/dL (Neg-Trace) H 04/16/19 11:37 Urine Blood Large (Negative) H 04/16/19 11:37 Ur Leukocyte Esterase Small (Negative) H 04/16/19 11:37 Urine Microscopic RBC TNTC per hpf (0-3) H 04/16/19 11:37 Urine Microscopic WBC 15-30 per hpf (0-3) H 04/16/19 11:37 Ur Squamous Epith Cells Many per lpf (None-Few) H 04/16/19 11:37 Ur Culture Indicated? YES (NO) A 04/16/19 11:37 Crossmatch See Detail 04/20/19 10:27 - Diagnostic Findings CT scan - chest: report reviewed, image reviewed - Clinical Findings Intake & Output: Intake & Output 04/20/19 04/21/19 04/21/19 23:59 07:59 15:59 Intake Total 120 / 840 120 / 120 Output Total 100 / 700 150 / 150 Balance 20 / 140 -30 / -30 Weight 56.1 kg Consult Discharge Plan - Plan Referrals: Homero Rondon MD [Primary Care Provider] - Prescriptions: Apixaban [Eliquis] 5 mg PO BID #60 tablet
[2019-04-21 08:56] LABS: Basophils % 0.4 %; Eosinophils # 0.2 K/mcL (0.0-0.6); Eosinophils % 2.1 %; Hematocrit 30.2 % (35.3-44.9); Hemoglobin 8.9 g/dL (11.5-15.4); Immature Granulocytes % 0.6 % (0-4); Lymphocytes # 1.8 K/mcL (0.6-4.6); Lymphocytes % 15.5 %; Mean Corpuscular HGB Conc 29.5 g/dL (31.6-35.5); Mean Corpuscular Hemoglobin 23.2 pg (28.0-33.3); Mean Corpuscular Volume 78.9 fL (83.0-100.0); Mean Platelet Volume 10.9 fL (9.4-12.4); Monocytes # 1.1 K/mcL (0.0-1.3); Monocytes % 9.4 %; Neutrophils # 8.2 K/mcL (1.6-8.9); Platelet Count 317 K/mcL (140-400); Red Blood Count 3.83 M/mcL (3.82-4.97); Red Cell Distribution Width 21.7 % (11.5-14.5); White Blood Count 11.3 K/mcL (4.3-11.1)
[2019-04-21 09:13] LABS: Blood Urea Nitrogen 51 mg/dL (8-23); Calcium 8.8 mg/dL (8.6-10.3); Carbon Dioxide 34 mEq/L (23-29); Chloride 101 mEq/L (98-107); Glucose 94 mg/dL (70-105); Osmolality,Calculated 307 (280-300); Potassium 4.6 mEq/L (3.5-5.1); Sodium 142 mEq/L (136-145)
[2019-04-21 09:36] LABS: BUN/Creatinine Ratio 64 (6-26); eGFR For African Americans > 60 (> 60); eGFR For Non-African Americans > 60 (> 60)
[2019-04-21] MEDS: Metoprolol XL (24 HR) Succ 25 MG TAB.ER.24H PO SCH ×2 (09:39→20:42)
[2019-04-21] MEDS: predniSONE 10 MG TABLET PO SCH (09:39)
[2019-04-21] MEDS: Magnesium Oxide 400 MG TABLET PO SCH (09:41)
[2019-04-21] MEDS: Insulin LISPRO 300 UNITS/3 ML VIAL SQ SCH ×3 (09:41→16:11)
[2019-04-21] MEDS ORDERED: *HR* HYDROcodone/Acet 5/325 mg TABLET PO PRN (14:25)
[2019-04-21] MEDS: *HR* HYDROcodone/Acet 5/325 mg TABLET PO PRN (16:08)
--- NOTE | 2019-04-21 16:19 | Internal Med Progress Note ---
<Tere Chapman - Last Filed: 04/21/19 16:22> Hospitalist Progress Note - Encounter Date of Encounter: 04/21/19 - Exam Vitals: Temp Pulse Resp BP Pulse Ox 98.6 F 114 18 125/80 99 04/21/19 11:36 04/21/19 15:52 04/21/19 15:52 04/21/19 15:52 04/21/19 15:52 - Assessment and Plan (1) Pleural effusion Current Visit: Yes Status: Chronic (2) Acute CHF (congestive heart failure) Current Visit: Yes Status: Acute (3) Acute respiratory failure with hypoxia Current Visit: Yes Status: Suspected (4) Atrial fibrillation Current Visit: Yes Status: Chronic (5) Diabetes mellitus Current Visit: Yes Status: Chronic (6) NSTEMI (non-ST elevated myocardial infarction) Current Visit: Yes Status: Acute (7) Gross hematuria Current Visit: Yes Status: Acute - Time Spent with Patient Total time spent is greater than 50% in coordination of care (as documented) at patient's floor/unit and/or counseling patient: Internal Medicine: Result - Labs CBC & Chem 7: 04/21/19 08:20 04/21/19 08:20 Labs: Short CBC 04/20/19 04/21/19 Range/Units 20:00 08:20 WBC 11.3 H (4.3-11.1) K/mcL Hgb 9.0 L 8.9 L (11.5-15.4) g/dL Hct 30.6 L 30.2 L (35.3-44.9) % Plt Count 317 (140-400) K/mcL Neutrophils # 8.2 (1.6-8.9) K/mcL BMP 04/21/19 08:20 Sodium 142 Potassium 4.6 Chloride 101 Carbon Dioxide 34 H BUN 51 H Creatinine 0.80 Glucose 94 Calcium 8.8 - ABG Interpretation ABG results: PT/INR, D-dimer PT 12.1 Seconds (9.4-12.1) 04/11/19 07:01 Consult Discharge Plan - Plan Referrals: Homero Rondon MD [Primary Care Provider] - Sheridan William MD [Partnered Physician] - 05/04/19 2:20 pm Prescriptions: Apixaban [Eliquis] 5 mg PO BID #60 tablet - Attending Attestation I examined this patient and my medical decision-making was reviewed with the Resident Physician Dr Maldonado. I agree with the documented findings, disposition and treatment plan as described except to the extent set forth below. Ms Harden is admitted with acute resp failure, afib and CHF awake,sob improved with further drainage today. no cp, pressure or palpitations. no hematuria. gen- alert, awake,frail cv- reg rate and irreg/irreg rhythm, normal s1,s2, trace pitting le edema to mid andrew lungs- diminished right base, no crackles , no wheezing, normal resp effort on o2 nc neuro- AAOx3 Acute Systolic CHF, resolved- cont oral lasix Hemothorax-300 cc blood drained today, appreciate pulm input, will fu with dr william 05/04, NO ac or asa at this time Slow down trend of acute anemia since admission 04/02 on AC- has had confirmed he maturia and hemothorax on AC -hgb stable today, cont to monitor Afib largely rate controlled-BP improved toady, increase Toprol XL to 25 mg this evening, no longer a candidate for full AC given hematuria and now hemothorax, likely will dc on ASA alone hematuria, resolved- fu with urology Dr Keith for cystopscopy outpt, possible bladder malignancy given tobacco hx Acute hyoxic resp failure 2/2 CHF- improved and stable , cont to wean O2 as able suspect this will be her new baseline dispo- will be to SNF, when medically ready for dc <Martha Maldonado - Last Filed: 04/21/19 17:32> Hospitalist Progress Note - Encounter Date of Encounter: 04/21/19 Time of Encounter: 09:10 - Subjective Interval History: Patient is a 73-year-old female admitted for observation after acute respiratory failure CHF and pneumonia. Patient was seen and examined this morning seated at bedside. Patient admits to difficulty with deep inhalation, and pain at the site of chest tube. Patient denies hematuria, or hematochezia, hemoptysis abdominal pain, or chest pain. - Exam Vitals: Temp Pulse Resp BP Pulse Ox 98.6 F 114 18 125/80 99 04/21/19 11:36 04/21/19 15:52 04/21/19 15:52 04/21/19 15:52 04/21/19 15:52 Exam: Gen: alert/oriented, in mild distress due to pain. Head: atraumatic, normocephalic. Resp: Decreased breath sounds right upper lobe and right lower lobe with chest tube in place currently draining fluid. Right upper lobe and left lower lobe clear to auscultation. CV: Irregularly irregular rhythm, No murmur, or rubs. GI/Abdominal exam: bowel sounds throughout, soft, non-tender, non- distended; no hepatosplenomegaly Skin: intact; no rashes, lesions, or bruising. Ext: No cyanosis +1 pitting edema bilaterally LE. pulses +2/4 bilaterally UE and LE. Neuro: no focal deficits, cooperative with exam. - Assessment and Plan (1) Hemothorax Current Visit: Yes Status: Acute Assessment and Plan: Drained 300 mL via Pleurx catheter this morning. - follow up with H&H in a.m. - stop Anticoagulation - Pleurx catheter drain when necessary - Follow up with pulmonology in 1-2 weeks (2) Acute CHF (congestive heart failure) Current Visit: Yes Status: Resolved Assessment and Plan: Continue oral Lasix (3) Atrial fibrillation with rapid ventricular response Current Visit: Yes Status: Acute Assessment and Plan: increase the juliet dosage as her HR and BP will tolerate this dosage to control her afib. (4) Acute respiratory failure with hypoxia Current Visit: Yes Status: Suspected Assessment and Plan: Acute respiratory failure with hypoxia secondary to CHF currently improved and stable. - We will monitor O2 sats. Attempt to wean off O2 in preparation for DC (5) Pneumonia Current Visit: Yes Status: Resolved Assessment and Plan: WBCs trending down - No fevers - Encourage incentive spirometry (6) Gross hematuria Current Visit: Yes Status: Resolved Assessment and Plan: f/u with urology Dr Keith for cystopscopy outpt, possible bladder malignancy given tobacco hx. - Time Spent with Patient Total time spent is greater than 50% in coordination of care (as documented) at patient's floor/unit and/or counseling patient: Internal Medicine: Result - Labs CBC & Chem 7: 04/21/19 08:20 04/21/19 08:20 Labs: Short CBC 04/20/19 04/21/19 Range/Units 20:00 08:20 WBC 11.3 H (4.3-11.1) K/mcL Hgb 9.0 L 8.9 L (11.5-15.4) g/dL Hct 30.6 L 30.2 L (35.3-44.9) % Plt Count 317 (140-400) K/mcL Neutrophils # 8.2 (1.6-8.9) K/mcL BMP 04/21/19 08:20 Sodium 142 Potassium 4.6 Chloride 101 Carbon Dioxide 34 H BUN 51 H Creatinine 0.80 Glucose 94 Calcium 8.8 - ABG Interpretation ABG results: PT/INR, D-dimer PT 12.1 Seconds (9.4-12.1) 04/11/19 07:01 <Tere Chapman - Last Filed: 04/21/19 16:22> (2) Acute CHF (congestive heart failure) Qualifiers: Heart failure type: systolic Qualified Code(s): I50.21 - Acute systolic (congestive) heart failure (4) Atrial fibrillation Qualifiers: Atrial fibrillation type: persistent Qualified Code(s): I48.1 - Persistent atrial fibrillation (5) Diabetes mellitus Qualifiers: Diabetes mellitus type: type 2 Diabetes mellitus fci insulin use: without fci use Diabetes mellitus complication status: without complication Qualified Code(s): E11.9 - Type 2 diabetes mellitus without complications <Martha Maldonado - Last Filed: 04/21/19 17:32> (2) Acute CHF (congestive heart failure) Qualifiers: Heart failure type: systolic Qualified Code(s): I50.21 - Acute systolic (congestive) heart failure
[2019-04-22] MEDS: Insulin LISPRO 300 UNITS/3 ML VIAL SQ SCH ×3 (00:46→14:39)
[2019-04-22] MEDS: Levalbuterol Neb 0.63 MG/3 ML IH SCH ×3 (03:45→16:03)
[2019-04-22 06:14] LABS: Basophils % 0.4 %; Eosinophils # 0.1 K/mcL (0.0-0.6); Eosinophils % 1.3 %; Hematocrit 28.3 % (35.3-44.9); Hemoglobin 8.4 g/dL (11.5-15.4); Immature Granulocytes % 0.5 % (0-4); Lymphocytes # 1.7 K/mcL (0.6-4.6); Lymphocytes % 16.4 %; Mean Corpuscular HGB Conc 29.7 g/dL (31.6-35.5); Mean Corpuscular Hemoglobin 23.1 pg (28.0-33.3); Mean Platelet Volume 10.8 fL (9.4-12.4); Monocytes # 1.1 K/mcL (0.0-1.3); Monocytes % 10.2 %; Neutrophils # 7.6 K/mcL (1.6-8.9); Platelet Count 293 K/mcL (140-400); Red Blood Count 3.63 M/mcL (3.82-4.97); Segmented Neutrophils % 71.2 %; White Blood Count 10.6 K/mcL (4.3-11.1)
[2019-04-22 06:33] LABS: BUN/Creatinine Ratio 60 (6-26); Blood Urea Nitrogen 53 mg/dL (8-23); Calcium 8.9 mg/dL (8.6-10.3); Carbon Dioxide 32 mEq/L (23-29); Chloride 103 mEq/L (98-107); Glucose 116 mg/dL (70-105); Osmolality,Calculated 311 (280-300); Potassium 4.9 mEq/L (3.5-5.1); Sodium 143 mEq/L (136-145); eGFR For African Americans > 60 (> 60); eGFR For Non-African Americans > 60 (> 60)
[2019-04-22] MEDS: Magnesium Oxide 400 MG TABLET PO SCH (10:13)
[2019-04-22] MEDS: Metoprolol XL (24 HR) Succ 25 MG TAB.ER.24H PO SCH (10:13)
[2019-04-22] MEDS: Furosemide 20 MG TABLET PO SCH (10:13)
[2019-04-22] MEDS: predniSONE 10 MG TABLET PO SCH (10:13)
[2019-04-22] MEDS: Ipratropium Neb 0.5 MG NEBULIZER IH PRN ×2 (10:31→16:03)
[2019-04-22 11:38] VITALS: BP 100/75
[2019-04-22] MEDS: *HR* HYDROcodone/Acet 5/325 mg TABLET PO PRN (15:24)
--- NOTE | 2019-04-22 16:22 | Discharge Summary ---
- NOTES TO OUTPATIENT PROVIDER Notes to Outpatient Provider: Admitted with rapid a fib and new CHF with EF 30%. LHC nonischemic. Had persistent R pleural effusion - ultimately had Pleurx catheter placed. Developed bleeding - urine and pleural fluid. Anticoagulation stopped. Pain control has been an issue with low BP. Date of Encounter: 04/22/19 Time of Encounter: 14:00 - Discharge Diagnosis (1) Pleural effusion Priority: Secondary Status: Chronic (2) Acute CHF (congestive heart failure) Priority: Primary Status: Acute Qualifiers: Heart failure type: systolic Qualified Code(s): I50.21 - Acute systolic (congestive) heart failure (3) Acute respiratory failure with hypoxia Priority: Primary Status: Suspected (4) Atrial fibrillation Priority: Secondary Status: Chronic Qualifiers: Atrial fibrillation type: persistent Qualified Code(s): I48.1 - Persistent atrial fibrillation (5) Diabetes mellitus Priority: Secondary Status: Chronic Qualifiers: Diabetes mellitus type: type 2 Diabetes mellitus chcf insulin use: without chcf use Diabetes mellitus complication status: without complication Qualified Code(s): E11.9 - Type 2 diabetes mellitus without complications (6) NSTEMI (non-ST elevated myocardial infarction) Priority: Primary Status: Acute (7) Gross hematuria Priority: Secondary Status: Resolved (8) Hemothorax Priority: Secondary Status: Acute (9) Hypertension Priority: Secondary Status: Chronic Qualifiers: Hypertension type: essential hypertension Qualified Code(s): I10 - Essential (primary) hypertension (10) Hypokalemia Priority: Secondary Status: Resolved Hospital course: Ms. Harden is a 73 year old female presented to ED with tachycardia. Found to be in a fib and admitted. Ms Harden was admitted with new rapid a fib. She was treated with medication and rate controlled. She was started on heparin drip. Echo showed EF 30% and she was evaluated by cardiology. She had significant issues with hypoxia and could not lie flat. She had persistent R pleural effusion and had 2 thoracenteses and ultimately Pleurx catheter. She was diuresed as well. She ultimately had LHC which was nonischemic. Post catheter placement she had issues with small PTX which resolved. She was switched to Eliquis and had hematuria. She also had issues with hemothorax. Anticoagulation and ASA stopped. Her BP was low limiting the pain meds she could obtain. Today she is afebrile. Her BP has improved. She is accepted for SNF. She will hold ASA till sees Dr. Titus. Pleurx can be drained next week or at follow up visit. She is to follow with urology for outpatient cystoscopy. Discharge discussed with: patient - Time Spent with Patient Total time spent providing and/or coordinating discharge services: 42min - Discharge Medications Prescriptions: New Atorvastatin [Lipitor] 40 mg PO HS tablet Metoprolol XL (24 HR) Succ [Toprol Xl] 25 mg PO BID tab.er.24h Acetaminophen [Tylenol] 650 mg PO Q6HR PRN tablet PRN Reason: Pain Levalbuterol Neb [Xopenex Neb] 0.63 mg IH [id number] vial.neb Lisinopril [Zestril] 2.5 mg PO DAILY tablet Ipratropium Neb [Atrovent Neb] 0.5 mg IH [id number] PRN inhsol PRN Reason: Shortness Of Breath/Wheezing Saline Nasal [place] [[place] Nasal [place]] 2 spray NS Q2H PRN bottle PRN Reason: Congestion Magnesium Oxide [Mag-Ox] 400 mg PO DAILY tablet Polyethylene Glycol 3350 [MiraLAX] 17 gm PO DAILY PRN powd.pack PRN Reason: Constipation Lidocaine Patch [Lidoderm 5% patch] 1 each TP DAILY adh..patch Continued Furosemide [Lasix] 20 mg PO DAILY hydrOXYzine pamoate [Hydroxyzine Pamoate] 25 mg PO DAILY Montelukast [Singulair] 10 mg PO HS predniSONE [PredniSONE] 10 mg PO DAILY Sertraline [Zoloft] 100 mg PO DAILY Hydrocodone/Acetaminophen [[place] 10-325 Tablet] 1 tab PO Q6H PRN 2 Days #5 tablet PRN Reason: Pain Discontinued Albuterol Neb [Proventil Neb] 2.5 mg IH Q6H PRN PRN Reason: Shortness Of Breath Albuterol Sulfate [Proventil] 4 mg PO DAILY Albuterol Sulfate [Proventil Inhaler] 2 puff IH Q4-6H PRN PRN Reason: Shortness Of Breath Benazepril HCl 10 mg PO DAILY Home Medications: Furosemide [Lasix] 20 mg PO DAILY 04/03/19 [History] Montelukast [Singulair] 10 mg PO HS 04/03/19 [History] Sertraline [Zoloft] 100 mg PO DAILY 04/03/19 [History] hydrOXYzine pamoate [Hydroxyzine Pamoate] 25 mg PO DAILY 04/03/19 [History] predniSONE [PredniSONE] 10 mg PO DAILY 04/03/19 [History] Acetaminophen [Tylenol] 650 mg PO Q6HR PRN tablet 04/22/19 [Rx] Atorvastatin [Lipitor] 40 mg PO HS tablet 04/22/19 [Rx] Hydrocodone/Acetaminophen [[place] 10-325 Tablet] 1 tab PO Q6H PRN 2 Days #5 tablet 04/22/19 [Rx] Ipratropium Neb [Atrovent Neb] 0.5 mg IH [id number] PRN inhsol 04/22/19 [Rx] Levalbuterol Neb [Xopenex Neb] 0.63 mg IH [id number] vial.neb 04/22/19 [Rx] Lidocaine Patch [Lidoderm 5% patch] 1 each TP DAILY adh..patch 04/22/19 [Rx] Lisinopril [Zestril] 2.5 mg PO DAILY tablet 04/22/19 [Rx] Magnesium Oxide [Mag-Ox] 400 mg PO DAILY tablet 04/22/19 [Rx] Metoprolol XL (24 HR) Succ [Toprol Xl] 25 mg PO BID tab.er.24h 04/22/19 [Rx] Polyethylene Glycol 3350 [MiraLAX] 17 gm PO DAILY PRN powd.pack 04/22/19 [Rx] Saline Nasal [place] [[place] Nasal [place]] 2 spray NS Q2H PRN bottle 04/22/19 [Rx] Allergies/Adverse Reactions: Allergy/AdvReac Type Severity Reaction Status Date / Time sulfamethoxazole AdvReac Swelling Verified 04/03/19 18:10 [From Bactrim] of the Eye trimethoprim [From Bactrim] AdvReac Swelling Verified 04/03/19 18:10 of the Eye Date of admission: 04/02/19 16:41 Primary care physician: Homero Rondon MD Consults: 04/02/19 14:47 Consult to Interventional Radiology [CONS] Stat Consulting Provider: Radiology Interventional Cols Reason for Consult: Pleural Effusion Time Notified: 14:47 Call Completed: Yes 04/02/19 23:35 Consult to Material Control Associate [CONS] Routine Reason for SW Consult: Lives alone, frequent falls 04/03/19 14:32 Consult to Cardiology [CONS] Routine Comment: Consulting Provider: Cardiology Robinson Reason for Consult: New afib and New CHF, LVEF 20-25%. No documented history. Call Completed: Yes 04/03/19 16:05 Consult to Nurse Navigator [CONS] Routine Comment: New dx CHF 04/09/19 11:26 Consult to Pulmonology [CONS] Routine Consulting Provider: Pulm Crit Care & Sleep Robinson Reason for Consult: Acute hypoxic respiratory failure likely 2/2 COPD exacerbation vs. newly discovered systolic heart failure. Persistent R sided pleural effusion s/p 2 thoracenteses this visit. LHC cannot be completed 2/2 hypoxia when supine. Call Completed: No 04/15/19 10:39 Consult to Occupational Therapy [CONS] Routine Comment: Evaluate, develop and implement POC Reason for Consult: deconditioning Does patient have active BEDREST order?: No Is patient medically & hemodynamically stable?: Yes Consult to Physical Therapy [CONS] Routine Comment: Evaluate, develop and implement POC Reason for Consult: deconditioning Does patient have active BEDREST order?: No Is patient medically & hemodynamically stable?: Yes Patient assessed for mobility or mobilized this visit?: No 04/16/19 15:09 Consult to Urology [CONS] Routine Consulting Provider: Urology Eileen Reason for Consult: hematuria in setting of anticoagulation therapy Call Completed: Yes - Constitutional Vitals: Temp Pulse Resp BP Pulse Ox 97.6 F 127 16 100/75 97 04/22/19 11:36 04/22/19 11:36 04/22/19 16:04 04/22/19 11:36 04/22/19 16:04 General appearance: Present: A&O X 3, answers questions appropriately Exam: See below - Head Head exam: Present: normocephalic - Eye Eye exam: Present: EOMI, conjuntiva pink - ENT ENT exam: Present: mucous membranes moist - Neck Neck exam general surgery: Present: normal inspection, supple - Respiratory Respiratory exam: Present: decreased breath sounds. Absent: rales, rhonchi, wheezes - Cardiovascular Cardiovascular exam: Present: irregular rhythm. Absent: tachycardia - GI/Abdominal GI/Abdominal exam: Present: soft. Absent: tenderness - Extremities Exam Extremities exam: Present: warm. Absent: tenderness - Back Exam Additional comments: Pleurx drain R posterior chest - Neurological Exam Neurological exam: Present: alert, oriented X3 - Skin Skin exam: Present: dry, warm. Absent: rash - Patient Status Disposition: Transfer SNF Condition: Fair Functional capacity at discharge: uses cane/walker Overall status at discharge: patient is progressing back to baseline - Discharge Instructions Follow Up With: Homero Rondon MD [Primary Care Provider] - Sheridan Titus MD [Partnered Physician] - 05/04/19 2:20 pm - Diet and Activity Activity: as per physical therapy, increase activity as tolerated Diet: low fat, low cholesterol, low salt diet
--- NOTE | 2019-04-22 16:31 | Physician Discharge Referral ---
ExtendedCare Referral Info Provider in Charge after Transfer: PCP Institutional Level of Care: Skilled - Diagnosis (1) Pleural effusion Priority: Secondary Status: Chronic (2) Acute CHF (congestive heart failure) Priority: Primary Status: Acute (3) Acute respiratory failure with hypoxia Priority: Primary Status: Suspected (4) Atrial fibrillation Priority: Secondary Status: Chronic (5) Diabetes mellitus Priority: Secondary Status: Chronic (6) NSTEMI (non-ST elevated myocardial infarction) Priority: Secondary Status: Acute (7) Gross hematuria Priority: Secondary Status: Resolved (8) Cardiomyopathy Priority: Secondary Status: Acute (9) Hemothorax Priority: Secondary Status: Acute (10) Hypertension Priority: Secondary Status: Chronic Prognosis: Fair Aware of Diagnosis: Patient, Family Aware of Prognosis: Patient, Family - Transfer Medications Prescriptions: Hydrocodone/Acetaminophen [[place] 10-325 Tablet] 1 tab PO Q6H PRN 2 Days #5 tablet PRN Reason: Pain Home Medications: Furosemide [Lasix] 20 mg PO DAILY 04/03/19 [History] Montelukast [Singulair] 10 mg PO HS 04/03/19 [History] Sertraline [Zoloft] 100 mg PO DAILY 04/03/19 [History] hydrOXYzine pamoate [Hydroxyzine Pamoate] 25 mg PO DAILY 04/03/19 [History] predniSONE [PredniSONE] 10 mg PO DAILY 04/03/19 [History] Acetaminophen [Tylenol] 650 mg PO Q6HR PRN tablet 04/22/19 [Rx] Atorvastatin [Lipitor] 40 mg PO HS tablet 04/22/19 [Rx] Hydrocodone/Acetaminophen [[place] 10-325 Tablet] 1 tab PO Q6H PRN 2 Days #5 tablet 04/22/19 [Rx] Ipratropium Neb [Atrovent Neb] 0.5 mg IH [id number] PRN inhsol 04/22/19 [Rx] Levalbuterol Neb [Xopenex Neb] 0.63 mg IH [id number] vial.neb 04/22/19 [Rx] Lidocaine Patch [Lidoderm 5% patch] 1 each TP DAILY adh..patch 04/22/19 [Rx] Lisinopril [Zestril] 2.5 mg PO DAILY tablet 04/22/19 [Rx] Magnesium Oxide [Mag-Ox] 400 mg PO DAILY tablet 04/22/19 [Rx] Metoprolol XL (24 HR) Succ [Toprol Xl] 25 mg PO BID tab.er.24h 04/22/19 [Rx] Polyethylene Glycol 3350 [MiraLAX] 17 gm PO DAILY PRN powd.pack 04/22/19 [Rx] Saline Nasal [place] [[place] Nasal [place]] 2 spray NS Q2H PRN bottle 04/22/19 [Rx] Allergies/Adverse Reactions: Allergy/AdvReac Type Severity Reaction Status Date / Time sulfamethoxazole AdvReac Swelling Verified 04/03/19 18:10 [From Bactrim] of the Eye trimethoprim [From Bactrim] AdvReac Swelling Verified 04/03/19 18:10 of the Eye - Respiratory Orders Oxygen / L per min (4 liters continuous) Smoking Cessation: Smoking cessation has been advised. For more information, call the [place] Tobacco Quit Line at 5-859-OIGN-NOW. - Lab Orders Lab Orders: CBC, [place] 17 - Ancillary Orders May use pressure relief devices daily prn, May consult with Dentist, Management Psychologist, Management Trainee PRN - Advance Directives Code Status: Full Code - Mobility Orders Chair, Ambulate - Rehabiliation Orders Rehab Potential: Fair Rehab Orders: Evaluation for Physical Therapy, Evaluation for Occupational Therapy - Treatments Skin tear care topically daily PRN per policy, May check for fecal impaction rectally daily PRN, Fleet enema rectally every other day PRN cleansing purposes List/Other: Pleurx care per routine. Hold ASA still seen by Dr. Titus in office. Drain Pleurx next week. - Diet Orders No Added Salt (OLEKSANDR), Cardiac CERTIFICATION: I certify that the transfer of the above named patient to an Extended Care Facility is necessary for the continuing treatment of the diagnosis listed. The above information is true and accurate reflection of patient's current conditi on. Confidential - Redisclosure prohibited without a patient's written consent.
== END 2019-04-22 19:00 | DRG 280 ==
LOC: EMEROOARM 14:16 → 2NENU 16:41 → SUATTDRO 16:41 → 2NENU 18:14
PROVIDERS: ADMIT Internal Medicine; ATTEND Internal Medicine

== ENCOUNTER 2019-06-15 13:04 | Inpatient (IN) ==
[2019-06-15] MEDS ORDERED: Isovue-370 500 ML BOTTLE IVP ONE (13:27)
--- NOTE | 2019-06-15 13:52 | Emergency Department Note ---
Disposition Clinical Impression: NSTEMI (non-ST elevated myocardial infarction), Acute renal insufficiency, Elevated troponin Atrial fibrillation Qualifiers: Atrial fibrillation type: unspecified Qualified Code(s): I48.91 - Unspecified atrial fibrillation Disposition: Admitted As Inpatient Condition: Fair Time of Disposition: 16:13 Fall HPI - General Chief Complaint: ED Fall Stated Complaint: fall Time Seen by Provider: 06/15/19 13:08 Source: patient Limitations: no limitations Nursing Notes Reviewed: Yes Vital Signs Reviewed: Yes - History of Present Illness HPI Narrative: Patient is a 73-year-old female with a past medical history of atrial fibrillation (prev on Eliquis, now stopped), HFrEF (LVEF 30%, [facility] nonischemic 03/2019), T2DM, COPD, hypertension presented after a fall at home. Patient was sitting on a recliner and was attempting to get out when she slipped and fell. She denies any head trauma, denies any loss of consciousness. She was previously on Eliquis. Patient was down for about 12 hours before she was found with family. She did not endorse any prodromal symptoms including chest pain, palpitations, syncope. In addition, patient endorses a headache, left shoulder pain, left hip pain, lumbar back pain. Otherwise denies any nausea, vomiting, fevers, chills. No numbness or weakness. Patient was recently admitted for new atrial fibrillation, new heart failure with reduced ejection fraction. She had a significant pleural effusion and had 2 thoracenteses. Pleurx catheter placed. During admission she was diuresed. [facility] nonischemic, on medical therapy. Eliquis was stopped after she developed a PTX transitioned to a hemothorax. - Related Data Home Medications Medication Instructions Recorded Confirmed Furosemide [Lasix] 20 mg PO DAILY 04/03/19 06/15/19 Montelukast [Singulair] 10 mg PO HS 04/03/19 06/15/19 Sertraline [Zoloft] 100 mg PO DAILY 04/03/19 06/15/19 hydrOXYzine pamoate [Hydroxyzine 25 mg PO DAILY 04/03/19 06/15/19 Pamoate] predniSONE [PredniSONE] 10 mg PO DAILY 04/03/19 06/15/19 Previous Rx's Medication Instructions Recorded Acetaminophen [Tylenol] 650 mg PO Q6HR PRN tablet 04/22/19 Hydrocodone/Acetaminophen [[place] 1 tab PO Q6H PRN 2 Days #5 tablet 04/22/19 10-325 Tablet] Ipratropium Neb [Atrovent Neb] 0.5 mg IH [id number] PRN inhsol 04/22/19 Levalbuterol Neb [Xopenex Neb] 0.63 mg IH [id number] vial.neb 04/22/19 Lisinopril [Zestril] 2.5 mg PO DAILY tablet 04/22/19 Magnesium Oxide [Mag-Ox] 400 mg PO DAILY tablet 04/22/19 Metoprolol XL (24 HR) Succ [Toprol 25 mg PO BID tab.er.24h 04/22/19 Xl] Saline Nasal [place] [[place] Nasal 2 spray NS Q2H PRN bottle 04/22/19 [place]] Allergies Allergy/AdvReac Type Severity Reaction Status Date / Time sulfamethoxazole AdvReac Swelling Verified 06/15/19 16:52 [From Bactrim] of the Eye trimethoprim [From Bactrim] AdvReac Swelling Verified 06/15/19 16:52 of the Eye All systems ED: reviewed and negative except as stated. Review of Systems: As Per HPI Constitutional: Denies: fever, chills, weakness Eyes: Denies: eye pain, eye discharge, vision change ENT ED: Denies: ear pain, throat pain, dental pain Cardiovascular: Denies: chest pain, palpitations, dyspnea on exertion Respiratory: Denies: cough, dyspnea, wheezes Gastrointestinal: Denies: abdominal pain, nausea, vomiting Genitourinary: Denies: urgency, dysuria, frequency Musculoskeletal: Reports: back pain. Denies: neck pain, joint swelling Integumentary: Denies: rash, abrasion, lesions Neurological: Reports: headache. Denies: weakness, numbness Psychiatric: Denies: anxiety, depression, suicidal thoughts Endocrine: Denies: fatigue, heat or cold intolerance, polydipsia Hematological/Lymphatic: Denies: easy bleeding, easy bruising, lymphadenopathy Fall PMH - Past Medical History Medical history: Reports: arthritis, atrial fibrillation, COPD, hypertension Psychiatric history: Reports: no psych history - Social History Smoking Status: Former smoker Alcohol use: Reports: none Drug use: Reports: none Physical Exam GEN: Well-appearing, NAD, conversant. HEAD: Normocephalic, atraumatic. EYES: PERRL, EOMI, anicteric. Right pupil nonreactive, teardrop shape, hx of cataract surgery. ENT: MMM. oropharynx without erythema or drainage. NECK: Supple. No LAD. No stiffness or restricted ROM. No tracheal deviation. HEART: Regular rate and regular rhythm, normal S1/S2, no m/r/g. LUNGS: CTAB, good air exchange bilaterally. No wheezing, rubs, or rhonchi. Dressing over catheter over R back; C/D/I. ABDO: Soft, nontender, nondistended with active bowel sounds. : No suprapubic tenderness or CVA tenderness. BACK: No obvious stepoffs or deformities. EXT: Without cyanosis, clubbing or edema. SKIN: Warm and dry without any rash. NEURO: Grossly nonfocal. Alert and oriented, moving all 4 extremities. CN not formally tested but appear grossly intact. Strength 5 out of 5 in both upper and lower extremities. MSK: Left shoulder tenderness, left hip tenderness with passive range of motion. PSYCH: Normal affect, no depressed or anxious mood. - General Limitations: no limitations General appearance: alert, in no apparent distress Course Course Narrative: Patient was seen and examined. Vital signs are within normal limits. Exam is notable for left shoulder, back, left hip pain. Due to the prolonged time found down and also recent history of eliquis use, head CT was obtained. X-rays of the chest, left hip, lumbar spine were also obtained. CBC, CMP, CPK. Troponins, EKG. Laboratory evaluation was significant for a white count of 14, creatinine elevation indicating acute kidney injury. Troponin was also elevated at 0.34, however the patient has had multiple troponins in the past that were elevated at 0.4. She did not have any chest pain or acute ischemic changes on EKG. A CK level was 111, low concern for rhabdomyolysis. A head CT was completed which showed no acute intracranial abnormality. Chest x-ray showed no acute abnormalities, but did redemonstrate right pleural drain that was intact. No hemo-or pneumothorax. A hip x-ray showed no acute osseous abnormalities. However a lumbar x-ray did show signs suggestive of a potential sacral fracture. A CT scan of the lumbar spine was obtained which did not show any sacral fracture. At this time patient was admitted to the hospital for L[place] and leukocytosis as well as elevated troponins. Admission was discussed with the patient and her family. Of note, the patient is under hospice care however her medical issues are readily treatable and would be amenable for admission. She was accepted for admission by the hospitalist. Vital Signs Temperature 96.7 F L 06/15/19 13:07 Pulse Rate 106 06/15/19 13:07 Respiratory Rate 18 06/15/19 13:07 Blood Pressure 106/76 06/15/19 13:07 O2 Sat by Pulse Oximetry 100 06/15/19 13:07 Temperature 96.7 F L 06/15/19 13:07 Pulse Rate 105 06/15/19 14:36 Respiratory Rate 19 06/15/19 14:36 Blood Pressure 116/71 06/15/19 14:36 O2 Sat by Pulse Oximetry 92 06/15/19 14:36 Oxygen Delivery Oxygen Delivery Nasal Cannula Fall - Medical Records Medical records reviewed: Yes I reviewed the patient's medical records. - Lab Data Lab results reviewed: Yes I reviewed the patient's lab results. Result diagrams: 06/15/19 13:39 06/15/19 13:39 Lab Results 06/15/19 06/15/19 06/15/19 Range/Units 13:39 13:39 16:17 WBC 14.8 H (4.3-11.1) K/mcL RBC 4.91 (3.82-4.97) M/mcL Hgb 10.8 L (11.5-15.4) g/dL Hct 36.5 (35.3-44.9) % MCV 74.3 L (83.0-100.0) fL MCH 22.0 L (28.0-33.3) pg MCHC 29.6 L (31.6-35.5) g/dL RDW 21.3 H (11.5-14.5) % Plt Count 548 H (140-400) K/mcL MPV 10.0 (9.4-12.4) fL Immature Gran % 3.1 (0-4) % Seg Neutrophils % 85.0 % Lymphocytes % 4.7 % Monocytes % 6.7 % Eosinophils % 0.0 % Basophils % 0.5 % Neutrophils # 12.6 H (1.6-8.9) K/mcL Lymphocytes # 0.7 (0.6-4.6) K/mcL Monocytes # 1.0 (0.0-1.3) K/mcL Eosinophils # 0.0 (0.0-0.6) K/mcL Basophils # 0.1 (0.0-0.2) K/mcL Nucleated RBCs/100 WBC 1.6 H (0) /100 WBC Sodium 139 (136-145) mEq/L Potassium 5.0 (3.5-5.1) mEq/L Chloride 100 (98-107) mEq/L Carbon Dioxide 28 (23-29) mEq/L BUN 41 H (8-23) mg/dL Creatinine 1.52 H (0.60-1.20) mg/dL Est GFR ( Amer) 40 L (> 60) Est GFR (Non-Af Amer) 33 L (> 60) BUN/Creatinine Ratio 27 H (6-26) Glucose 137 H (70-105) mg/dL Calculated Osmolality 300 (280-300) Lactic Acid (0.5-2.2) mmol/L Calcium 8.8 (8.6-10.3) mg/dL Total Bilirubin 1.4 H (0.3-1.0) mg/dL AST 53 H (13-39) Units/L ALT 25 (7-52) Units/L Alkaline Phosphatase 112 H (34-104) Units/L Creatine Kinase 114 (30-223) Units/L Troponin I 0.34 H* (< 0.04) ng/mL Serum Total Protein 5.9 L (6.4-8.9) g/dL Albumin 3.2 L (3.5-5.7) g/dL Globulin 2.7 (2.4-3.5) g/dL Albumin/Globulin Ratio 1.2 (1.1-2.2) Urine Color Dark Yellow (Yellow) Urine Clarity Cloudy A (Clear) Urine pH 5.5 (5.0-8.0) pH Units Ur Specific [place] 1.024 (1.010-1.025) Urine Protein 30 H (Neg-Trace) mg/dL Urine Glucose (UA) Normal (Normal) mg/dL Urine Ketones Trace H (Negative) mg/dL Urine Blood Negative (Negative) Urine Nitrite Negative (Negative) Urine Bilirubin Moderate H (Negative) Urine Urobilinogen Normal (Normal) mg/dL Ur Leukocyte Esterase Moderate H (Negative) Urine Microscopic RBC 0-3 (0-3) per hpf Urine Microscopic WBC 5-15 H (0-3) per hpf Ur Squamous Epith Cells Moderate H (None-Few) per lpf Urine Bacteria Few (None-Few) per hpf Hyaline Casts Many H (None-Few) per lpf Ur Culture Indicated? YES A (NO) 06/15/19 Range/Units 16:34 WBC (4.3-11.1) K/mcL RBC (3.82-4.97) M/mcL Hgb (11.5-15.4) g/dL Hct (35.3-44.9) % MCV (83.0-100.0) fL MCH (28.0-33.3) pg MCHC (31.6-35.5) g/dL RDW (11.5-14.5) % Plt Count (140-400) K/mcL MPV (9.4-12.4) fL Immature Gran % (0-4) % Seg Neutrophils % % Lymphocytes % % Monocytes % % Eosinophils % % Basophils % % Neutrophils # (1.6-8.9) K/mcL Lymphocytes # (0.6-4.6) K/mcL Monocytes # (0.0-1.3) K/mcL Eosinophils # (0.0-0.6) K/mcL Basophils # (0.0-0.2) K/mcL Nucleated RBCs/100 WBC (0) /100 WBC Sodium (136-145) mEq/L Potassium (3.5-5.1) mEq/L Chloride (98-107) mEq/L Carbon Dioxide (23-29) mEq/L BUN (8-23) mg/dL Creatinine (0.60-1.20) mg/dL Est GFR ( Amer) (> 60) Est GFR (Non-Af Amer) (> 60) BUN/Creatinine Ratio (6-26) Glucose (70-105) mg/dL Calculated Osmolality (280-300) Lactic Acid 1.5 (0.5-2.2) mmol/L Calcium (8.6-10.3) mg/dL Total Bilirubin (0.3-1.0) mg/dL AST (13-39) Units/L ALT (7-52) Units/L Alkaline Phosphatase (34-104) Units/L Creatine Kinase (30-223) Units/L Troponin I (< 0.04) ng/mL Serum Total Protein (6.4-8.9) g/dL Albumin (3.5-5.7) g/dL Globulin (2.4-3.5) g/dL Albumin/Globulin Ratio (1.1-2.2) Urine Color (Yellow) Urine Clarity (Clear) Urine pH (5.0-8.0) pH Units Ur Specific [place] (1.010-1.025) Urine Protein (Neg-Trace) mg/dL Urine Glucose (UA) (Normal) mg/dL Urine Ketones (Negative) mg/dL Urine Blood (Negative) Urine Nitrite (Negative) Urine Bilirubin (Negative) Urine Urobilinogen (Normal) mg/dL Ur Leukocyte Esterase (Negative) Urine Microscopic RBC (0-3) per hpf Urine Microscopic WBC (0-3) per hpf Ur Squamous Epith Cells (None-Few) per lpf Urine Bacteria (None-Few) per hpf Hyaline Casts (None-Few) per lpf Ur Culture Indicated? (NO) - Radiology Data Radiology results reviewed: Yes I reviewed the patient's radiology results. - EKG Data EKG attestation: Yes I reviewed and interpreted this EKG. EKG results narrative: EKG obtained at 13.44. She has atrial fibrillation. No axis deviation, no evidence of hypertrophy, no ischemic changes. Prior from 04/07/2019. Attestation Statement - Attestation Attestation: I, Nabil Mathis DO, examined this patient [id number] and my medical decision-making was reviewed with Bradley Nash MD, Resident Physician. I agree with the documented findings, disposition and treatment plan as described except to the extent set forth below. I personally supervised and was present for the pacheco/critical portions of the procedures completed by the resident documented below. Please see my progress notes for details.
[2019-06-15 13:55] LABS: Basophils # 0.1 K/mcL (0.0-0.2); Basophils % 0.5 %; Hematocrit 36.5 % (35.3-44.9); Hemoglobin 10.8 g/dL (11.5-15.4); Immature Granulocytes % 3.1 % (0-4); Lymphocytes # 0.7 K/mcL (0.6-4.6); Lymphocytes % 4.7 %; Mean Corpuscular HGB Conc 29.6 g/dL (31.6-35.5); Mean Corpuscular Volume 74.3 fL (83.0-100.0); Monocytes % 6.7 %; Neutrophils # 12.6 K/mcL (1.6-8.9); Nucleated Red Blood Cells 1.6 /100 WBC (0); Platelet Count 548 K/mcL (140-400); Red Blood Count 4.91 M/mcL (3.82-4.97); Red Cell Distribution Width 21.3 % (11.5-14.5); White Blood Count 14.8 K/mcL (4.3-11.1)
[2019-06-15 14:15] LABS: Albumin 3.2 g/dL (3.5-5.7); Albumin/Globulin Ratio 1.2 (1.1-2.2); Bilirubin,Total 1.4 mg/dL (0.3-1.0); Calcium 8.8 mg/dL (8.6-10.3); Globulin 2.7 g/dL (2.4-3.5); Total Protein 5.9 g/dL (6.4-8.9)
[2019-06-15 14:26] LABS: Troponin I 0.34 ng/mL (< 0.04)
[2019-06-15] MEDS ORDERED: Aspirin 81 MG TAB.CHEW PO STA (14:30)
--- NOTE | 2019-06-15 14:30 | Emergency Department Note ---
Disposition Clinical Impression: NSTEMI (non-ST elevated myocardial infarction), Atrial fibrillation, Acute renal insufficiency, Elevated troponin Disposition: Admitted As Inpatient Condition: Good Forms: ED Satisfaction Letter Time of Disposition: 15:58 General Adult HPI - General Chief complaint: ED Fall Stated complaint: fall Time Seen by Provider: 06/15/19 13:08 Source: patient Limitations: no limitations - History of Present Illness Pain Scale: 6 - Related Data Home Medications Medication Instructions Recorded Confirmed Furosemide [Lasix] 20 mg PO DAILY 04/03/19 04/03/19 Montelukast [Singulair] 10 mg PO HS 04/03/19 04/03/19 Sertraline [Zoloft] 100 mg PO DAILY 04/03/19 04/03/19 hydrOXYzine pamoate [Hydroxyzine 25 mg PO DAILY 04/03/19 04/03/19 Pamoate] predniSONE [PredniSONE] 10 mg PO DAILY 04/03/19 04/03/19 Previous Rx's Medication Instructions Recorded Acetaminophen [Tylenol] 650 mg PO Q6HR PRN tablet 04/22/19 Atorvastatin [Lipitor] 40 mg PO HS tablet 04/22/19 Hydrocodone/Acetaminophen [[place] 1 tab PO Q6H PRN 2 Days #5 tablet 04/22/19 10-325 Tablet] Ipratropium Neb [Atrovent Neb] 0.5 mg IH [id number] PRN inhsol 04/22/19 Levalbuterol Neb [Xopenex Neb] 0.63 mg IH [id number] vial.neb 04/22/19 Lidocaine Patch [Lidoderm 5% patch] 1 each TP DAILY adh..patch 04/22/19 Lisinopril [Zestril] 2.5 mg PO DAILY tablet 04/22/19 Magnesium Oxide [Mag-Ox] 400 mg PO DAILY tablet 04/22/19 Metoprolol XL (24 HR) Succ [Toprol 25 mg PO BID tab.er.24h 04/22/19 Xl] Polyethylene Glycol 3350 [MiraLAX] 17 gm PO DAILY PRN powd.pack 04/22/19 Saline Nasal [place] [[place] Nasal 2 spray NS Q2H PRN bottle 04/22/19 [place]] Allergies Allergy/AdvReac Type Severity Reaction Status Date / Time sulfamethoxazole AdvReac Swelling Verified 04/03/19 18:10 [From Bactrim] of the Eye trimethoprim [From Bactrim] AdvReac Swelling Verified 04/03/19 18:10 of the Eye Constitutional: Denies: fever, chills, weakness Eyes: Denies: eye pain, eye discharge, vision change ENT ED: Denies: ear pain, throat pain, dental pain Cardiovascular: Denies: chest pain, palpitations, dyspnea on exertion Respiratory: Denies: cough, dyspnea, wheezes Gastrointestinal: Denies: abdominal pain, nausea, vomiting Genitourinary: Denies: urgency, dysuria, frequency Musculoskeletal: Reports: back pain. Denies: neck pain, joint swelling Integumentary: Denies: rash, abrasion, lesions Neurological: Reports: headache. Denies: weakness, numbness Psychiatric: Denies: anxiety, depression, suicidal thoughts Endocrine: Denies: fatigue, heat or cold intolerance, polydipsia Hematological/Lymphatic: Denies: easy bleeding, easy bruising, lymphadenopathy Past Medical History - Past Medical History Medical history: Reports: arthritis, atrial fibrillation, COPD, hypertension Psychiatric history: Reports: no psych history - Social History Smoking Status: Former smoker Smokeless Tobacco Status: No Alcohol use: Reports: none Drug use: Reports: none Physical Exam - General Limitations: no limitations General appearance: alert, in no apparent distress Course Vital Signs Temperature 96.7 F L 06/15/19 13:07 Pulse Rate 106 06/15/19 13:07 Respiratory Rate 18 06/15/19 13:07 Blood Pressure 106/76 06/15/19 13:07 O2 Sat by Pulse Oximetry 100 06/15/19 13:07 Temperature 96.7 F L 06/15/19 13:07 Pulse Rate 105 06/15/19 14:36 Respiratory Rate 19 06/15/19 14:36 Blood Pressure 116/71 06/15/19 14:36 O2 Sat by Pulse Oximetry 92 06/15/19 14:36 Oxygen Delivery Oxygen Delivery Nasal Cannula Medical Decision Making - Lab Data Result diagrams: 06/15/19 13:39 06/15/19 13:39 Lab Results 06/15/19 06/15/19 Range/Units 13:39 13:39 WBC 14.8 H (4.3-11.1) K/mcL RBC 4.91 (3.82-4.97) M/mcL Hgb 10.8 L (11.5-15.4) g/dL Hct 36.5 (35.3-44.9) % MCV 74.3 L (83.0-100.0) fL MCH 22.0 L (28.0-33.3) pg MCHC 29.6 L (31.6-35.5) g/dL RDW 21.3 H (11.5-14.5) % Plt Count 548 H (140-400) K/mcL MPV 10.0 (9.4-12.4) fL Immature Gran % 3.1 (0-4) % Seg Neutrophils % 85.0 % Lymphocytes % 4.7 % Monocytes % 6.7 % Eosinophils % 0.0 % Basophils % 0.5 % Neutrophils # 12.6 H (1.6-8.9) K/mcL Lymphocytes # 0.7 (0.6-4.6) K/mcL Monocytes # 1.0 (0.0-1.3) K/mcL Eosinophils # 0.0 (0.0-0.6) K/mcL Basophils # 0.1 (0.0-0.2) K/mcL Nucleated RBCs/100 WBC 1.6 H (0) /100 WBC Sodium 139 (136-145) mEq/L Potassium 5.0 (3.5-5.1) mEq/L Chloride 100 (98-107) mEq/L Carbon Dioxide 28 (23-29) mEq/L BUN 41 H (8-23) mg/dL Creatinine 1.52 H (0.60-1.20) mg/dL Est GFR ( Amer) 40 L (> 60) Est GFR (Non-Af Amer) 33 L (> 60) BUN/Creatinine Ratio 27 H (6-26) Glucose 137 H (70-105) mg/dL Calculated Osmolality 300 (280-300) Calcium 8.8 (8.6-10.3) mg/dL Total Bilirubin 1.4 H (0.3-1.0) mg/dL AST 53 H (13-39) Units/L ALT 25 (7-52) Units/L Alkaline Phosphatase 112 H (34-104) Units/L Creatine Kinase 114 (30-223) Units/L Troponin I 0.34 H* (< 0.04) ng/mL Serum Total Protein 5.9 L (6.4-8.9) g/dL Albumin 3.2 L (3.5-5.7) g/dL Globulin 2.7 (2.4-3.5) g/dL Albumin/Globulin Ratio 1.2 (1.1-2.2) Attestation Statement - Attestation Attestation: I, Nabil Mathis DO, examined this patient [id number] and my medical decision-making was reviewed with (Bradley Nash MD Resident Physician. I agree with the documented findings, disposition and treatment plan as described except to the extent set forth below. I personally supervised and was present for the pacheco/critical portions of the procedures completed by the resident documented below. Please see my progress notes for details. 73-year-old female presents emergency room by EMS for a fall. Patient was found sitting next to her chair in her home. She said out of her chair landing on her buttock and had described pain in her back and left hip. Patient has multiple medical issues including heart failure and right-sided pleural fusion. She does have a pleurodesis catheter in the right chest wall this time. Patient denies any other symptoms complaints or issues prior to these events. Currently she is denying chest pain shortness of breath fevers chills nausea vomiting or diarrhea. Patient is answering questions appropriately and appears to have appropriate cognitive ability on arrival here to the emergency room. Vital signs and workup during transport appear to be stable. Head is atraumatic. Pupils are equal and reactive. Extracted muscles are intact. Oropharynx is patent. Trachea is midline. Lungs are clear except for the affected area of the chest wall.. Heart is regular. Abdomen is soft. Pelvis is stable which is a tenderness over the left hip and leg. She does have limited range of motion secondary discomfort to the hip. She otherwise has no other visible signs of gross abnormality deformity or injury. Pleurodesis catheter and right-sided chest appears to be stable no redness warmth or abnormality noted on physical exam. Patient is otherwise in no specific distress. Imaging clinic CT imaging of the head chest x-ray plain films of the hips and pelvis will be completed this time. Screening labs including CBC chemistry troponin I to also be added on. Urinalysis to be collected as well. Disposition pending full workup and treatment course. EKG was reviewed by myself showing chronic atrial fibrillation with no signs of acute ischemic changes or abnormality. As to be documented in the resident physician's note. See detailed documentation the physical exam, medical intervention, medical decision-making disposition the resident physician's note. No critical care provider the patient's treatment course at this time. 1500 Possible sacral fracture noted on x-ray imaging of the pelvis. Otherwise no other acute etiology. Patient does have what appears to be acute renal insufficiency along with elevated troponin. Patient is still denying chest pain. Family is at the bedside we did discuss with them the presentation here today and they have said that the patient is not taking care of herself well at home. They were not otherwise concerned about any changes in her neurologic status. Patient will most likely require admission once remainder the workup is completed for the above-mentioned issues as well as social media assistant evaluation. [id number] Patient was discussed with the hospitalist Dr. Earl. Patient will be admitted for what appears to be acute renal insufficiency and elevated troponin. CT imaging the abdomen is still pending to rule out sacral fracture. Urinalysis and lactic acid will also added on considering the patient does have an elevated white blood cell count with no acute infectious source. Is most likely secondary to stress response from her being on the floor but we will address any other potential etiology at this time. Patient will be monitored here in the emergency Department of the admission process is completed. Patient is otherwise clinically stable.
[2019-06-15] MEDS ORDERED: 0.9 % Sodium Chloride 1,000 ML IVC SCH (16:00)
[2019-06-15 16:29] LABS: Bilirubin,Urine Moderate (Negative); Blood,Urine Negative (Negative); Clarity,Urine Cloudy (Clear); Color,Urine Dark Yellow (Yellow); Glucose,Urine (UA) Normal (Normal); Ketones,Urine Trace mg/dL (Negative); Leukocyte Esterase,Urine Moderate (Negative); Nitrite,Urine Negative (Negative); PH,Urine 5.5 pH Units (5.0-8.0); Protein,Urine 30 mg/dL (Neg-Trace); Specific Gravity,Urine 1.024 (1.010-1.025); Urobilinogen,Urine Normal (Normal)
[2019-06-15 16:30] LABS: RBC,Urine 0-3 per hpf (0-3)
[2019-06-15 16:42] LABS: Hyaline Casts,Urine Many per lpf (None-Few); Squamous Epithelial Cell,Urine Moderate per lpf (None-Few)
[2019-06-15 16:43] LABS: Bacteria,Urine Few per hpf (None-Few)
--- NOTE | 2019-06-15 16:57 | Internal Med History&Physical ---
<Magda Lindsey - Last Filed: 06/15/19 18:22> Date of Encounter: 06/15/19 Time of Encounter: 16:30 Internal Medicine - H&P: HPI History of present illness: Ms. Harden is a 73 year old female Internal Medicine - H&P: Meds Furosemide [Lasix] 20 mg PO DAILY 04/03/19 [History] Montelukast [Singulair] 10 mg PO HS 04/03/19 [History] Sertraline [Zoloft] 100 mg PO DAILY 04/03/19 [History] hydrOXYzine pamoate [Hydroxyzine Pamoate] 25 mg PO DAILY 04/03/19 [History] predniSONE [PredniSONE] 10 mg PO DAILY 04/03/19 [History] Acetaminophen [Tylenol] 650 mg PO Q6HR PRN tablet 04/22/19 [Rx] Hydrocodone/Acetaminophen [[place] 10-325 Tablet] 1 tab PO Q6H PRN 2 Days #5 tablet 04/22/19 [Rx] Ipratropium Neb [Atrovent Neb] 0.5 mg IH [id number] PRN inhsol 04/22/19 [Rx] Levalbuterol Neb [Xopenex Neb] 0.63 mg IH [id number] vial.neb 04/22/19 [Rx] Lisinopril [Zestril] 2.5 mg PO DAILY tablet 04/22/19 [Rx] Magnesium Oxide [Mag-Ox] 400 mg PO DAILY tablet 04/22/19 [Rx] Metoprolol XL (24 HR) Succ [Toprol Xl] 25 mg PO BID tab.er.24h 04/22/19 [Rx] Saline Nasal [place] [[place] Nasal [place]] 2 spray NS Q2H PRN bottle 04/22/19 [Rx] Allergy/AdvReac Type Severity Reaction Status Date / Time sulfamethoxazole AdvReac Swelling Verified 06/15/19 16:52 [From Bactrim] of the Eye trimethoprim [From Bactrim] AdvReac Swelling Verified 06/15/19 16:52 of the Eye All Systems PM: A 10-system review of systems was performed and is negative for pertinent findings except as documented above in the HPI. - Constitutional Vitals: Temp Pulse Resp BP Pulse Ox 96.7 F L 112 24 134/94 93 06/15/19 13:07 06/15/19 17:53 06/15/19 17:53 06/15/19 17:53 06/15/19 17:53 Internal Med - H&P Results - Labs CBC & Chem 7: 06/15/19 13:39 06/15/19 13:39 Labs: Short CBC 06/15/19 Range/Units 13:39 WBC 14.8 H (4.3-11.1) K/mcL Hgb 10.8 L (11.5-15.4) g/dL Hct 36.5 (35.3-44.9) % Plt Count 548 H (140-400) K/mcL Neutrophils # 12.6 H (1.6-8.9) K/mcL BMP 06/15/19 13:39 Sodium 139 Potassium 5.0 Chloride 100 Carbon Dioxide 28 BUN 41 H Creatinine 1.52 H Glucose 137 H Calcium 8.8 Cardiac Enzymes 06/15/19 Range/Units 13:39 Troponin I 0.34 H* (< 0.04) ng/mL Liver Function 06/15/19 Range/Units 13:39 Total Bilirubin 1.4 H (0.3-1.0) mg/dL AST 53 H (13-39) Units/L ALT 25 (7-52) Units/L Alkaline Phosphatase 112 H (34-104) Units/L Albumin 3.2 L (3.5-5.7) g/dL Urine 06/15/19 Range/Units 16:17 Urine Color Dark Yellow (Yellow) Urine Clarity Cloudy A (Clear) Urine pH 5.5 (5.0-8.0) pH Units Ur Specific [place] 1.024 (1.010-1.025) Urine Protein 30 H (Neg-Trace) mg/dL Urine Glucose (UA) Normal (Normal) mg/dL - Impressions ITS Impressions Head CT 06/15/19 14:08 IMPRESSION: No acute intracranial abnormality. There is age-appropriate cerebral atrophy with evidence of chronic periventricular small vessel ischemic disease. D/ / Michael Villalobos MD / Michael Villalobos MD Interpreting Provider: Michael Villalobos MD Chest X-Ray 06/15/19 14:35 IMPRESSION: 1. No new abnormality in the chest. 2. Persistent moderate right pleural effusion with right basilar atelectasis. Right chest pleural drain is present. 3. Perihilar left upper lobe consolidation remains. Scarring is present in the right lung apex. D/ / 06/15/2019 14:43:44 Dioni Banerjee MD / [place] Interpreting Provider: Dioni Banerjee MD Lumbar Spine X-Ray 06/15/19 14:36 IMPRESSION: Markedly limited secondary to overlying bowel gas. Strongly suggest cross-sectional imaging. Disruption of the superior arcuate line may represent sacral fracture. Multilevel degenerative changes with grade 2 anterolisthesis of L5 on S1. This may represent degenerative change, however underlying traumatic disruption cannot be excluded. Facet arthropathy. Degenerative changes of L5/S1 and L2/L3. D/ / Filemon Mosqueda MD / Filemon Mosqueda MD Interpreting Provider: Filemon Mosqueda MD Hip X-Ray 06/15/19 14:37 IMPRESSION: No acute osseous abnormality. D/ / Benjamin Del Rosario MD / Benjamin Del Rosario MD Interpreting Provider: Benjamin Del Rosario MD Lumbar Spine CT 06/15/19 15:46 IMPRESSION: No acute fracture seen in the lumbar spine or sacrum D/ / Benjamin Del Rosario MD / Benjamin Del Rosario MD Interpreting Provider: Benjamin Del Rosario MD - Assessment and Plan (1) Sepsis Current Visit: Yes Status: Suspected Qualifiers: Sepsis type: Escherichia coli Sepsis acute organ dysfunction status: with acute organ dysfunction Severe sepsis acute organ dysfunction type: acute renal failure Acute renal failure type: unspecified Severe sepsis shock status: without septic shock Qualified Code(s): A41.51 - Sepsis due to Escherichia coli [E. coli]; R65.20 - Severe sepsis without septic shock; N17.9 - Acute kidney failure, unspecified (2) Acute kidney injury Current Visit: Yes Status: Acute (3) Elevated troponin Current Visit: Yes Status: Acute (4) Atrial fibrillation with rapid ventricular response Current Visit: Yes Status: Acute (5) Cardiomyopathy Current Visit: Yes Status: Chronic Qualifiers: Cardiomyopathy type: other Qualified Code(s): I42.8 - Other cardiomyopathies (6) Congestive heart failure Current Visit: Yes Status: Chronic Qualifiers: Heart failure type: systolic Heart failure chronicity: chronic Qualified Code(s): I50.22 - Chronic systolic (congestive) heart failure (7) Diabetes mellitus Current Visit: Yes Status: Chronic Qualifiers: Diabetes mellitus type: type 2 Diabetes mellitus termination clerk insulin use: without termination clerk use Diabetes mellitus complication status: without complication Qualified Code(s): E11.9 - Type 2 diabetes mellitus without complications (8) Hypertension Current Visit: Yes Status: Chronic Qualifiers: Hypertension type: essential hypertension Qualified Code(s): I10 - Essential (primary) hypertension (9) Pleural effusion Current Visit: Yes Status: Chronic - Time Spent With Patient Total time spent is greater than 50% in coordination of care (as documented) at patient's floor/unit and/or counseling patient: - Attending Attestation I saw evaluated and examined this patient and reviewed objective data including labs and my medical decision-making was reviewed with the Resident Physician, Robert Riley. I agree with the documented findings, disposition and treatment plan as described except to any changes set forth below. We independently had [id number] contact with the patient. Patient with history of significant cardiomyopathy with EF of 20-25% per recent echocardiogram in March, chronic A. fib not on anticoagulation due to bleeding issues while on anticoagulation, right sided chronic pleural effusion with Pleurx catheter in place, diabetes, hypertension resented to the ER after a fall where she slid down and cannot get from her motorized wheelchair. She has been having significant pain in her lower back and left lateral lower chest wall region. This incident occurred last night and patient was found this morning on the floor by her home health nurse. She had not called for any help. She denies any fevers or chills. She has been feeling dizzy over the past couple of weeks. She denies any nausea or vomiting. No diarrhea. She does have palpitations. Patient also reports dysuria and decreased urine output. EKG shows A. fib with RVR. CT of the lumbar spine did not show any fractures. On exam, patient has left lateral chest wall tenderness over her lower ribs. Oral mucosa appears dry. S1 and S2 normal. Patient is tachycardic. Decreased breath sounds at both bases. No pedal edema. Abdomen is soft, nontender. Sepsis from acute cystitis: Patient has tachycardia, leukocytosis and Urinalysis suggests acute cystitis and patient has symptoms of dysuria. As such we will treat her for possible sepsis. Send blood cultures. Start ceftriaxone. Acute kidney injury: Monitor urine output. Monitor renal function. Gentle IV hydration given her poor ejection fraction. Chronic congestive heart failure-systolic with nonischemic cardiomyopathy: We will hold diuretics for now given that patient has acute kidney injury and appears dehydrated. Continue other medications. Diabetes mellitus type 2: Monitor blood sugars. Sliding scale insulin. Hypertension: Monitor blood pressure. Resume home medications. Atrial fibrillation with rapid ventricular response: Resume metoprolol. Monitor heart rate. Patient not on anticoagulation as she developed hematuria and bleeding into her pleural space while she was on anticoagulation. She may be a candidate for left atrial appendage closure device. Will arrange for outpatient follow-up for this. <Robert Riley - Last Filed: 06/15/19 20:18> Date of Encounter: 06/15/19 Time of Encounter: 16:55 Internal Medicine - H&P: HPI Chief complaint: Acute renal insufficiency, elevated troponin Admitted From: Home Plans for Post Hospital Care: Home History of present illness: Ms. Harden is a 73 year old female with past medical history significant for atrial fibrillation (previously on Eliquis, but now stopped), CHF, COPD, type 2 diabetes mellitus, hypertension who initially presented to the ED after fall at home. Patient was found sitting next to chair home early this morning by home health nurse. States that she had attempted to sit down on chair last night, when she fell. She was unable to get up from the ground, and was unable to call for help. It was only this morning, when she was able to call her sister, and when her home health nurse found her sitting on the ground. Patient denied any syncope, loss of consciousness, head trauma. She denied any lig htheadedness/dizziness, chest pain, shortness of breath. However she does endorse having some palpitations and anxiety due to being unable to get up off the ground yesterday. Now this morning, patient does not course some back pain/hip pain, but otherwise denies any fevers/chills, headache, abdominal pain, nausea, vomiting, diarrhea. Of note, patient was recently admitted to the hospital about 6 weeks ago with the rapid atrial fibrillation, new onset CHF (found to have ejection fraction = 30%). Left heart catheter at that time was nonischemic. Patient additionally had persistent right-sided pleural effusion, and had Pleurx catheter placed at that time. At that time, patient developed bleeding (hematuria and bleeding into pleural fluid) and at that time anticoagulation was stopped. [facility]. Initial vitals in the ED, T = 96.7, HR = 106, RR = 18, BP = 106/76, O2 = 100% on 2 L oxygen. Noted to have leukocytosis = 14.8. Also noted to have acute kidney injury with the BUN/Cr = 41/1.52. Troponin was done and was slightly elevated, troponin = 0.34. Imaging studies were essentially benign. EKG was negative for any signs of acute ischemia. Creatinine kinase = 114 which was low concern for rhabdomyolysis. Head CT (06/15/19) = negative Chest x-ray (06/15/19) = no new abnormality in the chest. Persistent moderate right pleural effusion and right basilar atelectasis. Perihilar left upper lobe consolidation. Scarring in right lung apex. X-ray lumbar spine (06/15/19) = possible sacral fracture CT of the lumbar spine (06/15/19) = no acute fracture seen in lumbar spine or sacrum Hip x-ray (06/15/19) = no acute abnormality Patient will be admitted to hospitalist service for management of acute kidney injury, leukocytosis, elevated troponins. Past Med Surg Social Fam HX - Past Medical History Attestation: Yes The following information was validated with the patient. Source: patient, old records reviewed, obtained from family Medical history: arthritis, atrial fibrillation, COPD, hypertension Psychiatric history: no psych history - Past Surgical History Additional surgical history: tubes tied - Social History Smoking Status: Former smoker Smokeless Tobacco Status: No Alcohol use: none Drug use: none - Family History Mother Living Status: Hx Family Cardiac Disorders: Yes (CAD) Father Living Status: Hx Family Cardiac Disorders: Yes (multiple heart attacks) Sister Hx Family Cardiac Disorders: Yes (cardiomyopathy) All Systems PM: A 10-system review of systems was performed and is negative for pertinent f indings except as documented above in the HPI. - Constitutional Constitutional: falls, weakness, no chills, no fatigue, no fever(s), no malaise - EENT Eyes: no blurry vision Nose, mouth and throat: no neck pain, no sore throat - Cardiovascular Cardiovascular ROS IM: edema, palpitations, no chest pain, no diaphoresis, no dyspnea, no dyspnea on exertion, no irregular heart rhythm, no lightheadedness, no syncope - Respiratory Respiratory: no cough, no dyspnea, no dyspnea on exertion, no wheezing, no chest congestion, no pain with cough - Gastrointestinal Gastrointestinal: no abdominal pain, no diarrhea, no nausea, no vomiting - Musculoskeletal Musculoskeletal ROS IM: back pain, myalgias, no arthralgias, no neck pain, no numbness - Integumentary Integumentary IM: no erythema, no rash - Neurological Neurological ROS: headache(s), weakness, no confusion, no dizziness, no focal weakness - Psychiatric Psychiatric: anxiety, no confusion, no depression - Endocrine Endocrine IM: no fatigue - Constitutional Vitals: Temp Pulse Resp BP Pulse Ox 96.7 F L 105 19 116/71 92 06/15/19 13:07 06/15/19 14:36 06/15/19 14:36 06/15/19 14:36 06/15/19 14:36 Exam: GEN: AOx3, no acute distress, Vitals reviewed and stable HEAD: Atraumatic, Normocephalic EYES: PERRLA, EOMI, Sclera anicteric NECK: Supple. Full ROM. No anterior cervical lymphadenopathy HEART: Irregularly irregular rhythm S1/S2 present. No murmurs, rubs, gallops LUNGS: Decreased lung sounds bilaterally. Pleurx catheter noted at right chest. Clean, dry, intact. no wheezes, rhonchi, rales, crackles ABD: Soft, non tender, non distended. Bowel sounds present. No rebound, guarding, rigidity. No RLQ tenderness EXT: 2+ lower extremity edema to knees B/L NEURO: CN 2 - 12 intact; no focal deficits; AOx3 PSYCH: Mood and affect appropriate Internal Med - H&P Results - Labs CBC & Chem 7: 06/15/19 13:39 06/15/19 13:39 Labs: Short CBC 06/15/19 Range/Units 13:39 WBC 14.8 H (4.3-11.1) K/mcL Hgb 10.8 L (11.5-15.4) g/dL Hct 36.5 (35.3-44.9) % Plt Count 548 H (140-400) K/mcL Neutrophils # 12.6 H (1.6-8.9) K/mcL BMP 06/15/19 13:39 Sodium 139 Potassium 5.0 Chloride 100 Carbon Dioxide 28 BUN 41 H Creatinine 1.52 H Glucose 137 H Calcium 8.8 Cardiac Enzymes 06/15/19 Range/Units 13:39 Troponin I 0.34 H* (< 0.04) ng/mL Liver Function 06/15/19 Range/Units 13:39 Total Bilirubin 1.4 H (0.3-1.0) mg/dL AST 53 H (13-39) Units/L ALT 25 (7-52) Units/L Alkaline Phosphatase 112 H (34-104) Units/L Albumin 3.2 L (3.5-5.7) g/dL Urine 06/15/19 Range/Units 16:17 Urine Color Dark Yellow (Yellow) Urine Clarity Cloudy A (Clear) Urine pH 5.5 (5.0-8.0) pH Units Ur Specific [place] 1.024 (1.010-1.025) Urine Protein 30 H (Neg-Trace) mg/dL Urine Glucose (UA) Normal (Normal) mg/dL - Impressions ITS Impressions Head CT 06/15/19 14:08 IMPRESSION: No acute intracranial abnormality. There is age-appropriate cerebral atrophy with evidence of chronic periventricular small vessel ischemic disease. D/ / Michael Villalobos MD / Michael Villalobos MD Interpreting Provider: Michael Villalobos MD Chest X-Ray 06/15/19 14:35 IMPRESSION: 1. No new abnormality in the chest. 2. Persistent moderate right pleural effusion with right basilar atelectasis. Right chest pleural drain is present. 3. Perihilar left upper lobe consolidation remains. Scarring is present in the right lung apex. D/ / 06/15/2019 14:43:44 Dioni Banerjee MD / [place] Interpreting Provider: Dioni Banerjee MD Lumbar Spine X-Ray 06/15/19 14:36 IMPRESSION: Markedly limited secondary to overlying bowel gas. Strongly suggest cross-sectional imaging. Disruption of the superior arcuate line may represent sacral fracture. Multilevel degenerative changes with grade 2 anterolisthesis of L5 on S1. This may represent degenerative change, however underlying traumatic disruption cannot be excluded. Facet arthropathy. Degenerative changes of L5/S1 and L2/L3. D/ / Filemon Mosqueda MD / Filemon Mosqueda MD Interpreting Provider: Filemon Mosqueda MD Hip X-Ray 06/15/19 14:37 IMPRESSION: No acute osseous abnormality. D/ / Benjamin Del Rosario MD / Benjamin Del Rosario MD Interpreting Provider: Benjamin Del Rosario MD Lumbar Spine CT 06/15/19 15:46 IMPRESSION: No acute fracture seen in the lumbar spine or sacrum D/ / Benjamin Del Rosario MD / Benjamin Del Rosario MD Interpreting Provider: Benjamin Del Rosario MD - Assessment and Plan (1) Sepsis Current Visit: Yes Status: Suspected Assessment and plan: Patient presents with septic presentation with tachycardia was 106, leukocytosis = 4.8, and source of sepsis with possible UTI. - Endorses dysuria, urinary frequency, urinary urgency - Otherwise remains afebrile PLAN: We will plan to treat for urosepsis. - Follow up blood cultures - Rocephin 1 g per day - Continue with IV fluids. Will give gentle hydration given patient's CHF - Follow up urine culture Qualifiers: Sepsis type: Escherichia coli Sepsis acute organ dysfunction status: with acute organ dysfunction Severe sepsis acute organ dysfunction type: acute renal failure Acute renal failure type: unspecified Severe sepsis shock status: without septic shock Qualified Code(s): A41.51 - Sepsis due to Escherichia coli [E. coli]; R65.20 - Severe sepsis without septic shock; N17.9 - Acute kidney failure, unspecified (2) Urinary tract infection Current Visit: Yes Status: Acute Assessment and plan: Urinalysis suggestive of possible UTI with moderate leukocyte esterase, evidence of 5-15 white blood cells - Patient describes dysuria and urinary urgency/frequency in the past week PLAN: - We will empirically treat with 1 g of Rocephin per day - Follow up urine culture - Continue IV fluids Qualifiers: Urinary tract infection type: acute cystitis Hematuria presence: without h ematuria Qualified Code(s): N30.00 - Acute cystitis without hematuria (3) Cardiomyopathy Current Visit: Yes Status: Chronic Assessment and plan: Echocardiogram (04/03/19): - LVEF 20-25% - Severe global left ventricular systolic dysfunction - Atypical septal motion consistent with bundle branch block - 2+ pitting edema of B/L lower extremities noted on exam - EKG notable for atrial fibrillation, but no acute ST changes PLAN: Patient has history of systolic CHF, recently diagnosed in March 2019 - Follow-up limited echocardiogram - Continue beta juliet - Hold diuretic for now given acute kidney injury - Strict I's and O's - Daily weights - Fluid restriction diet - Limited sodium intake Qualifiers: Cardiomyopathy type: other Qualified Code(s): I42.8 - Other cardiomyopathies (4) Acute renal insufficiency Current Visit: Yes Status: Acute Assessment and plan: Patient presents with acute kidney injury on chronic kidney disease and presentation - BUN/Cr = 41/1.52; estimated GFR = 33 - Seems to have chronic kidney disease stage III at baseline - Urinalysis suggestive of possible urinary tract infection PLAN: Acute kidney injury superimposed on chronic kidney disease seems likely secondary to dehydration, decreased renal perfusion - Continue with maintenance IV fluids at 75 mL per hour - Monitor BMP in the a.m. - Monitor urine output - Renally dose medications - Avoid nephrotoxic agents - Renal diet (5) Elevated troponin Current Visit: Yes Status: Acute Assessment and plan: Elevated troponin = 0.34 - Elevated from baseline - No acute chest pain - EKG with no ischemic changes PLAN: Elevated troponin seems likely due to demand ischemia. - Continue to trend troponins - Monitor for chest pain - Monitor on telemetry - Continue gentle hydration with IV fluids (6) Atrial fibrillation Current Visit: Yes Status: Chronic Assessment and plan: History of atrial fibrillation, currently only managed with beta juliet - EKG only notable for atrial fibrillation - Anticoagulation recently discontinued in March 2019 after bouts of hematuria, and blood and pleural space PLAN: - Continue with beta juliet - Monitor on telemetry - Continue holding anticoagulation for now Qualifiers: Atrial fibrillation type: unspecified Qualified Code(s): I48.91 - Unspecified atrial fibrillation (7) Diabetes mellitus Current Visit: Yes Status: Chronic Assessment and plan: PLAN: - Low-dose sliding scale - Accu-Cheks before meals at bedtime - Cardiac, diabetic diet Qualifiers: Diabetes mellitus type: type 2 Diabetes mellitus termination clerk insulin use: without half-way use Diabetes mellitus complication status: without complication Qualified Code(s): E11.9 - Type 2 diabetes mellitus without complications (8) Hypertension Current Visit: Yes Status: Chronic Assessment and plan: PLAN: - Continue home hypertension medications Qualifiers: Hypertension type: essential hypertension Qualified Code(s): I10 - Essential (primary) hypertension (9) Pleural effusion Current Visit: Yes Status: Chronic Assessment and plan: CXR = persistent moderate right pleural effusion and right basilar atelectasis. PLAN: - Continue to monitor Pleurx catheter output - Monitor for worsening respiratory distress - Monitor for signs of infection or Pleurx catheter insertion site - Time Spent With Patient Total time spent is greater than 50% in coordination of care (as documented) at patient's floor/unit and/or counseling patient: 25 - 35 minutes
[2019-06-15] MEDS ORDERED: Naloxone 0.4 MG/ML INJ IVP PRN (18:00)
[2019-06-15] MEDS ORDERED: Acetaminophen 325 MG TABLET PO PRN (18:03)
[2019-06-15] MEDS ORDERED: Saline Nasal Spray 44 ML BOTTLE NS PRN (18:03)
[2019-06-15] MEDS ORDERED: *HR* HYDROcodone/Acet 10/325 mg TABLET PO PRN (18:03)
[2019-06-15] MEDS ORDERED: Ipratropium Neb 0.5 MG NEBULIZER IH PRN (18:03)
[2019-06-15] MEDS ORDERED: cefTRIAXone 1,000 MG in Water for inj. (sterile) 10 ML IVP SCH (18:30)
[2019-06-15] MEDS: 0.9 % Sodium Chloride 1,000 ML IVC SCH (18:48)
[2019-06-15] MEDS: Metoprolol XL (24 HR) Succ 25 MG TAB.ER.24H PO SCH (20:46)
[2019-06-15] MEDS: *HR* HYDROcodone/Acet 10/325 mg TABLET PO PRN (20:52)
[2019-06-15] MEDS: Levalbuterol Neb 0.63 MG/3 ML IH SCH (22:33)
[2019-06-16 01:08] LABS: Basophils # 0.1 K/mcL (0.0-0.2); Basophils % 0.5 %; Eosinophils # 0.1 K/mcL (0.0-0.6); Eosinophils % 0.3 %; Hematocrit 34.5 % (35.3-44.9); Hemoglobin 10.4 g/dL (11.5-15.4); Lymphocytes # 1.1 K/mcL (0.6-4.6); Lymphocytes % 7.1 %; Mean Corpuscular HGB Conc 30.1 g/dL (31.6-35.5); Mean Corpuscular Hemoglobin 22.3 pg (28.0-33.3); Mean Corpuscular Volume 73.9 fL (83.0-100.0); Monocytes # 1.3 K/mcL (0.0-1.3); Neutrophils # 12.8 K/mcL (1.6-8.9); Nucleated Red Blood Cells 1.8 /100 WBC (0); Platelet Count 453 K/mcL (140-400); Red Blood Count 4.67 M/mcL (3.82-4.97); Red Cell Distribution Width 21.2 % (11.5-14.5); Segmented Neutrophils % 81.1 %; White Blood Count 15.8 K/mcL (4.3-11.1)
[2019-06-16 01:09] LABS: INR 1.3
[2019-06-16 01:20] LABS: Calcium 8.1 mg/dL (8.6-10.3); Chol/HDL Ratio 3.3 (0-4.9); Magnesium 2.2 mg/dL (1.6-2.6); Potassium 4.1 mEq/L (3.5-5.1)
[2019-06-16] MEDS: Levalbuterol Neb 0.63 MG/3 ML IH SCH ×4 (04:36→22:30)
[2019-06-16] MEDS: 0.9 % Sodium Chloride 1,000 ML IVC SCH (06:06)
--- NOTE | 2019-06-16 08:22 | Internal Med Progress Note ---
<Magda Lindsey - Last Filed: 06/16/19 15:02> Hospitalist Progress Note - Encounter Date of Encounter: 06/16/19 Time of Encounter: 10:40 - Exam Vitals: Temp Pulse Resp BP Pulse Ox 97.5 F L 85 18 100/68 97 06/16/19 12:14 06/16/19 12:14 06/16/19 12:14 06/16/19 12:14 06/16/19 12:14 - Assessment and Plan (1) Sepsis Current Visit: Yes Status: Suspected (2) Acute kidney injury Current Visit: Yes Status: Acute (3) Elevated troponin Current Visit: Yes Status: Acute (4) Atrial fibrillation with rapid ventricular response Current Visit: Yes Status: Acute (5) Cardiomyopathy Current Visit: Yes Status: Chronic (6) Congestive heart failure Current Visit: Yes Status: Chronic (7) Diabetes mellitus Current Visit: Yes Status: Chronic (8) Hypertension Current Visit: Yes Status: Chronic (9) Pleural effusion Current Visit: Yes Status: Chronic - Time Spent with Patient Total time spent is greater than 50% in coordination of care (as documented) at patient's floor/unit and/or counseling patient: Internal Medicine: Result - Labs CBC & Chem 7: 06/16/19 00:46 06/16/19 00:46 Labs: Short CBC 06/16/19 Range/Units 00:46 WBC 15.8 H (4.3-11.1) K/mcL Hgb 10.4 L (11.5-15.4) g/dL Hct 34.5 L (35.3-44.9) % Plt Count 453 H (140-400) K/mcL Neutrophils # 12.8 H (1.6-8.9) K/mcL BMP 06/16/19 00:46 Sodium 139 Potassium 4.1 Chloride 103 Carbon Dioxide 26 BUN 45 H Creatinine 1.67 H Glucose 122 H Calcium 8.1 L Cardiac Enzymes 06/15/19 06/16/19 06/16/19 Range/Units 18:52 00:46 06:36 Troponin I 0.44 H* 0.61 H* 0.47 H* (< 0.04) ng/mL Urine 06/15/19 Range/Units 16:17 Urine Color Dark Yellow (Yellow) Urine Clarity Cloudy A (Clear) Urine pH 5.5 (5.0-8.0) pH Units Ur Specific [place] 1.024 (1.010-1.025) Urine Protein 30 H (Neg-Trace) mg/dL Urine Glucose (UA) Normal (Normal) mg/dL - ABG Interpretation ABG results: PT/INR, D-dimer PT 15.0 Seconds (9.4-12.1) H 06/16/19 00:46 - Impressions Impressions Lumbar Spine CT 06/15/19 15:46 IMPRESSION: No acute fracture seen in the lumbar spine or sacrum D/ / Benjamin Del Rosario MD / Benjamin Del Rosario MD Interpreting Provider: Benjamin Del Rosario MD Consult Discharge Plan - Plan Referrals: Markell Esparza DO [Primary Care Provider] - - Attending Attestation I saw evaluated and examined this patient and reviewed objective data including labs and my medical decision-making was reviewed with the Resident Physician, Jeanmarie Isaacs. I agree with the documented findings, disposition and treatment plan as described except to any changes set forth below. We independently had [id number] contact with the patient. Patient lying down in bed. She feels weak and tired. No fever or chills reported overnight. Urine output has not been documented) time. Renal function worsened today despite hydration. Likely due to underlying hypoalbuminemia/cardiorenal syndrome in addition to dehydration. We will Give A lbumin Pl., Lasix today and reassess in the morning. If renal function worsens further, will consult nephrology. Troponins trended up to a peak of 0.61. Limited echo done shows EF of 20-25% which is her baseline. According to social media designer, patient has been on hospice at home. Family was concerned about her being by able to manage by herself at home even with hospice. Will consult physical therapy to evaluate patient. Regarding sepsis, WBC count did trend up today to 15.8. For now we will continue Rocephin while we await culture results. So far cultures have been negative. Patient has not had any fevers or chills and her heart rate has improved overall. Patient does have history of A. fib but is not on anticoagulation as she developed bleeding while on anticoagulation-hematuria and bleeding into pleural effusion. <Ferny,Jeanmarie - Last Filed: 06/16/19 22:39> Hospitalist Progress Note - Encounter Date of Encounter: 06/16/19 - Subjective Interval History: Patient was seen and examined at bedside; she appeared somewhat tired this morning. She complained of mild pain in her back that was making her comfortable. She states that she has chronic back pain, and that she has not with this on a regular basis. On exam, it is noted that she has significant pitting edema in the lower extremities bilaterally extending up to her knees. According to her, her swelling has gone down compared to yesterday. Patients renal function continues to worsen. Likely contributing factors include sepsis, CHF, hypoalbuminemia. A dose of Lasix and albumin was administered today. We will repeat a.m. labs to determine if renal function improves. We will initiate an acute renal failure workup with urine studies and retroperitoneal ultrasound. If patients renal function continues to worsen, we will consult nephrology. She denies abdominal pain, dysuria, fever, chills, cough, shortness of breath, nausea, and vomiting. She has no further complaints. - Exam Vitals: Temp Pulse Resp BP Pulse Ox 97.4 F L 100 18 118/84 99 06/16/19 06:40 06/16/19 06:40 06/16/19 06:40 06/16/19 06:40 06/16/19 06:40 Exam: General: Conversant, tired appearing, in mild distress due to back pain Head: atraumatic, normocephalic Eye: PERRL, EOMI Neck: Supple, trachea midline; No lymphadenopathy Respiratory: Diminished breath sounds b/l; no wheezes, rales, rhonchi Cardiovascular: Irregularly irregular rhythm, +S1, +S2; no murmurs, rubs, gallops Abdomen: Soft, nontender Extremities: +3 pitting edema in b/l LEs extending up to knees b/l Neurological: Global weakness Psychiatric: Normal affect, normal mood - Assessment and Plan (1) Sepsis Current Visit: Yes Status: Acute Assessment and Plan: Assessment - Initially presented meeting 2/4 SIRS criteria, with tachycardia and leukocytosis - Potential infection source is UTI, as demonstrated on urinalysis - Patient endorsed dysuria, frequency, and urgency upon presentation - Causative organism is unknown at this time - This morning, patient remains tachycardic at 100 bpm; white count has increased to 15.8 - Blood cultures 2 and urine cultures pending - Patient was started on empiric Rocephin Plan - Continue Rocephin IV 1 g per day; day 2 of antibiotic therapy - Follow blood and urine cultures; tailor antibiotic therapy accordingly - Continue IV fluid resuscitation with normal saline at 75 mL per hour (2) Urinary tract infection Current Visit: Yes Status: Acute Assessment and Plan: - Initially presented with the complaint of dysuria, frequency, and urgency -Analysis in the ED demonstrated moderate amount of leukocyte esterase - Urine culture is pending - Continue antibiotics as documented above (3) Cardiomyopathy Current Visit: Yes Status: Chronic Assessment and Plan: Assessment - Patient has a history of HFrEF - TTE 04/03: EF 20-25%, severe global LV systolic dysfunction, atypical septal motion consistent w/ bundle branch block - Presented with peripheral edema with 2+ pitting edema in b/l LEs Plan - Strict I/Os, daily weights - Fluid restriction of1.5 L per day - Continue beta juliet - Albumin with Lasix administered today - Holding daily diuretic due to LANDON (4) Acute kidney injury Current Visit: Yes Status: Acute Assessment and Plan: - Presented with an elevated creatinine at 1.52 - Etiology is likely prerenal in the setting of both sepsis and CHF - Albumin with Lasix was administered today Plan - Continue IV maintenance fluids at 75 mL per hour - Repeat a.m. labs - Strict Is and Os, Renally dose medications, avoid nephrotoxins when possible - We will order LANDON workup with urine eosinophils, urine sodium, urine creatinine, retroperitoneal U/S - If renal function does not improve, we will consider nephrology consult (5) Elevated troponin Current Visit: Yes Status: Acute Assessment and Plan: - Likely secondary to demand ischemia - Monitor for chest pain - Monitor on telemetry - Continue gentle hydration with IV fluids (6) Atrial fibrillation Current Visit: Yes Status: Acute Assessment and Plan: Assessment - Patient has a known history of atrial fibrillation - Receives beta juliet for rate control - Anticoagulation was discontinued in March after hematuria and concern for bleeding into the pleural space Plan - Continue rate control with beta juliet - Continuous telemetry (7) Diabetes mellitus Current Visit: Yes Status: Acute Assessment and Plan: - Low-dose SSI, accuchecks - Cardiac, diabetic diet (8) Hypertension Current Visit: Yes Status: Acute Assessment and Plan: - Blood pressure well controlled at this time - Continue home medications - Time Spent with Patient Total time spent is greater than 50% in coordination of care (as documented) at patient's floor/unit and/or counseling patient: Internal Medicine: Result - Labs CBC & Chem 7: 06/16/19 00:46 06/16/19 00:46 Labs: Short CBC 06/15/19 06/16/19 Range/Units 13:39 00:46 WBC 14.8 H 15.8 H (4.3-11.1) K/mcL Hgb 10.8 L 10.4 L (11.5-15.4) g/dL Hct 36.5 34.5 L (35.3-44.9) % Plt Count 548 H 453 H (140-400) K/mcL Neutrophils # 12.6 H 12.8 H (1.6-8.9) K/mcL BMP 06/15/19 06/16/19 13:39 00:46 Sodium 139 139 Potassium 5.0 4.1 Chloride 100 103 Carbon Dioxide 28 26 BUN 41 H 45 H Creatinine 1.52 H 1.67 H Glucose 137 H 122 H Calcium 8.8 8.1 L Cardiac Enzymes 06/15/19 06/15/19 06/16/19 Range/Units 13:39 18:52 00:46 Troponin I 0.34 H* 0.44 H* 0.61 H* (< 0.04) ng/mL 06/16/19 Range/Units 06:36 Troponin I 0.47 H* (< 0.04) ng/mL Liver Function 06/15/19 Range/Units 13:39 Total Bilirubin 1.4 H (0.3-1.0) mg/dL AST 53 H (13-39) Units/L ALT 25 (7-52) Units/L Alkaline Phosphatase 112 H (34-104) Units/L Albumin 3.2 L (3.5-5.7) g/dL Urine 06/15/19 Range/Units 16:17 Urine Color Dark Yellow (Yellow) Urine Clarity Cloudy A (Clear) Urine pH 5.5 (5.0-8.0) pH Units Ur Specific [place] 1.024 (1.010-1.025) Urine Protein 30 H (Neg-Trace) mg/dL Urine Glucose (UA) Normal (Normal) mg/dL - ABG Interpretation ABG results: PT/INR, D-dimer PT 15.0 Seconds (9.4-12.1) H 06/16/19 00:46 - Impressions Impressions Head CT 06/15/19 14:08 IMPRESSION: No acute intracranial abnormality. There is age-appropriate cerebral atrophy with evidence of chronic periventricular small vessel ischemic disease. D/ / Michael Villalobos MD / Michael Villalobos MD Interpreting Provider: Michael Villalobos MD Chest X-Ray 06/15/19 14:35 IMPRESSION: 1. No new abnormality in the chest. 2. Persistent moderate right pleural effusion with right basilar atelectasis. Right chest pleural drain is present. 3. Perihilar left upper lobe consolidation remains. Scarring is present in the right lung apex. D/ / 06/15/2019 14:43:44 Dioni Banerjee MD / antonieta Interpreting Provider: Dioni Banerjee MD Lumbar Spine X-Ray 06/15/19 14:36 IMPRESSION: Markedly limited secondary to overlying bowel gas. Strongly suggest cross-sectional imaging. Disruption of the superior arcuate line may represent sacral fracture. Multilevel degenerative changes with grade 2 anterolisthesis of L5 on S1. This may represent degenerative change, however underlying traumatic disruption cannot be excluded. Facet arthropathy. Degenerative changes of L5/S1 and L2/L3. D/ / Filemon Mosqueda MD / Filemon Mosqueda MD Interpreting Provider: Filemon Mosqueda MD Hip X-Ray 06/15/19 14:37 IMPRESSION: No acute osseous abnormality. D/ / Benjamin Del Rosario MD / Benjamin Del Rosario MD Interpreting Provider: Benjamin Del Rosario MD Lumbar Spine CT 06/15/19 15:46 IMPRESSION: No acute fracture seen in the lumbar spine or sacrum D/ / Benjamin Del Rosario MD / Benjamin Del Rosario MD Interpreting Provider: Benjamin Del Rosario MD <Magda Lindsey - Last Filed: 06/16/19 15:02> (1) Sepsis Qualifiers: Sepsis type: Escherichia coli Sepsis acute organ dysfunction status: with acute organ dysfunction Severe sepsis acute organ dysfunction type: acute renal failure Acute renal failure type: unspecified Severe sepsis shock status: without septic shock Qualified Code(s): A41.51 - Sepsis due to Escherichia coli [E. 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 terminal operator insulin use: without keno terminal operator use Diabetes mellitus complication status: without complication Qualified Code(s): E11.9 - Type 2 diabetes mellitus without complications (8) Hypertension Qualifiers: Hypertension type: essential hypertension Qualified Code(s): I10 - Essential (primary) hypertension <Jeanmarie Isaacs - Last Filed: 06/16/19 22:39> (2) Urinary tract infection Qualifiers: Urinary tract infection type: acute cystitis Hematuria presence: without hematuria Qualified Code(s): N30.00 - Acute cystitis without hematuria (3) Cardiomyopathy Qualifiers: Cardiomyopathy type: other Qualified Code(s): I42.8 - Other cardiomyopathies
[2019-06-16] MEDS ORDERED: hydrOXYzine pamoate 25 MG CAPSULE PO SCH (09:00)
[2019-06-16] MEDS: Metoprolol XL (24 HR) Succ 25 MG TAB.ER.24H PO SCH (09:01)
[2019-06-16] MEDS: Magnesium Oxide 400 MG TABLET PO SCH (09:01)
[2019-06-16] MEDS: cefTRIAXone 1,000 MG in 0.9 % Sodium Chloride Mini Bag 100 ML IVPB SCH (09:02)
[2019-06-16] MEDS: *HR* HYDROcodone/Acet 10/325 mg TABLET PO PRN (09:07)
--- NOTE | 2019-06-16 09:57 | Electrocardiograph Report ---
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
[2019-06-16] MEDS ORDERED: hydrOXYzine pamoate 25 MG CAPSULE PO PRN (10:14)
[2019-06-16] MEDS ORDERED: Perflutren Lipid Microsphere 1.3 ML in 0.9 % Sodium Chloride 8.7 ML IVP ONE (10:26)
[2019-06-16] MEDS: Albumin 25% 25gram/100mL 25 GM/100 ML IV.SOLN IVC SCH ×4 (10:45→18:05)
[2019-06-16] MEDS ORDERED: Furosemide 40 MG/4 ML VIAL IVP ONE ×2 (12:00→16:00)
--- NOTE | 2019-06-16 16:17 | Electrocardiograph Report ---
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
[2019-06-16] MEDS ORDERED: Bisacodyl 10 MG RECTAL SUPPOSITORY RC PRN (17:45)
[2019-06-16] MEDS ORDERED: *HR* LORazepam 0.5 MG TABLET PO PRN (17:45)
[2019-06-16] MEDS ORDERED: Hyoscyamine SL 0.125 MG TAB.SUBL SL PRN (17:45)
[2019-06-16] MEDS ORDERED: Albuterol 2.5 MG/3 ML NEBULIZER IH PRN (17:45)
[2019-06-16] MEDS ORDERED: Albumin 25% 25gram/100mL 25 GM/100 ML IV.SOLN ONE (17:50)
[2019-06-16] MEDS: Sennosides 8.6 MG TABLET PO SCH (20:30)
[2019-06-17] MEDS: Levalbuterol Neb 0.63 MG/3 ML IH SCH ×4 (03:56→21:46)
[2019-06-17 06:03] LABS: Basophils % 0.3 %; Eosinophils # 0.2 K/mcL (0.0-0.6); Eosinophils % 1.7 %; Hematocrit 29.7 % (35.3-44.9); Immature Granulocytes % 3.2 % (0-4); Lymphocytes # 0.8 K/mcL (0.6-4.6); Lymphocytes % 6.4 %; Mean Corpuscular HGB Conc 29.6 g/dL (31.6-35.5); Mean Corpuscular Hemoglobin 22.3 pg (28.0-33.3); Mean Corpuscular Volume 75.2 fL (83.0-100.0); Mean Platelet Volume 9.9 fL (9.4-12.4); Monocytes # 0.9 K/mcL (0.0-1.3); Monocytes % 7.5 %; Neutrophils # 9.9 K/mcL (1.6-8.9); Nucleated Red Blood Cells 1.5 /100 WBC (0); Platelet Count 345 K/mcL (140-400); Red Blood Count 3.95 M/mcL (3.82-4.97); Red Cell Distribution Width 20.9 % (11.5-14.5); Segmented Neutrophils % 80.9 %; White Blood Count 12.3 K/mcL (4.3-11.1)
[2019-06-17 06:22] LABS: Calcium 8.7 mg/dL (8.6-10.3); Potassium 3.7 mEq/L (3.5-5.1)
[2019-06-17 06:28] LABS: Hemoglobin 8.8 g/dL (11.5-15.4)
[2019-06-17] MEDS: Sennosides 8.6 MG TABLET PO SCH ×2 (07:49→20:49)
[2019-06-17] MEDS: cefTRIAXone 1,000 MG in 0.9 % Sodium Chloride Mini Bag 100 ML IVPB SCH (07:50)
[2019-06-17] MEDS: Magnesium Oxide 400 MG TABLET PO SCH (07:50)
[2019-06-17] MEDS ORDERED: Ipratropium/Albuterol Neb 3 ML IH PRN (09:46)
[2019-06-17] MEDS ORDERED: *HR* Metoprolol 5 MG/5 ML VIAL IVP ONE (11:23)
[2019-06-17] MEDS: Acetaminophen 325 MG TABLET PO PRN (14:28)
--- NOTE | 2019-06-17 17:55 | Internal Med Progress Note ---
<Vida Garcia - Last Filed: 06/17/19 18:19> Hospitalist Progress Note - Encounter Date of Encounter: 06/17/19 - Exam Vitals: Temp Pulse Resp BP Pulse Ox 97.4 F L 111 19 138/83 96 06/17/19 16:28 06/17/19 16:28 06/17/19 16:28 06/17/19 16:28 06/17/19 16:28 - Assessment and Plan (1) Sepsis Current Visit: Yes Status: Suspected (2) Acute kidney injury Current Visit: Yes Status: Acute (3) Elevated troponin Current Visit: Yes Status: Acute (4) Atrial fibrillation with rapid ventricular response Current Visit: Yes Status: Acute (5) Cardiomyopathy Current Visit: Yes Status: Chronic (6) Congestive heart failure Current Visit: Yes Status: Chronic (7) Diabetes mellitus Current Visit: Yes Status: Chronic (8) Hypertension Current Visit: Yes Status: Chronic (9) Pleural effusion Current Visit: Yes Status: Chronic - Time Spent with Patient Total time spent is greater than 50% in coordination of care (as documented) at patient's floor/unit and/or counseling patient: Internal Medicine: Result - Labs CBC & Chem 7: 06/17/19 05:17 06/17/19 05:17 Labs: Short CBC 06/17/19 Range/Units 05:17 WBC 12.3 H (4.3-11.1) K/mcL Hgb 8.8 L D (11.5-15.4) g/dL Hct 29.7 L (35.3-44.9) % Plt Count 345 (140-400) K/mcL Neutrophils # 9.9 H (1.6-8.9) K/mcL BMP 06/17/19 05:17 Sodium 141 Potassium 3.7 Chloride 99 Carbon Dioxide 29 BUN 46 H Creatinine 1.73 H Glucose 141 H Calcium 8.7 - ABG Interpretation ABG results: PT/INR, D-dimer PT 15.0 Seconds (9.4-12.1) H 06/16/19 00:46 - Impressions Impressions Chest X-Ray 06/15/19 14:35 IMPRESSION: 1. No new abnormality in the chest. 2. Persistent moderate right pleural effusion with right basilar atelectasis. Right chest pleural drain is present. 3. Perihilar left upper lobe consolidation remains. Scarring is present in the right lung apex. D/ / 06/15/2019 14:43:44 Dioni Banerjee MD / antonieta Interpreting Provider: Dioni Banerjee MD Consult Discharge Plan - Plan Referrals: Markell Esparza, [Primary Care Provider] - - Attending Attestation I saw evaluated and examined this patient and reviewed objective data including labs and my medical decision-making was reviewed with the Resident Physician. I agree with the documented findings, disposition and treatment plan as described except to any changes set forth below. We independently had [id number] contact with the patient. <Jeanmarie Isaacs - Last Filed: 06/17/19 18:56> Hospitalist Progress Note - Encounter Date of Encounter: 06/17/19 Time of Encounter: 10:19 - Subjective Interval History: Patient seen and examined at bedside; feels similar today as she did yesterday. Currently on supplemental oxygen via nasal cannula. Complains of back pain today. Reports that this swelling in her legs is somewhat improved compared to yesterday. Reports good urine output. Despite this, her creatinine continues to increase. Due to this, we will consult nephrology for further recommendations regarding diuresis. - Exam Vitals: Temp Pulse Resp BP Pulse Ox 97.4 F L 111 19 138/83 96 06/17/19 16:28 06/17/19 16:28 06/17/19 16:28 06/17/19 16:28 06/17/19 16:28 Exam: General: Conversant, tired appearing, in mild distress due to back pain Head: atraumatic, normocephalic Eye: PERRL, EOMI Neck: Supple, trachea midline; No lymphadenopathy Respiratory: Diminished breath sounds b/l; no wheezes, rales, rhonchi Cardiovascular: Irregularly irregular rhythm, +S1, +S2; no murmurs, rubs, gallops Abdomen: Soft, nontender Extremities: +3 pitting edema in b/l LEs extending up to knees b/l Neurological: Global weakness Psychiatric: Normal affect, normal mood - Assessment and Plan (1) Sepsis Current Visit: Yes Status: Acute Assessment and Plan: Assessment - Initially presented meeting 2/4 SIRS criteria, with tachycardia and leukocytosis - Potential infection source is UTI, as demonstrated on urinalysis - Patient endorsed dysuria, frequency, and urgency upon presentation - Causative organism is unknown at this time - This morning, patient remains tachycardic; leukocytosis improving - Blood cultures 2 and urine cultures pending - Patient was started on empiric Rocephin Plan - Continue Rocephin IV 1 g per day - Follow blood and urine cultures; tailor antibiotic therapy accordingly (2) Urinary tract infection Current Visit: Yes Status: Acute Assessment and Plan: - Initially presented with the complaint of dysuria, frequency, and urgency - Analysis in the ED demonstrated moderate amount of leukocyte esterase - Urine culture is pending - Continue antibiotics as documented above (3) Cardiomyopathy Current Visit: Yes Status: Chronic Assessment and Plan: Assessment - Patient has a history of HFrEF - TTE 04/03: EF 20-25%, severe global LV systolic dysfunction, atypical septal motion consistent w/ bundle branch block - Presented with peripheral edema with 2+ pitting edema in b/l LEs Plan - Strict I/Os, daily weights - Fluid restriction of1.5 L per day - Continue beta juliet - Albumin with Lasix administered today - Holding daily diuretic due to LANDON (4) Acute kidney injury Current Visit: Yes Status: Acute Assessment and Plan: - Presented with an elevated creatinine at 1.52 - Etiology is likely prerenal in the setting of both sepsis and CHF - Albumin with Lasix was administered yesterday; serum creatinine still in creased to 1.73 Plan - Continue IV maintenance fluids at 75 mL per hour - Repeat a.m. labs - Strict Is and Os, renally dose medications, avoid nephrotoxins when possible - Nephrology consulted for further recommendations regarding diuresis in the setting of LANDON (5) Atrial fibrillation Current Visit: Yes Status: Acute Assessment and Plan: Assessment - Patient has a known history of atrial fibrillation - Receives beta juliet for rate control - Anticoagulation was discontinued in March after hematuria and concern for bleeding into the pleural space Plan - Continue rate control with beta juliet - Continuous telemetry (6) Diabetes mellitus Current Visit: Yes Status: Acute Assessment and Plan: - Low-dose SSI, accuchecks - Cardiac, diabetic diet (7) Hypertension Current Visit: Yes Status: Acute Assessment and Plan: - Blood pressure well controlled at this time - Continue home medications (8) DVT prophylaxis Current Visit: Yes Status: Acute Assessment and Plan: - EPCDs - Time Spent with Patient Total time spent is greater than 50% in coordination of care (as documented) at patient's floor/unit and/or counseling patient: Internal Medicine: Result - Labs CBC & Chem 7: 06/17/19 05:17 06/17/19 05:17 Labs: Short CBC 06/17/19 Range/Units 05:17 WBC 12.3 H (4.3-11.1) K/mcL Hgb 8.8 L D (11.5-15.4) g/dL Hct 29.7 L (35.3-44.9) % Plt Count 345 (140-400) K/mcL Neutrophils # 9.9 H (1.6-8.9) K/mcL BMP 06/17/19 05:17 Sodium 141 Potassium 3.7 Chloride 99 Carbon Dioxide 29 BUN 46 H Creatinine 1.73 H Glucose 141 H Calcium 8.7 - ABG Interpretation ABG results: PT/INR, D-dimer PT 15.0 Seconds (9.4-12.1) H 06/16/19 00:46 - Impressions Impressions Chest X-Ray 06/15/19 14:35 IMPRESSION: 1. No new abnormality in the chest. 2. Persistent moderate right pleural effusion with right basilar atelectasis. Right chest pleural drain is present. 3. Perihilar left upper lobe consolidation remains. Scarring is present in the right lung apex. D/ / 06/15/2019 14:43:44 Dioni Banerjee MD / antonieta Interpreting Provider: Dioni Banerjee MD <Vida Garcia - Last Filed: 06/17/19 18:19> (1) Sepsis Qualifiers: Sepsis type: Escherichia coli Sepsis acute organ dysfunction status: with acute organ dysfunction Severe sepsis acute organ dysfunction type: acute renal failure Acute renal failure type: unspecified Severe sepsis shock status: without septic shock Qualified Code(s): A41.51 - Sepsis due to Escherichia coli [E. 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 insulin use: without correction use Diabetes mellitus complication status: without complication Qualified Code(s): E11.9 - Type 2 diabetes mellitus without complications (8) Hypertension Qualifiers: Hypertension type: essential hypertension Qualified Code(s): I10 - Essential (primary) hypertension <Jeanmarie Isaacs - Last Filed: 06/17/19 18:56> (2) Urinary tract infection Qualifiers: Urinary tract infection type: acute cystitis Hematuria presence: without hematuria Qualified Code(s): N30.00 - Acute cystitis without hematuria (3) Cardiomyopathy Qualifiers: Cardiomyopathy type: other Qualified Code(s): I42.8 - Other cardiomyopathies
[2019-06-18] MEDS: Acetaminophen 325 MG TABLET PO PRN (03:11)
[2019-06-18] MEDS: Levalbuterol Neb 0.63 MG/3 ML IH SCH ×4 (03:32→22:34)
[2019-06-18 04:37] LABS: ABG Base Excess 2 mEq/L (-2 to 3); ABG HCO3 26 mEq/L (21-27); ABG Oxygen Saturation 96 % (95-98); ABG PCO2 39 mmHg (35-45); ABG PH 7.44 pH Units (7.32-7.45); ABG PO2 81 mmHg (85-104); ABG TCO2 27 mEq/L (20-26)
[2019-06-18] MEDS ORDERED: methylPREDNISolone 125 MG/2 ML VIAL IM ONE (05:39)
[2019-06-18] MEDS ORDERED: methylPREDNISolone 125 MG/2 ML VIAL IVP ONE (05:50)
[2019-06-18] MEDS ORDERED: *HR* Metoprolol 5 MG/5 ML VIAL IVP ONE (06:33)
--- NOTE | 2019-06-18 07:11 | Event Note ---
Date of Encounter: 06/18/19 Time of Encounter: 04:14 Alerted by patient's nurse CHAPO Burgos that patient was having a difficult time breathing and O2 saturation was 93% on 8 L via Oxymask. Patient was previously on 3 L via nasal cannula. Left lobes and right upper lobes of lungs have prominent rhonchi/crackles, worse from previous assessment. Patient was given Xopenex breathing treatment and was currently sitting on side of bed. I ordered a stat 1 view portable CXR which shows significant interval worsening of widespread airspace opacity throughout both lungs, likely a combination of asymmetric edema and multifocal pneumonia. Stable right basilar chest tube with stable small right pleural effusion. Stable small left pleural effusion. Stable cardiomegaly. Stat ABG ordered which showed pH 7.44, PCO2 39, PO2 81, HCO3 26, total CO2 27, O2 saturation 96, base excess 2. Patient has history of COPD and had received prednisone for approximately 15 days during previous admission in March. One-time order 80 mg IVP Solu-Medrol ordered and administered. Alerted 05:46 that SPO2 is now 91-92% via 8 L on Oxymask. Nurse instructed to call MANAGER REPORTING in place BiPAP on patient and give me updates every 15 minutes for the next hour. Went to see the patient who was now on BiPAP and SpO2 was 100%. HR was now bouncing from high 90s to 120s and BP was 147/87. 5 mg IVP metoprolol ordered once and administered. EKG ordered and showed atrial fibrillation. Consider adding Cardizem drip for patient during day if heart rate continues to sustain in atrial fibrillation. Nurse instructed to continue monitoring patient very closely and alert daytime hospitalist of current situation and events overnight.
--- NOTE | 2019-06-18 07:57 | Event Note ---
Date of Encounter: 06/18/19 Time of Encounter: 07:53 Chart reviewed and overnight events and imaging noted. Patient had acutely worsening respiratory status overnight with afib with RVR. Chest x-ray showed findings of worsening pulmonary edema with possible multifocal pneumonia. This raises concern for HAP. In this case, will need broadened antibiotic coverage. DC Rocephin, change to Vanc/Zosyn, give Lasix, await BMP for dosing. Neprology consulted. In regards to afib with RVR, will avoid Cardizem as she has significant reduced EF of 20-25%. Continue BB as needed, anticipate HR will improve with treating acute CHF and pneumonia. Progress note to follow.
[2019-06-18 07:58] LABS: Basophils # 0.1 K/mcL (0.0-0.2); Basophils % 0.4 %; Hematocrit 34.2 % (35.3-44.9); Hemoglobin 10.3 g/dL (11.5-15.4); Immature Granulocytes % 3.4 % (0-4); Lymphocytes # 0.9 K/mcL (0.6-4.6); Mean Corpuscular HGB Conc 30.1 g/dL (31.6-35.5); Mean Corpuscular Hemoglobin 22.6 pg (28.0-33.3); Mean Corpuscular Volume 75.2 fL (83.0-100.0); Mean Platelet Volume 10.4 fL (9.4-12.4); Monocytes # 0.8 K/mcL (0.0-1.3); Monocytes % 4.8 %; Neutrophils # 14.9 K/mcL (1.6-8.9); Platelet Count 367 K/mcL (140-400); Red Blood Count 4.55 M/mcL (3.82-4.97); Segmented Neutrophils % 86.4 %; White Blood Count 17.3 K/mcL (4.3-11.1)
[2019-06-18] MEDS ORDERED: *HR* Metoprolol 5 MG/5 ML VIAL IVP PRN (07:58)
--- NOTE | 2019-06-18 08:08 | Internal Med Progress Note ---
<Vida Garcia - Last Filed: 06/18/19 15:16> Hospitalist Progress Note - Encounter Date of Encounter: 06/18/19 - Exam Vitals: Temp Pulse Resp BP Pulse Ox 97.6 F 102 16 117/72 91 06/18/19 12:08 06/18/19 12:08 06/18/19 12:08 06/18/19 12:08 06/18/19 12:08 - Assessment and Plan (1) Sepsis Current Visit: Yes Status: Suspected (2) Acute kidney injury Current Visit: Yes Status: Acute (3) Elevated troponin Current Visit: Yes Status: Acute (4) Atrial fibrillation with rapid ventricular response Current Visit: Yes Status: Acute (5) Cardiomyopathy Current Visit: Yes Status: Chronic (6) Congestive heart failure Current Visit: Yes Status: Chronic (7) Diabetes mellitus Current Visit: Yes Status: Chronic (8) Hypertension Current Visit: Yes Status: Chronic (9) Pleural effusion Current Visit: Yes Status: Chronic - Time Spent with Patient Total time spent is greater than 50% in coordination of care (as documented) at patient's floor/unit and/or counseling patient: Internal Medicine: Result - Labs CBC & Chem 7: 06/18/19 07:44 06/18/19 07:44 Labs: Short CBC 06/18/19 Range/Units 07:44 WBC 17.3 H (4.3-11.1) K/mcL Hgb 10.3 L D (11.5-15.4) g/dL Hct 34.2 L (35.3-44.9) % Plt Count 367 (140-400) K/mcL Neutrophils # 14.9 H (1.6-8.9) K/mcL BMP 06/18/19 07:44 Sodium 140 Potassium 3.8 Chloride 99 Carbon Dioxide 26 BUN 49 H Creatinine 1.30 H Glucose 140 H Calcium 9.1 - ABG Interpretation ABG results: ABG ABG pH 7.44 pH Units (7.32-7.45) 06/18/19 04:31 ABG pCO2 39 mmHg (35-45) 06/18/19 04:31 ABG pO2 81 mmHg (85-104) L 06/18/19 04:31 ABG O2 Saturation 96 % (95-98) 06/18/19 04:31 PT/INR, D-dimer PT 15.0 Seconds (9.4-12.1) H 06/16/19 00:46 - Impressions Impressions Chest X-Ray 06/18/19 04:48 IMPRESSION: 1. Significant interval worsening of widespread airspace opacity throughout both lungs, likely a combination of asymmetric edema and multifocal pneumonia. 2. Stable right basilar chest tube with a stable small right pleural effusion. 3. Stable small left pleural effusion. 4. Stable cardiomegaly. D/ / 06/18/2019 08:16:31 Christian Kebede MD / beena Interpreting Provider: Christian Kebede MD Consult Discharge Plan - Plan Referrals: Markell Esparza DO [Primary Care Provider] - - Attending Attestation I saw evaluated and examined this patient and reviewed objective data including labs and my medical decision-making was reviewed with the Resident Physician. I agree with the documented findings, disposition and treatment plan as described except to any changes set forth below. We independently had [id number] contact with the patient. Overnight patient had dyspnea and afib with RVR, known history of afib. Chest x-ray consistent with pulmonary edema and possible pneumonia. VS: reviewed, patient tachycardic, normal BP, afebrile. Patient is in no acute respiratory distress during my assessment but breath sounds coarse and HR tachycardic, trace bipedal pitting edema. Labs: reviewed. Vanc/Zosyn started today, Lasix IV given improved renal function she can tolerate diuresis at this time. Metoprolol PO scheduled per home medication and add lopressor IV prn tachycardia. Avoid CCBs. DC vancomycin if MRSA swab negative. <Jeanmarie Isaacs - Last Filed: 06/18/19 15:48> Hospitalist Progress Note - Encounter Date of Encounter: 06/18/19 Time of Encounter: :26 - Subjective Interval History: Patient seen and examined at bedside. She is currently on oxygen mask. Patient had an episode last night with acute worsening of shortness of breath. Chest x- ray showed possible pneumonia. Antibiotic coverage has been broadened to vancomycin and Zosyn. MRSA swab is pending. We will discontinue vancomycin and is negative. Patient has had multiple episodes of tachycardia with heart rate in the 110s. PRN Lopressor has been added on for this. Nephrology is consulted for diuretics recommendations in the setting of acute kidney injury. One-time dose of 20 mg Lasix administered today. She complains of back pain and some shortness of breath today, but denies fever, chills, cough, and chest pain. - Exam Vitals: Temp Pulse Resp BP Pulse Ox 97.4 F L 111 10 140/90 98 06/18/19 04:52 06/18/19 04:52 06/18/19 06:34 06/18/19 04:52 06/18/19 06:34 Exam: General: Conversant, tired appearing, in mild distress due to back pain; on oxymask Head: atraumatic, normocephalic Eye: PERRL, EOMI Neck: Supple, trachea midline; No lymphadenopathy Respiratory: Diminished breath sounds b/l; no wheezes, rales, rhonchi Cardiovascular: Irregularly irregular rhythm, +S1, +S2; no murmurs, rubs, gallops Abdomen: Soft, nontender Extremities: +2 pitting edema in b/l LEs extending up to knees b/l Neurological: Global weakness Psychiatric: Normal affect, normal mood - Assessment and Plan (1) Sepsis Current Visit: Yes Status: Acute Assessment and Plan: Assessment - Initially presented meeting 2/4 SIRS criteria, with tachycardia and leukocytosis - Potential infection sources include both UTI and pneumonia - She was initially started on Rocephin; however, CXR demonstrated worsening pulmonary edema with possible multifocal pneumonia Plan - Antibiotic coverage has been brought to Vancomycin and Zosyn due to concern for hospital-acquired pneumonia - Continue vancomycin if MRSA swab was negative - Follow blood and urine cultures; tailor antibiotic therapy accordingly (2) Urinary tract infection Current Visit: Yes Status: Acute Assessment and Plan: - Initially presented with the complaint of dysuria, frequency, and urgency - Analysis in the ED demonstrated moderate amount of leukocyte esterase - Urine culture is pending - Continue antibiotics as documented above (3) Pneumonia Current Visit: Yes Status: Acute Assessment and Plan: - Patient developed acute respiratory distress last night - Chest x-ray showed possible pneumonia - Vancomycin and Zosyn have both been started - We will discontinue vancomycin if MRSA swab is negative (4) Cardiomyopathy Current Visit: Yes Status: Chronic Assessment and Plan: Assessment - Patient has a history of HFrEF - TTE 04/03: EF 20-25%, severe global LV systolic dysfunction, atypical septal motion consistent w/ bundle branch block - Presented with peripheral edema with 2+ pitting edema in b/l LEs Plan - Strict I/Os, daily weights - Fluid restriction of1.5 L per day - Continue beta juliet - Albumin with Lasix administered today - Holding daily diuretic due to LANDON - Nephrology consulted for diuretic recommendations - A one-time dose of 20 mg IV Lasix has been administered (5) Acute kidney injury Current Visit: Yes Status: Acute Assessment and Plan: - Presented with an elevated creatinine at 1.52 - Etiology is likely prerenal in the setting of both sepsis and CHF - Creatinine has decreased from 1.73 to 1.30 Plan - Repeat a.m. labs - Strict Is and Os, renally dose medications, avoid nephrotoxins when possible - Nephrology consulted for further recommendations regarding diuresis in the setting of LANDON (6) Atrial fibrillation Current Visit: Yes Status: Acute Assessment and Plan: Assessment - Patient has a known history of atrial fibrillation - Had acutely worsening respiratory status overnight with atrial fibrillation with rapid ventricular response - CXR demonstrated worsening pulmonary edema with possible multifocal pneumonia Plan - Continue Lopressor 25 mg by mouth twice a day - 5 mg IV every 6 hours when necessary Lopressor - Avoid calcium channel juliet (7) Diabetes mellitus Current Visit: Yes Status: Acute Assessment and Plan: - Low-dose SSI, accuchecks - Cardiac, diabetic diet (8) Hypertension Current Visit: Yes Status: Acute Assessment and Plan: - Blood pressure well controlled at this time - Continue home medications (9) DVT prophylaxis Current Visit: Yes Status: Acute Assessment and Plan: - EPCDs - Time Spent with Patient Total time spent is greater than 50% in coordination of care (as documented) at patient's floor/unit and/or counseling patient: Internal Medicine: Result - Labs CBC & Chem 7: 06/18/19 07:44 06/18/19 07:44 - ABG Interpretation ABG results: ABG ABG pH 7.44 pH Units (7.32-7.45) 06/18/19 04:31 ABG pCO2 39 mmHg (35-45) 06/18/19 04:31 ABG pO2 81 mmHg (85-104) L 06/18/19 04:31 ABG O2 Saturation 96 % (95-98) 06/18/19 04:31 PT/INR, D-dimer PT 15.0 Seconds (9.4-12.1) H 06/16/19 00:46 - Impressions Impressions Chest X-Ray 06/18/19 04:48 IMPRESSION: 1. Significant interval worsening of widespread airspace opacity throughout both lungs, likely a combination of asymmetric edema and multifocal pneumonia. 2. Stable right basilar chest tube with a stable small right pleural effusion. 3. Stable small left pleural effusion. 4. Stable cardiomegaly. D/ / Christian Kebede MD / Christian Kebede MD Interpreting Provider: Christian Kebede MD <Vida Garcia - Last Filed: 06/18/19 15:16> (1) Sepsis Qualifiers: Sepsis type: Escherichia coli Sepsis acute organ dysfunction status: with acute organ dysfunction Severe sepsis acute organ dysfunction type: acute renal failure Acute renal failure type: unspecified Severe sepsis shock status: without septic shock Qualified Code(s): A41.51 - Sepsis due to Escherichia coli [E. coli]; R65.20 - Severe sepsis without septic shock; N17.9 - Acute kidney failure, unspecified (5) Cardiomyopathy Qualifiers: Cardiomyopathy type: other Qualified Code(s): I42.8 - Other cardiomyopathies (6) Congestive heart failure Qualifiers: Heart failure type: systolic Heart failure chronicity: chronic Qualified Code(s): I50.22 - Chronic systolic (congestive) heart failure (7) Diabetes mellitus Qualifiers: Diabetes mellitus type: type 2 Diabetes mellitus senior living insulin use: without joint terminal attack controller use Diabetes mellitus complication status: without complication Qualified Code(s): E11.9 - Type 2 diabetes mellitus without complications (8) Hypertension Qualifiers: Hypertension type: essential hypertension Qualified Code(s): I10 - Essential (primary) hypertension <Jeanmarie Isaacs - Last Filed: 06/18/19 15:48> (2) Urinary tract infection Qualifiers: Urinary tract infection type: acute cystitis Hematuria presence: without hematuria Qualified Code(s): N30.00 - Acute cystitis without hematuria (4) Cardiomyopathy Qualifiers: Cardiomyopathy type: other Qualified Code(s): I42.8 - Other cardiomyopathies
[2019-06-18 08:22] LABS: Calcium 9.1 mg/dL (8.6-10.3); Potassium 3.8 mEq/L (3.5-5.1)
[2019-06-18] MEDS: Sennosides 8.6 MG TABLET PO SCH ×2 (08:41→20:22)
[2019-06-18] MEDS: Magnesium Oxide 400 MG TABLET PO SCH (08:41)
[2019-06-18] MEDS ORDERED: Cefepime HCl 2,000 MG in Water for inj. (sterile) 20 ML IVP SCH (10:00)
[2019-06-18] MEDS: Cefepime HCl 2,000 MG in 0.9 % Sodium Chloride Mini Bag 100 ML IVPB SCH ×2 (10:40→17:18)
--- NOTE | 2019-06-18 12:07 | Electrocardiograph Report ---
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
[2019-06-18] MEDS ORDERED: Furosemide 20 MG/2 ML VIAL IVP ONE (15:36)
--- NOTE | 2019-06-18 15:55 | Electrocardiograph Report ---
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
--- NOTE | 2019-06-18 17:20 | Nephrology Consult Note ---
Date of Encounter: 06/18/19 Time of Encounter: 16:00 Assessment and Plan (1) Acute kidney injury Status: Acute Elevate Scr in the setting of presumed sepsis, Afib, diuretics and possible CHF Avoid nephrotoxins if possible, careful use of vanco advise and ideally by levels Will check urine studies Encouraged just po fluids for now No acute indication for senior cytogenetic technologist at this time (2) CKD (chronic kidney disease) Status: Acute appears to have underlying CKD, likely stage 3. will obtain US of kidney Will check urine for proteinuria Qualifiers: Chronic kidney disease stage: stage 3 (moderate) Qualified Code(s): N18.3 - Chronic kidney disease, stage 3 (moderate) (3) Congestive heart failure Status: Chronic Continue strict I/Os Careful use of diuretics advised, intermittent use preferred Qualifiers: Heart failure type: systolic Heart failure chronicity: chronic Qualified Code(s): I50.22 - Chronic systolic (congestive) heart failure History of Present Illness - Reason for Consult Consult date: 06/18/19 Acute Kidney Injury, Chronic Kidney Disease Requesting physician: Jeanmarie Isaacs - History of Present Illness 73 y o female with PMH of cardiomyopathy with EF of 20-25%, Afib off anticoag, DM, HTN and chronic pleural effusion with pleurx catheter admitted s/p fall. Pt has been treated during hospital stay for sepsis likely from urinary source, CHF and possible PNA. Renal consulted for elevated SCr peaking at 1.73 and improving to 1.3 today. Pt is noted on diuretics on/off during stay and vanco just started. SCr at baseline fluctuates from 0.89 to 1.25, GFR typically 40 to >60. Past Med Surg Social Fam HX - Past Medical History Medical history: arthritis, atrial fibrillation, COPD, hypertension Psychiatric history: no psych history - Past Surgical History Additional surgical history: tubes tied - Social History Smoking Status: Former smoker Smokeless Tobacco Status: No Alcohol use: none Drug use: none - Family History Mother Living Status: Hx Family Cardiac Disorders: Yes (CAD) Father Living Status: Hx Family Cardiac Disorders: Yes (multiple heart attacks) Sister Hx Family Cardiac Disorders: Yes (cardiomyopathy) Medications and Allergies Furosemide [Lasix] 20 mg PO DAILY 04/03/19 [History] Montelukast [Singulair] 10 mg PO HS 04/03/19 [History] Sertraline [Zoloft] 100 mg PO DAILY 04/03/19 [History] hydrOXYzine pamoate [Hydroxyzine Pamoate] 25 mg PO DAILY 04/03/19 [History] predniSONE [PredniSONE] 10 mg PO DAILY 04/03/19 [History] Hydrocodone/Acetaminophen [[place] 10-325 Tablet] 1 tab PO Q6H PRN 2 Days #5 tablet 04/22/19 [Rx] Lisinopril [Zestril] 2.5 mg PO DAILY tablet 04/22/19 [Rx] Magnesium Oxide [Mag-Ox] 400 mg PO DAILY tablet 04/22/19 [Rx] Saline Nasal [place] [[place]len Nasal [place]] 2 spray NS Q2H PRN bottle 04/22/19 [Rx] Acetaminophen [Tylenol 650mg SUPP] 650 mg RC Q6H PRN 06/16/19 [History] Albuterol Neb [Proventil Neb] 3 ml IH Q6H PRN 06/16/19 [History] Albuterol Sulfate [Proventil] 4 mg PO BID 06/16/19 [History] Bisacodyl [Dulcolax] 10 mg RC HS PRN 06/16/19 [History] Haloperidol 0.5 mg PO Q4H PRN 06/16/19 [History] Hyoscyamine SL [Levsin Sl] 0.125 mg SL Q4HR PRN 06/16/19 [History] LORazepam [Ativan] 0.5 mg PO Q4H PRN 06/16/19 [History] Metoprolol [Lopressor] 25 mg PO BID 06/16/19 [History] Morphine Oral CONC [Roxanol] 0.5 mg PO Q4H PRN 06/16/19 [History] Polyethylene Glycol 3350 [MiraLAX] 17 gm PO DAILY PRN 06/16/19 [History] Promethazine HCl [Phenadoz] 25 mg RC Q8H PRN 06/16/19 [History] Sennosides [Senna] 8.6 mg PO BID 06/16/19 [History] Allergy/AdvReac Type Severity Reaction Status Date / Time sulfamethoxazole AdvReac Swelling Verified 06/15/19 16:52 [From Bactrim] of the Eye trimethoprim [From Bactrim] AdvReac Swelling Verified 06/15/19 16:52 of the Eye Review of Systems All Systems review (narrative): The rest of the systems are negative Constitutional: fatigue (admits) Cardiovascular: chest pain (denies), leg edema (admits) Respiratory: dyspnea (denies) Exam - Vital Signs Vital signs: Initial Vital Signs Temp Pulse Resp BP Pulse Ox 96.7 F L 106 18 106/76 100 06/15/19 13:07 06/15/19 13:07 06/15/19 13:07 06/15/19 13:07 06/15/19 13:07 Vital Signs - Last 8 Hours Temp Pulse Resp BP Pulse Ox 06/18/19 16:03 16 96 06/18/19 15:17 97.9 F 111 22 115/85 95 06/18/19 12:08 97.6 F 102 16 117/72 91 06/18/19 10:29 16 94 Intake and Output 06/18/19 06/18/19 06/18/19 07:59 15:59 23:59 Intake Total 840 / 840 Output Total 300 / 300 Balance 540 / 540 Intake: IV Fluids 100 / 100 Maxipime 2,000 MG In 0.9 % 100 / 100 Sodium Chloride (Mini-Bag +) 100 ML @ 200 mls/hr IVPB Q12HR JUAREZ Rx#:[id number] Oral 740 / 740 Output: Urine 300 / 300 Other: Meal Lunch Percent of Meal Consumed 0% Stool Size Moderate Stool Consistency formed Stool Characteristics Normal for Patient Stool Color Brown # Bowel Movements 2 Weight 61.1 kg Blood Glucose* 199 166 Patient Weight 06/18/19 23:59 Weight 61.1 kg - General Appearance Exam: NAD EENT: ATNC, mucous membranes moist Neck: no JVD, supple Additional Comments: decreased BS bases bilat Cardiology: edema, normal S1, normal S2 Gastrointestinal: no tenderness, no guarding Integumentary: warm and dry Neurologic: no focal deficit Musculoskeletal: no deformities Psychiatric: mood/affect appropriate, cooperative Results - Lab Results 06/19/19 10:46 06/19/19 10:27 Most recent lab results 06/18/19 07:44 Calcium 9.1 Consult Discharge Plan - Plan Referrals: Markell Esparza DO [Primary Care Provider] -
[2019-06-19 02:31] LABS: Hematocrit 39.4 % (35.3-44.9); Hemoglobin 11.9 g/dL (11.5-15.4); Mean Corpuscular HGB Conc 30.2 g/dL (31.6-35.5); Mean Corpuscular Hemoglobin 22.3 pg (28.0-33.3); Mean Corpuscular Volume 73.9 fL (83.0-100.0); Mean Platelet Volume 10.4 fL (9.4-12.4); Nucleated Red Blood Cells 1.5 /100 WBC (0); Platelet Count 330 K/mcL (140-400); Red Blood Count 5.33 M/mcL (3.82-4.97); Red Cell Distribution Width 22.6 % (11.5-14.5); White Blood Count 25.2 K/mcL (4.3-11.1)
[2019-06-19 02:52] LABS: Calcium 8.5 mg/dL (8.6-10.3); Potassium 3.7 mEq/L (3.5-5.1)
[2019-06-19 03:06] LABS: Anisocytosis 1+ (Not Present); Monocytes # 0.5 K/mcL (0.0-1.3); Neutrophils # 22.7 K/mcL (1.6-8.9); Platelet Estimate Normal (Normal); Poikilocytosis 1+ (Not Present); Polychromasia 1+ (Not Present)
[2019-06-19 03:07] LABS: Smudge Cells Present (Not Present); Toxic Vacuolation Present (Not Present)
[2019-06-19] MEDS: Levalbuterol Neb 0.63 MG/3 ML IH SCH ×3 (03:25→15:45)
[2019-06-19 04:38] LABS: Sodium, Urine 27.5 mEq/L
[2019-06-19 04:47] LABS: Protein/Creatinine Ratio,Urine 0.54 mg/mg (0.00-0.20)
[2019-06-19] MEDS: Cefepime HCl 2,000 MG in 0.9 % Sodium Chloride Mini Bag 100 ML IVPB SCH (06:24)
--- NOTE | 2019-06-19 07:48 | Event Note ---
Date of Encounter: 06/19/19 Time of Encounter: 07:46 - Nephrology Event Note Nephrology chart update The patient's renal function is nicely improving, and I received a sign out for my colleague Dr. Paiz who reported to sign off at this point, and I recommend a hospital follow-up with Dr. Paiz in approximately 3-6 weeks, or sooner if indicated; with BMP in about 1 week after discharge. Please feel free to call or page nephrology if any related questions. Thank you.
[2019-06-19] MEDS: Sennosides 8.6 MG TABLET PO SCH (08:49)
[2019-06-19] MEDS: Magnesium Oxide 400 MG TABLET PO SCH (08:49)
[2019-06-19] MEDS ORDERED: *HR* Promethazine 25 MG/ML VIAL IVP PRN (10:17)
[2019-06-19] MEDS ORDERED: methylPREDNISolone 125 MG/2 ML VIAL IVP STA (10:23)
[2019-06-19 11:03] LABS: ABG Base Excess 2 mEq/L (-2 to 3); ABG HCO3 28 mEq/L (21-27); ABG Oxygen Saturation 97 % (95-98); ABG PCO2 47 mmHg (35-45); ABG PH 7.38 pH Units (7.32-7.45); ABG PO2 90 mmHg (85-104); ABG TCO2 29 mEq/L (20-26)
[2019-06-19 11:08] LABS: Calcium 8.4 mg/dL (8.6-10.3); Potassium 3.9 mEq/L (3.5-5.1); Troponin I 0.38 ng/mL (< 0.04)
[2019-06-19 11:32] LABS: Hematocrit 37.8 % (35.3-44.9); Hemoglobin 11.6 g/dL (11.5-15.4); Mean Corpuscular HGB Conc 30.7 g/dL (31.6-35.5); Mean Corpuscular Hemoglobin 22.6 pg (28.0-33.3); Mean Corpuscular Volume 73.7 fL (83.0-100.0); Mean Platelet Volume 10.4 fL (9.4-12.4); Nucleated Red Blood Cells 1.5 /100 WBC (0); Platelet Count 294 K/mcL (140-400); Red Blood Count 5.13 M/mcL (3.82-4.97); Red Cell Distribution Width 22.3 % (11.5-14.5)
[2019-06-19 11:46] LABS: Lymphocytes # 1.2 K/mcL (0.6-4.6)
[2019-06-19 11:48] LABS: White Blood Count 30.9 K/mcL (4.3-11.1)
[2019-06-19 11:59] LABS: Platelet Estimate Normal (Normal)
[2019-06-19 12:00] LABS: Monocytes # 0.3 K/mcL (0.0-1.3); Neutrophils # 29.4 K/mcL (1.6-8.9)
[2019-06-19 12:01] LABS: Poikilocytosis 2+ (Not Present)
[2019-06-19] MEDS ORDERED: Piperacillin/Tazobactam 3.375 GM in 0.9 % Sodium Chloride Mini Bag 100 ML IVPB SCH (12:08)
[2019-06-19] MEDS ORDERED: levoFLOXacin 750 MG/150 ML 750 MG/150 ML BAG IVPB SCH (13:00)
[2019-06-19 13:35] LABS: INR 1.3
[2019-06-19] MEDS ORDERED: Alteplase 100 MG/100 mL Vial Pharmacy Waste ONE (13:35)
[2019-06-19 13:41] LABS: Prothrombin Time 14.3 Seconds (9.4-12.1)
--- NOTE | 2019-06-19 13:43 | Discharge Summary ---
<Jeanmarie Isaacs - Last Filed: 06/19/19 14:21> Orders not resulted at time of discharge: Pending orders 06/15/19 18:55 Blood Culture [Culture,Blood] [BC] Routine 06/18/19 08:03 Legionella Antigen [RM] Routine Streptococcal pneumoniae urin antigen [S. Pneumoniae Antigen] [RM] Routine 06/18/19 09:23 Mycoplasma pneumoniae IgG IgM Routine 06/19/19 04:20 Culture,Urine [RM] Stat Date of Encounter: 06/19/19 Time of Encounter: 13:43 - Discharge Diagnosis (1) Sepsis Priority: Primary Status: Acute Qualifiers: Qualified Code(s): A41.9 - Sepsis, unspecified organism; R65.20 - Severe sepsis without septic shock (2) Urinary tract infection Priority: Secondary Status: Acute Qualifiers: Urinary tract infection type: acute cystitis Hematuria presence: without hematuria Qualified Code(s): N30.00 - Acute cystitis without hematuria (3) Pneumonia Priority: Secondary Status: Acute Qualifiers: Qualified Code(s): J18.9 - Pneumonia, unspecified organism (4) Cardiomyopathy Priority: Secondary Status: Chronic Qualifiers: Cardiomyopathy type: other Qualified Code(s): I42.8 - Other cardiomyopathies (5) Acute kidney injury Priority: Secondary Status: Acute (6) Atrial fibrillation Priority: Secondary Status: Acute Qualifiers: Qualified Code(s): I48.91 - Unspecified atrial fibrillation (7) Diabetes mellitus Priority: Secondary Status: Acute Qualifiers: Qualified Code(s): E11.9 - Type 2 diabetes mellitus without complications (8) Hypertension Priority: Secondary Status: Acute Qualifiers: Qualified Code(s): I10 - Essential (primary) hypertension (9) DVT prophylaxis Priority: Secondary Status: Acute Hospital course: Ms. Harden is a 73 year old female with PMH of systolic heart failure with ejection fraction 20-25%, chronic atrial fibrillation; not on anticoagulation due to hemothorax, diabetes, and hypertension who presented to [facility] ED after experiencing a mechanical fall. She reported sliding off of her wheelchair. Afterwards, she complained of pain in her lower back and chest wall. She was found at home by her home health nurse. She denied having any loss of consciousness. In the emergency department, patient was found to have an elevated heart rate at 106 bpm. Labs showed an elevated white count of 14.8. Creatinine was elevated at 1.52. Troponin was elevated at 0.34. Urinalysis demonstrated a moderate amount of leukocyte esterase with cloudy appearance, suggestive of UTI. CXR demonstrated persistent moderate right-sided pleural effusion and right basilar atelectasis. It also demonstrated perihilar left upper lobe consolidation. X-ray of the lumbar spine demonstrated possible sacral fracture. CT scan of the lumbar spine showed no acute fracture. She was admitted for sepsis secondary to UTI. She was started on IV Rocephin and Zithromax. Patient was given gentle IV fluid hydration due to sepsis, dehydration, and LANDON. Initially, patient complained of mild shortness of breath, and was noted to have significant lower extremity edema bilaterally. The next few days, her renal function improved, but her respiratory status continued to decline. Chest x-ray was performed after she became short of breath, and demonstrated possible multifocal pneumonia. Antibiotic coverage was broadened to vancomycin and Zosyn. Vancomycin was later discontinued due to negative MRSA swab. Zosyn was the escalated cefepime. On the morning of 06/19/19, patient was noted to have difficulty in breathing while on BiPAP. She also complained of mild nausea. Her white count increased to 30.9. At 11:30, patient was transferred to 2N due to worsening respiratory status. Shortly after arrival, at 228, she was noted to have right-sided focal deficits with right sided facial drooping. Stroke alert was called and she was moved to the ER. [facility] neurologist was contacted, who reviewed patient and recommended TPA. TPA was administered at 1334. Patient will be transferred to [facility]. - Time Spent with Patient Total time spent providing and/or coordinating discharge services: - Discharge Medications Prescriptions: Continued Furosemide [Lasix] 20 mg PO DAILY hydrOXYzine pamoate [Hydroxyzine Pamoate] 25 mg PO DAILY Montelukast [Singulair] 10 mg PO HS predniSONE [PredniSONE] 10 mg PO DAILY Sertraline [Zoloft] 100 mg PO DAILY Lisinopril [Zestril] 2.5 mg PO DAILY tablet Hydrocodone/Acetaminophen [Massena 10-325 Tablet] 1 tab PO Q6H PRN 2 Days #5 tablet PRN Reason: Pain Saline Nasal Slater [[place] Nasal Slater] 2 spray NS Q2H PRN bottle PRN Reason: Congestion Magnesium Oxide [Mag-Ox] 400 mg PO DAILY tablet Sennosides [Senna] 8.6 mg PO BID Promethazine HCl [Phenadoz] 25 mg RC Q8H PRN PRN Reason: Nausea And Vomiting Polyethylene Glycol 3350 [MiraLAX] 17 gm PO DAILY PRN PRN Reason: Constipation Morphine Oral CONC [Roxanol] 0.5 mg PO Q4H PRN PRN Reason: Pain/SOB Metoprolol [Lopressor] 25 mg PO BID LORazepam [Ativan] 0.5 mg PO Q4H PRN PRN Reason: Anxiety Hyoscyamine SL [Levsin Sl] 0.125 mg SL Q4HR PRN PRN Reason: EXCESSIVE SECRETIONS Haloperidol 0.5 mg PO Q4H PRN PRN Reason: TERMINAL AGITATION Bisacodyl [Dulcolax] 10 mg RC HS PRN PRN Reason: Constipation Albuterol Sulfate [Proventil] 4 mg PO BID Albuterol Neb [Proventil Neb] 3 ml IH Q6H PRN PRN Reason: Shortness Of Breath Acetaminophen [Tylenol 650mg SUPP] 650 mg RC Q6H PRN PRN Reason: Fever Home Medications: Furosemide [Lasix] 20 mg PO DAILY 04/03/19 [History] Montelukast [Singulair] 10 mg PO HS 04/03/19 [History] Sertraline [Zoloft] 100 mg PO DAILY 04/03/19 [History] hydrOXYzine pamoate [Hydroxyzine Pamoate] 25 mg PO DAILY 04/03/19 [History] predniSONE [PredniSONE] 10 mg PO DAILY 04/03/19 [History] Hydrocodone/Acetaminophen [[place]ena 10-325 Tablet] 1 tab PO Q6H PRN 2 Days #5 tablet 04/22/19 [Rx] Lisinopril [Zestril] 2.5 mg PO DAILY tablet 04/22/19 [Rx] Magnesium Oxide [Mag-Ox] 400 mg PO DAILY tablet 04/22/19 [Rx] Saline Nasal Slater [[place] Nasal Slater] 2 spray NS Q2H PRN bottle 04/22/19 [Rx] Acetaminophen [Tylenol 650mg SUPP] 650 mg RC Q6H PRN 06/16/19 [History] Albuterol Neb [Proventil Neb] 3 ml IH Q6H PRN 06/16/19 [History] Albuterol Sulfate [Proventil] 4 mg PO BID 06/16/19 [History] Bisacodyl [Dulcolax] 10 mg RC HS PRN 06/16/19 [History] Haloperidol 0.5 mg PO Q4H PRN 06/16/19 [History] Hyoscyamine SL [Levsin Sl] 0.125 mg SL Q4HR PRN 06/16/19 [History] LORazepam [Ativan] 0.5 mg PO Q4H PRN 06/16/19 [History] Metoprolol [Lopressor] 25 mg PO BID 06/16/19 [History] Morphine Oral CONC [Roxanol] 0.5 mg PO Q4H PRN 06/16/19 [History] Polyethylene Glycol 3350 [MiraLAX] 17 gm PO DAILY PRN 06/16/19 [History] Promethazine HCl [Phenadoz] 25 mg RC Q8H PRN 06/16/19 [History] Sennosides [Senna] 8.6 mg PO BID 06/16/19 [History] Allergies/Adverse Reactions: Allergy/AdvReac Type Severity Reaction Status Date / Time sulfamethoxazole AdvReac Swelling Verified 06/15/19 16:52 [From Bactrim] of the Eye trimethoprim [From Bactrim] AdvReac Swelling Verified 06/15/19 16:52 of the Eye Date of admission: 06/16/19 15:18 Primary care physician: Markell Esparza Consults: 06/15/19 18:46 Consult to Nutrition [CONS] Routine Comment: Consulting Provider: NUTRITION Reason for Dietary Consult: MST Score 06/16/19 15:00 Consult to Occupational Therapy [CONS] Routine Comment: Evaluate, develop and implement POC Reason for Consult: Gen weakness Does patient have active BEDREST order?: No Is patient medically & hemodynamically stable?: Yes Consult to Physical Therapy [CONS] Routine Comment: Evaluate, develop and implement POC Reason for Consult: Gen weakness Does patient have active BEDREST order?: No Is patient medically & hemodynamically stable?: Yes 06/16/19 22:45 Consult to Dialysis [CONS] ONCE 06/17/19 18:45 Consult to Nephrology [CONS] Routine Consulting Provider: Kidney Eileen/DIANA/ED/SAUL Reason for Consult: Worsening LANDON in the setting of CHF Call Completed: No 06/18/19 06:05 Consult to Respiratory Therapy [CONS] Routine Reason for Consult: Mgmt of BiPAP Call Completed: Yes Discharging clinician: Jeanmarie Isaacs Anticipated date of discharge: 06/19/19 - Constitutional Vitals: Temp Pulse Resp BP Pulse Ox 96.2 F L 124 25 128/70 95 06/19/19 12:34 06/19/19 12:34 06/19/19 12:34 06/19/19 12:34 06/19/19 12:34 Exam: NOTE: Exam performed in the a.m. before the development of neurologic symptoms General: In moderate respiratory distress on BiPAP; difficulty speaking Head: atraumatic, normocephalic Eye: PERRL, EOMI Respiratory: Diminished bilaterally; shortened inspiratory phase, bilateral cr ackles Cardiovascular: Tachycardic, irregular rhythm, +S1, +S2; no murmurs, rubs, gallops Abdomen: Soft, nondistended Extremities: +2 pitting edema in b/l LEs extending up to knees b/l Neurological: Global weakness Psychiatric: Unable to assess - Patient Status Disposition: Transfer Other Condition: Fair Functional capacity at discharge: uses cane/walker Overall status at discharge: patient is not back to baseline - Discharge Instructions Follow Up With: Markell Espraza DO [Primary Care Provider] - - Diet and Activity Activity: increase activity as tolerated Diet: low salt diet <Vida Garcia - Last Filed: 06/19/19 16:33> Orders not resulted at time of discharge: Pending orders 06/15/19 18:55 Blood Culture [Culture,Blood] [BC] Routine 06/18/19 08:03 Legionella Antigen [RM] Routine Streptococcal pneumoniae urin antigen [S. Pneumoniae Antigen] [RM] Routine 06/18/19 09:23 Mycoplasma pneumoniae IgG IgM Routine 06/19/19 04:20 Culture,Urine [RM] Stat Date of Encounter: 06/19/19 - Discharge Diagnosis (1) Cardiopulmonary arrest with successful resuscitation Priority: Primary Status: Acute (2) Sepsis Priority: Secondary Status: Suspected Qualifiers: Sepsis type: Escherichia coli Sepsis acute organ dysfunction status: with acute organ dysfunction Severe sepsis acute organ dysfunction type: acute renal failure Acute renal failure type: unspecified Severe sepsis shock status: without septic shock Qualified Code(s): A41.51 - Sepsis due to Escherichia coli [E. coli]; R65.20 - Severe sepsis without septic shock; N17.9 - Acute kidney failure, unspecified (3) Acute kidney injury Priority: Secondary Status: Acute (4) Elevated troponin Priority: Secondary Status: Acute (5) Atrial fibrillation with rapid ventricular response Priority: Secondary Status: Acute (6) Cardiomyopathy Status: Chronic Qualifiers: Cardiomyopathy type: other Qualified Code(s): I42.8 - Other cardiomyopathies (7) Congestive heart failure Priority: Secondary Status: Chronic Qualifiers: Heart failure type: systolic Heart failure chronicity: chronic Qualified Code(s): I50.22 - Chronic systolic (congestive) heart failure (8) Diabetes mellitus Priority: Secondary Status: Chronic Qualifiers: Diabetes mellitus type: type 2 Diabetes mellitus prison insulin use: without prison use Diabetes mellitus complication status: without complication Qualified Code(s): E11.9 - Type 2 diabetes mellitus without complications (9) Hypertension Priority: Secondary Status: Chronic Qualifiers: Hypertension type: essential hypertension Qualified Code(s): I10 - Essential (primary) hypertension (10) Pleural effusion Priority: Secondary Status: Chronic (11) Stroke Priority: Secondary Status: Acute Qualifiers: CVA mechanism: unspecified Qualified Code(s): I63.9 - Cerebral infarction, unspecified Hospital course: Ms. Harden is a 73 year old female - Time Spent with Patient Total time spent providing and/or coordinating discharge services: Date of admission: 06/16/19 15:18 Primary care physician: Markell Esparza Consults: 06/15/19 18:46 Consult to Nutrition [CONS] Routine Comment: Consulting Provider: NUTRITION Reason for Dietary Consult: MST Score 06/16/19 15:00 Consult to Occupational Therapy [CONS] Routine Comment: Evaluate, develop and implement POC Reason for Consult: Gen weakness Does patient have active BEDREST order?: No Is patient medically & hemodynamically stable?: Yes Consult to Physical Therapy [CONS] Routine Comment: Evaluate, develop and implement POC Reason for Consult: Gen weakness Does patient have active BEDREST order?: No Is patient medically & hemodynamically stable?: Yes 06/16/19 22:45 Consult to Dialysis [CONS] ONCE 06/17/19 18:45 Consult to Nephrology [CONS] Routine Consulting Provider: Kidney Eileen/DIANA/ED/SAUL Reason for Consult: Worsening LANDON in the setting of CHF Call Completed: No 06/18/19 06:05 Consult to Respiratory Therapy [CONS] Routine Reason for Consult: Mgmt of BiPAP Call Completed: Yes - Constitutional Vitals: Temp Pulse Resp BP Pulse Ox 96.2 F L 137 14 102/72 95 06/19/19 12:34 06/19/19 14:47 06/19/19 14:29 06/19/19 14:47 06/19/19 12:34 - Attending Attestation I saw evaluated and examined this patient and reviewed objective data including labs and my medical decision-making was reviewed with the Resident Physician. I agree with the documented findings, disposition and treatment plan as described except to any changes set forth below. We independently had [id number] contact with the patient. Ms Harden is a 73 year old female with history of HFrEF EF 25%, chronic atrial fibrillation not on anticoagulation due to history of hemothorax and hematuria 2 months ago, peristent moderate right pleural effusion with Pleurx cath presented to [facility] ED after having falls with weakness. She was reported to be sliding off of her wheelchair. Her home health nurse saw patient. Patient was seen in ED to have afib with RVR with borderline elevated white count and creatinine slightly above baseline. Chest x-ray showed no acute findings, showed persistent moderate right pleural effusions which patient has cath for. Urinalysis findings and symptoms were consistent with UTI. Troponin on admission was 0.34 and peaked to 0.6 and trended back down, likely from demand ischemia. She was emperically treated for sepsis due to UTI. She developed acutely worsening respitus and workup showed acute pulmonary edema with possible multifocal pneumonia. She was treated emperically for HAP. Patient was transported to step-down unit for closer monitoring. She then developed right sided extremity weakness with a right facial droop. Her last known well time was 1130. A stroke alert was called and after evaluation by [facility], patient was deemed a candidate for TPA, which was then administered. There was no improvement in symptoms. She was being in process to transfer to [facility] and patient suddenly declined, a code blue was called and after 6 minutes of CPR, had ROSC. She was then transferred to [facility] for further care.
[2019-06-19] MEDS ORDERED: ALTEPLASE IVP ONE (13:44)
[2019-06-19] MEDS ORDERED: ALTEPLASE IVPB ONE (13:44)
[2019-06-19] MEDS ORDERED: *HR* Metoprolol 5 MG/5 ML VIAL IVP ONE ×2 (14:49→14:56)
--- NOTE | 2019-06-19 15:00 | Electrocardiograph Report ---
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
[2019-06-19 15:35] VITALS: BP 102/72
--- NOTE | 2019-06-19 15:42 | Event Note ---
Date of Encounter: 06/19/19 Time of Encounter: 14:15 Was notified by the primary team that the patient needed intubation status post stroke. She was evaluated by [facility] Neurologist telemedicine was recommended to have TPA shortly after starting TPA she was noted to be unable to protect her airway and somewhat unresponsive. Subsequently during my encounter with the patient, she was minimally responsive and subsequently I noted that she had no carotid pulse during my assessment. As such ACLS protocol was initiated with immediate chest compression. The initial rhythm was pulseless activity. Patient received 1 mg of epinephrine and was intubated during the ACLS protocol by the EMS team. Patient received CPR for about 6 minutes and achieved ROSC. Of note the patient was being considered transferred to [facility] by the EMS flight team when she coded. It appears that after she was stabilized she was transferred via [facility] to [facility]. Diagnosis cardiopulmonary arrest
[2019-06-19] MEDS ORDERED: Cefepime HCl 2,000 MG in 0.9 % Sodium Chloride Mini Bag 100 ML IVPB SCH (16:00)
[2019-06-19] MEDS ORDERED: MethylPREDNISolone 40 MG/ML VIAL IVP SCH (16:00)
[2019-06-20 10:30] LABS: Mycoplasma pneumoniae IgG 0.47 U/L (<=0.09)
== END 2019-06-19 15:14 | disposition other institution (70) | DRG 871 ==
LOC: SUATTDRO → EMEROOARM 13:04 → 2ANU 13:04 → SUATTDRO 06-16 15:18 → 2NNU 06-19 12:32
PROVIDERS: ADMIT Internal Medicine; ATTEND Student in an Organized Health Care Education/Training Program